=== PATIENT | female | born 1960 | race Caucasian/White ===

== ENCOUNTER 2018-03-14 22:13 | Inpatient (IN) | payer OTHER ==
--- OUTSIDE RECORDS SUMMARY | 2018-03-14 22:15 | XMS REPORT | Clinical Summary ---
:1960 Author Organization [facility] Address [address] [place] [address] Phone Care Team Providers Name Role Phone Unavailable Primary Care Provider Unavailable Allergies No Known Allergies Current Medications Prescription Sig. Disp. Refills Start Date End Date Status DULoxetine (CYMBALTA) Take 1 capsule 60 capsule 0 12/27/2013 Active 20 MG capsule (20 mg total) by mouth 2 (two) times daily. gabapentin (NEURONTIN) Take 1 tablet 90 tablet 0 12/27/2013 Active 800 MG tablet (800 mg total) by mouth 3 (three) times daily. metoprolol (TOPROL-XL) Take 1 tablet 60 tablet 0 12/27/2013 Active 100 MG 24 hr tablet (100 mg total) by mouth 2 (two) times daily. pantoprazole Take 1 tablet (40 60 tablet 0 12/27/2013 Active (PROTONIX) 40 MG mg total) by tablet mouth 2 (two) times daily. rosuvastatin (CRESTOR) Take 1 tablet (10 60 tablet 0 12/27/2013 Active 10 MG tablet mg total) by mouth daily. sucralfate (CARAFATE) Take 1 g by mouth Active 1 gram tablet 4 (four) times daily. aspirin 325 MG tablet Take 325 mg by Active mouth daily. montelukast Take 10 mg by Active (SINGULAIR) 10 mg mouth nightly. tablet miscellaneous medical BMP on 01/23/17 1 each 0 01/19/2017 Active supply Misc results to PCP re: low K. miscellaneous medical Nebulizer 1 each 0 01/19/2017 Active supply Misc machine. Active Problems Problem Noted Date Multifocal pneumonia 01/04/2017 Diarrhea 01/04/2017 Dysphagia 01/04/2017 Acute pancreatitis 01/03/2017 GI AVM (gastrointestinal arteriovenous vascular malformation) 01/03/2017 Blood loss anemia 01/02/2017 Anemia associated with acute blood loss 01/02/2017 Hypotension 01/01/2017 Hypokalemia 01/01/2017 Hypophosphatemia 01/01/2017 Respiratory failure with hypoxia (HCC) 12/30/[address] scan, chest 12/30/2016 Physical deconditioning 12/30/2016 Status epilepticus (HCC) 12/22/2016 Chest pain 12/25/2013 Chest pressure 12/23/2013 Family History Medical History Relation Name Comments Cancer Father Heart disease Father Hyperlipidemia Father Hypertension Father Arthritis Maternal Aunt Cancer Maternal Aunt Stroke Maternal Grandmother Alcohol abuse Mother Arthritis Mother Cancer Mother Early Mother Arthritis Paternal Aunt Diabetes Sister Relation Name Status Comments Father Maternal Aunt Maternal Grandmother Mother Paternal Aunt Sister Social History Tobacco Use Types Packs/Day Years Used Date Current Every Day Smoker Tobacco Cessation: Ready to Quit: No Alcohol Use Drinks/Week oz/Week Comments Yes social Sex Assigned at Date Recorded Not on file Last Filed Vital Signs Not on file Plan of Treatment Not on file Results RHYTHM STRIP - SCAN (07/16/2017 8:51 AM)Only the most recent of2 resultswithin the time period is included.after 03/13/2017
--- OUTSIDE RECORDS SUMMARY | 2018-03-14 22:19 | XMS REPORT ---
:1960 [facility] [address] [place] [address] Care Team Providers Name Role Phone YENIFER BUTLER Unavailable Unavailable Problems This patient has no known problems. Allergies, Adverse Reactions, Alerts This patient has no known allergies or adverse reactions. Medications This patient has no known medications. Results Test Description Test Time Test Comments Text Results Atomic Results Result Comments CBC W/PLT COUNT & AUTO DIFFERENTIAL 2017-01-19 11:46:00 Test Item Value Reference Range Comments WHITE BLOOD CELL COUNT (BEAKER) (test jbya=672) 15.6 K/ L 4.0-10.0 RED BLOOD CELL COUNT (BEAKER) (test nshe=059) 2.52 M/ L 4.00-5.00 HEMOGLOBIN (BEAKER) (test eujj=413) 8.4 GM/DL 12.0-15.0 HEMATOCRIT (BEAKER) (test yvqw=620) 25.5 % 36.0-45.0 MEAN CORPUSCULAR VOLUME (BEAKER) (test ecel=798) 101.0 fL 82.0-99.0 MEAN CORPUSCULAR HEMOGLOBIN (BEAKER) (test svqf=365) 33.3 pg 27.0-33.0 MEAN CORPUSCULAR HEMOGLOBIN CONC (BEAKER) (test fnqa=293) 32.9 GM/DL 32.0- 36.0 RED CELL DISTRIBUTION WIDTH (BEAKER) (test sdsf=096) 15.1 % 10.3-14.2 PLATELET COUNT (BEAKER) (test gxxx=139) 356 K/CU MM 150-430 MEAN PLATELET VOLUME (BEAKER) (test rzvl=928) 8.9 fL 6.5-10.5 NUCLEATED RED BLOOD CELLS (BEAKER) (test eoez=840) 0 /100 WBC 0-0 NEUTROPHILS RELATIVE PERCENT (BEAKER) (test jpff=895) 61 % LYMPHOCYTES RELATIVE PERCENT (BEAKER) (test dvec=937) 14 % MONOCYTES RELATIVE PERCENT (BEAKER) (test hfrm=815) 11 % EOSINOPHILS RELATIVE PERCENT (BEAKER) (test yqde=466) 13 % BASOPHILS RELATIVE PERCENT (BEAKER) (test kkxs=004) 1 % NEUTROPHILS ABSOLUTE COUNT (BEAKER) (test oyno=326) 9.56 K/ L 1.80-8.00 LYMPHOCYTES ABSOLUTE COUNT (BEAKER) (test mbkb=426) 2.21 K/ L 1.48-4.50 MONOCYTES ABSOLUTE COUNT (BEAKER) (test xphk=341) 1.66 K/ L 0.00-1.30 EOSINOPHILS ABSOLUTE COUNT (BEAKER) (test cofz=386) 2.03 K/ L 0.00-0.50 BASOPHILS ABSOLUTE COUNT (BEAKER) (test bevk=349) 0.12 K/ L 0.00-0.20 0.00(MANUAL DIFFERENTIAL)2017-01-19 11:46:00 Test Item Value Reference Range Comments TOTAL COUNTED (BEAKER) (test wvxn=9326) WBC MORPHOLOGY (BEAKER) (test oarm=912) Normal PLT MORPHOLOGY (BEAKER) (test epit=842) Normal RBC MORPHOLOGY (BEAKER) (test jctd=059) Normal POCT-GLUCOSE [id number] 11:39:00 Test Item Value Reference Range Comments POC-GLUCOSE METER (BEAKER) 105 mg/dL 70-110 TESTED AT [address] (test yqsr=7281) [facility] [address] STOOL CULTURE + SHIGA [id number] 09:30:00 Test Item Value Reference Range Comments CULTURE (BEAKER) (test No Salmonella, Shigella or usnm=3552) Campylobacter isolated POCT-GLUCOSE [id number] 07:27:00 Test Item Value Reference Range Comments POC-GLUCOSE METER (BEAKER) 99 mg/dL 70-110 TESTED AT [address] (test ydoc=6455) [facility] [address] VITAMIN B12 AND [id number] 06:47:00 Test Item Value Reference Range Comments VITAMIN B12 (BEAKER) (test jfds=123) 687 pg/mL 213-816 FOLATE (BEAKER) (test kmjm=118) 8.9 ng/mL >=7.0 Effective 09/19/2014: Folate Reference Range ChangeNew: >=7.0 Previous: & gt;=[id number] 05:41:00 Test Item Value Reference Range Comments PHOSPHORUS (BEAKER) (test wwzx=473) 5.1 mg/dL 2.3-4.7 COMPREHENSIVE METABOLIC [id number] 05:41:00 Test Item Value Reference Range Comments TOTAL PROTEIN (BEAKER) 5.8 gm/dL 6.0-8.3 (test fzws=449) ALBUMIN (BEAKER) (test 2.6 g/dL 3.5-5.0 njko=2762) ALKALINE PHOSPHATASE 134 U/L 40-150 (BEAKER) (test lsco=828) BILIRUBIN TOTAL (BEAKER) 0.2 mg/dL 0.2-1.2 (test kiat=492) SODIUM (BEAKER) (test 139 meq/L 136-145 mngu=232) POTASSIUM (BEAKER) (test 2.9 meq/L 3.5-5.1 awle=852) CHLORIDE (BEAKER) (test 103 meq/L 98-107 sjcn=734) CO2 (BEAKER) (test 26 meq/L 22-29 ctjj=107) BLOOD UREA NITROGEN 8 mg/dL 7-21 (BEAKER) (test ylxb=880) CREATININE (BEAKER) (test 0.63 mg/dL 0.57-1.25 tjlh=859) GLUCOSE RANDOM (BEAKER) 90 mg/dL 70-105 (test togr=391) CALCIUM (BEAKER) (test 8.9 mg/dL 8.4-10.2 ixto=296) AST (SGOT) (BEAKER) (test 53 U/L 5-34 kzwf=304) ALT (SGPT) (BEAKER) (test 36 U/L 6-55 lrtz=467) EGFR (BEAKER) (test 98 mL/min/1.73 sq m ESTIMATED GFR IS NOT entu=8516) ACCURATE CREATININE CLEARANCE IN PREDICTING GLOMERULAR FILTRATION RATE. ESTIMATED GFR IS NOT APPLICABLE FOR DIALYSIS PATIENTS. POCT-GLUCOSE [id number] 21:13:00 Test Item Value Reference Range Comments POC-GLUCOSE METER (BEAKER) 119 mg/dL 70-110 TESTED AT [address] (test xkrs=0718) [facility] [address] POCT-GLUCOSE [id number] 17:26:00 Test Item Value Reference Range Comments POC-GLUCOSE METER (BEAKER) 128 mg/dL 70-110 TESTED AT [address] (test nnxl=3546) [place] [id number] SHIGA TOXIN [id number] 14:26:00 Test Item Value Reference Range Comments SHIGA TOXIN 1 (BEAKER) (test zclm=2316) Not detected Not detected SHIGA TOXIN 2 (BEAKER) (test mhpy=2123) Not detected Not detected POCT-GLUCOSE [id number] 13:21:00 Test Item Value Reference Range Comments POC-GLUCOSE METER (BEAKER) 102 mg/dL 70-110 TESTED AT [address] (test witu=8017) [place] [address] STOOL PATH [id number] 11:54:00 Test Item Value Reference Range Comments PATHOGEN EXAM CHARGED (BEAKER) (test vgkq=1104) Done POCT-GLUCOSE [id number] 08:29:00 Test Item Value Reference Range Comments POC-GLUCOSE METER (BEAKER) 103 mg/dL 70-110 TESTED AT [address] (test gcpx=1709) [place] [address] CBC W/PLT COUNT & AUTO [id number] 05:34:00 Test Item Value Reference Range Comments WHITE BLOOD CELL COUNT (BEAKER) (test qnea=116) 13.8 K/ L 4.0-10.0 RED BLOOD CELL COUNT (BEAKER) (test dpkf=340) 2.45 M/ L 4.00-5.00 HEMOGLOBIN (BEAKER) (test zdzx=409) 8.1 GM/DL 12.0-15.0 HEMATOCRIT (BEAKER) (test pqkk=868) 24.7 % 36.0-45.0 MEAN CORPUSCULAR VOLUME (BEAKER) (test xyxi=565) 101.0 fL 82.0-99.0 MEAN CORPUSCULAR HEMOGLOBIN (BEAKER) (test 33.3 pg 27.0-33.0 gvbf=230) MEAN CORPUSCULAR HEMOGLOBIN CONC (BEAKER) (test 32.9 GM/DL 32.0-36.0 wixm=696) RED CELL DISTRIBUTION WIDTH (BEAKER) (test 15.4 % 10.3-14.2 ewkf=062) PLATELET COUNT (BEAKER) (test xolz=319) 353 K/CU MM 150-430 MEAN PLATELET VOLUME (BEAKER) (test rkrt=660) 8.9 fL 6.5-10.5 NUCLEATED RED BLOOD CELLS (BEAKER) (test 0 /100 WBC 0-0 mqqp=562) NEUTROPHILS RELATIVE PERCENT (BEAKER) (test 61 % puss=475) LYMPHOCYTES RELATIVE PERCENT (BEAKER) (test 15 % ywfb=651) MONOCYTES RELATIVE PERCENT (BEAKER) (test 10 % patr=999) EOSINOPHILS RELATIVE PERCENT (BEAKER) (test 13 % lwer=459) BASOPHILS RELATIVE PERCENT (BEAKER) (test 1 % qeln=256) NEUTROPHILS ABSOLUTE COUNT (BEAKER) (test 8.38 K/ L 1.80-8.00 pdfo=527) LYMPHOCYTES ABSOLUTE COUNT (BEAKER) (test 2.07 K/ L 1.48-4.50 rjuo=350) MONOCYTES ABSOLUTE COUNT (BEAKER) (test 1.42 K/ L 0.00-1.30 gvxp=579) EOSINOPHILS ABSOLUTE COUNT (BEAKER) (test 1.75 K/ L 0.00-0.50 qmee=250) BASOPHILS ABSOLUTE COUNT (BEAKER) (test 0.15 K/ L 0.00-0.20 irku=230) [id number] 05:24:00 Test Item Value Reference Range Comments PHOSPHORUS (BEAKER) (test olvn=138) 5.7 mg/dL 2.3-4.7 POCT-GLUCOSE [id number] 20:55:00 Test Item Value Reference Range Comments POC-GLUCOSE METER (BEAKER) 98 mg/dL 70-110 TESTED AT [address] (test lcab=8385) [place] [address] POCT-GLUCOSE [id number] 17:37:00 Test Item Value Reference Range Comments POC-GLUCOSE METER (BEAKER) 117 mg/dL 70-110 TESTED AT [address] (test rqsz=8184) [place] [address] OCCULT BLOOD, [id number] 16:19:00 Test Item Value Reference Range Comments FECAL OCCULT BLOOD (BEAKER) (test qpxr=552) Negative Negative POCT-GLUCOSE [id number] 12:16:00 Test Item Value Reference Range Comments POC-GLUCOSE METER (BEAKER) 99 mg/dL 70-[address] [facility] [address] [facility] (test uvbc=5159) [facility] [address] POCT-GLUCOSE [id number] 11:38:00 Test Item Value Reference Range Comments POC-GLUCOSE METER (BEAKER) 100 mg/dL 70-[address] [facility] [address] [facility] (test fwyy=8171) [facility] [address] CBC W/PLT COUNT & AUTO [id number] 09:23:00 Test Item Value Reference Range Comments WHITE BLOOD CELL COUNT (BEAKER) (test ypjq=859) 16.9 K/ L 4.0-10.0 RED BLOOD CELL COUNT (BEAKER) (test qbfm=085) 2.50 M/ L 4.00-5.00 HEMOGLOBIN (BEAKER) (test avsg=361) 8.3 GM/DL 12.0-15.0 HEMATOCRIT (BEAKER) (test rfrq=708) 25.3 % 36.0-45.0 MEAN CORPUSCULAR VOLUME (BEAKER) (test dmpv=616) 101.0 fL 82.0-99.0 MEAN CORPUSCULAR HEMOGLOBIN (BEAKER) (test 33.2 pg 27.0-33.0 cifr=777) MEAN CORPUSCULAR HEMOGLOBIN CONC (BEAKER) (test 32.7 GM/DL 32.0-36.0 kzzc=964) RED CELL DISTRIBUTION WIDTH (BEAKER) (test 15.1 % 10.3-14.2 zivi=602) PLATELET COUNT (BEAKER) (test znvu=525) 353 K/CU MM 150-430 MEAN PLATELET VOLUME (BEAKER) (test utyc=957) 9.0 fL 6.5-10.5 NUCLEATED RED BLOOD CELLS (BEAKER) (test 0 /100 WBC 0-0 qwyu=604) NEUTROPHILS RELATIVE PERCENT (BEAKER) (test 64 % rwrk=915) LYMPHOCYTES RELATIVE PERCENT (BEAKER) (test 15 % mgkm=398) MONOCYTES RELATIVE PERCENT (BEAKER) (test 9 % kdwk=036) EOSINOPHILS RELATIVE PERCENT (BEAKER) (test 11 % nefw=251) BASOPHILS RELATIVE PERCENT (BEAKER) (test 1 % msra=334) NEUTROPHILS ABSOLUTE COUNT (BEAKER) (test 10.80 K/ L 1.80-8.00 vsaz=533) LYMPHOCYTES ABSOLUTE COUNT (BEAKER) (test 2.48 K/ L 1.48-4.50 hwtr=817) MONOCYTES ABSOLUTE COUNT (BEAKER) (test 1.60 K/ L 0.00-1.30 told=392) EOSINOPHILS ABSOLUTE COUNT (BEAKER) (test 1.85 K/ L 0.00-0.50 iwwu=332) BASOPHILS ABSOLUTE COUNT (BEAKER) (test 0.15 K/ L 0.00-0.20 gstv=482) [id number] 06:54:00 Test Item Value Reference Range Comments PHOSPHORUS (BEAKER) (test yayg=343) 5.2 mg/dL 2.3-4.7 POCT-GLUCOSE [id number] 22:42:00 Test Item Value Reference Range Comments POC-GLUCOSE METER (BEAKER) 133 mg/dL 70-[address] [facility] [address] [facility] (test gnxa=9006) [facility] [address] CBC W/PLT COUNT & AUTO [id number] 21:06:00 Test Item Value Reference Range Comments WHITE BLOOD CELL COUNT (BEAKER) (test vvgh=862) 20.0 K/ L 4.0-10.0 RED BLOOD CELL COUNT (BEAKER) (test aafl=926) 2.61 M/ L 4.00-5.00 HEMOGLOBIN (BEAKER) (test zkxn=629) 8.6 GM/DL 12.0-15.0 HEMATOCRIT (BEAKER) (test ndzs=638) 26.2 % 36.0-45.0 MEAN CORPUSCULAR VOLUME (BEAKER) (test vknp=893) 100.0 fL 82.0-99.0 MEAN CORPUSCULAR HEMOGLOBIN (BEAKER) (test 32.9 pg 27.0-33.0 sbgx=804) MEAN CORPUSCULAR HEMOGLOBIN CONC (BEAKER) (test 32.8 GM/DL 32.0-36.0 ozja=916) RED CELL DISTRIBUTION WIDTH (BEAKER) (test 14.9 % 10.3-14.2 bhyw=300) PLATELET COUNT (BEAKER) (test ixoa=274) 348 K/CU MM 150-430 MEAN PLATELET VOLUME (BEAKER) (test dlhh=600) 7.9 fL 6.5-10.5 NUCLEATED RED BLOOD CELLS (BEAKER) (test 0 /100 WBC 0-0 lbxs=832) NEUTROPHILS RELATIVE PERCENT (BEAKER) (test 65 % mzlm=866) LYMPHOCYTES RELATIVE PERCENT (BEAKER) (test 16 % cdyt=395) MONOCYTES RELATIVE PERCENT (BEAKER) (test 9 % hlub=970) EOSINOPHILS RELATIVE PERCENT (BEAKER) (test 9 % nzci=939) BASOPHILS RELATIVE PERCENT (BEAKER) (test 1 % arel=966) NEUTROPHILS ABSOLUTE COUNT (BEAKER) (test 13.00 K/ L 1.80-8.00 vabn=596) LYMPHOCYTES ABSOLUTE COUNT (BEAKER) (test 3.23 K/ L 1.48-4.50 khbu=303) MONOCYTES ABSOLUTE COUNT (BEAKER) (test 1.75 K/ L 0.00-1.30 onzb=275) EOSINOPHILS ABSOLUTE COUNT (BEAKER) (test 1.85 K/ L 0.00-0.50 gtzp=982) BASOPHILS ABSOLUTE COUNT (BEAKER) (test 0.15 K/ L 0.00-0.20 xwdm=856) 0.00POCT-GLUCOSE [id number] 17:24:00 Test Item Value Reference Range Comments POC-GLUCOSE METER (BEAKER) 139 mg/dL 70-110 TESTED AT [address] (test xezj=0260) [place] [address] POCT-GLUCOSE [id number] 12:50:00 Test Item Value Reference Range Comments POC-GLUCOSE METER (BEAKER) 117 mg/dL 70-110 TESTED AT [address] (test jtsb=5928) [place] [address] POCT-GLUCOSE [id number] 07:59:00 Test Item Value Reference Range Comments POC-GLUCOSE METER (BEAKER) 120 mg/dL 70-110 TESTED AT [address] (test geyp=8283) [place] [address] [id number] 07:29:00 Test Item Value Reference Range Comments PHOSPHORUS (BEAKER) (test nkzx=666) 5.2 mg/dL 2.3-4.7 POCT-GLUCOSE [id number] 21:34:00 Test Item Value Reference Range Comments POC-GLUCOSE METER (BEAKER) 136 mg/dL 70-110 TESTED AT [address] (test wbny=9407) [place] [address] POCT-GLUCOSE [id number] 18:10:00 Test Item Value Reference Range Comments POC-GLUCOSE METER (BEAKER) 116 mg/dL 70-110 TESTED AT [address] (test fzgr=1314) [facility] [address] COMPREHENSIVE METABOLIC [id number] 14:27:00 Test Item Value Reference Range Comments TOTAL PROTEIN (BEAKER) 5.9 gm/dL 6.0-8.3 Specimen moderately (test ibvy=254) hemolyzed ALBUMIN (BEAKER) (test 2.2 g/dL 3.5-5.0 Specimen moderately tzcd=0122) hemolyzed ALKALINE PHOSPHATASE 134 U/L 40-150 (BEAKER) (test fmpr=863) BILIRUBIN TOTAL (BEAKER) 0.2 mg/dL 0.2-1.2 Specimen moderately (test lyzc=232) hemolyzed SODIUM (BEAKER) (test 138 meq/L 136-145 xkre=933) POTASSIUM (BEAKER) (test 3.9 meq/L 3.5-5.1 Specimen moderately hqjq=254) hemolyzed CHLORIDE (BEAKER) (test 107 meq/L 98-107 cbjk=531) CO2 (BEAKER) (test 23 meq/L 22-29 idfl=263) BLOOD UREA NITROGEN 8 mg/dL 7-21 (BEAKER) (test hona=098) CREATININE (BEAKER) (test 0.64 mg/dL 0.57-1.25 Specimen moderately ulno=211) hemolyzed GLUCOSE RANDOM (BEAKER) 96 mg/dL 70-105 (test lean=891) CALCIUM (BEAKER) (test 8.4 mg/dL 8.4-10.2 tsth=273) AST (SGOT) (BEAKER) (test 29 U/L 5-34 Specimen moderately ojht=816) hemolyzed ALT (SGPT) (BEAKER) (test 11 U/L 6-55 Specimen moderately nzmd=314) hemolyzed EGFR (BEAKER) (test 96 mL/min/1.73 sq m ESTIMATED GFR IS NOT lvqj=1200) ACCURATE CREATININE CLEARANCE IN PREDICTING GLOMERULAR FILTRATION RATE. ESTIMATED GFR IS NOT APPLICABLE FOR DIALYSIS PATIENTS. POCT-GLUCOSE [id number] 12:50:00 Test Item Value Reference Range Comments POC-GLUCOSE METER (BEAKER) 135 mg/dL 70-110 TESTED AT [address] (test rfwb=1941) [facility] [address] POCT-GLUCOSE [id number] 08:09:00 Test Item Value Reference Range Comments POC-GLUCOSE METER (BEAKER) 164 mg/dL 70-110 TESTED AT [address] (test bbky=4608) [place] [address] [id number] 05:21:00 Test Item Value Reference Range Comments PHOSPHORUS (BEAKER) (test exsn=840) 4.9 mg/dL 2.3-4.7 POCT-GLUCOSE [id number] 21:20:00 Test Item Value Reference Range Comments POC-GLUCOSE METER (BEAKER) 105 mg/dL 70-110 TESTED AT [address] (test qoik=7591) [place] [address] POCT-GLUCOSE [id number] 17:13:00 Test Item Value Reference Range Comments POC-GLUCOSE METER (BEAKER) 186 mg/dL 70-110 TESTED AT [address] (test ajms=8006) [place] [address] POCT-GLUCOSE [id number] 11:46:00 Test Item Value Reference Range Comments POC-GLUCOSE METER (BEAKER) 129 mg/dL 70-110 TESTED AT [address] (test efqn=7701) [place] [address] POCT-GLUCOSE [id number] 08:32:00 Test Item Value Reference Range Comments POC-GLUCOSE METER (BEAKER) 133 mg/dL 70-110 TESTED AT [address] (test vzxq=8366) [place] [address] [id number] 07:03:00 Test Item Value Reference Range Comments PHOSPHORUS (BEAKER) (test joqm=548) 3.9 mg/dL 2.3-4.7 POCT-GLUCOSE [id number] 20:52:00 Test Item Value Reference Range Comments POC-GLUCOSE METER (BEAKER) 111 mg/dL 70-110 TESTED AT [address] (test igzq=2365) [place] [address] POCT-GLUCOSE [id number] 15:58:00 Test Item Value Reference Range Comments POC-GLUCOSE METER (BEAKER) 85 mg/dL 70-110 TESTED AT [address] (test xjar=3292) [place] [address] [id number] 07:50:00 Test Item Value Reference Range Comments TRIGLYCERIDES (BEAKER) (test nqwe=901) 155 mg/dL TRIGLYCERIDE REFERENCE RANGELow Risk <150Borderline Risk 150-199High Risk 200-499Very High Risk>=[id number] 07:50:00 Test Item Value Reference Range Comments MAGNESIUM (BEAKER) (test acnr=249) 1.2 mg/dL 1.6-2.6 [id number] 07:50:00 Test Item Value Reference Range Comments PHOSPHORUS (BEAKER) (test oely=562) 3.4 mg/dL 2.3-4.7 BASIC METABOLIC [id number] 07:50:00 Test Item Value Reference Range Comments SODIUM (BEAKER) (test 139 meq/L 136-145 btnd=971) POTASSIUM (BEAKER) (test 3.8 meq/L 3.5-5.1 eosh=276) CHLORIDE (BEAKER) (test 108 meq/L 98-107 ekjj=784) CO2 (BEAKER) (test 23 meq/L 22-29 lark=171) BLOOD UREA NITROGEN 2 mg/dL 7-21 (BEAKER) (test yjzc=571) CREATININE (BEAKER) (test 0.54 mg/dL 0.57-1.25 jqub=402) GLUCOSE RANDOM (BEAKER) 67 mg/dL 70-105 (test prhy=797) CALCIUM (BEAKER) (test 8.5 mg/dL 8.4-10.2 eiug=189) EGFR (BEAKER) (test 117 mL/min/1.73 sq m ESTIMATED GFR IS NOT oxca=1842) ACCURATE CREATININE CLEARANCE IN PREDICTING GLOMERULAR FILTRATION RATE. ESTIMATED GFR IS NOT APPLICABLE FOR DIALYSIS PATIENTS. POCT-GLUCOSE [id number] 07:42:00 Test Item Value Reference Range Comments POC-GLUCOSE METER (BEAKER) 82 mg/dL 70-[address] [facility] [address] [facility] (test fnep=7244) [facility] [address] CALCIUM, [id number] 06:01:00 Test Item Value Reference Range Comments CALCIUM IONIZED (BEAKER) (test xdxm=323) 1.11 mmol/L 1.12-1.27 PH, BLOOD (BEAKER) (test bguy=1739) 7.42 POCT-GLUCOSE [id number] 21:31:00 Test Item Value Reference Range Comments POC-GLUCOSE METER (BEAKER) 79 mg/dL 70-110 TESTED AT [address] (test akco=5695) [facility] [address] POCT-GLUCOSE [id number] 17:10:00 Test Item Value Reference Range Comments POC-GLUCOSE METER (BEAKER) 109 mg/dL 70-110 TESTED AT [address] (test uufa=3967) [facility] [address] POCT-GLUCOSE [id number] 11:34:00 Test Item Value Reference Range Comments POC-GLUCOSE METER (BEAKER) 82 mg/dL 70-110 TESTED AT [address] (test hosm=4655) [facility] [address] POCT-GLUCOSE [id number] 07:25:00 Test Item Value Reference Range Comments POC-GLUCOSE METER (BEAKER) 86 mg/dL 70-110 TESTED AT [address] (test jrld=7675) [facility] [address] [id number] 06:53:00 Test Item Value Reference Range Comments PHOSPHORUS (BEAKER) (test nrhl=958) 2.6 mg/dL 2.3-4.7 BASIC METABOLIC [id number] 06:53:00 Test Item Value Reference Range Comments SODIUM (BEAKER) (test 139 meq/L 136-145 zavv=194) POTASSIUM (BEAKER) (test 4.0 meq/L 3.5-5.1 suol=429) CHLORIDE (BEAKER) (test 112 meq/L 98-107 clrj=853) CO2 (BEAKER) (test 23 meq/L 22-29 pwbw=107) BLOOD UREA NITROGEN 2 mg/dL 7-21 (BEAKER) (test juvs=992) CREATININE (BEAKER) (test 0.51 mg/dL 0.57-1.25 qsgq=649) GLUCOSE RANDOM (BEAKER) 72 mg/dL 70-105 (test znbj=637) CALCIUM (BEAKER) (test 8.2 mg/dL 8.4-10.2 ufcp=669) EGFR (BEAKER) (test 125 mL/min/1.73 sq m ESTIMATED GFR IS NOT hvru=4091) ACCURATE CREATININE CLEARANCE IN PREDICTING GLOMERULAR FILTRATION RATE. ESTIMATED GFR IS NOT APPLICABLE FOR DIALYSIS PATIENTS. CBC W/PLT COUNT & AUTO [id number] 06:44:00 Test Item Value Reference Range Comments WHITE BLOOD CELL COUNT (BEAKER) (test lizk=133) 11.8 K/ L 4.0-10.0 RED BLOOD CELL COUNT (BEAKER) (test icry=842) 2.82 M/ L 4.00-5.00 HEMOGLOBIN (BEAKER) (test oxzt=450) 9.1 GM/DL 12.0-15.0 HEMATOCRIT (BEAKER) (test cxsh=801) 28.2 % 36.0-45.0 MEAN CORPUSCULAR VOLUME (BEAKER) (test plxn=269) 99.7 fL 82.0-99.0 MEAN CORPUSCULAR HEMOGLOBIN (BEAKER) (test 32.2 pg 27.0-33.0 wtpe=850) MEAN CORPUSCULAR HEMOGLOBIN CONC (BEAKER) (test 32.3 GM/DL 32.0-36.0 kkod=406) RED CELL DISTRIBUTION WIDTH (BEAKER) (test 15.7 % 10.3-14.2 ghpv=832) PLATELET COUNT (BEAKER) (test gval=354) 513 K/CU MM 150-430 MEAN PLATELET VOLUME (BEAKER) (test kbcy=480) 8.1 fL 6.5-10.5 NUCLEATED RED BLOOD CELLS (BEAKER) (test 0 /100 WBC 0-0 eqqc=281) NEUTROPHILS RELATIVE PERCENT (BEAKER) (test 55 % wqyw=425) LYMPHOCYTES RELATIVE PERCENT (BEAKER) (test 18 % ehse=804) MONOCYTES RELATIVE PERCENT (BEAKER) (test 12 % kkbn=894) EOSINOPHILS RELATIVE PERCENT (BEAKER) (test 14 % hlxl=970) BASOPHILS RELATIVE PERCENT (BEAKER) (test 1 % nazo=220) NEUTROPHILS ABSOLUTE COUNT (BEAKER) (test 6.47 K/ L 1.80-8.00 ecwm=609) LYMPHOCYTES ABSOLUTE COUNT (BEAKER) (test 2.14 K/ L 1.48-4.50 kqvj=496) MONOCYTES ABSOLUTE COUNT (BEAKER) (test 1.41 K/ L 0.00-1.30 pgrv=737) EOSINOPHILS ABSOLUTE COUNT (BEAKER) (test 1.61 K/ L 0.00-0.50 aoru=600) BASOPHILS ABSOLUTE COUNT (BEAKER) (test 0.14 K/ L 0.00-0.20 xcqd=312) 0.00POCT-GLUCOSE [id number] 21:43:00 Test Item Value Reference Range Comments POC-GLUCOSE METER (BEAKER) 96 mg/dL 70-110 TESTED AT [address] (test dkmh=1263) [place] [id number] OCCULT BLOOD, [id number] 19:25:00 Test Item Value Reference Range Comments FECAL OCCULT BLOOD (BEAKER) (test nkks=215) Negative Negative POCT-GLUCOSE [id number] 18:10:00 Test Item Value Reference Range Comments POC-GLUCOSE METER (BEAKER) 128 mg/dL 70-110 TESTED AT [address] (test suqc=7585) [facility] [id number] POCT-GLUCOSE [id number] 13:34:00 Test Item Value Reference Range Comments POC-GLUCOSE METER (BEAKER) 83 mg/dL 70-110 TESTED AT [address] (test jmuu=8511) [facility] [id number] POCT-GLUCOSE [id number] 08:21:00 Test Item Value Reference Range Comments POC-GLUCOSE METER (BEAKER) 87 mg/dL 70-110 TESTED AT [address] (test jhyq=4321) [place] [id number] CBC W/PLT COUNT & AUTO [id number] 06:10:00 Test Item Value Reference Range Comments WHITE BLOOD CELL COUNT (BEAKER) (test hjwk=356) 12.5 K/ L 4.0-10.0 RED BLOOD CELL COUNT (BEAKER) (test zveb=116) 2.82 M/ L 4.00-5.00 HEMOGLOBIN (BEAKER) (test hgtp=374) 9.4 GM/DL 12.0-15.0 HEMATOCRIT (BEAKER) (test fflc=293) 28.8 % 36.0-45.0 MEAN CORPUSCULAR VOLUME (BEAKER) (test riuo=970) 102.0 fL 82.0-99.0 MEAN CORPUSCULAR HEMOGLOBIN (BEAKER) (test 33.4 pg 27.0-33.0 ygmx=852) MEAN CORPUSCULAR HEMOGLOBIN CONC (BEAKER) (test 32.7 GM/DL 32.0-36.0 uboc=249) RED CELL DISTRIBUTION WIDTH (BEAKER) (test 15.5 % 10.3-14.2 qckn=864) PLATELET COUNT (BEAKER) (test xhhs=815) 561 K/CU MM 150-430 MEAN PLATELET VOLUME (BEAKER) (test ujxe=642) 8.5 fL 6.5-10.5 NUCLEATED RED BLOOD CELLS (BEAKER) (test 0 /100 WBC 0-0 jmzi=559) NEUTROPHILS RELATIVE PERCENT (BEAKER) (test 59 % ssmv=601) LYMPHOCYTES RELATIVE PERCENT (BEAKER) (test 17 % tinz=417) MONOCYTES RELATIVE PERCENT (BEAKER) (test 12 % uljb=250) EOSINOPHILS RELATIVE PERCENT (BEAKER) (test 11 % nbtc=585) BASOPHILS RELATIVE PERCENT (BEAKER) (test 1 % hopv=086) NEUTROPHILS ABSOLUTE COUNT (BEAKER) (test 7.43 K/ L 1.80-8.00 wvmq=336) LYMPHOCYTES ABSOLUTE COUNT (BEAKER) (test 2.08 K/ L 1.48-4.50 yrvo=944) MONOCYTES ABSOLUTE COUNT (BEAKER) (test 1.48 K/ L 0.00-1.30 jqnk=501) EOSINOPHILS ABSOLUTE COUNT (BEAKER) (test 1.43 K/ L 0.00-0.50 cdwe=922) BASOPHILS ABSOLUTE COUNT (BEAKER) (test 0.13 K/ L 0.00-0.20 debc=443) [id number] 06:03:00 Test Item Value Reference Range Comments PHOSPHORUS (BEAKER) (test mpgt=181) 2.8 mg/dL 2.3-4.7 BASIC METABOLIC [id number] 06:03:00 Test Item Value Reference Range Comments SODIUM (BEAKER) (test 141 meq/L 136-145 zzej=823) POTASSIUM (BEAKER) (test 2.9 meq/L 3.5-5.1 bkmr=966) CHLORIDE (BEAKER) (test 111 meq/L 98-107 lczt=512) CO2 (BEAKER) (test 22 meq/L 22-29 zcqb=994) BLOOD UREA NITROGEN 2 mg/dL 7-21 (BEAKER) (test hylj=079) CREATININE (BEAKER) (test 0.50 mg/dL 0.57-1.25 ofaj=733) GLUCOSE RANDOM (BEAKER) 81 mg/dL 70-105 (test uvob=984) CALCIUM (BEAKER) (test 8.3 mg/dL 8.4-10.2 gket=506) EGFR (BEAKER) (test 128 mL/min/1.73 sq m ESTIMATED GFR IS NOT dovg=9530) ACCURATE CREATININE CLEARANCE IN PREDICTING GLOMERULAR FILTRATION RATE. ESTIMATED GFR IS NOT APPLICABLE FOR DIALYSIS PATIENTS. POCT-GLUCOSE [id number] 21:19:00 Test Item Value Reference Range Comments POC-GLUCOSE METER (BEAKER) 92 mg/dL 70-110 TESTED AT [address] (test hotd=0934) [place] [id number] POCT-GLUCOSE [id number] 17:40:00 Test Item Value Reference Range Comments POC-GLUCOSE METER (BEAKER) 124 mg/dL 70-110 TESTED AT [address] (test vlte=4652) [place] [id number] POCT-GLUCOSE [id number] 12:23:00 Test Item Value Reference Range Comments POC-GLUCOSE METER (BEAKER) 83 mg/dL 70-110 TESTED AT [address] (test rwrb=1369) [place] [id number] POCT-GLUCOSE [id number] 07:58:00 Test Item Value Reference Range Comments POC-GLUCOSE METER (BEAKER) 82 mg/dL 70-110 TESTED AT [address] (test vuvq=2115) [place] [id number] CBC W/PLT COUNT & AUTO [id number] 07:04:00 Test Item Value Reference Range Comments WHITE BLOOD CELL COUNT (BEAKER) (test aeoy=451) 13.0 K/ L 4.0-10.0 RED BLOOD CELL COUNT (BEAKER) (test cwwk=129) 2.64 M/ L 4.00-5.00 HEMOGLOBIN (BEAKER) (test izni=622) 9.1 GM/DL 12.0-15.0 HEMATOCRIT (BEAKER) (test ooqx=348) 26.9 % 36.0-45.0 MEAN CORPUSCULAR VOLUME (BEAKER) (test jfal=614) 102.0 fL 82.0-99.0 MEAN CORPUSCULAR HEMOGLOBIN (BEAKER) (test 34.5 pg 27.0-33.0 xmfg=684) MEAN CORPUSCULAR HEMOGLOBIN CONC (BEAKER) (test 33.8 GM/DL 32.0-36.0 joqg=937) RED CELL DISTRIBUTION WIDTH (BEAKER) (test 15.6 % 10.3-14.2 prpo=523) PLATELET COUNT (BEAKER) (test nrep=423) 569 K/CU MM 150-430 MEAN PLATELET VOLUME (BEAKER) (test mnpu=581) 8.6 fL 6.5-10.5 NUCLEATED RED BLOOD CELLS (BEAKER) (test 0 /100 WBC 0-0 aped=927) NEUTROPHILS RELATIVE PERCENT (BEAKER) (test 62 % hqrj=121) LYMPHOCYTES RELATIVE PERCENT (BEAKER) (test 15 % olvx=340) MONOCYTES RELATIVE PERCENT (BEAKER) (test 12 % ktbk=527) EOSINOPHILS RELATIVE PERCENT (BEAKER) (test 10 % wbxe=078) BASOPHILS RELATIVE PERCENT (BEAKER) (test 1 % gote=668) NEUTROPHILS ABSOLUTE COUNT (BEAKER) (test 7.99 K/ L 1.80-8.00 ffkk=148) LYMPHOCYTES ABSOLUTE COUNT (BEAKER) (test 1.93 K/ L 1.48-4.50 qbhr=942) MONOCYTES ABSOLUTE COUNT (BEAKER) (test 1.60 K/ L 0.00-1.30 mhew=006) EOSINOPHILS ABSOLUTE COUNT (BEAKER) (test 1.28 K/ L 0.00-0.50 qidp=477) BASOPHILS ABSOLUTE COUNT (BEAKER) (test 0.16 K/ L 0.00-0.20 zwoq=394) [id number] 06:42:00 Test Item Value Reference Range Comments PHOSPHORUS (BEAKER) (test pgai=535) 3.0 mg/dL 2.3-4.7 BASIC METABOLIC [id number] 06:42:00 Test Item Value Reference Range Comments SODIUM (BEAKER) (test 141 meq/L 136-145 lgpe=376) POTASSIUM (BEAKER) (test 3.0 meq/L 3.5-5.1 ehbx=913) CHLORIDE (BEAKER) (test 109 meq/L 98-107 aief=081) CO2 (BEAKER) (test 24 meq/L 22-29 heby=554) BLOOD UREA NITROGEN 2 mg/dL 7-21 (BEAKER) (test yazb=324) CREATININE (BEAKER) (test 0.47 mg/dL 0.57-1.25 lveb=494) GLUCOSE RANDOM (BEAKER) 74 mg/dL 70-105 (test wnwd=065) CALCIUM (BEAKER) (test 8.5 mg/dL 8.4-10.2 yhys=690) EGFR (BEAKER) (test 137 mL/min/1.73 sq m ESTIMATED GFR IS NOT jtuj=5751) ACCURATE CREATININE CLEARANCE IN PREDICTING GLOMERULAR FILTRATION RATE. ESTIMATED GFR IS NOT APPLICABLE FOR DIALYSIS PATIENTS. POCT-GLUCOSE [id number] 21:11:00 Test Item Value Reference Range Comments POC-GLUCOSE METER (BEAKER) 98 mg/dL 70-110 TESTED AT [address] (test olpl=1869) [place] [id number] POCT-GLUCOSE [id number] 17:57:00 Test Item Value Reference Range Comments POC-GLUCOSE METER (BEAKER) 110 mg/dL 70-110 TESTED AT [address] (test bvqc=9597) [place] [id number] POCT-GLUCOSE [id number] 11:34:00 Test Item Value Reference Range Comments POC-GLUCOSE METER (BEAKER) 145 mg/dL 70-110 TESTED AT [address] (test xpka=6412) [facility] [address] CBC W/PLT COUNT & AUTO [id number] 08:38:00 Test Item Value Reference Range Comments WHITE BLOOD CELL COUNT (BEAKER) (test sbvu=962) 12.6 K/ L 4.0-10.0 RED BLOOD CELL COUNT (BEAKER) (test nqdo=112) 2.62 M/ L 4.00-5.00 HEMOGLOBIN (BEAKER) (test xnwb=343) 8.7 GM/DL 12.0-15.0 HEMATOCRIT (BEAKER) (test yxzn=901) 26.7 % 36.0-45.0 MEAN CORPUSCULAR VOLUME (BEAKER) (test lore=773) 102.0 fL 82.0-99.0 MEAN CORPUSCULAR HEMOGLOBIN (BEAKER) (test 33.3 pg 27.0-33.0 slxs=029) MEAN CORPUSCULAR HEMOGLOBIN CONC (BEAKER) (test 32.7 GM/DL 32.0-36.0 ofmz=663) RED CELL DISTRIBUTION WIDTH (BEAKER) (test 16.4 % 10.3-14.2 wulf=961) PLATELET COUNT (BEAKER) (test nvnz=343) 566 K/CU MM 150-430 MEAN PLATELET VOLUME (BEAKER) (test zmdm=467) 8.9 fL 6.5-10.5 NUCLEATED RED BLOOD CELLS (BEAKER) (test 0 /100 WBC 0-0 mscv=355) NEUTROPHILS RELATIVE PERCENT (BEAKER) (test 63 % ntwt=407) LYMPHOCYTES RELATIVE PERCENT (BEAKER) (test 15 % lyxs=282) MONOCYTES RELATIVE PERCENT (BEAKER) (test 14 % kcaq=968) EOSINOPHILS RELATIVE PERCENT (BEAKER) (test 7 % ubrv=101) BASOPHILS RELATIVE PERCENT (BEAKER) (test 1 % xpxb=294) NEUTROPHILS ABSOLUTE COUNT (BEAKER) (test 7.88 K/ L 1.80-8.00 acfo=289) LYMPHOCYTES ABSOLUTE COUNT (BEAKER) (test 1.87 K/ L 1.48-4.50 umkl=378) MONOCYTES ABSOLUTE COUNT (BEAKER) (test 1.82 K/ L 0.00-1.30 qzdn=194) EOSINOPHILS ABSOLUTE COUNT (BEAKER) (test 0.92 K/ L 0.00-0.50 sbnt=292) BASOPHILS ABSOLUTE COUNT (BEAKER) (test 0.13 K/ L 0.00-0.20 ywml=985) [id number] 06:09:00 Test Item Value Reference Range Comments PHOSPHORUS (BEAKER) (test sbzo=625) 2.3 mg/dL 2.3-4.7 POCT-GLUCOSE [id number] 20:49:00 Test Item Value Reference Range Comments POC-GLUCOSE METER (BEAKER) 78 mg/dL 70-[address] [facility] [address] [facility] (test tkyc=9068) [facility] [address] HEMOGLOBIN AND [id number] 18:41:00 Test Item Value Reference Range Comments HEMOGLOBIN (BEAKER) (test cccn=787) 9.0 GM/DL 12.0-15.0 HEMATOCRIT (BEAKER) (test gsgz=064) 25.8 % 36.0-45.0 [facility] (DRVV)2017-01-08 17:06:00 Test Item Value Reference Range Comments PROTIME (BEAKER) (test 13.0 seconds 11.7-14.7 cpvb=049) INR (BEAKER) (test zmpm=851) 1.0 <=5.9 PARTIAL THROMBOPLASTIN TIME 40.9 seconds 22.5-36.0 (BEAKER) (test svjr=297) DRVV INTERPRETATION (BEAKER) Prolonged PTT Results (test oypo=9801) DRVV INTERPRETATION (BEAKER) Normal DRVV Results (test nngk=603256) DRVV INTERPRETATION (BEAKER) Negative screen for Lupus (test ouvb=557042) Anticoagulant VIGW-KQASAGEIFYJ-849 (BEAKER) Mehnaz Li MD (test pzfv=0018) (electronic signature) DRVV SCREEN RATIO (BEAKER) 1.14 <1.20 (test jotf=8234) PTT did not correct on 1:1 mix.Effective 03/07/2014: Test Method ChangeDRVV Screen Ratio, DRVV 1/1 Screen Ratio, DRVV Confirm Ratio,DRVV Normalized Ratio Reference Range: <1.2Protime Reference Range ChangeNew: 11.7-14.7 Previous: 9.8-12.0PTT Reference Range ChangeNew: 22.5-36.0 Previous: 25.8-34.5POCT- GLUCOSE [id number] 11:32:00 Test Item Value Reference Range Comments POC-GLUCOSE METER (BEAKER) 90 mg/dL 70-110 TESTED AT [address] (test jxrd=4613) [facility] [address] POCT-GLUCOSE [id number] 07:17:00 Test Item Value Reference Range Comments POC-GLUCOSE METER (BEAKER) 81 mg/dL 70-110 TESTED AT [address] (test zgkg=5859) [facility] [address] [id number] 05:50:00 Test Item Value Reference Range Comments PHOSPHORUS (BEAKER) (test gzsj=584) 2.4 mg/dL 2.3-4.7 CBC W/PLT COUNT & AUTO [id number] 05:36:00 Test Item Value Reference Range Comments WHITE BLOOD CELL COUNT (BEAKER) (test mutn=019) 13.6 K/ L 4.0-10.0 RED BLOOD CELL COUNT (BEAKER) (test qhzt=138) 2.77 M/ L 4.00-5.00 HEMOGLOBIN (BEAKER) (test nspu=796) 9.3 GM/DL 12.0-15.0 HEMATOCRIT (BEAKER) (test hjfv=990) 27.7 % 36.0-45.0 MEAN CORPUSCULAR VOLUME (BEAKER) (test wzxb=356) 99.9 fL 82.0-99.0 MEAN CORPUSCULAR HEMOGLOBIN (BEAKER) (test 33.6 pg 27.0-33.0 nfqm=601) MEAN CORPUSCULAR HEMOGLOBIN CONC (BEAKER) (test 33.7 GM/DL 32.0-36.0 kneh=725) RED CELL DISTRIBUTION WIDTH (BEAKER) (test 16.4 % 10.3-14.2 fnwl=543) PLATELET COUNT (BEAKER) (test cskp=506) 570 K/CU MM 150-430 MEAN PLATELET VOLUME (BEAKER) (test zjhw=233) 8.9 fL 6.5-10.5 NUCLEATED RED BLOOD CELLS (BEAKER) (test 0 /100 WBC 0-0 imgq=809) NEUTROPHILS RELATIVE PERCENT (BEAKER) (test 65 % aquc=921) LYMPHOCYTES RELATIVE PERCENT (BEAKER) (test 12 % qztm=963) MONOCYTES RELATIVE PERCENT (BEAKER) (test 16 % icuc=986) EOSINOPHILS RELATIVE PERCENT (BEAKER) (test 7 % mlkj=821) BASOPHILS RELATIVE PERCENT (BEAKER) (test 1 % upki=965) NEUTROPHILS ABSOLUTE COUNT (BEAKER) (test 8.80 K/ L 1.80-8.00 glpn=573) LYMPHOCYTES ABSOLUTE COUNT (BEAKER) (test 1.60 K/ L 1.48-4.50 lpiy=392) MONOCYTES ABSOLUTE COUNT (BEAKER) (test 2.21 K/ L 0.00-1.30 xkeu=336) EOSINOPHILS ABSOLUTE COUNT (BEAKER) (test 0.89 K/ L 0.00-0.50 jfhm=516) BASOPHILS ABSOLUTE COUNT (BEAKER) (test 0.10 K/ L 0.00-0.20 ylla=374) 0.00POCT-GLUCOSE [id number] 20:43:00 Test Item Value Reference Range Comments POC-GLUCOSE METER (BEAKER) 88 mg/dL 70-[address] [facility] [address] [facility] (test qtsf=6940) [facility] [address] POCT-GLUCOSE [id number] 17:26:00 Test Item Value Reference Range Comments POC-GLUCOSE METER (BEAKER) 83 mg/dL 70-110 TESTED AT [address] (test famp=5902) [place] [address] CARDIOLIPIN ANTIBODIES, IGG AND [id number] 14:41:00 Test Item Value Reference Range Comments ANTICARDIOLIPIN IGG ANTIBODY (BEAKER) (test < GPL ihqf=458) ANTICARDIOLIPIN IGM ANTIBODY (AKER) (test 0.2 MPL lkqj=234) Anticardiolipin IgG Result Interpretation: NEG: <20 GPL; U/ml POS: > 20 GPL; U/mlAnticardiolipin IgM Result Interpretation: NEG: <20 MPL; U/ ml POS: >20 MPL; U/mlANTI-NUCLEAR ANTIBODY (LEIDY)2017-01-07 13:48:00 Test Item Value Reference Range Comments ANTI-NUCLEAR ANTIBODY (LEIDY) (AKER) (test Negative Negative tjqq=716) POCT-GLUCOSE [id number] 11:34:00 Test Item Value Reference Range Comments POC-GLUCOSE METER (BEAKER) 84 mg/dL 70-110 TESTED AT [address] (test hlhe=7770) [place] [address] POCT-GLUCOSE [id number] 07:47:00 Test Item Value Reference Range Comments POC-GLUCOSE METER (BEAKER) 113 mg/dL 70-110 TESTED AT [address] (test xvyx=0601) [place] [address] RHEUMATOID FACTOR AB, REFLEX TO [id number] 07:19:00 Test Item Value Reference Range Comments RHEUMATOID FACTOR (BEAKER) (test ixyl=712) Negative CBC W/PLT COUNT & AUTO [id number] 05:56:00 Test Item Value Reference Range Comments WHITE BLOOD CELL COUNT (BEAKER) (test mfkf=466) 13.9 K/ L 4.0-10.0 RED BLOOD CELL COUNT (BEAKER) (test oqzf=507) 2.76 M/ L 4.00-5.00 HEMOGLOBIN (BEAKER) (test tmbj=846) 9.4 GM/DL 12.0-15.0 HEMATOCRIT (BEAKER) (test xylp=346) 27.3 % 36.0-45.0 MEAN CORPUSCULAR VOLUME (BEAKER) (test cdgu=178) 98.9 fL 82.0-99.0 MEAN CORPUSCULAR HEMOGLOBIN (BEAKER) (test 33.9 pg 27.0-33.0 ctng=062) MEAN CORPUSCULAR HEMOGLOBIN CONC (BEAKER) (test 34.2 GM/DL 32.0-36.0 vprg=133) RED CELL DISTRIBUTION WIDTH (BEAKER) (test 16.5 % 10.3-14.2 pmnh=572) PLATELET COUNT (BEAKER) (test hgvo=356) 534 K/CU MM 150-430 MEAN PLATELET VOLUME (BEAKER) (test lbic=347) 9.1 fL 6.5-10.5 NUCLEATED RED BLOOD CELLS (BEAKER) (test 0 /100 WBC 0-0 tjam=934) NEUTROPHILS RELATIVE PERCENT (BEAKER) (test 67 % zcnx=259) LYMPHOCYTES RELATIVE PERCENT (BEAKER) (test 12 % bosf=628) MONOCYTES RELATIVE PERCENT (BEAKER) (test 17 % grtq=002) EOSINOPHILS RELATIVE PERCENT (BEAKER) (test 4 % etcm=203) BASOPHILS RELATIVE PERCENT (BEAKER) (test 0 % vsst=114) NEUTROPHILS ABSOLUTE COUNT (BEAKER) (test 9.30 K/ L 1.80-8.00 yngb=881) LYMPHOCYTES ABSOLUTE COUNT (BEAKER) (test 1.61 K/ L 1.48-4.50 sctt=611) MONOCYTES ABSOLUTE COUNT (BEAKER) (test 2.38 K/ L 0.00-1.30 hdlg=030) EOSINOPHILS ABSOLUTE COUNT (BEAKER) (test 0.60 K/ L 0.00-0.50 lgbz=925) BASOPHILS ABSOLUTE COUNT (BEAKER) (test 0.04 K/ L 0.00-0.20 ovro=740) [id number] 05:48:00 Test Item Value Reference Range Comments PHOSPHORUS (BEAKER) (test kdya=872) 2.7 mg/dL 2.3-4.7 BASIC METABOLIC [id number] 05:48:00 Test Item Value Reference Range Comments SODIUM (BEAKER) (test 136 meq/L 136-145 xvbb=650) POTASSIUM (BEAKER) (test 3.1 meq/L 3.5-5.1 ofbp=665) CHLORIDE (BEAKER) (test 103 meq/L 98-107 tjjp=078) CO2 (BEAKER) (test 24 meq/L 22-29 zwdj=390) BLOOD UREA NITROGEN 3 mg/dL 7-21 (BEAKER) (test qwuz=252) CREATININE (BEAKER) (test 0.46 mg/dL 0.57-1.25 iqba=478) GLUCOSE RANDOM (BEAKER) 84 mg/dL 70-105 (test wevy=248) CALCIUM (BEAKER) (test 9.1 mg/dL 8.4-10.2 itpn=264) EGFR (BEAKER) (test 141 mL/min/1.73 sq m ESTIMATED GFR IS NOT cloq=8403) ACCURATE CREATININE CLEARANCE IN PREDICTING GLOMERULAR FILTRATION RATE. ESTIMATED GFR IS NOT APPLICABLE FOR DIALYSIS PATIENTS. [id number] 05:48:00 Test Item Value Reference Range Comments LIPASE (BEAKER) (test gsff=655) 105 U/L 8-78 POCT-GLUCOSE [id number] 21:12:00 Test Item Value Reference Range Comments POC-GLUCOSE METER (BEAKER) 83 mg/dL 70-110 TESTED AT [address] (test tnea=5676) [place] [id number] BLOOD [id number] 17:00:00 Test Item Value Reference Range Comments CULTURE (BEAKER) (test ozsy=8698) No growth in 5 days BLOOD [id number] 17:00:00 Test Item Value Reference Range Comments CULTURE (BEAKER) (test omhw=5275) No growth in 5 days SEDIMENTATION [id number] 16:00:00 Test Item Value Reference Range Comments SEDIMENTATION RATE, ERYTHROCYTE (BEAKER) (test > mm/HR 0-30 yfdb=499) DOUBLE-STRANDED DNA (DSDNA) [id number] 14:20:00 Test Item Value Reference Range Comments ANTI-DNA DS (BEAKER) (test iauo=3533) Negative POCT-GLUCOSE [id number] 11:38:00 Test Item Value Reference Range Comments POC-GLUCOSE METER (BEAKER) 81 mg/dL 70-110 TESTED AT [address] (test aogh=7835) [place] [id number] POCT-GLUCOSE [id number] 07:34:00 Test Item Value Reference Range Comments POC-GLUCOSE METER (BEAKER) 78 mg/dL 70-[address] [facility] [address] (test wxsn=9115) [facility] [address] CBC W/PLT COUNT & AUTO [id number] 06:30:00 Test Item Value Reference Range Comments WHITE BLOOD CELL COUNT (BEAKER) (test xnvf=275) 17.6 K/ L 4.0-10.0 RED BLOOD CELL COUNT (BEAKER) (test drrr=616) 2.77 M/ L 4.00-5.00 HEMOGLOBIN (BEAKER) (test lpfq=124) 9.2 GM/DL 12.0-15.0 HEMATOCRIT (BEAKER) (test panm=013) 27.2 % 36.0-45.0 MEAN CORPUSCULAR VOLUME (BEAKER) (test zgfv=407) 98.2 fL 82.0-99.0 MEAN CORPUSCULAR HEMOGLOBIN (BEAKER) (test 33.1 pg 27.0-33.0 fvkt=825) MEAN CORPUSCULAR HEMOGLOBIN CONC (BEAKER) (test 33.7 GM/DL 32.0-36.0 qvtd=920) RED CELL DISTRIBUTION WIDTH (BEAKER) (test 16.7 % 10.3-14.2 obvk=683) PLATELET COUNT (BEAKER) (test oddv=022) 487 K/CU MM 150-430 MEAN PLATELET VOLUME (BEAKER) (test uevu=866) 9.5 fL 6.5-10.5 NUCLEATED RED BLOOD CELLS (BEAKER) (test 0 /100 WBC 0-0 kute=141) NEUTROPHILS RELATIVE PERCENT (BEAKER) (test 72 % tetu=501) LYMPHOCYTES RELATIVE PERCENT (BEAKER) (test 9 % omdu=492) MONOCYTES RELATIVE PERCENT (BEAKER) (test 15 % cpal=594) EOSINOPHILS RELATIVE PERCENT (BEAKER) (test 3 % ochg=638) BASOPHILS RELATIVE PERCENT (BEAKER) (test 0 % tanq=763) NEUTROPHILS ABSOLUTE COUNT (BEAKER) (test 12.80 K/ L 1.80-8.00 ydvn=491) LYMPHOCYTES ABSOLUTE COUNT (BEAKER) (test 1.56 K/ L 1.48-4.50 rjjp=561) MONOCYTES ABSOLUTE COUNT (BEAKER) (test 2.68 K/ L 0.00-1.30 gkip=071) EOSINOPHILS ABSOLUTE COUNT (BEAKER) (test 0.57 K/ L 0.00-0.50 plwi=320) BASOPHILS ABSOLUTE COUNT (BEAKER) (test 0.07 K/ L 0.00-0.20 dxgw=043) 0.00PHENYTOIN LEVEL, [id number] 06:26:00 Test Item Value Reference Range Comments PHENYTOIN (DILANTIN) (BEAKER) (test ehfm=415) 1.2 ug/mL 10.0-20.0 BASIC METABOLIC [id number] 06:20:00 Test Item Value Reference Range Comments SODIUM (BEAKER) (test 132 meq/L 136-145 sgsi=902) POTASSIUM (BEAKER) (test 3.6 meq/L 3.5-5.1 evng=923) CHLORIDE (BEAKER) (test 99 meq/L 98-107 qxmy=058) CO2 (BEAKER) (test 21 meq/L 22-29 lwmo=785) BLOOD UREA NITROGEN 3 mg/dL 7-21 (BEAKER) (test btpm=949) CREATININE (BEAKER) (test 0.47 mg/dL 0.57-1.25 ujjl=244) GLUCOSE RANDOM (BEAKER) 75 mg/dL 70-105 (test njty=608) CALCIUM (BEAKER) (test 8.8 mg/dL 8.4-10.2 lyps=987) EGFR (BEAKER) (test 137 mL/min/1.73 sq m ESTIMATED GFR IS NOT gnkv=6961) ACCURATE CREATININE CLEARANCE IN PREDICTING GLOMERULAR FILTRATION RATE. ESTIMATED GFR IS NOT APPLICABLE FOR DIALYSIS PATIENTS. VANCOMYCIN LEVEL, [id number] 22:35:00 Test Item Value Reference Range Comments VANCOMYCIN TROUGH (BEAKER) (test fyws=886) 15.1 ug/mL 10.0-20.0 Please draw 30 minutes prior to 2100 dose tonight (01/05). HOLD dose if level results > 20 mcg/mL and contact MD/Pharmacist. Thank you.POCT-GLUCOSE [id number] 22:15:00 Test Item Value Reference Range Comments POC-GLUCOSE METER (BEAKER) 160 mg/dL 70-[address] [facility] [address] [facility] (test tuso=9317) [facility] [address] POCT-GLUCOSE [id number] 21:14:00 Test Item Value Reference Range Comments POC-GLUCOSE METER (BEAKER) 59 mg/dL 70-110 TESTED AT [address] (test nwoz=2913) [place] [id number] ANTI-NUCLEAR ANTIBODY (LEDIY)2017-01-05 17:50:00 Test Item Value Reference Range Comments ANTI-NUCLEAR ANTIBODY (LEIDY) (BEAKER) (test Negative Negative dqsb=180) POCT-GLUCOSE [id number] 17:28:00 Test Item Value Reference Range Comments POC-GLUCOSE METER (BEAKER) 72 mg/dL 70-110 TESTED AT [address] (test jylw=3515) [place] [address] POCT-GLUCOSE [id number] 17:22:00 Test Item Value Reference Range Comments POC-GLUCOSE METER (BEAKER) 79 mg/dL 70-110 TESTED AT [address] (test qmvz=3818) [place] [address] CARDIOLIPIN ANTIBODIES, IGG AND [id number] 14:46:00 Test Item Value Reference Range Comments ANTICARDIOLIPIN IGG ANTIBODY (BEAKER) (test < GPL ldnl=699) ANTICARDIOLIPIN IGM ANTIBODY (BEAKER) (test 0.2 MPL noyw=470) Anticardiolipin IgG Result Interpretation: NEG: <20 GPL; U/mlPOS: >/ =20 GPL; U/mlAnticardiolipin IgM Result Interpretation: NEG: <20 GPL; U /mlPOS: >/=20 GPL; U/mlCBC W/PLT COUNT & AUTO [id number] 10 :59:00 Test Item Value Reference Range Comments WHITE BLOOD CELL COUNT (BEAKER) (test wisr=047) 19.4 K/ L 4.0-10.0 RED BLOOD CELL COUNT (BEAKER) (test adxa=083) 2.63 M/ L 4.00-5.00 HEMOGLOBIN (BEAKER) (test dmtx=245) 8.5 GM/DL 12.0-15.0 HEMATOCRIT (BEAKER) (test ajei=180) 26.2 % 36.0-45.0 MEAN CORPUSCULAR VOLUME (BEAKER) (test ryqu=922) 99.8 fL 82.0-99.0 MEAN CORPUSCULAR HEMOGLOBIN (BEAKER) (test 32.4 pg 27.0-33.0 rdue=818) MEAN CORPUSCULAR HEMOGLOBIN CONC (BEAKER) (test 32.4 GM/DL 32.0-36.0 homa=983) RED CELL DISTRIBUTION WIDTH (BEAKER) (test 17.0 % 10.3-14.2 erjl=558) PLATELET COUNT (BEAKER) (test fhzr=827) 425 K/CU MM 150-430 MEAN PLATELET VOLUME (BEAKER) (test zvzd=919) 10.0 fL 6.5-10.5 NUCLEATED RED BLOOD CELLS (BEAKER) (test 2 /100 WBC 0-0 ofue=138) NEUTROPHILS RELATIVE PERCENT (BEAKER) (test 76 % tzug=884) LYMPHOCYTES RELATIVE PERCENT (BEAKER) (test 9 % jkgo=411) MONOCYTES RELATIVE PERCENT (BEAKER) (test 12 % tzuy=928) EOSINOPHILS RELATIVE PERCENT (BEAKER) (test 2 % ebme=570) BASOPHILS RELATIVE PERCENT (BEAKER) (test 0 % mvsm=101) NEUTROPHILS ABSOLUTE COUNT (BEAKER) (test 14.80 K/ L 1.80-8.00 aass=094) LYMPHOCYTES ABSOLUTE COUNT (BEAKER) (test 1.69 K/ L 1.48-4.50 devc=185) MONOCYTES ABSOLUTE COUNT (BEAKER) (test 2.37 K/ L 0.00-1.30 hbeq=572) EOSINOPHILS ABSOLUTE COUNT (BEAKER) (test 0.48 K/ L 0.00-0.50 oaio=229) BASOPHILS ABSOLUTE COUNT (BEAKER) (test 0.06 K/ L 0.00-0.20 olpt=496) 0.000.560.000.000.000.00(MANUAL DIFFERENTIAL)2017-01-05 10:59:00 Test Item Value Reference Range Comments TOTAL COUNTED (BEAKER) (test vlba=8121) WBC MORPHOLOGY (BEAKER) (test yxba=615) Normal PLT MORPHOLOGY (BEAKER) (test ghij=364) Normal POLYCHROMATOPHILLIC RBCS(BEAKER) (test cxfu=098) 1+ few POCT-GLUCOSE [id number] 10:55:00 Test Item Value Reference Range Comments POC-GLUCOSE METER (BEAKER) 76 mg/dL 70-[address] [facility] [address] [facility] (test oequ=4804) [place] [address] SEDIMENTATION [id number] 10:25:00 Test Item Value Reference Range Comments SEDIMENTATION RATE, ERYTHROCYTE (BEAKER) (test > mm/HR 0-30 wuzb=631) [id number] 07:03:00 Test Item Value Reference Range Comments PHOSPHORUS (BEAKER) (test nbrb=457) 2.9 mg/dL 2.3-4.7 [id number] 07:03:00 Test Item Value Reference Range Comments MAGNESIUM (BEAKER) (test ovnw=899) 1.8 mg/dL 1.6-2.6 BASIC METABOLIC [id number] 07:03:00 Test Item Value Reference Range Comments SODIUM (BEAKER) (test 133 meq/L 136-145 qsom=665) POTASSIUM (BEAKER) (test 3.1 meq/L 3.5-5.1 vdtt=392) CHLORIDE (BEAKER) (test 103 meq/L 98-107 noul=171) CO2 (BEAKER) (test 22 meq/L 22-29 vpem=328) BLOOD UREA NITROGEN 3 mg/dL 7-21 (BEAKER) (test qycr=453) CREATININE (BEAKER) (test 0.48 mg/dL 0.57-1.25 yuan=549) GLUCOSE RANDOM (BEAKER) 72 mg/dL 70-105 (test obdj=035) CALCIUM (BEAKER) (test 8.2 mg/dL 8.4-10.2 xhcr=992) EGFR (BEAKER) (test 134 mL/min/1.73 sq m ESTIMATED GFR IS NOT mvnz=4238) ACCURATE CREATININE CLEARANCE IN PREDICTING GLOMERULAR FILTRATION RATE. ESTIMATED GFR IS NOT APPLICABLE FOR DIALYSIS PATIENTS. [id number] 07:03:00 Test Item Value Reference Range Comments LIPASE (BEAKER) (test oxgz=532) 199 U/L 8-78 C-REACTIVE [id number] 07:03:00 Test Item Value Reference Range Comments C-REACTIVE PROTEIN (BEAKER) (test fspp=006) 23.43 mg/dL 0.00-0.50 PHENYTOIN LEVEL, [id number] 06:57:00 Test Item Value Reference Range Comments PHENYTOIN (DILANTIN) (BEAKER) (test tawr=668) 2.3 ug/mL 10.0-20.0 [id number] 06:39:00 Test Item Value Reference Range Comments PARTIAL THROMBOPLASTIN TIME (BEAKER) (test 60.7 seconds 22.5-36.0 kjuw=562) [id number] 23:20:00 Test Item Value Reference Range Comments PARTIAL THROMBOPLASTIN TIME (BEAKER) (test 60.9 seconds 22.5-36.0 hevp=423) POCT-GLUCOSE [id number] 22:31:00 Test Item Value Reference Range Comments POC-GLUCOSE METER (BEAKER) 83 mg/dL 70-110 TESTED AT [address] (test aakk=8948) [place] [id number] POCT-GLUCOSE [id number] 17:49:00 Test Item Value Reference Range Comments POC-GLUCOSE METER (BEAKER) 92 mg/dL 70-110 TESTED AT [address] (test ehcv=4640) [place] [id number] 16:04:00 Test Item Value Reference Range Comments PARTIAL THROMBOPLASTIN TIME (BEAKER) (test 59.5 seconds 22.5-36.0 zrrj=400) POCT-GLUCOSE [id number] 12:19:00 Test Item Value Reference Range Comments POC-GLUCOSE METER (BEAKER) 117 mg/dL 70-110 TESTED AT [address] (test jlxq=6016) [place] [id number] SEDIMENTATION [id number] 11:21:00 Test Item Value Reference Range Comments SEDIMENTATION RATE, ERYTHROCYTE (BEAKER) (test 115 mm/HR 0-30 jlfq=917) CBC W/PLT COUNT & AUTO [id number] 09:34:00 Test Item Value Reference Range Comments WHITE BLOOD CELL COUNT (BEAKER) (test fyvv=946) 23.6 K/ L 4.0-10.0 RED BLOOD CELL COUNT (BEAKER) (test xmpg=283) 2.87 M/ L 4.00-5.00 HEMOGLOBIN (BEAKER) (test kfkz=110) 9.5 GM/DL 12.0-15.0 HEMATOCRIT (BEAKER) (test oyei=883) 27.7 % 36.0-45.0 MEAN CORPUSCULAR VOLUME (BEAKER) (test xufy=940) 96.2 fL 82.0-99.0 MEAN CORPUSCULAR HEMOGLOBIN (BEAKER) (test 33.1 pg 27.0-33.0 cntl=867) MEAN CORPUSCULAR HEMOGLOBIN CONC (BEAKER) (test 34.4 GM/DL 32.0-36.0 lvgy=708) RED CELL DISTRIBUTION WIDTH (BEAKER) (test 17.8 % 10.3-14.2 uxqd=067) PLATELET COUNT (BEAKER) (test suzw=710) 395 K/CU MM 150-430 MEAN PLATELET VOLUME (BEAKER) (test pfvq=473) 9.5 fL 6.5-10.5 NUCLEATED RED BLOOD CELLS (BEAKER) (test 0 /100 WBC 0-0 olaf=589) (MANUAL DIFFERENTIAL)2017-01-04 09:34:00 Test Item Value Reference Range Comments NEUTROPHILS - REL (DIFF) (BEAKER) (test 79 % tssz=6027) LYMPHOCYTES - REL (DIFF) (BEAKER) (test 5 % ycrd=0954) MONOCYTES - REL (DIFF) (BEAKER) (test mwio=1149) 6 % EOSINOPHILS - REL (DIFF) (BEAKER) (test 7 % ywcv=5612) BANDS - REL (DIFF) (BEAKER) (test qbyj=2478) 3 % 0-10 NEUTROPHILS - ABS (DIFF) (BEAKER) (test 18.64 K/ L 1.80-8.00 tyea=6173) LYMPHOCYTES - ABS (DIFF) (BEAKER) (test 1.18 K/ L 1.48-4.50 mhdf=7577) MONOCYTES - ABS (DIFF) (BEAKER) (test mmlv=7685) 1.42 K/ L 0.00-1.30 EOSINOPHILS - ABS (DIFF) (BEAKER) (test 1.65 K/ L 0.00-0.50 iayr=0009) BANDS-ABS (DIFF) (BEAKER) (test iurw=9866) 0.7 K/ L 0.0-0.8 TOTAL COUNTED (BEAKER) (test nhol=0731) 100 BANDS + SEGMENTED NEUTROPHILS (BEAKER) (test 19.35 crrh=6400) MANUAL NRBC PER 100 CELLS (BEAKER) (test 3 /100 WBC 0-0 iojx=9180) WBC MORPHOLOGY (BEAKER) (test myvx=380) Normal LARGE PLT(BEAKER) (test gdng=4710) Present POLYCHROMATOPHILLIC RBCS(BEAKER) (test yjht=101) 1+ few [id number] 09:30:00 Test Item Value Reference Range Comments PARTIAL THROMBOPLASTIN TIME (BEAKER) (test 37.1 seconds 22.5-36.0 knwk=485) HEMOGLOBIN AND [id number] 09:12:00 Test Item Value Reference Range Comments HEMOGLOBIN (BEAKER) (test qcjk=801) 9.1 GM/DL 12.0-15.0 HEMATOCRIT (BEAKER) (test xyxh=748) 25.5 % 36.0-45.0 POCT-GLUCOSE [id number] 08:06:00 Test Item Value Reference Range Comments POC-GLUCOSE METER (BEAKER) 86 mg/dL 70-[address] [facility] [address] [facility] (test sqop=7017) [facility] [address] BLOOD GAS, [id number] 05:49:00 Test Item Value Reference Range Comments PH ARTERIAL (BEAKER) (test jywd=564) 7.45 7.35-7.45 PCO2 ARTERIAL (BEAKER) (test wtju=419) 30 mmHg 35-45 PO2 ARTERIAL (BEAKER) (test natf=365) 47 mmHg 80-90 O2 SATURATION ARTERIAL (BEAKER) (test gdoy=934) 85.8 % 96.0-97.0 HCO3 ARTERIAL (BEAKER) (test uwje=382) 20 mmol/L 21-29 BASE EXCESS ARTERIAL (BEAKER) (test cqud=238) -3.2 mmol/L -2.0-3.0 PATIENT TEMPERATURE (BEAKER) (test gahg=0422) 37.0 C FIO2 (BEAKER) (test casz=4905) 36.0 % PHENYTOIN LEVEL, [id number] 05:49:00 Test Item Value Reference Range Comments PHENYTOIN (DILANTIN) (BEAKER) (test noak=167) 3.5 ug/mL 10.0-20.0 VANCOMYCIN LEVEL, [id number] 05:49:00 Test Item Value Reference Range Comments VANCOMYCIN RANDOM (BEAKER) (test yctf=496) < ug/mL Reference Range: No [id number] 05:42:00 Test Item Value Reference Range Comments SODIUM (BEAKER) (test ebki=189) 129 meq/L 136-145 Check Serum Potassium level 2 hours after oral potassium replacement completed or 30 min after intravenous potassium replacement.[id number] 05:42:00 Test Item Value Reference Range Comments LIPASE (BEAKER) (test crec=624) 343 U/L 8-78 Check Serum Potassium level 2 hours after oral potassium replacement completed or 30 min after intravenous potassium replacement.[id number] 05:42:00 Test Item Value Reference Range Comments AMYLASE (BEAKER) (test tbwf=866) 223 U/L 25-125 Check Serum Potassium level 2 hours after oral potassium replacement completed or 30 min after intravenous potassium replacement.BASIC METABOLIC [id number] 05:42:00 Test Item Value Reference Range Comments SODIUM (BEAKER) (test 129 meq/L 136-145 tefz=672) POTASSIUM (BEAKER) (test 4.0 meq/L 3.5-5.1 vewq=777) CHLORIDE (BEAKER) (test 101 meq/L 98-107 qglr=809) CO2 (BEAKER) (test 16 meq/L 22-29 ycoz=722) BLOOD UREA NITROGEN 4 mg/dL 7-21 (BEAKER) (test ekck=656) CREATININE (BEAKER) (test 0.53 mg/dL 0.57-1.25 eljp=268) GLUCOSE RANDOM (BEAKER) 85 mg/dL 70-105 (test xgel=561) CALCIUM (BEAKER) (test 8.7 mg/dL 8.4-10.2 pwhx=337) EGFR (BEAKER) (test 119 mL/min/1.73 sq m ESTIMATED GFR IS NOT nepp=4737) ACCURATE CREATININE CLEARANCE IN PREDICTING GLOMERULAR FILTRATION RATE. ESTIMATED GFR IS NOT APPLICABLE FOR DIALYSIS PATIENTS. Check Serum Potassium level 2 hours after oral potassium replacement completed or 30 min after intravenous potassium replacement.[id number] 05:42:00 Test Item Value Reference Range Comments MAGNESIUM (BEAKER) (test clns=041) 2.3 mg/dL 1.6-2.6 Check Serum Potassium level 2 hours after oral potassium replacement completed or 30 min after intravenous potassium replacement.[id number] 05:42:00 Test Item Value Reference Range Comments PHOSPHORUS (BEAKER) (test jzms=541) 2.8 mg/dL 2.3-4.7 Check Serum Potassium level 2 hours after oral potassium replacement completed or 30 min after intravenous potassium replacement.[id number] 05:42:00 Test Item Value Reference Range Comments POTASSIUM (BEAKER) (test sjqt=919) 4.0 meq/L 3.5-5.1 Check Serum Potassium level 2 hours after oral potassium replacement completed or 30 min after intravenous potassium replacement.C-REACTIVE [id number] 05:42:00 Test Item Value Reference Range Comments C-REACTIVE PROTEIN (BEAKER) (test qspw=777) 24.43 mg/dL 0.00-0.50 Check Serum Potassium level 2 hours after oral potassium replacement completed or 30 min after intravenous potassium replacement.[id number] 00:16:00 Test Item Value Reference Range Comments PHOSPHORUS (BEAKER) (test tmjo=616) 3.3 mg/dL 2.3-4.7 [id number] 00:16:00 Test Item Value Reference Range Comments MAGNESIUM (BEAKER) (test jqbi=559) 1.7 mg/dL 1.6-2.6 BASIC METABOLIC [id number] 00:16:00 Test Item Value Reference Range Comments SODIUM (BEAKER) (test 130 meq/L 136-145 qaze=335) POTASSIUM (BEAKER) (test 3.5 meq/L 3.5-5.1 hufc=127) CHLORIDE (BEAKER) (test 102 meq/L 98-107 esuf=860) CO2 (BEAKER) (test 18 meq/L 22-29 rwsy=897) BLOOD UREA NITROGEN 4 mg/dL 7-21 (BEAKER) (test ylub=760) CREATININE (BEAKER) (test 0.53 mg/dL 0.57-1.25 ntnv=278) GLUCOSE RANDOM (BEAKER) 83 mg/dL 70-105 (test opyx=025) CALCIUM (BEAKER) (test 8.1 mg/dL 8.4-10.2 vsva=011) EGFR (BEAKER) (test 119 mL/min/1.73 sq m ESTIMATED GFR IS NOT anug=8654) ACCURATE CREATININE CLEARANCE IN PREDICTING GLOMERULAR FILTRATION RATE. ESTIMATED GFR IS NOT APPLICABLE FOR DIALYSIS PATIENTS. HEMOGLOBIN AND [id number] 23:52:00 Test Item Value Reference Range Comments HEMOGLOBIN (BEAKER) (test gvyj=906) 9.3 GM/DL 12.0-15.0 HEMATOCRIT (BEAKER) (test ldxh=129) 26.1 % 36.0-45.0 POCT-GLUCOSE [id number] 20:32:00 Test Item Value Reference Range Comments POC-GLUCOSE METER (BEAKER) 101 mg/dL 70-110 TESTED AT [address] (test ugmi=6285) [place] [address] BASIC METABOLIC [id number] 18:33:00 Test Item Value Reference Range Comments SODIUM (BEAKER) (test 130 meq/L 136-145 xdng=080) POTASSIUM (BEAKER) (test 3.8 meq/L 3.5-5.1 edgb=375) CHLORIDE (BEAKER) (test 105 meq/L 98-107 jcgc=761) CO2 (BEAKER) (test 14 meq/L 22-29 fwff=607) BLOOD UREA NITROGEN 4 mg/dL 7-21 (BEAKER) (test idei=218) CREATININE (BEAKER) (test 0.53 mg/dL 0.57-1.25 tbvk=393) GLUCOSE RANDOM (BEAKER) 97 mg/dL 70-105 (test gpzn=671) CALCIUM (BEAKER) (test 8.7 mg/dL 8.4-10.2 vame=031) EGFR (BEAKER) (test 119 mL/min/1.73 sq m ESTIMATED GFR IS NOT lhyi=8921) ACCURATE CREATININE CLEARANCE IN PREDICTING GLOMERULAR FILTRATION RATE. ESTIMATED GFR IS NOT APPLICABLE FOR DIALYSIS PATIENTS. HEMOGLOBIN AND [id number] 18:21:00 Test Item Value Reference Range Comments HEMOGLOBIN (BEAKER) (test avun=272) 10.1 GM/DL 12.0-15.0 HEMATOCRIT (BEAKER) (test qhkg=838) 27.2 % 36.0-45.0 POCT-GLUCOSE [id number] 16:44:00 Test Item Value Reference Range Comments POC-GLUCOSE METER (BEAKER) 82 mg/dL 70-110 TESTED AT [address] (test bmrh=8439) [place] [address] [id number] 16:20:00 Test Item Value Reference Range Comments MAGNESIUM (BEAKER) (test exvo=423) 2.3 mg/dL 1.6-2.6 [id number] 16:20:00 Test Item Value Reference Range Comments POTASSIUM (BEAKER) (test mvej=701) 4.0 meq/L 3.5-5.1 8 hours after PO replacement [id number] 15:55:00 Test Item Value Reference Range Comments PHOSPHORUS (BEAKER) (test kfvk=636) 4.9 mg/dL 2.3-4.7 Check Serum Phosphorus level 4 hours after IV phosphorus replacement or 8 hours after PO replacementcompleted.SEDIMENTATION [id number] 15:49:00 Test Item Value Reference Range Comments SEDIMENTATION RATE, ERYTHROCYTE (BEAKER) (test 120 mm/HR 0-30 iveg=666) COMPLEMENT COMPONENT [id number] 15:35:00 Test Item Value Reference Range Comments C4 COMPLEMENT (BEAKER) (test ceuw=696) 34 mg/dL 15-57 Effective 09/19/2014: Reference Range ChangeNew: 15-57 Previous: 16- 38COMPLEMENT COMPONENT [id number] 15:35:00 Test Item Value Reference Range Comments C3 COMPLEMENT (BEAKER) (test rjtk=097) 152 mg/dL 82-193 Effective 09/19/2014: Reference Range ChangeNew: 82-193 Previous: 79-152C- REACTIVE [id number] 15:04:00 Test Item Value Reference Range Comments C-REACTIVE PROTEIN (BEAKER) (test crnx=005) 21.81 mg/dL 0.00-0.50 IMMUNOGLOBULIN G (IGG)2017-01-03 13:50:00 Test Item Value Reference Range Comments IMMUNOGLOBULIN G (IGG) (BEAKER) (test kqdf=753) 788 mg/dL 540-1822 HEMOGLOBIN AND [id number] 13:32:00 Test Item Value Reference Range Comments HEMOGLOBIN (BEAKER) (test rknn=034) 9.6 GM/DL 12.0-15.0 HEMATOCRIT (BEAKER) (test zgjg=952) 28.5 % 36.0-45.0 POCT-GLUCOSE [id number] 11:43:00 Test Item Value Reference Range Comments POC-GLUCOSE METER (BEAKER) 119 mg/dL 70-[address] [facility] [address] [facility] (test cncv=1979) [facility] [address] CBC W/PLT COUNT & AUTO [id number] 11:04:00 Test Item Value Reference Range Comments WHITE BLOOD CELL COUNT (BEAKER) (test gnoe=524) 29.5 K/ L 4.0-10.0 RED BLOOD CELL COUNT (BEAKER) (test owkx=449) 3.24 M/ L 4.00-5.00 HEMOGLOBIN (BEAKER) (test korb=690) 10.5 GM/DL 12.0-15.0 HEMATOCRIT (BEAKER) (test rklp=032) 30.9 % 36.0-45.0 MEAN CORPUSCULAR VOLUME (BEAKER) (test bzlv=351) 95.4 fL 82.0-99.0 MEAN CORPUSCULAR HEMOGLOBIN (BEAKER) (test 32.4 pg 27.0-33.0 movn=766) MEAN CORPUSCULAR HEMOGLOBIN CONC (BEAKER) (test 34.0 GM/DL 32.0-36.0 khap=951) RED CELL DISTRIBUTION WIDTH (BEAKER) (test 17.7 % 10.3-14.2 dohf=511) PLATELET COUNT (BEAKER) (test ljps=965) 363 K/CU MM 150-430 MEAN PLATELET VOLUME (BEAKER) (test fneb=468) 9.9 fL 6.5-10.5 NUCLEATED RED BLOOD CELLS (BEAKER) (test 5 /100 WBC 0-0 kxhf=802) 0.000.550.000.000.700.000.000.000.000.000.000.000.000.000.710.000.000.000.00( MANUAL DIFFERENTIAL)2017-01-03 11:04:00 Test Item Value Reference Range Comments NEUTROPHILS - REL (DIFF) (BEAKER) (test 69 % ifsz=7399) LYMPHOCYTES - REL (DIFF) (BEAKER) (test 8 % qmki=5252) MONOCYTES - REL (DIFF) (BEAKER) (test mbrs=4592) 2 % METAMYELOCYTES-REL (DIFF) (BEAKER) (test 1 % 0-0 cnvc=782) MYELOCYTES-REL (DIFF) (BEAKER) (test whuf=2497) 1 % 0-0 BANDS - REL (DIFF) (BEAKER) (test qfyc=0633) 19 % 0-10 NEUTROPHILS - ABS (DIFF) (BEAKER) (test 20.36 K/ L 1.80-8.00 hwyg=1393) LYMPHOCYTES - ABS (DIFF) (BEAKER) (test 2.36 K/ L 1.48-4.50 uplz=8264) MONOCYTES - ABS (DIFF) (BEAKER) (test hvuh=6804) 0.59 K/ L 0.00-1.30 METAMYELOCTYES - ABS (DIFF) (BEAKER) (test 0.30 K/ L 0.00-0.00 haya=748) BANDS-ABS (DIFF) (BEAKER) (test vsft=5673) 5.6 K/ L 0.0-0.8 MYELOCYTES-ABS (DIFF) (BEAKER) (test wfis=9955) 0.30 K/ L 0.00-0.00 TOTAL COUNTED (BEAKER) (test wcqt=4797) 100 BANDS + SEGMENTED NEUTROPHILS (BEAKER) (test 25.96 gxul=2010) MANUAL NRBC PER 100 CELLS (BEAKER) (test 1 /100 WBC 0-0 xykp=7499) WBC MORPHOLOGY (BEAKER) (test pghv=943) Normal PLT MORPHOLOGY (BEAKER) (test hzee=874) Normal ANISOCYTOSIS (BEAKER) (test pnla=836) 2+ moderate POLYCHROMATOPHILLIC RBCS(BEAKER) (test xdrm=789) 2+ moderate TARGET CELLS (BEAKER) (test adeb=544) 2+ moderate URINE [id number] 10:04:00 Test Item Value Reference Range Comments CULTURE (BEAKER) (test xjha=9783) No growth POCT-GLUCOSE [id number] 07:38:00 Test Item Value Reference Range Comments POC-GLUCOSE METER (BEAKER) 94 mg/dL 70-110 TESTED AT [address] (test ccot=4680) [facility] [address] POCT-GLUCOSE [id number] 06:41:00 Test Item Value Reference Range Comments POC-GLUCOSE METER (BEAKER) 107 mg/dL 70-110 TESTED AT [address] (test ubjv=4030) [facility] [address] PHENYTOIN LEVEL, [id number] 03:59:00 Test Item Value Reference Range Comments PHENYTOIN (DILANTIN) (BEAKER) (test gvtl=275) 3.3 ug/mL 10.0-20.0 [id number] 03:47:00 Test Item Value Reference Range Comments PHOSPHORUS (BEAKER) (test bzmd=704) 1.8 mg/dL 2.3-4.7 [id number] 03:47:00 Test Item Value Reference Range Comments MAGNESIUM (BEAKER) (test njsr=761) 1.3 mg/dL 1.6-2.6 BASIC METABOLIC [id number] 03:47:00 Test Item Value Reference Range Comments SODIUM (BEAKER) (test 130 meq/L 136-145 jhlq=290) POTASSIUM (BEAKER) (test 3.0 meq/L 3.5-5.1 long=181) CHLORIDE (BEAKER) (test 104 meq/L 98-107 kqwe=932) CO2 (BEAKER) (test 15 meq/L 22-29 fbhp=820) BLOOD UREA NITROGEN 6 mg/dL 7-21 (BEAKER) (test moyr=422) CREATININE (BEAKER) (test 0.57 mg/dL 0.57-1.25 sibe=516) GLUCOSE RANDOM (BEAKER) 106 mg/dL 70-105 (test deft=953) CALCIUM (BEAKER) (test 9.1 mg/dL 8.4-10.2 sgzj=317) EGFR (BEAKER) (test 110 mL/min/1.73 sq m ESTIMATED GFR IS NOT kywf=6925) ACCURATE CREATININE CLEARANCE IN PREDICTING GLOMERULAR FILTRATION RATE. ESTIMATED GFR IS NOT APPLICABLE FOR DIALYSIS PATIENTS. BLOOD GAS, [id number] 03:37:00 Test Item Value Reference Range Comments PH ARTERIAL (BEAKER) (test vtmt=237) 7.48 7.35-7.45 PCO2 ARTERIAL (BEAKER) (test dznf=223) 24 mmHg 35-45 PO2 ARTERIAL (BEAKER) (test ilil=817) 82 mmHg 80-90 O2 SATURATION ARTERIAL (BEAKER) (test ldyq=568) 96.9 % 96.0-97.0 HCO3 ARTERIAL (BEAKER) (test exsa=208) 17 mmol/L 21-29 BASE EXCESS ARTERIAL (BEAKER) (test lrhk=606) -4.9 mmol/L -2.0-3.0 PATIENT TEMPERATURE (BEAKER) (test uzds=4042) 36.9 C FIO2 (BEAKER) (test ewkb=9980) 50.0 % POCT-GLUCOSE [id number] 23:45:00 Test Item Value Reference Range Comments POC-GLUCOSE METER (BEAKER) 83 mg/dL 70-[address] [facility] [address] [facility] (test wltv=9387) [facility] [address] [id number] 22:07:00 Test Item Value Reference Range Comments MAGNESIUM (BEAKER) (test dsdj=178) 1.6 mg/dL 1.6-2.6 HEMOGLOBIN AND [id number] 21:18:00 Test Item Value Reference Range Comments HEMOGLOBIN (BEAKER) (test evvo=752) 10.0 GM/DL 12.0-15.0 HEMATOCRIT (BEAKER) (test itdq=319) 28.5 % 36.0-45.0 BASIC METABOLIC [id number] 21:15:00 Test Item Value Reference Range Comments SODIUM (BEAKER) (test 134 meq/L 136-145 ewcr=558) POTASSIUM (BEAKER) (test 3.0 meq/L 3.5-5.1 ybdy=254) CHLORIDE (BEAKER) (test 106 meq/L 98-107 narr=653) CO2 (BEAKER) (test 16 meq/L 22-29 qrnb=334) BLOOD UREA NITROGEN 8 mg/dL 7-21 (BEAKER) (test ojrg=196) CREATININE (BEAKER) (test 0.63 mg/dL 0.57-1.25 nppk=014) GLUCOSE RANDOM (BEAKER) 93 mg/dL 70-105 (test pcsz=859) CALCIUM (BEAKER) (test 9.0 mg/dL 8.4-10.2 wulq=421) EGFR (BEAKER) (test 98 mL/min/1.73 sq m ESTIMATED GFR IS NOT uzus=1176) ACCURATE CREATININE CLEARANCE IN PREDICTING GLOMERULAR FILTRATION RATE. ESTIMATED GFR IS NOT APPLICABLE FOR DIALYSIS PATIENTS. POCT-GLUCOSE [id number] 21:02:00 Test Item Value Reference Range Comments POC-GLUCOSE METER (BEAKER) 100 mg/dL 70-[address] [facility] [address] [facility] (test qcpv=5602) [facility] [address] [id number] 18:55:00 Test Item Value Reference Range Comments FERRITIN (BEAKER) (test fjgs=654) 1096 ng/mL 5-275 Effective 09/19/2014: Reference Range ChangeNew: Male 5-275 Previous: Male 22-322 Female 5-275 Female 10-291IRON, TIBC, % SAT. ( WITHOUT FERRITIN)2017-01-02 18:35:00 Test Item Value Reference Range Comments IRON (BEAKER) (test tjli=084) 130 ug/dL 40-160 TOTAL IRON BINDING CAPACITY (BEAKER) (test 234 ug/dL 250-450 vbfn=265) IRON % SATURATION (2) (BEAKER) (test ltwn=8007) 56 % 20-55 [id number] 18:29:00 Test Item Value Reference Range Comments SODIUM (BEAKER) (test quth=130) 135 meq/L 136-145 POCT-GLUCOSE [id number] 18:12:00 Test Item Value Reference Range Comments POC-GLUCOSE METER (BEAKER) 105 mg/dL 70-[address] [facility] [address] [place] [address] (test dzbv=0583) [facility] [address] BLOOD [id number] 17:00:00 Test Item Value Reference Range Comments CULTURE (BEAKER) (test tfsd=0928) No growth in 5 days BLOOD [id number] 17:00:00 Test Item Value Reference Range Comments CULTURE (BEAKER) (test nsjf=5149) No growth in 5 days BLOOD GAS, [id number] 16:32:00 Test Item Value Reference Range Comments PH ARTERIAL (BEAKER) (test krjg=663) 7.47 7.35-7.45 PCO2 ARTERIAL (BEAKER) (test iwya=956) 27 mmHg 35-45 PO2 ARTERIAL (BEAKER) (test gkvs=180) 66 mmHg 80-90 O2 SATURATION ARTERIAL (BEAKER) (test nhmu=749) 94.2 % 96.0-97.0 HCO3 ARTERIAL (BEAKER) (test ypvl=928) 19 mmol/L 21-29 BASE EXCESS ARTERIAL (BEAKER) (test jouv=265) -4.2 mmol/L -2.0-3.0 PATIENT TEMPERATURE (BEAKER) (test mjnn=5038) 37.5 C FIO2 (BEAKER) (test asuj=9087) 35.0 % CLOSTRIDIUM DIFFICILE TOXIN [id number] 16:16:00 Test Item Value Reference Range Comments CLOSTRIDIUM DIFFICILE TOXIN, PCR (BEAKER) (test Not Detected Not Detected bsrr=5122) This qualitative real-time polymerase chain reaction assay detects the tcdB gene , encoded on the C.difficile pathogenicity locus (PaLoc). The product of tcdB, toxin B, is a cytotoxin essential for causing C.difficile-associated disease ( CDAD) and is found in virtually all toxigenic C.difficile.This assay is performed for patients suspected of having either community-acquired or nosocomial CDAD. Accordingly, only symptomatic patients should be tested and formed stools will be rejected unless ileus is present (i.e., specified when ordering). Patients may be colonized with toxigenic C.difficile strains not causing active disease; therefore, clinical correlation is needed when deciding how to manage patients with a positive test result.The assay has not been validated as a test of cure as amplifiable nucleic acid may persist after effective treatment; therefore, follow-up testing of a positive result is not recommended.[id number] 16:07:00 Test Item Value Reference Range Comments HAPTOGLOBIN (BEAKER) (test gvsl=613) 291 mg/dL 14-258 Effective 09/19/2014: Reference Range ChangeNew: 14-258 Previous: 36-195BASIC METABOLIC [id number] 12:58:00 Test Item Value Reference Range Comments SODIUM (BEAKER) (test 133 meq/L 136-145 yerf=833) POTASSIUM (BEAKER) (test 4.0 meq/L 3.5-5.1 qcel=322) CHLORIDE (BEAKER) (test 106 meq/L 98-107 jsqj=929) CO2 (BEAKER) (test 18 meq/L 22-29 yecm=379) BLOOD UREA NITROGEN 11 mg/dL 7-21 (BEAKER) (test wynd=605) CREATININE (BEAKER) (test 0.55 mg/dL 0.57-1.25 vuis=970) GLUCOSE RANDOM (BEAKER) 98 mg/dL 70-105 (test ofcu=104) CALCIUM (BEAKER) (test 8.3 mg/dL 8.4-10.2 tiaa=403) EGFR (BEAKER) (test 114 mL/min/1.73 sq m ESTIMATED GFR IS NOT wyyr=5719) ACCURATE CREATININE CLEARANCE IN PREDICTING GLOMERULAR FILTRATION RATE. ESTIMATED GFR IS NOT APPLICABLE FOR DIALYSIS PATIENTS. [id number] 12:58:00 Test Item Value Reference Range Comments LIPASE (BEAKER) (test lmpj=362) 571 U/L 8-78 POCT-GLUCOSE [id number] 12:27:00 Test Item Value Reference Range Comments POC-GLUCOSE METER (BEAKER) 100 mg/dL 70-[address] [facility] [address] (test hefg=0130) [place] [address] [id number] 11:58:00 Test Item Value Reference Range Comments FIBRINOGEN LEVEL (BEAKER) (test ohke=565) 682 mg/dl 225-434 [id number] 11:58:00 Test Item Value Reference Range Comments PROTIME (BEAKER) (test vyfz=875) 14.0 seconds 11.7-14.7 INR (BEAKER) (test yyjn=623) 1.1 <=5.9 PARTIAL THROMBOPLASTIN TIME (BEAKER) (test 38.5 seconds 22.5-36.0 scyu=594) RECOMMENDED COUMADIN/WARFARIN INR THERAPY RANGESSTANDARD DOSE: 2.0 - 3.0 Includes: PROPHYLAXIS forvenous thrombosis, systemic embolization; TREATMENT for venous thrombosis and/or pulmonary embolus.HIGH RISK: Target INR is 2.5-3.5 for patients with mechanical heart valves.CALCIUM, [id number] 11:47:00 Test Item Value Reference Range Comments CALCIUM IONIZED (BEAKER) (test erez=542) 1.06 mmol/L 1.12-1.27 PH, BLOOD (BEAKER) (test qqzk=2420) 7.48 [id number] 11:32:00 Test Item Value Reference Range Comments PHOSPHORUS (BEAKER) (test aufk=694) 2.2 mg/dL 2.3-4.7 [id number] 11:32:00 Test Item Value Reference Range Comments MAGNESIUM (BEAKER) (test rxuc=594) 2.2 mg/dL 1.6-2.6 HEPATIC FUNCTION [id number] 11:32:00 Test Item Value Reference Range Comments TOTAL PROTEIN (BEAKER) (test zdtw=809) 5.5 gm/dL 6.0-8.3 ALBUMIN (BEAKER) (test kton=0145) 2.4 g/dL 3.5-5.0 BILIRUBIN TOTAL (BEAKER) (test iyjb=916) 0.4 mg/dL 0.2-1.2 BILIRUBIN DIRECT (BEAKER) (test ifkv=664) 0.2 mg/dL 0.1-0.5 ALKALINE PHOSPHATASE (BEAKER) (test mdmx=356) 171 U/L 40-150 AST (SGOT) (BEAKER) (test ecmh=350) 44 U/L 5-34 ALT (SGPT) (BEAKER) (test lseo=535) 19 U/L 6-55 [id number] 11:32:00 Test Item Value Reference Range Comments AMYLASE (BEAKER) (test ovcr=521) 296 U/L 25-125 LACTATE DEHYDROGENASE (LDH)2017-01-02 11:32:00 Test Item Value Reference Range Comments LACTATE DEHYDROGENASE (BEAKER) (test duts=539) 478 U/L 125-220 OCCULT BLOOD, [id number] 10:39:00 Test Item Value Reference Range Comments FECAL OCCULT BLOOD (BEAKER) (test uolk=892) Positive Negative HEMOGLOBIN AND [id number] 10:18:00 Test Item Value Reference Range Comments HEMOGLOBIN (BEAKER) (test vecy=787) 6.2 GM/DL 12.0-15.0 HEMATOCRIT (BEAKER) (test vgbh=690) 18.5 % 36.0-45.0 LACTIC ACID, ARTERIAL, WHOLE [id number] 10:00:00 Test Item Value Reference Range Comments LACTATE BLOOD ARTERIAL (2) (BEAKER) (test 0.6 mmol/L 0.5-2.2 uqec=5396) Effective 03/05/2016: Units/Reference Range ChangeNew: 0.5-2.2 mmol/L Previous: 5 -20 mg/dLCBC W/PLT COUNT & AUTO [id number] 08:36:00 Test Item Value Reference Range Comments WHITE BLOOD CELL COUNT (BEAKER) (test qcfn=135) 26.6 K/ L 4.0-10.0 RED BLOOD CELL COUNT (BEAKER) (test jlkx=393) 1.83 M/ L 4.00-5.00 HEMOGLOBIN (BEAKER) (test kppv=199) 6.3 GM/DL 12.0-15.0 HEMATOCRIT (BEAKER) (test huxt=656) 18.9 % 36.0-45.0 MEAN CORPUSCULAR VOLUME (BEAKER) (test gtrn=368) 104.0 fL 82.0-99.0 MEAN CORPUSCULAR HEMOGLOBIN (BEAKER) (test 34.7 pg 27.0-33.0 vdro=836) MEAN CORPUSCULAR HEMOGLOBIN CONC (BEAKER) (test 33.5 GM/DL 32.0-36.0 hgmh=773) RED CELL DISTRIBUTION WIDTH (BEAKER) (test 18.1 % 10.3-14.2 csgu=767) PLATELET COUNT (BEAKER) (test lqxd=237) 372 K/CU MM 150-430 MEAN PLATELET VOLUME (BEAKER) (test fgoq=801) 9.9 fL 6.5-10.5 NUCLEATED RED BLOOD CELLS (BEAKER) (test 3 /100 WBC 0-0 twol=390) NEUTROPHILS RELATIVE PERCENT (BEAKER) (test 82 % bdor=199) LYMPHOCYTES RELATIVE PERCENT (BEAKER) (test 10 % tqzl=305) MONOCYTES RELATIVE PERCENT (BEAKER) (test 6 % olbi=622) EOSINOPHILS RELATIVE PERCENT (BEAKER) (test 2 % uphg=161) BASOPHILS RELATIVE PERCENT (BEAKER) (test 0 % mpkl=053) NEUTROPHILS ABSOLUTE COUNT (BEAKER) (test 21.90 K/ L 1.80-8.00 tstd=344) LYMPHOCYTES ABSOLUTE COUNT (BEAKER) (test 2.56 K/ L 1.48-4.50 fvvl=368) MONOCYTES ABSOLUTE COUNT (BEAKER) (test 1.68 K/ L 0.00-1.30 bbhd=121) EOSINOPHILS ABSOLUTE COUNT (BEAKER) (test 0.40 K/ L 0.00-0.50 bzxs=805) BASOPHILS ABSOLUTE COUNT (BEAKER) (test 0.06 K/ L 0.00-0.20 vnsj=240) 0.000.580.000.000.760.000.000.000.000.000.000.590.000.000.840.000.000.000.00( MANUAL DIFFERENTIAL)2017-01-02 08:36:00 Test Item Value Reference Range Comments TOTAL COUNTED (BEAKER) (test mbgl=1231) WBC MORPHOLOGY (BEAKER) (test gidv=161) Normal PLT MORPHOLOGY (BEAKER) (test wshi=974) Normal POLYCHROMATOPHILLIC RBCS(BEAKER) (test ytdl=466) 2+ moderate POCT-GLUCOSE [id number] 08:19:00 Test Item Value Reference Range Comments POC-GLUCOSE METER (BEAKER) 120 mg/dL 70-[address] [facility] [address] (test bwva=8992) [place] [address] [id number] 07:35:00 Test Item Value Reference Range Comments PARTIAL THROMBOPLASTIN TIME (BEAKER) (test 100.6 seconds 22.5-36.0 bhcd=195) [id number] 05:29:00 Test Item Value Reference Range Comments PHOSPHORUS (BEAKER) (test cfwb=281) 2.4 mg/dL 2.3-4.7 [id number] 05:29:00 Test Item Value Reference Range Comments MAGNESIUM (BEAKER) (test izua=692) 1.6 mg/dL 1.6-2.6 BASIC METABOLIC [id number] 05:29:00 Test Item Value Reference Range Comments SODIUM (BEAKER) (test 132 meq/L 136-145 frkd=416) POTASSIUM (BEAKER) (test 3.2 meq/L 3.5-5.1 ohnu=930) CHLORIDE (BEAKER) (test 102 meq/L 98-107 tlsx=668) CO2 (BEAKER) (test 19 meq/L 22-29 kadn=361) BLOOD UREA NITROGEN 12 mg/dL 7-21 (BEAKER) (test qztk=445) CREATININE (BEAKER) (test 0.56 mg/dL 0.57-1.25 gjyg=969) GLUCOSE RANDOM (BEAKER) 110 mg/dL 70-105 (test ykgi=652) CALCIUM (BEAKER) (test 8.2 mg/dL 8.4-10.2 rrjg=826) EGFR (BEAKER) (test 112 mL/min/1.73 sq m ESTIMATED GFR IS NOT pphd=4007) ACCURATE CREATININE CLEARANCE IN PREDICTING GLOMERULAR FILTRATION RATE. ESTIMATED GFR IS NOT APPLICABLE FOR DIALYSIS PATIENTS. PHENYTOIN LEVEL, [id number] 05:25:00 Test Item Value Reference Range Comments PHENYTOIN (DILANTIN) (BEAKER) (test becv=799) 5.7 ug/mL 10.0-20.0 BLOOD GAS, [id number] 04:49:00 Test Item Value Reference Range Comments PH ARTERIAL (BEAKER) (test lthc=721) 7.50 7.35-7.45 PCO2 ARTERIAL (BEAKER) (test zujt=978) 31 mmHg 35-45 PO2 ARTERIAL (BEAKER) (test fwct=280) 104 mmHg 80-90 O2 SATURATION ARTERIAL (BEAKER) (test qkam=792) 98.1 % 96.0-97.0 HCO3 ARTERIAL (BEAKER) (test uuqq=928) 24 mmol/L 21-29 BASE EXCESS ARTERIAL (BEAKER) (test snqf=000) 0.6 mmol/L -2.0-3.0 PATIENT TEMPERATURE (BEAKER) (test wviu=5054) 38.0 C FIO2 (BEAKER) (test lqud=2832) 35.0 % [id number] 00:44:00 Test Item Value Reference Range Comments PARTIAL THROMBOPLASTIN TIME (BEAKER) (test 103.9 seconds 22.5-36.0 njut=366) POCT-GLUCOSE [id number] 21:04:00 Test Item Value Reference Range Comments POC-GLUCOSE METER (BEAKER) 118 mg/dL 70-110 TESTED AT [address] (test saiz=6254) [place] [address] [id number] 19:08:00 Test Item Value Reference Range Comments POTASSIUM (BEAKER) (test ppna=722) 3.3 meq/L 3.5-5.1 Check Serum Phosphorus level 4 hours after IV phosphorus replacement or 8 hours after PO replacementcompleted.Check Serum Potassium level 2 hours after oral potassium replacement completed or 30 min after intravenous potassium replacement.[id number] 19:08:00 Test Item Value Reference Range Comments PHOSPHORUS (BEAKER) (test flok=345) 5.1 mg/dL 2.3-4.7 Check Serum Phosphorus level 4 hours after IV phosphorus replacement or 8 hours after PO replacementcompleted.Check Serum Potassium level 2 hours after oral potassium replacement completed or 30 min after intravenous potassium replacement.[id number] 18:18:00 Test Item Value Reference Range Comments PARTIAL THROMBOPLASTIN TIME (BEAKER) (test 46.4 seconds 22.5-36.0 fjkf=200) POCT-GLUCOSE [id number] 17:14:00 Test Item Value Reference Range Comments POC-GLUCOSE METER (BEAKER) 112 mg/dL 70-110 TESTED AT [address] (test ucpq=4630) [place] [address] LEGIONELLA ANTIGEN, [id number] 16:37:00 Test Item Value Reference Range Comments L. PNEUMOPHILA SEROGP 1 Negative - see Negative for L. UR AG (BEAKER) (test comment pneumophila serogroup 1 xvpa=0403) antigen, suggesting no recent or current infection with this serogroup. Legionellosis cannot be ruled out since other serogroups and species may cause disease. [id number] 16:20:00 Test Item Value Reference Range Comments SODIUM (BEAKER) (test ctsf=840) 134 meq/L 136-145 URINALYSIS W/ REFLEX URINE [id number] 14:01:00 Test Item Value Reference Range Comments COLOR (BEAKER) (test mfnz=438) Light Yellow CLARITY (BEAKER) (test bwpv=633) Clear SPECIFIC GRAVITY UA (BEAKER) (test jaoh=072) 1.008 1.001-1.035 PH UA (BEAKER) (test ihtu=602) 7.0 5.0-8.0 PROTEIN UA (BEAKER) (test pzdh=598) Negative Negative GLUCOSE UA (BEAKER) (test bzww=684) Negative Negative KETONES UA (BEAKER) (test kqdp=627) Negative Negative BILIRUBIN UA (BEAKER) (test obwf=499) Negative Negative BLOOD UA (BEAKER) (test osey=110) Trace Negative NITRITE UA (BEAKER) (test lhjz=302) Negative Negative LEUKOCYTE ESTERASE UA (BEAKER) (test ivbi=716) Negative Negative UROBILINOGEN UA (BEAKER) (test ojtk=471) 0.2 mg/dL 0.2-1.0 RBC UA (BEAKER) (test xwkz=471) 0 /HPF WBC UA (BEAKER) (test akhj=483) 2 /HPF BACTERIA (BEAKER) (test wvmp=209) Rare MUCUS (BEAKER) (test jofl=5275) Rare SQUAMOUS EPITHELIAL (BEAKER) (test dbxd=106) 1 /HPF HYALINE CASTS (BEAKER) (test gssr=072) 3 /LPF SOURCE(BEAKER) (test ypom=4246) HIV-1 ANTIGEN WITH HIV-1/2 [id number] 12:46:00 Test Item Value Reference Range Comments HIV-1 ANTIGEN WITH HIV 1\T\2 ANTIBODY (2) Nonreactive Nonreactive (BEAKER) (test vjcx=1798) HEPATIC FUNCTION [id number] 12:16:00 Test Item Value Reference Range Comments TOTAL PROTEIN (BEAKER) (test xmrk=484) 6.4 gm/dL 6.0-8.3 ALBUMIN (BEAKER) (test tugl=7178) 2.8 g/dL 3.5-5.0 BILIRUBIN TOTAL (BEAKER) (test igzf=015) 0.5 mg/dL 0.2-1.2 BILIRUBIN DIRECT (BEAKER) (test ngdp=545) 0.3 mg/dL 0.1-0.5 ALKALINE PHOSPHATASE (BEAKER) (test crjv=022) 245 U/L 40-150 AST (SGOT) (BEAKER) (test wbru=985) 49 U/L 5-34 ALT (SGPT) (BEAKER) (test ycxa=564) 27 U/L 6-55 Check Serum Phosphorus level 4 hours after IV phosphorus replacement or 8 hours after PO replacementcompleted.8 hours after PO replacement [id number] 12:16:00 Test Item Value Reference Range Comments MAGNESIUM (BEAKER) (test qdrb=386) 2.4 mg/dL 1.6-2.6 Check Serum Phosphorus level 4 hours after IV phosphorus replacement or 8 hours after PO replacementcompleted.8 hours after PO replacement [id number] 12:16:00 Test Item Value Reference Range Comments PHOSPHORUS (BEAKER) (test wger=249) 1.7 mg/dL 2.3-4.7 Check Serum Phosphorus level 4 hours after IV phosphorus replacement or 8 hours after PO replacementcompleted.8 hours after PO replacement [id number] 12:16:00 Test Item Value Reference Range Comments POTASSIUM (BEAKER) (test fspu=293) 3.0 meq/L 3.5-5.1 Check Serum Phosphorus level 4 hours after IV phosphorus replacement or 8 hours after PO replacementcompleted.8 hours after PO replacement completedVANCOMYCIN LEVEL, [id number] 12:09:00 Test Item Value Reference Range Comments VANCOMYCIN RANDOM (BEAKER) (test ijlg=681) 24.0 ug/mL Reference Range: No [id number] 12:07:00 Test Item Value Reference Range Comments PARTIAL THROMBOPLASTIN TIME (BEAKER) (test 71.2 seconds 22.5-36.0 brtk=787) LACTIC ACID, ARTERIAL, WHOLE [id number] 12:03:00 Test Item Value Reference Range Comments LACTATE BLOOD ARTERIAL (2) (BEAKER) (test 0.9 mmol/L 0.5-2.2 hsfk=9696) Effective 03/05/2016: Units/Reference Range ChangeNew: 0.5-2.2 mmol/L Previous: 5 -20 mg/dLPOCT-GLUCOSE [id number] 11:04:00 Test Item Value Reference Range Comments POC-GLUCOSE METER (BEAKER) 173 mg/dL 70-[address] [facility] [address] [facility] (test ipec=8207) [place] [address] CBC W/PLT COUNT & AUTO [id number] 10:05:00 Test Item Value Reference Range Comments WHITE BLOOD CELL COUNT (BEAKER) (test pcim=711) 24.5 K/ L 4.0-10.0 RED BLOOD CELL COUNT (BEAKER) (test afim=755) 2.34 M/ L 4.00-5.00 HEMOGLOBIN (BEAKER) (test gquv=388) 8.2 GM/DL 12.0-15.0 HEMATOCRIT (BEAKER) (test dpyh=042) 24.0 % 36.0-45.0 MEAN CORPUSCULAR VOLUME (BEAKER) (test yjfj=484) 103.0 fL 82.0-99.0 MEAN CORPUSCULAR HEMOGLOBIN (BEAKER) (test 34.9 pg 27.0-33.0 idbs=355) MEAN CORPUSCULAR HEMOGLOBIN CONC (BEAKER) (test 33.9 GM/DL 32.0-36.0 mhyl=373) RED CELL DISTRIBUTION WIDTH (BEAKER) (test 17.3 % 10.3-14.2 butw=477) PLATELET COUNT (BEAKER) (test hgos=514) 377 K/CU MM 150-430 MEAN PLATELET VOLUME (BEAKER) (test pege=195) 9.5 fL 6.5-10.5 NUCLEATED RED BLOOD CELLS (BEAKER) (test 0 /100 WBC 0-0 erhi=917) NEUTROPHILS RELATIVE PERCENT (BEAKER) (test 78 % zgba=921) LYMPHOCYTES RELATIVE PERCENT (BEAKER) (test 14 % oziv=345) MONOCYTES RELATIVE PERCENT (BEAKER) (test 7 % aweb=911) EOSINOPHILS RELATIVE PERCENT (BEAKER) (test 1 % mwcw=483) BASOPHILS RELATIVE PERCENT (BEAKER) (test 0 % astu=003) NEUTROPHILS ABSOLUTE COUNT (BEAKER) (test 19.00 K/ L 1.80-8.00 rybq=593) LYMPHOCYTES ABSOLUTE COUNT (BEAKER) (test 3.31 K/ L 1.48-4.50 jvjj=013) MONOCYTES ABSOLUTE COUNT (BEAKER) (test 1.71 K/ L 0.00-1.30 uwca=238) EOSINOPHILS ABSOLUTE COUNT (BEAKER) (test 0.34 K/ L 0.00-0.50 dxxm=847) BASOPHILS ABSOLUTE COUNT (BEAKER) (test 0.12 K/ L 0.00-0.20 vikn=006) 0.000.580.000.000.720.000.000.000.00(MANUAL DIFFERENTIAL)2017-01-01 10:05:00 Test Item Value Reference Range Comments TOTAL COUNTED (BEAKER) (test yvfb=7668) PLT MORPHOLOGY (BEAKER) (test bsdc=074) Normal DOHLE BODIES (BEAKER) (test eedq=982) Present TOXIC GRANULATION (BEAKER) (test zqls=535) Present VACUOLATED NEUTROPHILS (BEAKER) (test vuou=089) Slight ANISOCYTOSIS (BEAKER) (test viwz=759) 2+ moderate POLYCHROMATOPHILLIC RBCS(BEAKER) (test vjka=437) 2+ moderate POCT-GLUCOSE [id number] 08:05:00 Test Item Value Reference Range Comments POC-GLUCOSE METER (BEAKER) 180 mg/dL 70-110 TESTED AT [address] (test spbc=7207) [facility] [address] POCT-GLUCOSE [id number] 06:54:00 Test Item Value Reference Range Comments POC-GLUCOSE METER (BEAKER) 117 mg/dL 70-110 TESTED AT [address] (test leye=7040) [facility] [address] PHENYTOIN LEVEL, [id number] 05:16:00 Test Item Value Reference Range Comments PHENYTOIN (DILANTIN) (BEAKER) (test orqh=867) 7.9 ug/mL 10.0-20.0 [id number] 05:01:00 Test Item Value Reference Range Comments PHOSPHORUS (BEAKER) (test lzxh=569) 1.5 mg/dL 2.3-4.7 [id number] 04:54:00 Test Item Value Reference Range Comments MAGNESIUM (BEAKER) (test trvb=524) 1.6 mg/dL 1.6-2.6 BASIC METABOLIC [id number] 04:54:00 Test Item Value Reference Range Comments SODIUM (BEAKER) (test 134 meq/L 136-145 arvt=281) POTASSIUM (BEAKER) (test 2.7 meq/L 3.5-5.1 djbz=325) CHLORIDE (BEAKER) (test 91 meq/L 98-107 fjgm=153) CO2 (BEAKER) (test 32 meq/L 22-29 czir=686) BLOOD UREA NITROGEN 13 mg/dL 7-21 (BEAKER) (test ybuc=272) CREATININE (BEAKER) (test 0.72 mg/dL 0.57-1.25 mzin=944) GLUCOSE RANDOM (BEAKER) 116 mg/dL 70-105 (test hwxy=445) CALCIUM (BEAKER) (test 8.8 mg/dL 8.4-10.2 ojfk=733) EGFR (BEAKER) (test 84 mL/min/1.73 sq m ESTIMATED GFR IS NOT xmng=7644) ACCURATE CREATININE CLEARANCE IN PREDICTING GLOMERULAR FILTRATION RATE. ESTIMATED GFR IS NOT APPLICABLE FOR DIALYSIS PATIENTS. [id number] 04:43:00 Test Item Value Reference Range Comments PARTIAL THROMBOPLASTIN TIME (BEAKER) (test 50.5 seconds 22.5-36.0 xiiu=742) BLOOD GAS, [id number] 04:36:00 Test Item Value Reference Range Comments PH ARTERIAL (BEAKER) (test qjqa=742) 7.52 7.35-7.45 PCO2 ARTERIAL (BEAKER) (test outx=147) 45 mmHg 35-45 PO2 ARTERIAL (BEAKER) (test ovmq=755) 72 mmHg 80-90 O2 SATURATION ARTERIAL (BEAKER) (test htdt=007) 95.1 % 96.0-97.0 HCO3 ARTERIAL (BEAKER) (test gxyb=670) 35 mmol/L 21-29 BASE EXCESS ARTERIAL (BEAKER) (test pvii=282) 11.6 mmol/L -2.0-3.0 PATIENT TEMPERATURE (BEAKER) (test neea=5276) 38.0 C FIO2 (BEAKER) (test mldk=1768) 55.0 % POCT-GLUCOSE [id number] 21:11:00 Test Item Value Reference Range Comments POC-GLUCOSE METER (BEAKER) 141 mg/dL 70-110 TESTED AT [address] (test bcoi=8116) [facility] [address] POCT-GLUCOSE [id number] 17:30:00 Test Item Value Reference Range Comments POC-GLUCOSE METER (BEAKER) 130 mg/dL 70-110 TESTED AT [address] (test odkt=6752) [facility] [address] [id number] 16:31:00 Test Item Value Reference Range Comments POTASSIUM (BEAKER) (test jylw=141) 2.3 meq/L 3.5-5.1 Check Serum Potassium level 2 hours after oral potassium replacement completed or 30 min after intravenous potassium replacement.[id number] 16:25:00 Test Item Value Reference Range Comments MAGNESIUM (BEAKER) (test hmpn=420) 1.3 mg/dL 1.6-2.6 Check Serum Potassium level 2 hours after oral potassium replacement completed or 30 min after intravenous potassium replacement.[id number] 16:25:00 Test Item Value Reference Range Comments SODIUM (BEAKER) (test rzwo=297) 135 meq/L 136-145 Check Serum Potassium level 2 hours after oral potassium replacement completed or 30 min after intravenous potassium replacement.CBC (HEMOGRAM ONLY)2016-12-31 16:22:00 Test Item Value Reference Range Comments WHITE BLOOD CELL COUNT (BEAKER) (test byau=175) 21.6 K/ L 4.0-10.0 RED BLOOD CELL COUNT (BEAKER) (test fnlh=197) 2.13 M/ L 4.00-5.00 HEMOGLOBIN (BEAKER) (test rhwd=029) 7.3 GM/DL 12.0-15.0 HEMATOCRIT (BEAKER) (test wnvm=380) 21.9 % 36.0-45.0 MEAN CORPUSCULAR VOLUME (BEAKER) (test pzid=417) 103.0 fL 82.0-99.0 MEAN CORPUSCULAR HEMOGLOBIN (BEAKER) (test 34.3 pg 27.0-33.0 wdbu=239) MEAN CORPUSCULAR HEMOGLOBIN CONC (BEAKER) (test 33.4 GM/DL 32.0-36.0 ainw=212) RED CELL DISTRIBUTION WIDTH (BEAKER) (test 17.1 % 10.3-14.2 ltly=006) PLATELET COUNT (BEAKER) (test cpai=774) 395 K/CU MM 150-430 MEAN PLATELET VOLUME (BEAKER) (test sizf=299) 9.4 fL 6.5-10.5 NUCLEATED RED BLOOD CELLS (BEAKER) (test 0 /100 WBC 0-0 kabn=286) POCT-GLUCOSE [id number] 12:13:00 Test Item Value Reference Range Comments POC-GLUCOSE METER (BEAKER) 182 mg/dL 70-110 TESTED AT [address] (test attb=2526) [facility] [address] POCT-GLUCOSE [id number] 07:46:00 Test Item Value Reference Range Comments POC-GLUCOSE METER (BEAKER) 96 mg/dL 70-110 TESTED AT [address] (test alyi=1944) [facility] [address] CBC W/PLT COUNT & AUTO [id number] 07:02:00 Test Item Value Reference Range Comments WHITE BLOOD CELL COUNT (BEAKER) (test srad=407) 15.2 K/ L 4.0-10.0 RED BLOOD CELL COUNT (BEAKER) (test teqi=623) 2.37 M/ L 4.00-5.00 HEMOGLOBIN (BEAKER) (test kapk=167) 8.3 GM/DL 12.0-15.0 HEMATOCRIT (BEAKER) (test iimo=681) 24.7 % 36.0-45.0 MEAN CORPUSCULAR VOLUME (BEAKER) (test eiuy=938) 104.0 fL 82.0-99.0 MEAN CORPUSCULAR HEMOGLOBIN (BEAKER) (test 34.9 pg 27.0-33.0 cnqy=062) MEAN CORPUSCULAR HEMOGLOBIN CONC (BEAKER) (test 33.4 GM/DL 32.0-36.0 rpbv=284) RED CELL DISTRIBUTION WIDTH (BEAKER) (test 16.0 % 10.3-14.2 dpnr=085) PLATELET COUNT (BEAKER) (test xgnx=428) 317 K/CU MM 150-430 MEAN PLATELET VOLUME (BEAKER) (test vrlt=643) 9.6 fL 6.5-10.5 NUCLEATED RED BLOOD CELLS (BEAKER) (test 0 /100 WBC 0-0 ejqc=132) NEUTROPHILS RELATIVE PERCENT (BEAKER) (test 82 % knsk=529) LYMPHOCYTES RELATIVE PERCENT (BEAKER) (test 11 % bzjl=559) MONOCYTES RELATIVE PERCENT (BEAKER) (test 7 % qbdg=957) EOSINOPHILS RELATIVE PERCENT (BEAKER) (test 0 % xrmx=738) BASOPHILS RELATIVE PERCENT (BEAKER) (test 0 % coug=635) NEUTROPHILS ABSOLUTE COUNT (BEAKER) (test 12.50 K/ L 1.80-8.00 zzpy=206) LYMPHOCYTES ABSOLUTE COUNT (BEAKER) (test 1.60 K/ L 1.48-4.50 ekgb=272) MONOCYTES ABSOLUTE COUNT (BEAKER) (test 1.00 K/ L 0.00-1.30 cldk=255) EOSINOPHILS ABSOLUTE COUNT (BEAKER) (test 0.05 K/ L 0.00-0.50 edkh=945) BASOPHILS ABSOLUTE COUNT (BEAKER) (test 0.02 K/ L 0.00-0.20 qhsu=552) 0.000.650.000.000.700.000.000.000.000.000.000.620.000.000.720.000.000.000.00( MANUAL DIFFERENTIAL)2016-12-31 07:02:00 Test Item Value Reference Range Comments TOTAL COUNTED (BEAKER) (test uqkm=3690) WBC MORPHOLOGY (BEAKER) (test sbxl=157) Normal PLT MORPHOLOGY (BEAKER) (test itcg=164) Normal ANISOCYTOSIS (BEAKER) (test uvpc=549) 2+ moderate POIKILOCYTES (BEAKER) (test hbus=507) 2+ moderate POLYCHROMATOPHILLIC RBCS(BEAKER) (test mzak=825) 1+ few TARGET CELLS (BEAKER) (test zlnh=569) 2+ moderate [id number] 06:36:00 Test Item Value Reference Range Comments PARTIAL THROMBOPLASTIN TIME (BEAKER) (test 71.5 seconds 22.5-36.0 jyaf=987) BLOOD GAS, [id number] 06:32:00 Test Item Value Reference Range Comments PH ARTERIAL (BEAKER) (test xwpm=465) 7.49 7.35-7.45 PCO2 ARTERIAL (BEAKER) (test kfyf=686) 52 mmHg 35-45 PO2 ARTERIAL (BEAKER) (test znlq=976) 77 mmHg 80-90 O2 SATURATION ARTERIAL (BEAKER) (test gmsy=502) 96.2 % 96.0-97.0 HCO3 ARTERIAL (BEAKER) (test lsif=071) 39 mmol/L 21-29 BASE EXCESS ARTERIAL (BEAKER) (test sdgs=734) 13.6 mmol/L -2.0-3.0 PATIENT TEMPERATURE (BEAKER) (test eaqq=3451) 36.6 C FIO2 (BEAKER) (test imvs=9371) 65.0 % BASIC METABOLIC [id number] 03:54:00 Test Item Value Reference Range Comments SODIUM (BEAKER) (test 136 meq/L 136-145 haqd=206) POTASSIUM (BEAKER) (test 3.2 meq/L 3.5-5.1 Specimen slightly kdbm=858) hemolyzed CHLORIDE (BEAKER) (test 92 meq/L 98-107 opvi=422) CO2 (BEAKER) (test 29 meq/L 22-29 ppds=271) BLOOD UREA NITROGEN 16 mg/dL 7-21 (BEAKER) (test xyvw=103) CREATININE (BEAKER) (test 0.79 mg/dL 0.57-1.25 Specimen slightly usyp=852) hemolyzed GLUCOSE RANDOM (BEAKER) 155 mg/dL 70-105 (test enyp=630) CALCIUM (BEAKER) (test 9.1 mg/dL 8.4-10.2 xhxh=805) EGFR (BEAKER) (test 75 mL/min/1.73 sq m ESTIMATED GFR IS NOT dfrb=9680) ACCURATE CREATININE CLEARANCE IN PREDICTING GLOMERULAR FILTRATION RATE. ESTIMATED GFR IS NOT APPLICABLE FOR DIALYSIS PATIENTS. PHENYTOIN LEVEL, [id number] 03:49:00 Test Item Value Reference Range Comments PHENYTOIN (DILANTIN) (BEAKER) (test jtyh=467) 8.1 ug/mL 10.0-20.0 [id number] 03:39:00 Test Item Value Reference Range Comments MAGNESIUM (BEAKER) (test 1.7 mg/dL 1.6-2.6 Specimen slightly hemolyzed szpn=021) [id number] 03:39:00 Test Item Value Reference Range Comments PHOSPHORUS (BEAKER) (test 3.6 mg/dL 2.3-4.7 Specimen slightly hemolyzed teby=236) HEPATIC FUNCTION [id number] 03:39:00 Test Item Value Reference Range Comments TOTAL PROTEIN (BEAKER) (test 6.1 gm/dL 6.0-8.3 Specimen slightly hemolyzed fvaf=333) ALBUMIN (BEAKER) (test 2.8 g/dL 3.5-5.0 Specimen slightly hemolyzed pmfl=1552) BILIRUBIN TOTAL (BEAKER) (test 0.5 mg/dL 0.2-1.2 Specimen slightly hemolyzed nzxg=025) BILIRUBIN DIRECT (BEAKER) (test 0.2 mg/dL 0.1-0.5 Specimen slightly hemolyzed svyu=740) ALKALINE PHOSPHATASE (BEAKER) 265 U/L 40-150 (test hnqk=723) AST (SGOT) (BEAKER) (test 60 U/L 5-34 Specimen slightly hemolyzed fjwk=873) ALT (SGPT) (BEAKER) (test 34 U/L 6-55 Specimen slightly hemolyzed zdbf=706) POCT-GLUCOSE [id number] 22:14:00 Test Item Value Reference Range Comments POC-GLUCOSE METER (BEAKER) 241 mg/dL 70-110 TESTED AT [address] (test mdtr=7475) [place] [address] POCT-GLUCOSE [id number] 18:24:00 Test Item Value Reference Range Comments POC-GLUCOSE METER (BEAKER) 156 mg/dL 70-110 TESTED AT [address] (test trnx=9613) [place] [address] [id number] 17:15:00 Test Item Value Reference Range Comments SODIUM (BEAKER) (test hfxm=585) 141 meq/L 136-145 [id number] 14:49:00 Test Item Value Reference Range Comments LIPASE (BEAKER) (test ytto=705) 204 U/L 8-78 [id number] 14:49:00 Test Item Value Reference Range Comments AMYLASE (BEAKER) (test xvjk=081) 127 U/L 25-125 Specimen markedly hemolyzed HEPATIC FUNCTION [id number] 14:49:00 Test Item Value Reference Range Comments TOTAL PROTEIN (BEAKER) (test 7.0 gm/dL 6.0-8.3 Specimen markedly hemolyzed oxvr=120) ALBUMIN (BEAKER) (test 2.5 g/dL 3.5-5.0 Specimen markedly hemolyzed mzsp=5147) BILIRUBIN TOTAL (BEAKER) (test 0.4 mg/dL 0.2-1.2 Specimen markedly hemolyzed dtpt=734) BILIRUBIN DIRECT (BEAKER) (test 0.1 mg/dL 0.1-0.5 Specimen markedly hemolyzed vaww=973) ALKALINE PHOSPHATASE (BEAKER) 251 U/L 40-150 (test fpdo=545) AST (SGOT) (BEAKER) (test 76 U/L 5-34 Specimen markedly hemolyzed plob=895) ALT (SGPT) (BEAKER) (test 32 U/L 6-55 Specimen markedly hemolyzed lbiu=421) LACTIC ACID, VENOUS, WHOLE [id number] 14:46:00 Test Item Value Reference Range Comments LACTATE BLOOD VENOUS (2) 1.5 mmol/L 0.5-2.2 Specimen markedly hemolyzed (BEAKER) (test tmvc=8725) Effective 03/05/2016: Units/Reference Range ChangeNew: 0.5-2.2 mmol/L Previous: 5 -20 mg/dLPOCT-GLUCOSE [id number] 11:40:00 Test Item Value Reference Range Comments POC-GLUCOSE METER (BEAKER) 192 mg/dL 70-[address] [facility] [address] [facility] (test clgu=0357) [facility] [address] BLOOD GAS, [id number] 10:05:00 Test Item Value Reference Range Comments PH ARTERIAL (BEAKER) (test bqfb=730) 7.47 7.35-7.45 PCO2 ARTERIAL (BEAKER) (test ahjq=202) 50 mmHg 35-45 PO2 ARTERIAL (BEAKER) (test kotl=956) 51 mmHg 80-90 O2 SATURATION ARTERIAL (BEAKER) (test ngcm=658) 87.8 % 96.0-97.0 HCO3 ARTERIAL (BEAKER) (test mbzt=430) 35 mmol/L 21-29 BASE EXCESS ARTERIAL (BEAKER) (test hnzj=623) 10.6 mmol/L -2.0-3.0 PATIENT TEMPERATURE (BEAKER) (test mdqj=7271) 37.0 C FIO2 (BEAKER) (test dhgr=3891) 70.0 % [id number] 09:59:00 Test Item Value Reference Range Comments MAGNESIUM (BEAKER) (test 3.2 mg/dL 1.6-2.6 Specimen markedly hemolyzed yqvq=120) Check Serum Potassium level 2 hours after oral potassium replacement completed or 30 min after intravenous potassium replacement.[id number] 09:59:00 Test Item Value Reference Range Comments POTASSIUM (BEAKER) (test 5.5 meq/L 3.5-5.1 Specimen markedly hemolyzed vfct=773) Check Serum Potassium level 2 hours after oral potassium replacement completed or 30 min after intravenous potassium replacement.[id number] 09:47:00 Test Item Value Reference Range Comments PARTIAL THROMBOPLASTIN TIME (BEAKER) (test 84.9 seconds 22.5-36.0 mqgx=616) (MANUAL DIFFERENTIAL)2016-12-30 08:13:00 Test Item Value Reference Range Comments NEUTROPHILS - REL (DIFF) (BEAKER) (test 70 % wivl=8393) LYMPHOCYTES - REL (DIFF) (BEAKER) (test 7 % aomd=0335) MONOCYTES - REL (DIFF) (BEAKER) (test sejy=7187) 6 % BANDS - REL (DIFF) (BEAKER) (test yaca=4079) 17 % 0-10 NEUTROPHILS - ABS (DIFF) (BEAKER) (test 10.57 K/ L 1.80-8.00 plax=1567) LYMPHOCYTES - ABS (DIFF) (BEAKER) (test 1.06 K/ L 1.48-4.50 bjjv=9358) MONOCYTES - ABS (DIFF) (BEAKER) (test toip=4451) 0.91 K/ L 0.00-1.30 BANDS-ABS (DIFF) (BEAKER) (test heqx=5891) 2.6 K/ L 0.0-0.8 TOTAL COUNTED (BEAKER) (test rytv=4870) 100 BANDS + SEGMENTED NEUTROPHILS (BEAKER) (test 13.14 erzf=3526) WBC MORPHOLOGY (BEAKER) (test cfkj=427) Normal PLT MORPHOLOGY (BEAKER) (test awqo=209) Normal TOXIC GRANULATION (BEAKER) (test tarf=447) Slight POIKILOCYTES (BEAKER) (test uyac=671) 2+ moderate POLYCHROMATOPHILLIC RBCS(BEAKER) (test vgpr=264) 1+ few TARGET CELLS (BEAKER) (test cslk=442) 2+ moderate PHENYTOIN LEVEL, [id number] 05:06:00 Test Item Value Reference Range Comments PHENYTOIN (DILANTIN) (BEAKER) (test iwrw=987) 10.2 ug/mL 10.0-20.0 [id number] 03:36:00 Test Item Value Reference Range Comments PHOSPHORUS (BEAKER) (test ysrm=752) 5.5 mg/dL 2.3-4.7 [id number] 03:36:00 Test Item Value Reference Range Comments MAGNESIUM (BEAKER) (test agfc=333) 1.5 mg/dL 1.6-2.6 BASIC METABOLIC [id number] 03:36:00 Test Item Value Reference Range Comments SODIUM (BEAKER) (test 137 meq/L 136-145 forv=565) POTASSIUM (BEAKER) (test 3.6 meq/L 3.5-5.1 uluy=530) CHLORIDE (BEAKER) (test 94 meq/L 98-107 cqjt=765) CO2 (BEAKER) (test 30 meq/L 22-29 ysmw=230) BLOOD UREA NITROGEN 16 mg/dL 7-21 (BEAKER) (test iast=562) CREATININE (BEAKER) (test 0.92 mg/dL 0.57-1.25 qwkd=823) GLUCOSE RANDOM (BEAKER) 151 mg/dL 70-105 (test zbxa=721) CALCIUM (BEAKER) (test 8.9 mg/dL 8.4-10.2 xucj=235) EGFR (BEAKER) (test 63 mL/min/1.73 sq m ESTIMATED GFR IS NOT sxln=5583) ACCURATE CREATININE CLEARANCE IN PREDICTING GLOMERULAR FILTRATION RATE. ESTIMATED GFR IS NOT APPLICABLE FOR DIALYSIS PATIENTS. [id number] 03:31:00 Test Item Value Reference Range Comments PARTIAL THROMBOPLASTIN TIME (BEAKER) (test 96.7 seconds 22.5-36.0 lmrz=284) CBC W/PLT COUNT & AUTO [id number] 03:30:00 Test Item Value Reference Range Comments WHITE BLOOD CELL COUNT (BEAKER) (test rued=850) 15.1 K/ L 4.0-10.0 RED BLOOD CELL COUNT (BEAKER) (test qigl=562) 2.33 M/ L 4.00-5.00 HEMOGLOBIN (BEAKER) (test sewj=853) 8.0 GM/DL 12.0-15.0 HEMATOCRIT (BEAKER) (test kbql=748) 24.2 % 36.0-45.0 MEAN CORPUSCULAR VOLUME (BEAKER) (test ufso=999) 104.0 fL 82.0-99.0 MEAN CORPUSCULAR HEMOGLOBIN (BEAKER) (test 34.3 pg 27.0-33.0 dqjp=750) MEAN CORPUSCULAR HEMOGLOBIN CONC (BEAKER) (test 33.1 GM/DL 32.0-36.0 iyso=486) RED CELL DISTRIBUTION WIDTH (BEAKER) (test 16.6 % 10.3-14.2 ssre=563) PLATELET COUNT (BEAKER) (test pfjy=918) 287 K/CU MM 150-430 MEAN PLATELET VOLUME (BEAKER) (test nrpm=920) 9.5 fL 6.5-10.5 NUCLEATED RED BLOOD CELLS (BEAKER) (test 0 /100 WBC 0-0 jkwg=860) 0.000.560.000.000.630.000.000.000.00VANCOMYCIN LEVEL, [id number] 20:44:00 Test Item Value Reference Range Comments VANCOMYCIN TROUGH (BEAKER) (test dauf=728) 33.5 ug/mL 10.0-20.0 Wait for result before giving dose. HOLD vancomycin if trough >[id number] 20:30:00 Test Item Value Reference Range Comments PARTIAL THROMBOPLASTIN TIME (BEAKER) (test 65.1 seconds 22.5-36.0 wsys=089) [id number] 14:10:00 Test Item Value Reference Range Comments PROTIME (BEAKER) (test izrn=101) 14.0 seconds 11.7-14.7 INR (BEAKER) (test svre=515) 1.1 <=5.9 PARTIAL THROMBOPLASTIN TIME (BEAKER) (test 98.6 seconds 22.5-36.0 coyb=282) RECOMMENDED COUMADIN/WARFARIN INR THERAPY RANGESSTANDARD DOSE: 2.0 - 3.0 Includes: PROPHYLAXIS forvenous thrombosis, systemic embolization; TREATMENT for venous thrombosis and/or pulmonary embolus.HIGH RISK: Target INR is 2.5-3.5 for patients with mechanical heart valves.URINE [id number] 12:19:00 Test Item Value Reference Range Comments CULTURE (BEAKER) (test 10-19,000 col/mL Patrizia avaf=6656) albicans <10,000 col/mL Gram Negative RodCBC W/PLT COUNT & AUTO [id number] 07:11:00 Test Item Value Reference Range Comments WHITE BLOOD CELL COUNT (BEAKER) (test sggw=445) 16.1 K/ L 4.0-10.0 RED BLOOD CELL COUNT (BEAKER) (test wchg=253) 2.41 M/ L 4.00-5.00 HEMOGLOBIN (BEAKER) (test qggs=507) 8.7 GM/DL 12.0-15.0 HEMATOCRIT (BEAKER) (test zdwc=147) 25.6 % 36.0-45.0 MEAN CORPUSCULAR VOLUME (BEAKER) (test ofvs=058) 106.0 fL 82.0-99.0 MEAN CORPUSCULAR HEMOGLOBIN (BEAKER) (test 36.2 pg 27.0-33.0 wgiy=042) MEAN CORPUSCULAR HEMOGLOBIN CONC (BEAKER) (test 34.2 GM/DL 32.0-36.0 yuuh=400) RED CELL DISTRIBUTION WIDTH (BEAKER) (test 16.1 % 10.3-14.2 spfx=491) PLATELET COUNT (BEAKER) (test prbo=880) 286 K/CU MM 150-430 MEAN PLATELET VOLUME (BEAKER) (test ojpb=282) 9.3 fL 6.5-10.5 NUCLEATED RED BLOOD CELLS (BEAKER) (test 0 /100 WBC 0-0 bihr=754) NEUTROPHILS RELATIVE PERCENT (BEAKER) (test 76 % sazb=712) LYMPHOCYTES RELATIVE PERCENT (BEAKER) (test 10 % vtal=235) MONOCYTES RELATIVE PERCENT (BEAKER) (test 11 % ofvy=566) EOSINOPHILS RELATIVE PERCENT (BEAKER) (test 3 % hhrm=475) BASOPHILS RELATIVE PERCENT (BEAKER) (test 0 % mvyk=325) NEUTROPHILS ABSOLUTE COUNT (BEAKER) (test 12.20 K/ L 1.80-8.00 kyho=931) LYMPHOCYTES ABSOLUTE COUNT (BEAKER) (test 1.64 K/ L 1.48-4.50 pbao=239) MONOCYTES ABSOLUTE COUNT (BEAKER) (test 1.77 K/ L 0.00-1.30 gcsr=878) EOSINOPHILS ABSOLUTE COUNT (BEAKER) (test 0.47 K/ L 0.00-0.50 rjcs=717) BASOPHILS ABSOLUTE COUNT (BEAKER) (test 0.05 K/ L 0.00-0.20 wsqa=454) 0.000.500.000.000.540.000.000.000.00(MANUAL DIFFERENTIAL)2016-12-29 07:11:00 Test Item Value Reference Range Comments TOTAL COUNTED (BEAKER) (test dgju=1101) WBC MORPHOLOGY (BEAKER) (test asqs=343) Normal PLT MORPHOLOGY (BEAKER) (test svtj=557) Normal POIKILOCYTES (BEAKER) (test jfto=790) 1+ few POLYCHROMATOPHILLIC RBCS(BEAKER) (test ehfq=487) 1+ few TARGET CELLS (BEAKER) (test wden=124) 1+ few [id number] 06:37:00 Test Item Value Reference Range Comments PARTIAL THROMBOPLASTIN TIME (BEAKER) (test 80.8 seconds 22.5-36.0 poer=553) PHENYTOIN LEVEL, [id number] 05:47:00 Test Item Value Reference Range Comments PHENYTOIN (DILANTIN) (BEAKER) (test rtth=696) 13.3 ug/mL 10.0-20.0 [id number] 04:00:00 Test Item Value Reference Range Comments PHOSPHORUS (BEAKER) (test lziy=395) 4.3 mg/dL 2.3-4.7 [id number] 04:00:00 Test Item Value Reference Range Comments MAGNESIUM (BEAKER) (test ovgr=086) 1.7 mg/dL 1.6-2.6 BASIC METABOLIC [id number] 04:00:00 Test Item Value Reference Range Comments SODIUM (BEAKER) (test 140 meq/L 136-145 yibo=568) POTASSIUM (BEAKER) (test 3.8 meq/L 3.5-5.1 cbtu=700) CHLORIDE (BEAKER) (test 98 meq/L 98-107 dfye=971) CO2 (BEAKER) (test 30 meq/L 22-29 nyfj=897) BLOOD UREA NITROGEN 13 mg/dL 7-21 (BEAKER) (test drnt=974) CREATININE (BEAKER) (test 0.90 mg/dL 0.57-1.25 idmk=938) GLUCOSE RANDOM (BEAKER) 134 mg/dL 70-105 (test wccb=849) CALCIUM (BEAKER) (test 8.9 mg/dL 8.4-10.2 yflz=283) EGFR (BEAKER) (test 65 mL/min/1.73 sq m ESTIMATED GFR IS NOT kltb=1174) ACCURATE CREATININE CLEARANCE IN PREDICTING GLOMERULAR FILTRATION RATE. ESTIMATED GFR IS NOT APPLICABLE FOR DIALYSIS PATIENTS. [id number] 03:59:00 Test Item Value Reference Range Comments PARTIAL THROMBOPLASTIN TIME (BEAKER) (test 178.1 seconds 22.5-36.0 zfkl=065) [id number] 20:15:00 Test Item Value Reference Range Comments POTASSIUM (BEAKER) (test gxgi=883) 3.9 meq/L 3.5-5.1 8 hours after PO replacement [id number] 19:59:00 Test Item Value Reference Range Comments PARTIAL THROMBOPLASTIN TIME (BEAKER) (test 45.5 seconds 22.5-36.0 tcmg=459) Prior to initiating heparinCBC (HEMOGRAM ONLY)2016-12-28 19:51:00 Test Item Value Reference Range Comments WHITE BLOOD CELL COUNT (BEAKER) (test lkft=958) 15.1 K/ L 4.0-10.0 RED BLOOD CELL COUNT (BEAKER) (test qmai=857) 2.49 M/ L 4.00-5.00 HEMOGLOBIN (BEAKER) (test tspi=467) 8.8 GM/DL 12.0-15.0 HEMATOCRIT (BEAKER) (test zhaw=345) 26.0 % 36.0-45.0 MEAN CORPUSCULAR VOLUME (BEAKER) (test zyvm=404) 104.0 fL 82.0-99.0 MEAN CORPUSCULAR HEMOGLOBIN (BEAKER) (test 35.5 pg 27.0-33.0 rqvs=767) MEAN CORPUSCULAR HEMOGLOBIN CONC (BEAKER) (test 34.1 GM/DL 32.0-36.0 wyot=675) RED CELL DISTRIBUTION WIDTH (BEAKER) (test 16.6 % 10.3-14.2 rwih=246) PLATELET COUNT (BEAKER) (test jzae=188) 287 K/CU MM 150-430 MEAN PLATELET VOLUME (BEAKER) (test iktz=001) 9.2 fL 6.5-10.5 NUCLEATED RED BLOOD CELLS (BEAKER) (test 0 /100 WBC 0-0 bixe=645) [id number] 16:15:00 Test Item Value Reference Range Comments MAGNESIUM (BEAKER) (test 2.9 mg/dL 1.6-2.6 Specimen markedly hemolyzed nsfl=849) Check Serum Phosphorus level 4 hours after IV phosphorus replacement or 8 hours after PO replacementcompleted.8 hours after PO replacement [id number] 16:15:00 Test Item Value Reference Range Comments PHOSPHORUS (BEAKER) (test 4.0 mg/dL 2.3-4.7 Specimen markedly hemolyzed txvq=444) Check Serum Phosphorus level 4 hours after IV phosphorus replacement or 8 hours after PO replacementcompleted.8 hours after PO replacement [id number]- [id number] 16:15:00 Test Item Value Reference Range Comments SODIUM (BEAKER) (test cgvt=170) 133 meq/L 136-145 Check Serum Phosphorus level 4 hours after IV phosphorus replacement or 8 hours after PO replacementcompleted.8 hours after PO replacement completedCBC W/PLT COUNT & AUTO [id number] 08:05:00 Test Item Value Reference Range Comments WHITE BLOOD CELL COUNT (BEAKER) (test grpm=394) 13.5 K/ L 4.0-10.0 RED BLOOD CELL COUNT (BEAKER) (test mpzm=021) 2.53 M/ L 4.00-5.00 HEMOGLOBIN (BEAKER) (test flkp=496) 9.0 GM/DL 12.0-15.0 HEMATOCRIT (BEAKER) (test lqnt=611) 26.3 % 36.0-45.0 MEAN CORPUSCULAR VOLUME (BEAKER) (test rfjm=333) 104.0 fL 82.0-99.0 MEAN CORPUSCULAR HEMOGLOBIN (BEAKER) (test 35.5 pg 27.0-33.0 fdvv=293) MEAN CORPUSCULAR HEMOGLOBIN CONC (BEAKER) (test 34.1 GM/DL 32.0-36.0 okfk=485) RED CELL DISTRIBUTION WIDTH (BEAKER) (test 16.2 % 10.3-14.2 brew=172) PLATELET COUNT (BEAKER) (test mtpc=418) 273 K/CU MM 150-430 MEAN PLATELET VOLUME (BEAKER) (test ibuh=349) 9.2 fL 6.5-10.5 NUCLEATED RED BLOOD CELLS (BEAKER) (test 0 /100 WBC 0-0 aepk=130) 0.000.520.000.000.520.000.000.000.00(MANUAL DIFFERENTIAL)2016-12-28 08:05:00 Test Item Value Reference Range Comments NEUTROPHILS - REL (DIFF) (BEAKER) (test 68 % bxpz=3874) LYMPHOCYTES - REL (DIFF) (BEAKER) (test 5 % tssf=4806) MONOCYTES - REL (DIFF) (BEAKER) (test hzme=3966) 10 % EOSINOPHILS - REL (DIFF) (BEAKER) (test 3 % nlvv=4790) BANDS - REL (DIFF) (BEAKER) (test mnlb=5986) 14 % 0-10 NEUTROPHILS - ABS (DIFF) (BEAKER) (test 9.18 K/ L 1.80-8.00 dkqx=8358) LYMPHOCYTES - ABS (DIFF) (BEAKER) (test 0.68 K/ L 1.48-4.50 qukf=7928) MONOCYTES - ABS (DIFF) (BEAKER) (test jvvp=8254) 1.35 K/ L 0.00-1.30 EOSINOPHILS - ABS (DIFF) (BEAKER) (test 0.41 K/ L 0.00-0.50 tmhn=2314) BANDS-ABS (DIFF) (BEAKER) (test dacu=5072) 1.9 K/ L 0.0-0.8 TOTAL COUNTED (BEAKER) (test grpc=2683) 100 BANDS + SEGMENTED NEUTROPHILS (BEAKER) (test 11.07 ipig=4037) WBC MORPHOLOGY (BEAKER) (test ctpp=348) Normal PLT MORPHOLOGY (BEAKER) (test xeqp=241) Normal MACROCYTES (BEAKER) (test engx=775) 1+ few TARGET CELLS (BEAKER) (test carr=599) 2+ moderate PHENYTOIN LEVEL, [id number] 04:16:00 Test Item Value Reference Range Comments PHENYTOIN (DILANTIN) (BEAKER) (test cdft=451) 18.3 ug/mL 10.0-20.0 [id number] 04:11:00 Test Item Value Reference Range Comments PHOSPHORUS (BEAKER) (test tpcy=198) 2.1 mg/dL 2.3-4.7 [id number] 04:11:00 Test Item Value Reference Range Comments MAGNESIUM (BEAKER) (test piyp=587) 1.6 mg/dL 1.6-2.6 BASIC METABOLIC [id number] 04:11:00 Test Item Value Reference Range Comments SODIUM (BEAKER) (test 137 meq/L 136-145 cblo=314) POTASSIUM (BEAKER) (test 3.3 meq/L 3.5-5.1 yqcn=869) CHLORIDE (BEAKER) (test 95 meq/L 98-107 zclf=966) CO2 (BEAKER) (test 30 meq/L 22-29 qwgm=498) BLOOD UREA NITROGEN 11 mg/dL 7-21 (BEAKER) (test avcr=359) CREATININE (BEAKER) (test 0.82 mg/dL 0.57-1.25 beia=841) GLUCOSE RANDOM (BEAKER) 123 mg/dL 70-105 (test mruj=492) CALCIUM (BEAKER) (test 8.8 mg/dL 8.4-10.2 cmer=985) EGFR (BEAKER) (test 72 mL/min/1.73 sq m ESTIMATED GFR IS NOT oxxi=5727) ACCURATE CREATININE CLEARANCE IN PREDICTING GLOMERULAR FILTRATION RATE. ESTIMATED GFR IS NOT APPLICABLE FOR DIALYSIS PATIENTS. URINALYSIS W/ [id number] 00:01:00 Test Item Value Reference Range Comments COLOR (BEAKER) (test pffi=463) Yellow CLARITY (BEAKER) (test hogb=046) Clear SPECIFIC GRAVITY UA (BEAKER) (test 1.007 1.001-1.035 cghz=100) PH UA (BEAKER) (test ervi=416) 7.0 5.0-8.0 PROTEIN UA (BEAKER) (test iqjr=361) 20 mg/dL Negative GLUCOSE UA (BEAKER) (test lhbq=406) 70 mg/dL Negative KETONES UA (BEAKER) (test jbok=514) Negative Negative BILIRUBIN UA (BEAKER) (test zfol=059) Negative Negative BLOOD UA (BEAKER) (test wnub=773) Small Negative NITRITE UA (BEAKER) (test ikow=384) Negative Negative LEUKOCYTE ESTERASE UA (BEAKER) (test Negative Negative mkca=715) UROBILINOGEN UA (BEAKER) (test pnxa=211) 0.2 mg/dL 0.2-1.0 RBC UA (BEAKER) (test dwye=005) 0 /HPF WBC UA (BEAKER) (test htno=701) 1 /HPF SQUAMOUS EPITHELIAL (BEAKER) (test < /HPF zfju=698) HYALINE CASTS (BEAKER) (test csms=866) 5 /LPF GRANULAR CASTS (BEAKER) (test xbpf=942) 5 /LPF AMORPHOUS CRYSTALS (BEAKER) (test Occasional xswt=0409) SOURCE(BEAKER) (test xjtc=1288) Urine, Clean Catch SPUTUM CULTURE + GRAM [id number] 23:51:00 Test Item Value Reference Range Comments CULTURE (BEAKER) (test 1+ Normal respiratory jessica tjej=6014) present GRAM STAIN RESULT (BEAKER) 3+ WBCs (test lyjw=3171) GRAM STAIN RESULT (BEAKER) 0-5 epithelial cells (test qrqx=86367) GRAM STAIN RESULT (BEAKER) <1+ gram positive cocci in pairs (test tift=78385) POCT-GLUCOSE [id number] 23:46:00 Test Item Value Reference Range Comments POC-GLUCOSE METER (BEAKER) 196 mg/dL 70-110 TESTED AT [address] (test rxaf=6684) [facility] [address] BLOOD [id number] 17:00:00 Test Item Value Reference Range Comments CULTURE (BEAKER) (test dfdf=6463) No growth in 5 days BLOOD [id number] 17:00:00 Test Item Value Reference Range Comments CULTURE (BEAKER) (test evgy=5535) No growth in 5 days [id number] 16:05:00 Test Item Value Reference Range Comments MAGNESIUM (BEAKER) (test 2.3 mg/dL 1.6-2.6 Specimen slightly hemolyzed duok=167) 8 hours after PO replacement [id number] 16:05:00 Test Item Value Reference Range Comments POTASSIUM (BEAKER) (test 3.7 meq/L 3.5-5.1 Specimen slightly hemolyzed tkgv=707) 8 hours after PO replacement [id number] 16:05:00 Test Item Value Reference Range Comments SODIUM (BEAKER) (test rmdz=714) 138 meq/L 136-145 8 hours after PO replacement completedCBC W/PLT COUNT & AUTO [id number] 12:10:00 Test Item Value Reference Range Comments WHITE BLOOD CELL COUNT (BEAKER) (test inzx=968) 12.2 K/ L 4.0-10.0 RED BLOOD CELL COUNT (BEAKER) (test etyo=165) 2.41 M/ L 4.00-5.00 HEMOGLOBIN (BEAKER) (test myaa=088) 8.5 GM/DL 12.0-15.0 HEMATOCRIT (BEAKER) (test amim=047) 25.6 % 36.0-45.0 MEAN CORPUSCULAR VOLUME (BEAKER) (test nlse=618) 107.0 fL 82.0-99.0 MEAN CORPUSCULAR HEMOGLOBIN (BEAKER) (test 35.3 pg 27.0-33.0 cbto=755) MEAN CORPUSCULAR HEMOGLOBIN CONC (BEAKER) (test 33.2 GM/DL 32.0-36.0 oxqf=078) RED CELL DISTRIBUTION WIDTH (BEAKER) (test 15.7 % 10.3-14.2 vjpe=865) PLATELET COUNT (BEAKER) (test sutt=621) 220 K/CU MM 150-430 MEAN PLATELET VOLUME (BEAKER) (test dmgd=396) 10.0 fL 6.5-10.5 NUCLEATED RED BLOOD CELLS (BEAKER) (test 0 /100 WBC 0-0 lukh=427) NEUTROPHILS RELATIVE PERCENT (BEAKER) (test 75 % cvrn=405) LYMPHOCYTES RELATIVE PERCENT (BEAKER) (test 10 % etmq=086) MONOCYTES RELATIVE PERCENT (BEAKER) (test 12 % hktq=347) EOSINOPHILS RELATIVE PERCENT (BEAKER) (test 3 % bdfb=471) BASOPHILS RELATIVE PERCENT (BEAKER) (test 0 % gcst=869) NEUTROPHILS ABSOLUTE COUNT (BEAKER) (test 9.15 K/ L 1.80-8.00 hxyk=528) LYMPHOCYTES ABSOLUTE COUNT (BEAKER) (test 1.17 K/ L 1.48-4.50 tekc=310) MONOCYTES ABSOLUTE COUNT (BEAKER) (test 1.48 K/ L 0.00-1.30 miyd=032) EOSINOPHILS ABSOLUTE COUNT (BEAKER) (test 0.35 K/ L 0.00-0.50 cagc=863) BASOPHILS ABSOLUTE COUNT (BEAKER) (test 0.04 K/ L 0.00-0.20 cpeu=361) 0.000.780.000.000.580.000.000.000.00(MANUAL DIFFERENTIAL)2016-12-27 12:10:00 Test Item Value Reference Range Comments TOTAL COUNTED (BEAKER) (test jddl=2888) WBC MORPHOLOGY (BEAKER) (test evuz=479) Normal PLT MORPHOLOGY (BEAKER) (test kfwh=239) Normal SCHISTOCYTES (BEAKER) (test lvao=809) 1+ few ACANTHOCYTES (BEAKER) (test wwhw=722) 1+ few ANISOCYTOSIS (BEAKER) (test mxth=882) 2+ moderate HYPOCHROMIA (BEAKER) (test pbzq=092) 3+ many MACROCYTES (BEAKER) (test usid=334) 2+ moderate MICROCYTES (BEAKER) (test axsn=876) 1+ few POIKILOCYTES (BEAKER) (test tvcm=426) 2+ moderate POLYCHROMATOPHILLIC RBCS(BEAKER) (test kuna=863) 1+ few TARGET CELLS (BEAKER) (test sglg=892) 2+ moderate HEPATIC FUNCTION [id number] 09:58:00 Test Item Value Reference Range Comments TOTAL PROTEIN (BEAKER) (test 5.3 gm/dL 6.0-8.3 Specimen slightly hemolyzed fbjy=010) ALBUMIN (BEAKER) (test 2.6 g/dL 3.5-5.0 Specimen slightly hemolyzed ccgy=0073) BILIRUBIN TOTAL (BEAKER) (test 0.9 mg/dL 0.2-1.2 Specimen slightly hemolyzed gzkd=199) BILIRUBIN DIRECT (BEAKER) (test 0.3 mg/dL 0.1-0.5 Specimen slightly hemolyzed qfud=222) ALKALINE PHOSPHATASE (BEAKER) 151 U/L 40-150 (test wkff=443) AST (SGOT) (BEAKER) (test 51 U/L 5-34 Specimen slightly hemolyzed chlj=372) ALT (SGPT) (BEAKER) (test 26 U/L 6-55 Specimen slightly hemolyzed wpih=655) [id number] 09:55:00 Test Item Value Reference Range Comments AMMONIA (BEAKER) (test ieap=416) 35 mol/L 18-72 POCT-GLUCOSE [id number] 09:07:00 Test Item Value Reference Range Comments POC-GLUCOSE METER (BEAKER) 80 mg/dL 70-[address] [facility] [address] [facility] (test lrwx=3563) [facility] [address] [id number] 05:24:00 Test Item Value Reference Range Comments CORTISOL, TOTAL (BEAKER) (test gdvt=4663) 19.7 ug/dL 3.7-19.4 [id number] 05:14:00 Test Item Value Reference Range Comments MAGNESIUM (BEAKER) (test 1.8 mg/dL 1.6-2.6 Specimen slightly hemolyzed ghav=474) [id number] 05:14:00 Test Item Value Reference Range Comments PHOSPHORUS (BEAKER) (test 3.0 mg/dL 2.3-4.7 Specimen slightly hemolyzed nymg=460) BASIC METABOLIC [id number] 05:14:00 Test Item Value Reference Range Comments SODIUM (BEAKER) (test 137 meq/L 136-145 jhzc=950) POTASSIUM (BEAKER) (test 3.9 meq/L 3.5-5.1 Specimen slightly hjxx=891) hemolyzed CHLORIDE (BEAKER) (test 102 meq/L 98-107 silt=106) CO2 (BEAKER) (test 24 meq/L 22-29 pdsz=927) BLOOD UREA NITROGEN 10 mg/dL 7-21 (BEAKER) (test qzuo=147) CREATININE (BEAKER) (test 0.70 mg/dL 0.57-1.25 Specimen slightly ypmd=115) hemolyzed GLUCOSE RANDOM (BEAKER) 68 mg/dL 70-105 (test nyoz=365) CALCIUM (BEAKER) (test 8.0 mg/dL 8.4-10.2 ekxn=876) EGFR (BEAKER) (test 87 mL/min/1.73 sq m ESTIMATED GFR IS NOT fjjp=6832) ACCURATE CREATININE CLEARANCE IN PREDICTING GLOMERULAR FILTRATION RATE. ESTIMATED GFR IS NOT APPLICABLE FOR DIALYSIS PATIENTS. PHENYTOIN LEVEL, [id number] 05:12:00 Test Item Value Reference Range Comments PHENYTOIN (DILANTIN) (BEAKER) (test diyz=633) 18.6 ug/mL 10.0-20.0 [id number] 15:07:00 Test Item Value Reference Range Comments MAGNESIUM (BEAKER) (test 1.7 mg/dL 1.6-2.6 Specimen slightly hemolyzed pzos=350) 8 hours after PO replacement [id number] 15:07:00 Test Item Value Reference Range Comments POTASSIUM (BEAKER) (test 4.4 meq/L 3.5-5.1 Specimen slightly hemolyzed tiqy=396) 8 hours after PO replacement [id number] 15:07:00 Test Item Value Reference Range Comments SODIUM (BEAKER) (test ulrb=350) 134 meq/L 136-145 8 hours after PO replacement completedVANCOMYCIN LEVEL, [id number] 09:10: 00 Test Item Value Reference Range Comments VANCOMYCIN TROUGH (BEAKER) (test txqt=183) 14.7 ug/mL 10.0-20.0 Wait for result before giving dose. HOLD vancomycin if trough >20CBC W/PLT COUNT & AUTO [id number] 08:20:00 Test Item Value Reference Range Comments WHITE BLOOD CELL COUNT (BEAKER) (test ppsk=678) 10.3 K/ L 4.0-10.0 RED BLOOD CELL COUNT (BEAKER) (test hcsa=338) 2.65 M/ L 4.00-5.00 HEMOGLOBIN (BEAKER) (test tyfj=503) 9.3 GM/DL 12.0-15.0 HEMATOCRIT (BEAKER) (test soem=416) 28.5 % 36.0-45.0 MEAN CORPUSCULAR VOLUME (BEAKER) (test oyff=986) 108.0 fL 82.0-99.0 MEAN CORPUSCULAR HEMOGLOBIN (BEAKER) (test 35.0 pg 27.0-33.0 yqdy=900) MEAN CORPUSCULAR HEMOGLOBIN CONC (BEAKER) (test 32.5 GM/DL 32.0-36.0 mjnf=823) RED CELL DISTRIBUTION WIDTH (BEAKER) (test 15.7 % 10.3-14.2 nesf=520) PLATELET COUNT (BEAKER) (test xsya=091) 178 K/CU MM 150-430 MEAN PLATELET VOLUME (BEAKER) (test ciww=274) 9.5 fL 6.5-10.5 NUCLEATED RED BLOOD CELLS (BEAKER) (test 0 /100 WBC 0-0 oitn=495) 0.000.780.530.000.530.000.000.000.00(MANUAL DIFFERENTIAL)2016-12-26 08:20:00 Test Item Value Reference Range Comments NEUTROPHILS - REL (DIFF) (BEAKER) (test rjjd=2543) 46 % LYMPHOCYTES - REL (DIFF) (BEAKER) (test kbwd=3935) 10 % MONOCYTES - REL (DIFF) (BEAKER) (test yqgr=6949) 14 % EOSINOPHILS - REL (DIFF) (BEAKER) (test ozxn=6620) 4 % PROMYELOCYTES-REL (DIFF) (BEAKER) (test rfqt=482) 1 % 0-0 BANDS - REL (DIFF) (BEAKER) (test yeak=5744) 25 % 0-10 NEUTROPHILS - ABS (DIFF) (BEAKER) (test uvrd=0170) 4.74 K/ L 1.80-8.00 LYMPHOCYTES - ABS (DIFF) (BEAKER) (test nvoe=2081) 1.03 K/ L 1.48-4.50 MONOCYTES - ABS (DIFF) (BEAKER) (test sdnm=1168) 1.44 K/ L 0.00-1.30 EOSINOPHILS - ABS (DIFF) (BEAKER) (test oeuk=9268) 0.41 K/ L 0.00-0.50 PROMYELOCYTES - ABS (DIFF) (BEAKER) (test 0.10 K/ L 0.00-0.00 sige=738) BANDS-ABS (DIFF) (BEAKER) (test gjhp=6062) 2.6 K/ L 0.0-0.8 TOTAL COUNTED (BEAKER) (test qvlp=2802) 100 BANDS + SEGMENTED NEUTROPHILS (BEAKER) (test 7.31 emoz=0145) WBC MORPHOLOGY (BEAKER) (test tqqd=497) Normal PLT MORPHOLOGY (BEAKER) (test spwu=754) Normal ANISOCYTOSIS (BEAKER) (test orhn=860) 1+ few POIKILOCYTES (BEAKER) (test kyva=166) 1+ few POLYCHROMATOPHILLIC RBCS(BEAKER) (test zhcn=936) 1+ few TARGET CELLS (BEAKER) (test lqir=381) 1+ few BASIC METABOLIC [id number] 05:45:00 Test Item Value Reference Range Comments SODIUM (BEAKER) (test 137 meq/L 136-145 expz=338) POTASSIUM (BEAKER) (test 3.4 meq/L 3.5-5.1 bvwv=927) CHLORIDE (BEAKER) (test 101 meq/L 98-107 pvsy=464) CO2 (BEAKER) (test 25 meq/L 22-29 xrlq=018) BLOOD UREA NITROGEN 7 mg/dL 7-21 (BEAKER) (test ahuk=874) CREATININE (BEAKER) (test 0.72 mg/dL 0.57-1.25 mmkq=595) GLUCOSE RANDOM (BEAKER) 96 mg/dL 70-105 (test dwia=072) CALCIUM (BEAKER) (test 7.7 mg/dL 8.4-10.2 ezqx=517) EGFR (BEAKER) (test 84 mL/min/1.73 sq m ESTIMATED GFR IS NOT kkfr=7654) ACCURATE CREATININE CLEARANCE IN PREDICTING GLOMERULAR FILTRATION RATE. ESTIMATED GFR IS NOT APPLICABLE FOR DIALYSIS PATIENTS. PHENYTOIN LEVEL, [id number] 05:43:00 Test Item Value Reference Range Comments PHENYTOIN (DILANTIN) (BEAKER) (test adks=885) 19.2 ug/mL 10.0-20.0 [id number] 05:31:00 Test Item Value Reference Range Comments PHOSPHORUS (BEAKER) (test vzcm=179) 2.7 mg/dL 2.3-4.7 [id number] 05:31:00 Test Item Value Reference Range Comments MAGNESIUM (BEAKER) (test uony=793) 1.3 mg/dL 1.6-2.6 [id number] 17:26:00 Test Item Value Reference Range Comments POTASSIUM (BEAKER) (test mmnh=654) 3.9 meq/L 3.5-5.1 BLOOD GAS, [id number] 15:59:00 Test Item Value Reference Range Comments PH ARTERIAL (BEAKER) (test cusg=024) 7.44 7.35-7.45 PCO2 ARTERIAL (BEAKER) (test hnbg=125) 39 mmHg 35-45 PO2 ARTERIAL (BEAKER) (test york=619) 94 mmHg 80-90 O2 SATURATION ARTERIAL (BEAKER) (test gwbz=481) 97.6 % 96.0-97.0 HCO3 ARTERIAL (BEAKER) (test wobl=713) 26 mmol/L 21-29 BASE EXCESS ARTERIAL (BEAKER) (test ensu=222) 1.9 mmol/L -2.0-3.0 PATIENT TEMPERATURE (BEAKER) (test gogr=0609) 36.3 C FIO2 (BEAKER) (test izsj=5510) 100.0 % [id number] 15:52:00 Test Item Value Reference Range Comments SODIUM (BEAKER) (test qjds=000) 134 meq/L 136-145 [id number] 09:17:00 Test Item Value Reference Range Comments POTASSIUM (BEAKER) (test nfzt=175) 3.3 meq/L 3.5-5.1 8 hours after PO replacement [id number] 09:17:00 Test Item Value Reference Range Comments SODIUM (BEAKER) (test xicg=854) 137 meq/L 136-145 8 hours after PO replacement completedCBC W/PLT COUNT & AUTO [id number] 07:12:00 Test Item Value Reference Range Comments WHITE BLOOD CELL COUNT (BEAKER) (test docr=329) 7.1 K/ L 4.0-10.0 RED BLOOD CELL COUNT (BEAKER) (test kwkd=366) 2.63 M/ L 4.00-5.00 HEMOGLOBIN (BEAKER) (test otal=938) 9.3 GM/DL 12.0-15.0 HEMATOCRIT (BEAKER) (test lkta=005) 28.1 % 36.0-45.0 MEAN CORPUSCULAR VOLUME (BEAKER) (test ngue=982) 107.0 fL 82.0-99.0 MEAN CORPUSCULAR HEMOGLOBIN (BEAKER) (test 35.4 pg 27.0-33.0 ozgi=386) MEAN CORPUSCULAR HEMOGLOBIN CONC (BEAKER) (test 33.1 GM/DL 32.0-36.0 zbzq=667) RED CELL DISTRIBUTION WIDTH (BEAKER) (test 15.6 % 10.3-14.2 xgso=970) PLATELET COUNT (BEAKER) (test pnbk=042) 133 K/CU MM 150-430 MEAN PLATELET VOLUME (BEAKER) (test mhqs=748) 10.3 fL 6.5-10.5 NUCLEATED RED BLOOD CELLS (BEAKER) (test 0 /100 WBC 0-0 gjsx=082) NEUTROPHILS RELATIVE PERCENT (BEAKER) (test 76 % gipq=136) LYMPHOCYTES RELATIVE PERCENT (BEAKER) (test 11 % mrle=946) MONOCYTES RELATIVE PERCENT (BEAKER) (test 12 % dngo=509) EOSINOPHILS RELATIVE PERCENT (BEAKER) (test 2 % ccun=146) BASOPHILS RELATIVE PERCENT (BEAKER) (test 0 % ewgi=695) NEUTROPHILS ABSOLUTE COUNT (BEAKER) (test 5.39 K/ L 1.80-8.00 grlg=851) LYMPHOCYTES ABSOLUTE COUNT (BEAKER) (test 0.76 K/ L 1.48-4.50 yqvt=662) MONOCYTES ABSOLUTE COUNT (BEAKER) (test 0.84 K/ L 0.00-1.30 jhaa=897) EOSINOPHILS ABSOLUTE COUNT (BEAKER) (test 0.12 K/ L 0.00-0.50 ivyh=202) BASOPHILS ABSOLUTE COUNT (BEAKER) (test 0.01 K/ L 0.00-0.20 hpoh=341) 0.000.810.000.000.770.000.000.000.00(MANUAL DIFFERENTIAL)2016-12-25 07:12:00 Test Item Value Reference Range Comments TOTAL COUNTED (BEAKER) (test gxpt=4367) WBC MORPHOLOGY (BEAKER) (test bzke=865) Normal PLT MORPHOLOGY (BEAKER) (test qumw=371) Normal POIKILOCYTES (BEAKER) (test auzg=578) 1+ few POLYCHROMATOPHILLIC RBCS(BEAKER) (test vwwn=578) 1+ few TARGET CELLS (BEAKER) (test obwj=474) 1+ few BLOOD GAS, [id number] 04:34:00 Test Item Value Reference Range Comments PH ARTERIAL (BEAKER) (test jzgg=892) 7.51 7.35-7.45 PCO2 ARTERIAL (BEAKER) (test pixr=655) 37 mmHg 35-45 PO2 ARTERIAL (BEAKER) (test entp=141) 56 mmHg 80-90 O2 SATURATION ARTERIAL (BEAKER) (test cqoe=071) 92.1 % 96.0-97.0 HCO3 ARTERIAL (BEAKER) (test xwaf=824) 29 mmol/L 21-29 BASE EXCESS ARTERIAL (BEAKER) (test ogop=125) 5.7 mmol/L -2.0-3.0 PATIENT TEMPERATURE (BEAKER) (test elky=4883) 36.9 C FIO2 (BEAKER) (test inxl=9711) 100.0 % PHENYTOIN LEVEL, [id number] 04:31:00 Test Item Value Reference Range Comments PHENYTOIN (DILANTIN) (BEAKER) (test tnuh=775) 15.9 ug/mL 10.0-20.0 BASIC METABOLIC [id number] 04:31:00 Test Item Value Reference Range Comments SODIUM (BEAKER) (test 136 meq/L 136-145 cdiw=116) POTASSIUM (BEAKER) (test 3.7 meq/L 3.5-5.1 Specimen slightly wnqx=262) hemolyzed CHLORIDE (BEAKER) (test 105 meq/L 98-107 lrta=098) CO2 (BEAKER) (test 23 meq/L 22-29 rnkl=106) BLOOD UREA NITROGEN 5 mg/dL 7-21 (BEAKER) (test uerq=336) CREATININE (BEAKER) (test 0.60 mg/dL 0.57-1.25 Specimen slightly ibxh=272) hemolyzed GLUCOSE RANDOM (BEAKER) 97 mg/dL 70-105 (test befb=028) CALCIUM (BEAKER) (test 7.3 mg/dL 8.4-10.2 lshi=912) EGFR (BEAKER) (test 103 mL/min/1.73 sq m ESTIMATED GFR IS NOT staa=7474) ACCURATE CREATININE CLEARANCE IN PREDICTING GLOMERULAR FILTRATION RATE. ESTIMATED GFR IS NOT APPLICABLE FOR DIALYSIS PATIENTS. [id number] 04:27:00 Test Item Value Reference Range Comments MAGNESIUM (BEAKER) (test 2.1 mg/dL 1.6-2.6 Specimen slightly hemolyzed sqys=033) [id number] 04:27:00 Test Item Value Reference Range Comments PHOSPHORUS (BEAKER) (test 2.7 mg/dL 2.3-4.7 Specimen slightly hemolyzed njwl=923) [id number] 23:59:00 Test Item Value Reference Range Comments MAGNESIUM (BEAKER) (test 2.0 mg/dL 1.6-2.6 Specimen slightly hemolyzed iyir=424) [id number] 23:59:00 Test Item Value Reference Range Comments PHOSPHORUS (BEAKER) (test 2.6 mg/dL 2.3-4.7 Specimen slightly hemolyzed olqm=006) [id number] 23:59:00 Test Item Value Reference Range Comments POTASSIUM (BEAKER) (test 4.9 meq/L 3.5-5.1 Specimen slightly hemolyzed wfbv=553) [id number] 23:59:00 Test Item Value Reference Range Comments SODIUM (BEAKER) (test ytvt=826) 135 meq/L 136-145 HEPATIC FUNCTION [id number] 18:33:00 Test Item Value Reference Range Comments TOTAL PROTEIN (BEAKER) (test cugt=088) 4.8 gm/dL 6.0-8.3 ALBUMIN (BEAKER) (test yjvk=2673) 2.7 g/dL 3.5-5.0 BILIRUBIN TOTAL (BEAKER) (test kwci=300) 1.0 mg/dL 0.2-1.2 BILIRUBIN DIRECT (BEAKER) (test sdbs=396) 0.5 mg/dL 0.1-0.5 ALKALINE PHOSPHATASE (BEAKER) (test uzet=793) 67 U/L 40-150 AST (SGOT) (BEAKER) (test tkno=528) 30 U/L 5-34 ALT (SGPT) (BEAKER) (test uihw=008) 31 U/L 6-55 [id number] 18:33:00 Test Item Value Reference Range Comments AMYLASE (BEAKER) (test vjfs=355) 89 U/L 25-125 [id number] 18:33:00 Test Item Value Reference Range Comments LIPASE (BEAKER) (test lysn=964) 88 U/L 8-78 [id number] 15:44:00 Test Item Value Reference Range Comments SODIUM (BEAKER) (test biiw=157) 134 meq/L 136-145 BLOOD GAS, [id number] 15:32:00 Test Item Value Reference Range Comments PH ARTERIAL (BEAKER) (test rrzj=870) 7.42 7.35-7.45 PCO2 ARTERIAL (BEAKER) (test ssvr=257) 36 mmHg 35-45 PO2 ARTERIAL (BEAKER) (test zvdk=971) 48 mmHg 80-90 O2 SATURATION ARTERIAL (BEAKER) (test jjqx=541) 85.2 % 96.0-97.0 HCO3 ARTERIAL (BEAKER) (test bsav=656) 23 mmol/L 21-29 BASE EXCESS ARTERIAL (BEAKER) (test ilpa=854) -1.6 mmol/L -2.0-3.0 PATIENT TEMPERATURE (BEAKER) (test eiqy=8623) 36.7 C FIO2 (BEAKER) (test awuy=1642) 44.0 % URINE [id number] 15:15:00 Test Item Value Reference Range Comments CULTURE (BEAKER) (test ESCHERICHIA COLI 80-89,000 col/mL yuwg=0774) Escherichia coli Amikacin (test code=1) Ampicillin + Sulbactam (test code=6) Aztreonam (test code=32) Cefepime (test code=51) Cefoxitin (test code=68) Ceftazidime (test code=27) Ceftriaxone (test code=52) Ertapenem (test code=38) Gentamicin (test code=18) Levofloxacin (test code=22) Meropenem (test code=34) Nitrofurantoin (test code=23) Piperacillin + Tazobactam (test code=29) Tetracycline (test code=2) Tobramycin (test code=25) Trimethoprim + Sulfamethoxazole (test code=47) LACTIC ACID, ARTERIAL, WHOLE [id number] 13:51:00 Test Item Value Reference Range Comments LACTATE BLOOD ARTERIAL (2) (BEAKER) (test 1.8 mmol/L 0.5-2.2 rpyl=7050) Effective 03/05/2016: Units/Reference Range ChangeNew: 0.5-2.2 mmol/L Previous: 5 -20 mg/dLBLOOD GAS, [id number] 13:30:00 Test Item Value Reference Range Comments PH ARTERIAL (BEAKER) (test dogj=414) 7.43 7.35-7.45 PCO2 ARTERIAL (BEAKER) (test okau=997) 35 mmHg 35-45 PO2 ARTERIAL (BEAKER) (test yznh=611) 48 mmHg 80-90 O2 SATURATION ARTERIAL (BEAKER) (test wurw=145) 85.3 % 96.0-97.0 HCO3 ARTERIAL (BEAKER) (test yohe=843) 22 mmol/L 21-29 BASE EXCESS ARTERIAL (BEAKER) (test ullc=813) -1.7 mmol/L -2.0-3.0 PATIENT TEMPERATURE (BEAKER) (test rtcb=8751) 37.0 C FIO2 (BEAKER) (test eqoc=0317) 36.0 % [id number] 12:00:00 Test Item Value Reference Range Comments POTASSIUM (BEAKER) (test hqfc=418) 4.2 meq/L 3.5-5.1 [id number] 12:00:00 Test Item Value Reference Range Comments MAGNESIUM (BEAKER) (test oxkn=631) 2.1 mg/dL 1.6-2.6 [id number] 08:58:00 Test Item Value Reference Range Comments SODIUM (BEAKER) (test njfz=206) 131 meq/L 136-145 CBC W/PLT COUNT & AUTO [id number] 07:43:00 Test Item Value Reference Range Comments WHITE BLOOD CELL COUNT (BEAKER) (test fycf=539) 10.1 K/ L 4.0-10.0 RED BLOOD CELL COUNT (BEAKER) (test zyov=246) 2.70 M/ L 4.00-5.00 HEMOGLOBIN (BEAKER) (test qknu=134) 9.4 GM/DL 12.0-15.0 HEMATOCRIT (BEAKER) (test bkyj=888) 28.5 % 36.0-45.0 MEAN CORPUSCULAR VOLUME (BEAKER) (test qdbm=811) 106.0 fL 82.0-99.0 MEAN CORPUSCULAR HEMOGLOBIN (BEAKER) (test 34.8 pg 27.0-33.0 wzkn=825) MEAN CORPUSCULAR HEMOGLOBIN CONC (BEAKER) (test 32.9 GM/DL 32.0-36.0 iwpg=886) RED CELL DISTRIBUTION WIDTH (BEAKER) (test 16.2 % 10.3-14.2 bike=273) PLATELET COUNT (BEAKER) (test fqrk=148) 119 K/CU MM 150-430 MEAN PLATELET VOLUME (BEAKER) (test jppg=028) 10.3 fL 6.5-10.5 NUCLEATED RED BLOOD CELLS (BEAKER) (test 0 /100 WBC 0-0 wcom=958) NEUTROPHILS RELATIVE PERCENT (BEAKER) (test 80 % zcff=520) LYMPHOCYTES RELATIVE PERCENT (BEAKER) (test 10 % myra=451) MONOCYTES RELATIVE PERCENT (BEAKER) (test 8 % biwl=258) EOSINOPHILS RELATIVE PERCENT (BEAKER) (test 2 % eugo=667) BASOPHILS RELATIVE PERCENT (BEAKER) (test 0 % xxxd=006) NEUTROPHILS ABSOLUTE COUNT (BEAKER) (test 8.12 K/ L 1.80-8.00 zfvg=576) LYMPHOCYTES ABSOLUTE COUNT (BEAKER) (test 0.99 K/ L 1.48-4.50 szry=474) MONOCYTES ABSOLUTE COUNT (BEAKER) (test 0.79 K/ L 0.00-1.30 abkl=058) EOSINOPHILS ABSOLUTE COUNT (BEAKER) (test 0.17 K/ L 0.00-0.50 gitt=062) BASOPHILS ABSOLUTE COUNT (BEAKER) (test 0.03 K/ L 0.00-0.20 euib=858) 0.000.500.000.000.000.000.000.000.000.560.000.000.580.000.000.000.000.000.000.00 0.000.000.000.000.000.000.00PHENYTOIN LEVEL, [id number] 06:13:00 Test Item Value Reference Range Comments PHENYTOIN (DILANTIN) (BEAKER) (test ehci=420) 17.0 ug/mL 10.0-20.0 [id number] 06:11:00 Test Item Value Reference Range Comments PHOSPHORUS (BEAKER) (test usfb=260) 1.5 mg/dL 2.3-4.7 BASIC METABOLIC [id number] 06:08:00 Test Item Value Reference Range Comments SODIUM (BEAKER) (test 131 meq/L 136-145 lbpw=931) POTASSIUM (BEAKER) (test 3.6 meq/L 3.5-5.1 izwg=041) CHLORIDE (BEAKER) (test 102 meq/L 98-107 qcnn=971) CO2 (BEAKER) (test 21 meq/L 22-29 zoot=107) BLOOD UREA NITROGEN 5 mg/dL 7-21 (BEAKER) (test pbrt=235) CREATININE (BEAKER) (test 0.53 mg/dL 0.57-1.25 okiv=649) GLUCOSE RANDOM (BEAKER) 101 mg/dL 70-105 (test dddi=126) CALCIUM (BEAKER) (test 7.4 mg/dL 8.4-10.2 jrjk=585) EGFR (BEAKER) (test 119 mL/min/1.73 sq m ESTIMATED GFR IS NOT fyfs=7529) ACCURATE CREATININE CLEARANCE IN PREDICTING GLOMERULAR FILTRATION RATE. ESTIMATED GFR IS NOT APPLICABLE FOR DIALYSIS PATIENTS. [id number] 06:06:00 Test Item Value Reference Range Comments MAGNESIUM (BEAKER) (test yebp=180) 1.5 mg/dL 1.6-2.6 [id number] 01:01:00 Test Item Value Reference Range Comments SODIUM (BEAKER) (test jvtj=460) 135 meq/L 136-145 [id number] 22:06:00 Test Item Value Reference Range Comments MAGNESIUM (BEAKER) (test tzvv=711) 2.3 mg/dL 1.6-2.6 [id number] 17:01:00 Test Item Value Reference Range Comments POTASSIUM (BEAKER) (test usyu=775) 3.5 meq/L 3.5-5.1 [id number] 17:01:00 Test Item Value Reference Range Comments SODIUM (BEAKER) (test igoc=717) 133 meq/L 136-145 [id number] 13:28:00 Test Item Value Reference Range Comments CALCIUM (BEAKER) (test rmxf=237) 7.7 mg/dL 8.4-10.2 [id number] 13:27:00 Test Item Value Reference Range Comments POTASSIUM (BEAKER) (test udbs=231) 3.8 meq/L 3.5-5.1 [id number] 13:27:00 Test Item Value Reference Range Comments MAGNESIUM (BEAKER) (test deon=226) 1.9 mg/dL 1.6-2.6 [id number] 13:27:00 Test Item Value Reference Range Comments PHOSPHORUS (BEAKER) (test wssa=735) 3.3 mg/dL 2.3-4.7 [id number] 09:59:00 Test Item Value Reference Range Comments RPR SCREEN (BEAKER) (test dgcv=884) Nonreactive Nonreactive TROPONIN [id number] 08:54:00 Test Item Value Reference Range Comments TROPONIN I (BEAKER) (test uolz=937) 0.14 ng/mL 0.00-0.03 Effective 09/19/2014: Reference Range ChangeNew: 0.00-0.03 Previous 0.00- 0.15Troponin I (TnI) levels must be interpreted in the context of the presenting symptoms and the clinical findings. Elevated TnI levels indicate myocardial damage, but are not specific for ischemic heart disease. Elevated TnI levels are seen in patients with other cardiac conditions (including myocarditis and congestive heartfailure), and slight TnI elevations occur in patients with other conditions, including sepsis, renalfailure, acidosis, acute neurological disease, and persistent tachyarrhythmia.[id number] 08:45:00 Test Item Value Reference Range Comments SODIUM (BEAKER) (test juyu=351) 133 meq/L 136-145 (MANUAL DIFFERENTIAL)[id number] 07:10:00 Test Item Value Reference Range Comments NEUTROPHILS - REL (DIFF) (BEAKER) (test lvwa=5818) 83 % LYMPHOCYTES - REL (DIFF) (BEAKER) (test xope=5264) 8 % MONOCYTES - REL (DIFF) (BEAKER) (test jfpt=2196) 7 % EOSINOPHILS - REL (DIFF) (BEAKER) (test ygzd=2116) 1 % BANDS - REL (DIFF) (BEAKER) (test glrv=6743) 1 % 0-10 NEUTROPHILS - ABS (DIFF) (BEAKER) (test hmoc=7709) 9.46 K/ L 1.80-8.00 LYMPHOCYTES - ABS (DIFF) (BEAKER) (test xnqo=9135) 0.91 K/ L 1.48-4.50 MONOCYTES - ABS (DIFF) (BEAKER) (test xlcx=8373) 0.80 K/ L 0.00-1.30 EOSINOPHILS - ABS (DIFF) (BEAKER) (test mbpe=1848) 0.11 K/ L 0.00-0.50 BANDS-ABS (DIFF) (BEAKER) (test huhy=0496) 0.1 K/ L 0.0-0.8 TOTAL COUNTED (BEAKER) (test acxx=9185) 100 BANDS + SEGMENTED NEUTROPHILS (BEAKER) (test 9.58 cwyv=4152) WBC MORPHOLOGY (BEAKER) (test gupv=310) Normal PLT MORPHOLOGY (BEAKER) (test fkeq=383) Normal POLYCHROMATOPHILLIC RBCS(BEAKER) (test gpyi=846) 1+ few BASIC METABOLIC [id number] 04:05:00 Test Item Value Reference Range Comments SODIUM (BEAKER) (test 133 meq/L 136-145 wpyt=696) POTASSIUM (BEAKER) (test 3.9 meq/L 3.5-5.1 Specimen slightly nrcd=959) hemolyzed CHLORIDE (BEAKER) (test 105 meq/L 98-107 vpet=392) CO2 (BEAKER) (test 22 meq/L 22-29 aall=796) BLOOD UREA NITROGEN 7 mg/dL 7-21 (BEAKER) (test pxah=719) CREATININE (BEAKER) (test 0.60 mg/dL 0.57-1.25 Specimen slightly goky=469) hemolyzed GLUCOSE RANDOM (BEAKER) 123 mg/dL 70-105 (test ysjt=452) CALCIUM (BEAKER) (test 7.1 mg/dL 8.4-10.2 ssrl=374) EGFR (BEAKER) (test 103 mL/min/1.73 sq m ESTIMATED GFR IS NOT dcsq=3421) ACCURATE CREATININE CLEARANCE IN PREDICTING GLOMERULAR FILTRATION RATE. ESTIMATED GFR IS NOT APPLICABLE FOR DIALYSIS PATIENTS. [id number] 04:04:00 Test Item Value Reference Range Comments PHOSPHORUS (BEAKER) (test 1.2 mg/dL 2.3-4.7 Specimen slightly hemolyzed qruw=674) PHENYTOIN LEVEL, [id number] 04:01:00 Test Item Value Reference Range Comments PHENYTOIN (DILANTIN) (BEAKER) (test kskl=453) 16.2 ug/mL 10.0-20.0 CBC W/PLT COUNT & AUTO [id number] 03:59:00 Test Item Value Reference Range Comments WHITE BLOOD CELL COUNT (BEAKER) (test wrra=463) 11.4 K/ L 4.0-10.0 RED BLOOD CELL COUNT (BEAKER) (test wiwi=971) 2.62 M/ L 4.00-5.00 HEMOGLOBIN (BEAKER) (test iltu=152) 9.7 GM/DL 12.0-15.0 HEMATOCRIT (BEAKER) (test bjdb=386) 28.0 % 36.0-45.0 MEAN CORPUSCULAR VOLUME (BEAKER) (test dyos=980) 107.0 fL 82.0-99.0 MEAN CORPUSCULAR HEMOGLOBIN (BEAKER) (test 37.2 pg 27.0-33.0 qxix=474) MEAN CORPUSCULAR HEMOGLOBIN CONC (BEAKER) (test 34.7 GM/DL 32.0-36.0 uyqw=464) RED CELL DISTRIBUTION WIDTH (BEAKER) (test 15.2 % 10.3-14.2 rwin=277) PLATELET COUNT (BEAKER) (test bdwq=770) 200 K/CU MM 150-430 MEAN PLATELET VOLUME (BEAKER) (test husk=124) 9.6 fL 6.5-10.5 NUCLEATED RED BLOOD CELLS (BEAKER) (test 1 /100 WBC 0-0 jroh=152) 0.000.570.000.0[id number] 03:53:00 Test Item Value Reference Range Comments MAGNESIUM (BEAKER) (test 1.5 mg/dL 1.6-2.6 Specimen slightly hemolyzed tizq=228) [id number] 00:28:00 Test Item Value Reference Range Comments SODIUM (BEAKER) (test opaw=416) 131 meq/L 136-145 CALCIUM, [id number] 00:20:00 Test Item Value Reference Range Comments CALCIUM IONIZED (BEAKER) (test oydw=068) 1.02 mmol/L 1.12-1.27 PH, BLOOD (BEAKER) (test temi=1000) 7.39 [id number] 20:37:00 Test Item Value Reference Range Comments POTASSIUM (BEAKER) (test yyhd=310) 3.9 meq/L 3.5-5.1 LACTIC ACID, VENOUS, WHOLE [id number] 18:17:00 Test Item Value Reference Range Comments LACTATE BLOOD VENOUS (2) (BEAKER) (test 1.7 mmol/L 0.5-2.2 zrjz=8727) Effective 03/05/2016: Units/Reference Range ChangeNew: 0.5-2.2 mmol/L Previous: 5 -20 mg/[id number] 17:51:00 Test Item Value Reference Range Comments SODIUM (BEAKER) (test mhda=347) 130 meq/L 136-145 HEMOGLOBIN [id number] 13:43:00 Test Item Value Reference Range Comments HEMOGLOBIN A1C (BEAKER) (test odhy=566) 6.2 % 4.3-6.1 TSH/FREE T4 IF [id number] 12:59:00 Test Item Value Reference Range Comments THYROID STIMULATING HORMONE (BEAKER) (test 1.99 uIU/mL 0.35-4.94 qzaa=629) VITAMIN B12 AND [id number] 12:59:00 Test Item Value Reference Range Comments VITAMIN B12 (BEAKER) (test zkyk=402) 443 pg/mL 213-816 FOLATE (BEAKER) (test xzfv=506) 4.2 ng/mL >=7.0 Effective 09/19/2014: Folate Reference Range ChangeNew: >=7.0 Previous: & gt;=5.4URINALYSIS W/ [id number] 12:28:00 Test Item Value Reference Range Comments COLOR (BEAKER) (test vodp=402) Light Yellow CLARITY (BEAKER) (test znit=301) Clear SPECIFIC GRAVITY UA (BEAKER) (test qqya=882) 1.008 1.001-1.035 PH UA (BEAKER) (test xgdp=013) 6.5 5.0-8.0 PROTEIN UA (BEAKER) (test kwlx=750) 20 mg/dL Negative GLUCOSE UA (BEAKER) (test fvzz=512) 100 mg/dL Negative KETONES UA (BEAKER) (test tdfp=115) Negative Negative BILIRUBIN UA (BEAKER) (test acas=707) Negative Negative BLOOD UA (BEAKER) (test phwr=546) Moderate Negative NITRITE UA (BEAKER) (test nwnm=594) Negative Negative LEUKOCYTE ESTERASE UA (BEAKER) (test bgya=104) Negative Negative UROBILINOGEN UA (BEAKER) (test guku=040) 0.2 mg/dL 0.2-1.0 RBC UA (BEAKER) (test qqjt=959) 1 /HPF WBC UA (BEAKER) (test zebi=799) 2 /HPF BACTERIA (BEAKER) (test uqqh=725) Moderate SOURCE(BEAKER) (test arsq=7773) Urine, [place] BASIC METABOLIC [id number] 12:02:00 Test Item Value Reference Range Comments SODIUM (BEAKER) (test 127 meq/L 136-145 phop=201) POTASSIUM (BEAKER) (test 2.9 meq/L 3.5-5.1 hgue=250) CHLORIDE (BEAKER) (test 91 meq/L 98-107 cxtr=974) CO2 (BEAKER) (test 24 meq/L 22-29 jieb=145) BLOOD UREA NITROGEN 13 mg/dL 7-21 (BEAKER) (test xphj=518) CREATININE (BEAKER) (test 0.78 mg/dL 0.57-1.25 odyl=406) GLUCOSE RANDOM (BEAKER) 181 mg/dL 70-105 (test mhdo=901) CALCIUM (BEAKER) (test 7.4 mg/dL 8.4-10.2 jumg=533) EGFR (BEAKER) (test 76 mL/min/1.73 sq m ESTIMATED GFR IS NOT eevl=9776) ACCURATE CREATININE CLEARANCE IN PREDICTING GLOMERULAR FILTRATION RATE. ESTIMATED GFR IS NOT APPLICABLE FOR DIALYSIS PATIENTS. CBC W/PLT COUNT & AUTO [id number] 11:46:00 Test Item Value Reference Range Comments WHITE BLOOD CELL COUNT (BEAKER) (test ufgx=568) 13.7 K/ L 4.0-10.0 RED BLOOD CELL COUNT (BEAKER) (test ivar=456) 3.34 M/ L 4.00-5.00 HEMOGLOBIN (BEAKER) (test cjih=804) 11.9 GM/DL 12.0-15.0 HEMATOCRIT (BEAKER) (test glgm=268) 33.9 % 36.0-45.0 MEAN CORPUSCULAR VOLUME (BEAKER) (test ratu=288) 102.0 fL 82.0-99.0 MEAN CORPUSCULAR HEMOGLOBIN (BEAKER) (test 35.7 pg 27.0-33.0 vzxi=039) MEAN CORPUSCULAR HEMOGLOBIN CONC (BEAKER) (test 35.1 GM/DL 32.0-36.0 ltre=608) RED CELL DISTRIBUTION WIDTH (BEAKER) (test 15.6 % 10.3-14.2 emnm=400) PLATELET COUNT (BEAKER) (test bexf=728) 150 K/CU MM 150-430 MEAN PLATELET VOLUME (BEAKER) (test dkgk=199) 8.8 fL 6.5-10.5 NUCLEATED RED BLOOD CELLS (BEAKER) (test 0 /100 WBC 0-0 avqd=953) NEUTROPHILS RELATIVE PERCENT (BEAKER) (test 80 % qsac=962) LYMPHOCYTES RELATIVE PERCENT (BEAKER) (test 13 % rfpe=463) MONOCYTES RELATIVE PERCENT (BEAKER) (test 7 % hdzw=281) EOSINOPHILS RELATIVE PERCENT (BEAKER) (test 0 % vrou=704) BASOPHILS RELATIVE PERCENT (BEAKER) (test 0 % tcoz=955) NEUTROPHILS ABSOLUTE COUNT (BEAKER) (test 11.00 K/ L 1.80-8.00 bopj=206) LYMPHOCYTES ABSOLUTE COUNT (BEAKER) (test 1.73 K/ L 1.48-4.50 cmud=992) MONOCYTES ABSOLUTE COUNT (BEAKER) (test 0.90 K/ L 0.00-1.30 mgcf=382) EOSINOPHILS ABSOLUTE COUNT (BEAKER) (test 0.04 K/ L 0.00-0.50 fsnc=220) BASOPHILS ABSOLUTE COUNT (BEAKER) (test 0.05 K/ L 0.00-0.20 sqrq=805) 0.00PHENYTOIN LEVEL, [id number] 11:46:00 Test Item Value Reference Range Comments PHENYTOIN (DILANTIN) (BEAKER) (test dsmi=376) 16.6 ug/mL 10.0-20.0 [id number] 11:40:00 Test Item Value Reference Range Comments PHOSPHORUS (BEAKER) (test oril=158) 2.7 mg/dL 2.3-4.7 [id number] 11:40:00 Test Item Value Reference Range Comments MAGNESIUM (BEAKER) (test adxw=881) 2.0 mg/dL 1.6-2.6 LIPID [id number] 11:40:00 Test Item Value Reference Range Comments TRIGLYCERIDES (BEAKER) (test cjzo=677) 77 mg/dL CHOLESTEROL ([employer]) (test zpuh=331) 170 mg/dL HDL CHOLESTEROL ([employer]) (test dota=039) 74 mg/dL LDL CHOLESTEROL CALCULATED ([employer]) (test 81 mg/dL zkbk=589) Triglyceride Reference Range: Low Risk <150 Borderline 150- 199 High Risk 200-499 Very High Risk >=500Cholesterol Reference Range: Low Risk <200 Borderline 200-239 High Risk > 240HDL Cholesterol Reference Range: Low Risk >=60 High Risk <40LDL Cholesterol Reference Range: Optimal <100 Near Optimal 100-129 Borderline 130-159 High 160-189 Very High >=190
[2018-03-14 23:41] LABS: Hematocrit 29.1 % (36.0-45.0); MCH 31.8 pg (27.0-35.0); MCV 102.3 fL (80-100); MPV 11.4 fL (7.6-11.3); RBC Red Blood Cell Count 2.84 M/uL (3.86-4.86)
[2018-03-15 00:29] LABS: Albumin 2.3 g/dL (3.2-5.5); Blood Morphology Comment NOTED (NOT SEEN); Platelet Estimate ADEQ; Polychromasia 1+; Protein, Total 6.1 g/dL (6.0-8.3); Target Cells 2+
[2018-03-15 00:33] LABS: Howell-Jolly Bodies NOTED
[2018-03-15 00:38] LABS: Bilirubin Total 13.2 mg/dL (0.3-1.2); Potassium 2.6 mEq/L (3.6-5.0)
[2018-03-15] MEDS ORDERED: ONDANSETRON 4 MG/2 ML VIAL ONE (01:03)
[2018-03-15] MEDS ORDERED: KCL 20 MEQ/100 mL IVPB 20 MEQ/100 ML BAG IV ONE (01:03)
[2018-03-15] MEDS ORDERED: MORPHINE 4 MG/ML SYR ONE (01:03)
[2018-03-15] MEDS ORDERED: PIPER/TAZO/NS 3.375gm 3.375 GM/100 ML BAG ONE (01:04)
--- NOTE | 2018-03-15 01:06 | ER ---
Nurse's Notes [facility] Name: Suyapa Nunez Age: 57 yrs Sex: Female : 1960 Arrival Date: 03/14/2018 Time: 22:15 Bed 27 Private MD: Diagnosis: Acute pancreatitis, unspecified Presentation: 03/14 22:40 Presenting complaint: Patient states: abd pain and N/V for 1 month. Sclera jaundiced. aa1 Denies any hx of liver problems. Transition of care: patient was not received from another setting of care. Onset of symptoms was January 2018. Initial Sepsis Screen: Does the patient meet any 2 criteria? No. Patient's initial sepsis screen is negative. Does the patient have a suspected source of infection? Yes: Acute abdominal pain. Care prior to arrival: None. 22:40 Method Of Arrival: Wheelchair aa1 22:40 Acuity: CHANDNI 2 aa1 Triage Assessment: 23:30 General: Appears in no apparent distress. unkempt, Behavior is calm, cooperative. Pain: rk2 Complains of pain in abdomen. Neuro: Level of Consciousness is awake, obeys commands, Oriented to person, place, time, situation. Respiratory: Airway is patent Respiratory effort is even, unlabored, Respiratory pattern is regular, symmetrical. GI: Abdomen is distended, Abdomen is tender to palpation X 4 quads. Reports bloating. Derm: Skin is dry, Skin is jaundiced, Skin temperature is warm. Musculoskeletal: Left BKA. Historical: - Allergies: 22:43 No Known Allergies; aa1 - Home Meds: 22:43 clonazepam 2 mg Oral tab 1 tab 3 times per day [Active]; lisinopril-hydrochlorothiazide aa1 20-12.5 mg Oral tab 1 tab once daily [Active]; Magnesium Oxide Oral [Active]; metoprolol tartrate 100 mg Oral tab 1 tab 2 times per day [Active]; - PMHx: 22:43 Cancer, Breast; Lupus; MS; aa1 - PSHx: 22:43 bilateral mastectomy; Hysterectomy; BKA; aa1 22:44 Appendectomy; Cholecystectomy; aa1 - Immunization history:: Flu vaccine is not up to date. - Social history:: Smoking status: Patient uses tobacco products, smokes one-half pack cigarettes per day, Patient uses alcohol, occasionally. Screenin:29 Abuse screen: Denies threats or abuse. Nutritional screening: No deficits noted. rk2 Tuberculosis screening: No symptoms or risk factors identified. Fall Risk Secondary diagnosis (15 points) IV access (20 points). Ambulatory Aid- Crutches/Cane/Walker (15 pts). Assessment: 03/15 01:00 Reassessment: Pt. resting in room \T\ this time... nobody \T\ bedside. Pt. c/o of abd pain, rk 2 notified provider. No other needs \T\ this time. 01:25 Reassessment: Pt. transported to CT on stretcher. rk2 03:17 GI: Bowel sounds. rk2 Vital Signs: 03/14 22:43 BP 137 / 92; Pulse 88; Resp 18; Temp 97.4; Pulse Ox 97% on R/A; Weight 53.52 kg (R); aa1 Height 5 ft. 0 in. (152.40 cm); Pain 10/10; 23:32 BP 148 / 98; Pulse 83; Resp 17; Pulse Ox 95% on R/A; rk2 03/15 01:12 BP 123 / 90; Pulse 81; Resp 17; Pulse Ox 91% on R/A; rk2 02:00 BP 126 / 82; Pulse 85; Resp 17; Pulse Ox 94% on R/A; rk2 02:30 BP 111 / 76; Pulse 82; Resp 18; Pulse Ox 94% on R/A; rk2 03/14 22:43 Body Mass Index 23.05 (53.52 kg, 152.40 cm) aa1 ED Course: 03/14 22:15 Patient arrived in ED. ds1 22:41 Triage completed. aa1 22:43 Arm band placed on left wrist. Patient placed in an exam room, on a stretcher. aa1 22:50 Tulio Chavarria MD is Attending Physician. tw4 23:05 Shira Ruth, FLACO is Primary Nurse. rk2 23:29 Patient has correct armband on for positive identification. Placed in gown. Bed in low rk2 position. Call light in reach. Side rails up X2. Pulse ox on. 03/15 00:28 Notified ED physician of a critical lab result(s). potassium of 2.6 and band count of fc 10%. 00:37 Notified ED physician of a critical lab result(s). total bili of 13.2, sarah of 1457. 01:05 Stan Medrano MD is Hospitalizing Provider. tw4 01:28 CT Abd/Pelvis - W/Contrast Sent. rk2 01:47 CT completed. Pt tolerated procedure poorly. Patient moved to CT via stretcher. Patient eh moved back from CT. 03:17 No provider procedures requiring assistance completed. Patient admitted, IV remains in rk2 place. Administered Medications: 01:10 Drug: morphine 4 mg Route: IVP; Site: left antecubital; rk2 02:54 Follow up: Response: No adverse reaction rk2 01:10 Drug: Zofran 4 mg Route: IVP; Site: left antecubital; rk2 02:53 Follow up: Response: No adverse reaction rk2 01:14 Drug: Zosyn 3.375 grams Route: IVPB; Infused Over: 60 mins; Site: left antecubital; rk2 01:45 Follow up: Response: No adverse reaction; IV Status: Completed infusion rk2 01:56 Drug: Potassium Chloride 20 mEq Route: IV; Rate: calculated rate; Site: left forearm; rk2 Outcome: 01:06 Decision to Hospitalize by Provider. tw4 03:17 Admitted to Med/surg accompanied by tech. rk2 03:17 Condition: unchanged 03:17 Instructed on the need for admit. 03:24 Patient left the ED. rk2 Signatures: Cheryl Gabriel RN RN aa1 Pedro Francois Jacqui Platt RN RN Jenniffer Dee ds1 Tulio Chavarria MD MD tw4 Shira Ruth RN RN rk2 Corrections: (The following items were deleted from the chart) 01:27 01:25 Reassessment: Pt. resting in room \T\ this time... nobody \T\ bedside. Pt. c/o of abd rk 2 pain, notified provider. No other needs \T\ this time. rk2
--- NOTE | 2018-03-15 01:06 | EDPHYS ---
Physician Documentation [facility] Name: Suyapa Nunez Age: 57 yrs Sex: Female : 1960 Arrival Date: 03/14/2018 Time: 22:15 Bed 27 Private MD: ED Physician Tulio Chavarria HPI: 03/15 00:23 This 57 yrs old Female presents to ER via Wheelchair with complaints of tw4 Abdominal Pain, Weakness, Nausea/Vomiting. 00:23 The patient presents with abdominal pain in the epigastric area. Onset: The tw4 symptoms/episode began/occurred 2 week(s) ago. The symptoms do not radiate. Associated signs and symptoms: none. The symptoms are described as dull. Modifying factors: The symptoms are alleviated by nothing, the symptoms are aggravated by nothing. Severity of pain: At its worst the pain was severe in the emergency department the pain is unchanged. The patient has experienced similar episodes in the past, a few times. Historical: - Allergies: 03/14 22:43 No Known Allergies; aa1 - Home Meds: 22:43 clonazepam 2 mg Oral tab 1 tab 3 times per day [Active]; lisinopril-hydrochlorothiazide aa1 20-12.5 mg Oral tab 1 tab once daily [Active]; Magnesium Oxide Oral [Active]; metoprolol tartrate 100 mg Oral tab 1 tab 2 times per day [Active]; - PMHx: 22:43 Cancer, Breast; Lupus; MS; aa1 - PSHx: 22:43 bilateral mastectomy; Hysterectomy; BKA; aa1 22:44 Appendectomy; Cholecystectomy; aa1 - Immunization history:: Flu vaccine is not up to date. - Social history:: Smoking status: Patient uses tobacco products, smokes one-half pack cigarettes per day, Patient uses alcohol, occasionally. ROS: 03/15 00:23 Constitutional: Negative for fever, chills, and weight loss, Cardiovascular: Negative tw4 for chest pain, palpitations, and edema, Respiratory: Negative for shortness of breath, cough, wheezing, and pleuritic chest pain, Back: Negative for injury and pain, Skin: Negative for injury, rash, and discoloration, Neuro: Negative for headache, weakness, numbness, tingling, and seizure. Abdomen/GI: Positive for abdominal pain, nausea and vomiting, nausea, vomiting, and diarrhea, nausea, vomiting. Exam: 00:23 Chest/axilla: Normal chest wall appearance and motion. Nontender with no deformity. tw4 No lesions are appreciated. Cardiovascular: Regular rate and rhythm with a normal S1 and S2. No gallops, murmurs, or rubs. Normal PMI, no JVD. No pulse deficits. Respiratory: Lungs have equal breath sounds bilaterally, clear to auscultation and percussion. No rales, rhonchi or wheezes noted. No increased work of breathing, no retractions or nasal flaring. 00:23 MS/ Extremity: Pulses equal, no cyanosis. Neurovascular intact. Full, normal range of motion. Neuro: Awake and alert, GCS 15, oriented to person, place, time, and situation. Cranial nerves II-XII grossly intact. Motor strength 5/5 in all extremities. Sensory grossly intact. Cerebellar exam normal. Normal gait. 00:23 Constitutional: The patient appears alert, awake, in obvious distress, mildly distressed, in obvious pain, uncomfortable. 00:23 Abdomen/GI: Inspection: abdomen appears normal, Bowel sounds: diminished, Palpation: moderate abdominal tenderness, in the epigastric area. 01:06 Eyes: Sclera: icterus, is present. tw4 Vital Signs: 03/14 22:43 BP 137 / 92; Pulse 88; Resp 18; Temp 97.4; Pulse Ox 97% on R/A; Weight 53.52 kg (R); aa1 Height 5 ft. 0 in. (152.40 cm); Pain 10/10; 23:32 BP 148 / 98; Pulse 83; Resp 17; Pulse Ox 95% on R/A; rk2 03/15 01:12 BP 123 / 90; Pulse 81; Resp 17; Pulse Ox 91% on R/A; rk2 02:00 BP 126 / 82; Pulse 85; Resp 17; Pulse Ox 94% on R/A; rk2 02:30 BP 111 / 76; Pulse 82; Resp 18; Pulse Ox 94% on R/A; rk2 03/14 22:43 Body Mass Index 23.05 (53.52 kg, 152.40 cm) aa1 MDM: 03/14 22:50 Patient medically screened. tw4 03/15 01:06 Differential diagnosis: appendicitis, bowel obstruction, cholecystitis, Cholelithiasis, tw4 diverticulitis, gastritis, Mesenteric ischemia or infarction, non-specific abd pain, pancreatitis, Peptic Ulcer Disease, Perf. Duodenal Ulcer, Perf. Gastric Ulcer, Peritonitis. Data reviewed: vital signs, nurses notes. Counseling: I had a detailed discussion with the patient and/or guardian regarding: the historical points, exam findings, and any diagnostic results supporting the discharge/admit diagnosis, lab results. Physician consultation: Stan Medrano MD was contacted at 00:55, regarding admission, patient's condition, need to evaluate the patient as soon as possible, and will see patient in inpatient room, later today. Admission orders: after a detailed discussion of the patient's condition and case, the admit orders are written by me. 03/14 22:51 Order name: Amylase, Serum; Complete Time: 00:56 03/14 22:51 Order name: Basic Metabolic Panel; Complete Time: 00:56 [facility] 03/14 22:51 Order name: CBC with Diff; Complete Time: 00:38 03/15 00:07 Interpretation: Normal except: WBC 21.7; RBC 2.84; HGB 9.0; HCT 29.1; MCV 102.3; MCH tw4 31.8; MCHC 31.1; RDW 19.4; MPV 11.4. 03/14 22:51 Order name: Creatinine for Radiology; Complete Time: 00:07 [facility] 03/14 22:51 Order name: Hepatic Function; Complete Time: 00:56 [facility] 03/14 22:51 Order name: Lipase; Complete Time: 00:56 [facility] 03/14 22:51 Order name: Urine Microscopic Only; Complete Time: 02:41 [facility] 03/14 23:58 Order name: Manual Differential; Complete Time: 00:38 EDMS 03/15 00:39 Order name: CT Abd/Pelvis - W/Contrast [facility] 03/15 02:16 Order name: Urine Dipstick--Ancillary (enter results) 2 03/14 22:51 Order name: IV Saline Lock; Complete Time: 23:12 03/14 22:51 Order name: Labs collected and sent; Complete Time: 23:12 [facility] 03/14 22:51 Order name: Urine Dipstick-Ancillary (obtain specimen); Complete Time: 02:17 Administered Medications: 01:10 Drug: morphine 4 mg Route: IVP; Site: left antecubital; rk2 02:54 Follow up: Response: No adverse reaction rk2 01:10 Drug: Zofran 4 mg Route: IVP; Site: left antecubital; rk2 02:53 Follow up: Response: No adverse reaction rk2 01:14 Drug: Zosyn 3.375 grams Route: IVPB; Infused Over: 60 mins; Site: left antecubital; rk2 01:45 Follow up: Response: No adverse reaction; IV Status: Completed infusion rk2 01:56 Drug: Potassium Chloride 20 mEq Route: IV; Rate: calculated rate; Site: left forearm; rk2 Disposition: 03/15/18 01:06 Hospitalization ordered by Stan Medrano for Inpatient Admission. Preliminary diagnosis is Acute pancreatitis, unspecified. - Bed requested for Telemetry/MedSurg (Inpatient). - Status is Inpatient Admission. rk2 - Condition is Stable. - Problem is an ongoing problem. - Symptoms are unchanged. UTI on Admission? No Signatures: Dispatcher [employer] EDMS Cindy Mccabe RN RN Cheryl Gabriel RN RN aa1 Divina Herrera, ASSAYER HELPER-C ASSAYER HELPER-Csnw Tulio Chavarria MD MD tw4 Shira Ruth RN RN rk2 Corrections: (The following items were deleted from the chart) 01:16 01:06 Hospitalization Ordered by Stan Medrano MD for Inpatient Admission. Preliminary mw diagnosis is Acute pancreatitis, unspecified. Bed requested for Telemetry/MedSurg (Inpatient). Status is Inpatient Admission. Condition is Stable. Problem is an ongoing problem. Symptoms are unchanged. UTI on Admission? No. tw4 03:24 01:16 03/15/2018 01:06 Hospitalization Ordered by Stan Medrano MD for Inpatient rk2 Admission. Preliminary diagnosis is Acute pancreatitis, unspecified. Bed requested for Telemetry/MedSurg (Inpatient). Status is Inpatient Admission. Condition is Stable. Problem is an ongoing problem. Symptoms are unchanged. UTI on Admission? No. mw
[2018-03-15] MEDS ORDERED: ACETAMINOPHEN 500 MG TAB PO PRN (02:19)
[2018-03-15] MEDS ORDERED: ONDANSETRON 4 MG/2 ML VIAL IV PRN (02:19)
[2018-03-15 02:32] LABS: Urine Bacteria 20-50 /HPF (<20); Urine Culture Reflex Order REFLEXED; Urine RBC <5 /HPF (NONE SEEN)
[2018-03-15] MEDS: NA CHLORIDE 0.9% 1,000 ML IV SCH ×4 (04:17→23:00)
--- NOTE | 2018-03-15 04:28 | P.HP ---
Certification for Inpatient Patient admitted to: Inpatient With expected LOS: >2 Midnights Patient will require the following post-hospital care: None Practitioner: I am a practitioner with admitting privileges, knowledge of patient current condition, hospital course, and medical plan of care. Services: Services provided to patient in accordance with Admission requirements found in Title 42 Section 412.3 of the Code of Federal Regulations Patient History Date of Service: 03/15/18 Reason for admission: Acute pancreatitis/acute hepatitis/alcohol history/ History of Present Illness: Patient is a 57-year-old female who I have taking care of in the past who presents to the hospital with acute pancreatitis. She is here about a year ago with similar complaints and at that time was found have acute pancreatitis. She had an MRCP which did not reveal any pathology. She was discharged doing well until she came back in the hospital this admission. She was having severe pain in the epigastric region. She says she takes a couple of shots of alcohol every night to help her pain. She is very jaundiced and she states a couple of days ago her [id number] noticed her color had changed. She lives with her who had not mentioned anything to her(she states she does along her 's no anything going on with her medical history). She was feeling weak and started having severe pain so she came into the hospital. Her workup in the ER revealed acute pancreatitis with acute hepatitis as well. Her total bilirubin was significantly elevated. Her coagulation profile was not checked and these labs are pending. Her albumin is also low. She will be admitted to the hospital for further evaluation. She states she sees Dr. Eckert as her service captain. We will give him a call and consult him in the morning. Incidentally CT scan also mentions a possibility of left femoral head avascular necrosis. This may be chronic and will get orthopedic to see the patient for this. Allergies No Known Allergies Allergy (Unverified 04/16/17 07:39) Home Medications: Aspirin Enteric Coated [Ecotrin*] 325 mg PO DAILY 07/26/15 Clonazepam [Klonopin*] 2 mg PO TID 07/26/15 Gabapentin [Neurontin] 800 mg PO TID 07/26/15 Metoprolol Tartrate [Lopressor*] 100 mg PO BID 07/26/15 Clonidine HCl [Catapres*] 0.1 mg PO BIDP PRN 04/16/17 Eluxadoline [Viberzi] 75 mg PO DAILY 04/16/17 Levetiracetam 500 mg PO BID 04/16/17 Lisinopril/Hydrochlorothiazide [Lisinopril-Hctz 20-12.5 mg Tab] 1 each PO DAILY 04/16/17 Montelukast [Singulair*] 10 mg PO DAILY 04/16/17 Sucralfate [Carafate*] 1 gm PO BEDTIME 04/16/17 Sucralfate [Carafate*] 1 gm PO TID 04/16/17 Pantoprazole [Protonix Tab] 40 mg PO DAILY #30 tab 04/17/17 Sulfamethoxazole/Trimethoprim [Bactrim Ds Tablet] 1 each PO BID #14 tablet 04/17 Tramadol HCl [Ultram] 50 mg PO TID PRN #30 tablet 04/17/17 - Past Medical/Surgical History Diabetic: No -: History of multiple sclerosis -: Hypertension -: Seizure disorder -: Hyperlipidemia -: Anxiety -: Lupus -: GERD -: History pancreatitis -: Peripheral vascular disease -: Tobacco abuse -: LBKA in 2010 -: bilateral breast reconstruction -: Hysterectomy -: tonsillectomy & adenoidectomy -: Appendectomy Psychosocial/ Personal History: Patient is . She has 1 adopted child. She is retired registered nurse. - Family History Mother Medical History: Cancer (Breast cancer) Father Medical History: Cancer, Other (see notes) (Dementia) Notes: prostate ca - Social History Alcohol use: Yes CD- Drugs: No Caffeine use: Yes Review of Systems 10-point ROS is otherwise unremarkable Physical Examination - Vital Signs Temperature: 97.8 F Blood Pressure: 110/63 Pulse: 82 Respirations: 14 Pulse Ox (%): 91 - Physical Exam General: Alert, In no apparent distress, Oriented x3 HEENT: Atraumatic, PERRLA, Mucous membr. moist/pink, EOMI, Sclerae nonicteric Neck: Supple, 2+ carotid pulse no bruit, No LAD, Without JVD or thyroid abnormality Respiratory: Clear to auscultation bilaterally, Normal air movement Cardiovascular: Regular rate/rhythm, Normal S1 S2, No murmurs Gastrointestinal: Normal bowel sounds, Soft and benign, Non-distended, Tenderness, Rebound, Guarding Musculoskeletal: No clubbing, No swelling, No tenderness, Other (left prosthesis ) Integumentary: No rashes Neurological: Normal speech, Normal tone, Sensation intact, Cranial nerves 3-12 intact, Normal affect, Abnormal gait, Abnormal strength Lymphatics: No axilla or inguinal lymphadenopathy - Studies Laboratory Data (last 24 hrs) 03/14/18 23:15: Creatinine 0.91 03/14/18 23:15: WBC 21.7 H*, Hgb 9.0 L, Hct 29.1 L, Plt Count 245 03/14/18 23:15: Sodium 132 L, Potassium 2.6 L*, BUN 15, Creatinine 0.83, Glucose 155 H, Total Bilirubin 13.2 H*, AST 297 H, ALT 88 H, Alkaline Phosphatase 395 H, Amylase 1457 H*, Lipase 1580 H Assessment & Plan - Problems (Diagnosis) (1) Acute pancreatitis Current Visit: Yes Status: Acute (2) Acute hepatitis Current Visit: Yes Status: Acute (3) Avascular necrosis of bone of left hip Current Visit: Yes Status: Acute (4) Fatty liver Current Visit: No Status: Chronic (5) Hypertension Current Visit: No Status: Chronic Qualifiers: Hypertension type: essential hypertension Qualified Code(s): I10 - Essential (primary) hypertension (6) Seizure disorder Current Visit: No Status: Chronic (7) Tobacco abuse Current Visit: No Status: Chronic - Plan Plan: 1. Aggressive IV hydration 2. Pain control 3. NPO 4. Gastroenterology consultation 5. MRCP 6. Monitor LFTs and check coagulation profile 7. Orthopedic consultation for questionable avascular necrosis 8. Pet Supplies Salesperson regarding alcohol cessation/DT prevention 9. Check multi vitamins and banana bag if needed 10. GI and DVT prophylaxis Discharge Plan: Home Plan to discharge in: Greater than 2 days - Advance Directives Does patient have a Living Will: No Does patient have a Durable POA for Healthcare: No - Code Status/Comfort Care Code Status Assessed: Yes Code Status: Full Code Critical Care: No Time Spent Managing PTS Care (In Minutes): 50
[2018-03-15 06:09] LABS: Absolute Lymphocytes (CBC) 4.5 K/uL (0.7-4.9); Absolute Monocytes 1.8 K/uL (0.1-1.3); Absolute Neutrophil 12.3 K/uL (1.8-8.0); Basophils % 0.2 % (0-1.3); Eosinophils % 0.2 % (0-4.4); Lymphocytes % 24.3 % (15.3-44.8); MCH 30.7 pg (27.0-35.0); MCV 101.8 fL (80-100); MPV 11.5 fL (7.6-11.3); Monocytes % 9.4 % (3.3-12.3); RBC Red Blood Cell Count 2.55 M/uL (3.86-4.86)
[2018-03-15 06:36] LABS: Toxic Granulation 1+
[2018-03-15 06:37] LABS: Anisocytosis 1+; Blood Morphology Comment NOTED (NOT SEEN); Platelet Estimate ADEQ
--- NOTE | 2018-03-15 08:39 | RAD REPORT ---
EXAM DESCRIPTION: CTAbdomen Pelvis W Contrast - 03/15/2018 3:42 am CLINICAL HISTORY: Abdominal pain. Jaundice COMPARISON: 04/16/2017, 07/26/2015, 11/28/2008 TECHNIQUE: Biphasic CT imaging of the abdomen and pelvis was performed with 100 ml non-ionic IV cont rast. All CT scans are performed using dose optimization technique as appropriate and may include automated exposure control or mA/KV adjustment according to patient size. FINDINGS: No worrisome inferior chest findings. Hepatomegaly with a pronounced fatty liver pattern is noted. No biliary dilatation. Mild peripancreat ic fluid is seen. No pancreatic ductal dilatation. Mild free fluid is seen in the left upper quadrant and surrounding the spleen. No aggressive splenic lesion. The kidneys and right adrenal gland normal . Mild nodularity left adrenal gland seen. IVC filter is present. Moderate thickening of the right side of the colon is seen. Mild free fluid is seen in the right lowe r quadrant. Sigmoid diverticulosis is present without diverticulitis. The appendix is not identified as a discrete structure, however, no secondary findings of appendicitis are identified. No evidenc e of significant lymphadenopathy. No fracture is seen. Vague area of sclerosis seen in both femoral heads which could indicate early AV N. IMPRESSION: Mild peripancreatic fluid and edema could indicate pancreatitis. Correlation with amylas e and lipase levels suggested. Colitis pattern is seen involving the right colon, mild to moderate in severity. Hepatomegaly with pronounced fatty liver. Early findings of AVN possible in both femoral heads.
[2018-03-15] MEDS ORDERED: ELUXADOLINE 75 MG PO SCH (09:00)
[2018-03-15] MEDS: METOPROLOL TAR 50 MG TAB PO SCH ×2 (09:00→20:40)
[2018-03-15] MEDS: clonazePAM 0.5 MG TAB PO SCH ×3 (09:00→20:39)
[2018-03-15 09:04] LABS: ALT/SGPT 69 IU/L (10-60); AST/SGOT 228 IU/L (10-42); Albumin 1.8 g/dL (3.2-5.5); Alkaline Phosphatase 326 IU/L (42-121); BUN Blood Urea Nitrogen 15 mg/dL (6-20); Bicarbonate 22 mEq/L (21-31); Folic Acid, (Folate) 8.3 ng/ml (>5.21); Glucose Level 122 mg/dL (65-120); Magnesium 1.8 mg/dL (1.8-2.5); Phosphorus 2.1 mg/dL (2.5-4.3); Potassium 3.1 mEq/L (3.6-5.0); Protein, Total 4.9 g/dL (6.0-8.3); Sodium Level 133 mEq/L (135-145)
[2018-03-15 09:22] LABS: HDL Cholesterol < 5 mg/dL (29-89); LDL Cholesterol, Calculated 297 (<130)
[2018-03-15 09:23] LABS: Bilirubin Total 10.3 mg/dL (0.3-1.2)
[2018-03-15 09:24] LABS: Lipase 795 U/L (22-51)
[2018-03-15 09:41] LABS: Protime INR 1.27
--- NOTE | 2018-03-15 09:41 | RAD REPORT ---
EXAM DESCRIPTION: MRIAbdomen (Gallbladder) CLINICAL HISTORY: Nausea, vomiting, jaundice. COMPARISON: 04/17/2017 FINDINGS: The intrahepatic biliary tree is normal in caliber. Common bile duct appears normal in claire iber. No common bile duct stone is suspected. No evidence of a stricture. The liver appears enlarged demonstrates diffusely diminished T2 signal suggesting prominent fatty inf iltration. IMPRESSION: No evidence of significant biliary obstruction or common bile duct stone.
[2018-03-15 09:49] LABS: Urine Blood TRACE (NEG); Urine Glucose NEGATIVE (NEG); Urine Protein 1+ (NEG)
[2018-03-15] MEDS: levETIRAcetam 500 MG TAB PO SCH ×2 (10:18→20:39)
[2018-03-15] MEDS: GABAPENTIN 400 MG CAP PO SCH ×3 (10:18→20:39)
[2018-03-15] MEDS: ENOXAPARIN 40 MG/0.4 ML SQ SCH (10:19)
[2018-03-15] MEDS ORDERED: LORazepam 2 MG/ML VIAL IV PRN (13:35)
[2018-03-15] MEDS ORDERED: MAGNESIUM SULFATE 1 gm IVPB 1 GM/100 ML BAG IV ONE (14:00)
[2018-03-15] MEDS ORDERED: NA CHLORIDE 0.9% 250 ML ONE (14:39)
[2018-03-15] MEDS: KCL 20 MEQ/100 mL IVPB 20 MEQ/100 ML BAG IV SCH ×2 (14:43→16:00)
[2018-03-15] MEDS ORDERED: KCL 20 MEQ/100 mL IVPB 20 MEQ/100 ML BAG IV SCH (20:00)
[2018-03-15] MEDS: PENTOXIFYLLINE ER 400 MG TAB PO SCH (20:52)
[2018-03-16] MEDS ORDERED: NA CHLORIDE 0.9% 250 ML ONE (00:04)
[2018-03-16 05:10] LABS: Hematocrit 37.8 % (36.0-45.0)
[2018-03-16] MEDS: TRAMADOL HCL 50 MG TAB PO PRN ×2 (05:16→14:36)
[2018-03-16] MEDS: NA CHLORIDE 0.9% 1,000 ML IV SCH ×3 (05:20→22:00)
[2018-03-16 05:40] LABS: BUN Blood Urea Nitrogen 11 mg/dL (6-20); Bicarbonate 20 mEq/L (21-31); Glucose Level 97 mg/dL (65-120); Phosphorus 1.5 mg/dL (2.5-4.3); Potassium 3.3 mEq/L (3.6-5.0); Sodium Level 136 mEq/L (135-145)
[2018-03-16] MEDS ORDERED: POTASSIUM PHOS 20 MEQ in NA CHLORIDE 0.9% 250 ML IV ONE ×2 (06:12→09:00)
[2018-03-16] MEDS ORDERED: KCL 20 MEQ/100 mL IVPB 20 MEQ/100 ML BAG IV SCH (07:00)
[2018-03-16] MEDS: ENOXAPARIN 40 MG/0.4 ML SQ SCH (09:44)
[2018-03-16] MEDS: GABAPENTIN 400 MG CAP PO SCH ×3 (09:44→22:00)
[2018-03-16] MEDS: PENTOXIFYLLINE ER 400 MG TAB PO SCH ×2 (09:44→22:01)
[2018-03-16] MEDS: levETIRAcetam 500 MG TAB PO SCH ×2 (09:44→22:01)
[2018-03-16] MEDS: METOPROLOL TAR 50 MG TAB PO SCH ×2 (09:44→22:07)
[2018-03-16] MEDS: clonazePAM 0.5 MG TAB PO SCH ×3 (09:50→22:01)
[2018-03-16 11:19] LABS: ALT/SGPT 63 IU/L (10-60); AST/SGOT 213 IU/L (10-42); Albumin 1.7 g/dL (3.2-5.5); Alkaline Phosphatase 338 IU/L (42-121); BUN Blood Urea Nitrogen 10 mg/dL (6-20); Bicarbonate 17 mEq/L (21-31); Glucose Level 118 mg/dL (65-120); Potassium 3.7 mEq/L (3.6-5.0); Sodium Level 134 mEq/L (135-145)
[2018-03-16 11:29] LABS: Bilirubin Total 11.3 mg/dL (0.3-1.2)
[2018-03-16] MEDS ORDERED: CALCIUM CL 10% 13.6 MEQ in NA CHLORIDE 0.9% 100 ML IV ONE (11:52)
--- NOTE | 2018-03-16 11:56 | P.PN ---
Subjective Date of Service: 03/16/18 Chief Complaint: Acute pancreatitis/acute hepatitis/alcohol history/ Patient seen and examined at bedside with RN. Currently has no complaints to offer. States that her epigastric pain is still the same. Case discussed with GI at this time. Patient is currently on a clear liquid diet, tolerating well. Review of Systems General: As per HPI Physical Examination - Vital Signs Temperature: 98.4 F Blood Pressure: 110/72 Pulse: 63 Respirations: 18 Pulse Ox (%): 95 - Physical Exam General: Alert, In no apparent distress HEENT: Atraumatic, Scleral icterus Neck: Supple, JVD distended Respiratory: Normal air movement, Crackles/rales Cardiovascular: Regular rate/rhythm, Normal S1 S2 Gastrointestinal: Normal bowel sounds, No tenderness, Ascites Musculoskeletal: No tenderness Integumentary: No rashes Neurological: Normal speech, Normal tone, Normal affect Lymphatics: No axilla or inguinal lymphadenopathy - Studies Medications List Reviewed: Yes Assessment & Plan - Problems (Diagnosis) (1) Acute hepatitis Onset Date: 03/15/18 Current Visit: Yes Status: Acute Plan: Acute alcoholic Hepatitis -IV fluids -CIWA protocol for Alcohol WD -GI consulted. Reccs appreciated (2) Acute pancreatitis Onset Date: 03/15/18 Current Visit: Yes Status: Acute Plan: Acute Pancreatitis 2/2 to alcohol -CLD, IV fluids and pain mgmt for now -Lipase initially > 1500 -GI consulted. Appreciate Reccs Qualifiers: Pancreatitis type: alcohol induced Acute pancreatitis complication: uninfected necrosis Qualified Code(s): K85.21 - Alcohol induced acute pancreatitis with uninfected necrosis (3) Hypertension Onset Date: 03/15/18 Current Visit: Yes Status: Chronic Qualifiers: Hypertension type: essential hypertension Qualified Code(s): I10 - Essential (primary) hypertension (4) Seizure disorder Onset Date: 03/15/18 Current Visit: Yes Status: Chronic (5) Tobacco abuse Onset Date: 03/15/18 Current Visit: Yes Status: Chronic (6) COPD (chronic obstructive pulmonary disease) Current Visit: No Status: Chronic Qualifiers: COPD type: chronic bronchitis Chronic bronchitis type: mixed simple and mucopurulent Qualified Code(s): J41.8 - Mixed simple and mucopurulent chronic bronchitis (7) Anxiety Onset Date: 08/20/15 Current Visit: No Status: Chronic (8) Alcohol abuse Current Visit: Yes Status: Chronic Discharge Plan: Home Plan to discharge in: 48 Hours - Code Status/Comfort Care Code Status Assessed: Yes Critical Care: No
[2018-03-16] MEDS ORDERED: CALCIUM GLUCONATE 1gm/100 ML NS (4.65 mEq/100mL) IV ONE ×2 (13:00)
[2018-03-17] MEDS: TRAMADOL HCL 50 MG TAB PO PRN (00:03)
[2018-03-17] MEDS: NA CHLORIDE 0.9% 1,000 ML IV SCH ×4 (00:30→21:40)
[2018-03-17 06:38] VITALS: BMI 24.5
[2018-03-17 07:04] LABS: BUN Blood Urea Nitrogen 9 mg/dL (6-20); Bicarbonate 16 mEq/L (21-31); Glucose Level 83 mg/dL (65-120); Magnesium 1.7 mg/dL (1.8-2.5); Phosphorus 1.5 mg/dL (2.5-4.3); Potassium 3.8 mEq/L (3.6-5.0); Sodium Level 134 mEq/L (135-145)
[2018-03-17] MEDS ORDERED: MAGNESIUM SULFATE 1 gm IVPB 1 GM/100 ML BAG IV ONE (08:08)
[2018-03-17] MEDS: POTASS/SODIUM PHOSPHATE 1 PKT POWD.PACK PO ONE ×2 (08:11→09:13)
[2018-03-17] MEDS ORDERED: KCL 20 MEQ/100 mL IVPB 20 MEQ/100 ML BAG IV SCH ×2 (09:00→18:00)
[2018-03-17] MEDS: MULTIVITAMIN TAB PO SCH (09:15)
[2018-03-17] MEDS: GABAPENTIN 400 MG CAP PO SCH ×3 (09:15→21:36)
[2018-03-17] MEDS: clonazePAM 0.5 MG TAB PO SCH ×3 (09:15→21:36)
[2018-03-17] MEDS: FOLIC ACID 1 MG TABLET PO SCH (09:16)
[2018-03-17] MEDS: METOPROLOL TAR 50 MG TAB PO SCH ×2 (09:16→21:36)
[2018-03-17] MEDS: THIAMINE HCL 100 MG TABLET PO SCH (09:17)
[2018-03-17] MEDS: PENTOXIFYLLINE ER 400 MG TAB PO SCH ×2 (09:17→21:36)
[2018-03-17] MEDS: ENOXAPARIN 40 MG/0.4 ML SQ SCH (09:17)
[2018-03-17] MEDS: levETIRAcetam 500 MG TAB PO SCH ×2 (09:17→21:36)
[2018-03-17] MEDS ORDERED: CALCIUM GLUC 10% INJ 9.3 MEQ in NA CHLORIDE 0.9% 100 ML IV ONE ×2 (10:00→17:51)
[2018-03-17 10:56] LABS: ALT/SGPT 63 IU/L (10-60); AST/SGOT 191 IU/L (10-42); Albumin 1.7 g/dL (3.2-5.5); Alkaline Phosphatase 368 IU/L (42-121); BUN Blood Urea Nitrogen 8 mg/dL (6-20); Bicarbonate 17 mEq/L (21-31); Glucose Level 88 mg/dL (65-120); Potassium 3.8 mEq/L (3.6-5.0); Protein, Total 5.1 g/dL (6.0-8.3); Sodium Level 134 mEq/L (135-145)
[2018-03-17 10:58] LABS: Bilirubin Total 11.5 mg/dL (0.3-1.2)
--- NOTE | 2018-03-17 11:24 | P.PN ---
Subjective Date of Service: 03/17/18 Chief Complaint: Acute pancreatitis/acute hepatitis/alcohol history/ Patient seen and examined at bedside with RN. Currently has no complaints to offer. States that her epigastric pain is still the same and possibly worse. Case discussed with GI at this time. Pt on CLD however still continue to be Nauseous Review of Systems General: As per HPI Physical Examination - Vital Signs Temperature: 99.3 F Blood Pressure: 105/72 Pulse: 78 Respirations: 16 Pulse Ox (%): 93 - Physical Exam General: Alert, Oriented x3, Cachectic, Mild distress HEENT: Atraumatic, Scleral icterus Neck: Supple, JVD distended Respiratory: Normal air movement, Rhonchi/gurgles Cardiovascular: Regular rate/rhythm, Normal S1 S2 Gastrointestinal: Normal bowel sounds, Soft and benign, Ascites, Tenderness Musculoskeletal: No swelling Integumentary: Other (Jaundice) Neurological: Normal speech, Abnormal strength, Abnormal tone - Studies Medications List Reviewed: Yes Assessment & Plan - Problems (Diagnosis) (1) Acute hepatitis Onset Date: 03/15/18 Current Visit: Yes Status: Acute Plan: Acute alcoholic Hepatitis. With worsening of Tbili today -IV fluids and now Started on Prednisolone 15mg BID -CIOH protocol for Alcohol WD -Thamine and FA started as well -GI consulted. Reccs appreciated -Poor Prognosis with MELD score of 20 (19% 3 month mortality rate) (2) Acute pancreatitis Onset Date: 03/15/18 Current Visit: Yes Status: Acute Plan: Acute Pancreatitis 2/2 to alcohol -CLD, IV fluids and pain mgmt for now -Lipase initially > 1500 -Repeated labs today -Hypocalcemia today. Replace it. Low due to saponification -GI consulted. Appreciate Reccs Qualifiers: Pancreatitis type: alcohol induced Acute pancreatitis complication: uninfected necrosis Qualified Code(s): K85.21 - Alcohol induced acute pancreatitis with uninfected necrosis (3) Hypertension Onset Date: 03/15/18 Current Visit: Yes Status: Chronic Qualifiers: Hypertension type: essential hypertension Qualified Code(s): I10 - Essential (primary) hypertension (4) Seizure disorder Onset Date: 03/15/18 Current Visit: Yes Status: Chronic (5) Tobacco abuse Onset Date: 03/15/18 Current Visit: Yes Status: Chronic (6) COPD (chronic obstructive pulmonary disease) Current Visit: No Status: Chronic Qualifiers: COPD type: chronic bronchitis Chronic bronchitis type: mixed simple and mucopurulent Qualified Code(s): J41.8 - Mixed simple and mucopurulent chronic bronchitis (7) Anxiety Onset Date: 08/20/15 Current Visit: No Status: Chronic (8) Alcohol abuse Current Visit: Yes Status: Chronic (9) UTI (urinary tract infection) Current Visit: Yes Status: Acute Plan: UTI with ESBL -IV meropenum started Qualifiers: Urinary tract infection type: acute cystitis Hematuria presence: without hematuria Qualified Code(s): N30.00 - Acute cystitis without hematuria Discharge Plan: Other - Code Status/Comfort Care Code Status Assessed: Yes Critical Care: No
[2018-03-17 11:36] LABS: Amylase Level 198 U/L (28-100); Lipase 80 U/L (22-51)
[2018-03-17] MEDS: Meropenem 1,000 MG in NA CHLORIDE 0.9% 100 ML IV SCH (16:45)
[2018-03-17 16:54] LABS: Phosphorus 1.4 mg/dL (2.5-4.3); Potassium 3.8 mEq/L (3.6-5.0)
[2018-03-17] MEDS ORDERED: Meropenem 1000 MG/VIAL IV SCH (17:00)
[2018-03-17] MEDS ORDERED: LACTULOSE 20 GM/30 ML UCUP PO PRN (17:52)
[2018-03-17] MEDS ORDERED: POTASSIUM PHOS IN 0.9 % NACL 15 MMOL/250 ML BAG IV ONE (18:00)
--- NOTE | 2018-03-17 18:10 | CON ---
Date of Consultation: 03/17/2018 Reason For Consultation: Abdominal pain, pancreatitis, acute hepatitis. History Of Present Illness: Ms. Middleton is a 57-year-old female, who comes with a third episode of moreno ch acute pancreatitis. Her abdominal pain is still quite significant and is hurting. She appears to be apparently icterus. She denies any hematemesis, melena, or hematochezia. At this time, she does not give any other history other than abdominal pain. Past Medical History: As elaborated above, hypertension and history of alcoholism. Past Surgical History: Not related to above. Family History: She does not give any family history. Social History: Although she has significant history of alcohol, she personally denies it. She david es taking any other drugs. Psychiatric History: Unknown. Review of Systems: I cannot get any review of system out of her; however, she denies any shortness of breath, cough, or expectoration at this time. She denies palpitation also. Other than above, rest of them she does no t answer, stays neutral neither saying yes or no. Physical Examination: General: She appears older than stated age, rather disheveled addition. Hemodynamic respiratory pro file within normal range. HEENT: Atraumatic, normocephalic. Bitemporal wasting and facial wasting noted. She is apparently i cteric. Some pallor also noted. Oropharyngeal area shows icterus. Neck: Supple. No lymphadenopathy. Chest: Air exchange is okay; however, she does not cooperate. Cardiac: S1, S2 normal. Abdomen: Soft. Tender in the epigastric area. Bowel sounds are present. Hepatic tip is palpable. Spleen is not palpable. No ascites. No succussion splash noted. No other apparent masses noted. Dermatologic: Diffuse icterus and petechial hemorrhage in the extremities. Neurologic: Alert and oriented x2. Memory and mentation cannot be tested because she is not well co operative. No asterixis. No flapping tremor. Diagnostic Data: Reviewed and analyzed. Of importance, her bilirubin is 11.5. AST severely elevate d compared with ALT. Albumin is 1.7. Amylase and lipase are elevated. Hematologically, hemoglobin and hematocrit are [address] scan and MRCP reviewed. Impression, Plan And Recommendations: Ms. Middleton is a 57-year-old female with pancreatitis, likely c irrhosis from alcoholism. GI bleeding cannot be ruled out. However, she is not cooperative at this time. Alcohol withdrawal has to be watched out for. In addition to that, at this time, treatment wi ll be conservative with IV fluid, electrolyte and nutrition balance. Eventually, she will need endoscopic workup; however, her main treatment will be: 1.Giving up alcohol. 2.Giving up alcohol. 3.Giving up alcohol, then comes rest of the role. I have also tried to explain to her that if she c ontinues to drink alcohol which she denied to me does not do any good. In addition to that, long-ter m prognosis will be really poor. SVEN/AZRA Voice ID: [id number] Report ID: [id number]
[2018-03-17] MEDS: LACTULOSE 20 GM/30 ML UCUP PO SCH ×2 (18:29→21:00)
[2018-03-17] MEDS: prednisoLONE 15 MG/5 ML OSYR PO SCH (21:36)
[2018-03-18] MEDS: Meropenem 1,000 MG in NA CHLORIDE 0.9% 100 ML IV SCH ×3 (01:58→17:04)
[2018-03-18] MEDS: NA CHLORIDE 0.9% 1,000 ML IV SCH ×3 (04:59→17:06)
[2018-03-18] MEDS: LACTULOSE 20 GM/30 ML UCUP PO SCH ×2 (09:15→22:06)
[2018-03-18] MEDS: levETIRAcetam 500 MG TAB PO SCH ×2 (09:15→22:07)
[2018-03-18] MEDS: THIAMINE HCL 100 MG TABLET PO SCH (09:15)
[2018-03-18] MEDS: GABAPENTIN 400 MG CAP PO SCH ×4 (09:15→22:07)
[2018-03-18] MEDS: clonazePAM 0.5 MG TAB PO SCH ×3 (09:16→22:07)
[2018-03-18] MEDS: MULTIVITAMIN TAB PO SCH (09:16)
[2018-03-18] MEDS: METOPROLOL TAR 50 MG TAB PO SCH ×2 (09:16→22:07)
[2018-03-18] MEDS: PENTOXIFYLLINE ER 400 MG TAB PO SCH ×2 (09:16→22:07)
[2018-03-18] MEDS: prednisoLONE 15 MG/5 ML OSYR PO SCH ×2 (09:17→22:07)
[2018-03-18] MEDS: ENOXAPARIN 40 MG/0.4 ML SQ SCH (09:17)
[2018-03-18] MEDS: FOLIC ACID 1 MG TABLET PO SCH (09:17)
[2018-03-18 11:24] LABS: Phosphorus 1.5 mg/dL (2.5-4.3); Potassium 3.8 mEq/L (3.6-5.0)
--- NOTE | 2018-03-18 13:10 | P.PN ---
Subjective Date of Service: 03/18/18 Chief Complaint: Acute pancreatitis/acute hepatitis/alcohol history/ Patient seen and examined at bedside with RN. Currently has no complaints to offer. States that her epigastric pain is still the same and possibly worse. Case discussed with GI at this time. Pt on CLD however still continue to be Nauseous Review of Systems General: As per HPI Physical Examination - Vital Signs Temperature: 97.9 F Blood Pressure: 185/81 Pulse: 66 Respirations: 16 Pulse Ox (%): 90 - Physical Exam General: Alert, In no apparent distress, Oriented x2 HEENT: Atraumatic, Scleral icterus Neck: Supple, JVD distended Respiratory: Clear to auscultation bilaterally, Normal air movement Cardiovascular: Regular rate/rhythm, Normal S1 S2 Gastrointestinal: Normal bowel sounds, No tenderness, Ascites Musculoskeletal: No tenderness Integumentary: No rashes Neurological: Normal speech, Normal tone, Normal affect Lymphatics: No axilla or inguinal lymphadenopathy - Studies Medications List Reviewed: Yes Assessment & Plan - Problems (Diagnosis) (1) Acute hepatitis Onset Date: 03/15/18 Current Visit: Yes Status: Acute Plan: Acute alcoholic Hepatitis. With worsening of Tbili today -IV fluids and now Started on Prednisolone 15mg BID -CIDC protocol for Alcohol WD -Thamine and FA started as well -GI consulted. Reccs appreciated -Poor Prognosis with MELD score of 20 (19% 3 month mortality rate) (2) Acute pancreatitis Onset Date: 03/15/18 Current Visit: Yes Status: Acute Plan: Acute Pancreatitis 2/2 to alcohol -CLD, IV fluids and pain mgmt for now -Lipase initially > 1500 -Repeated labs today -Hypocalcemia today. Replace it. Low due to saponification -GI consulted. Appreciate Reccs Qualifiers: Pancreatitis type: alcohol induced Acute pancreatitis complication: uninfected necrosis Qualified Code(s): K85.21 - Alcohol induced acute pancreatitis with uninfected necrosis (3) Hypertension Onset Date: 03/15/18 Current Visit: Yes Status: Chronic Qualifiers: Hypertension type: essential hypertension Qualified Code(s): I10 - Essential (primary) hypertension (4) Seizure disorder Onset Date: 03/15/18 Current Visit: Yes Status: Chronic (5) Tobacco abuse Onset Date: 03/15/18 Current Visit: Yes Status: Chronic (6) COPD (chronic obstructive pulmonary disease) Current Visit: No Status: Chronic Qualifiers: COPD type: chronic bronchitis Chronic bronchitis type: mixed simple and mucopurulent Qualified Code(s): J41.8 - Mixed simple and mucopurulent chronic bronchitis (7) Anxiety Onset Date: 08/20/15 Current Visit: No Status: Chronic (8) Alcohol abuse Current Visit: Yes Status: Chronic (9) UTI (urinary tract infection) Current Visit: Yes Status: Acute Plan: UTI with ESBL -IV meropenum started Qualifiers: Urinary tract infection type: acute cystitis Hematuria presence: without hematuria Qualified Code(s): N30.00 - Acute cystitis without hematuria (10) Hepatic encephalopathy Current Visit: Yes Status: Acute Plan: Acute Encephalopathy. Ammonia > 104. -Lactulose 30mg TID for now Discharge Plan: LTAC Plan to discharge in: 48 Hours - Code Status/Comfort Care Code Status Assessed: Yes Critical Care: No
[2018-03-18 14:25] LABS: Absolute Monocytes 1.5 K/uL (0.1-1.3); Eosinophils % 0.4 % (0-4.4); Hematocrit 34.7 % (36.0-45.0); MCH 29.2 pg (27.0-35.0); MPV 11.3 fL (7.6-11.3)
[2018-03-18 14:29] LABS: Absolute Lymphocytes (CBC) 4.1 K/uL (0.7-4.9); Absolute Neutrophil 13.2 K/uL (1.8-8.0); Lymphocytes % 21.4 % (15.3-44.8); MCV 94.7 fL (80-100); Monocytes % 7.6 % (3.3-12.3); RBC Red Blood Cell Count 3.66 M/uL (3.86-4.86)
[2018-03-18 14:40] LABS: Glucose Level 120 mg/dL (65-120)
[2018-03-18 14:41] LABS: Bicarbonate 15 mEq/L (21-31); Potassium 3.9 mEq/L (3.6-5.0); Sodium Level 131 mEq/L (135-145)
[2018-03-18 14:48] LABS: ALT/SGPT 56 IU/L (10-60); AST/SGOT 161 IU/L (10-42); Albumin 1.6 g/dL (3.2-5.5); Alkaline Phosphatase 345 IU/L (42-121); BUN Blood Urea Nitrogen 9 mg/dL (6-20); Protein, Total 4.9 g/dL (6.0-8.3)
[2018-03-18 15:01] LABS: Bilirubin Total 10.6 mg/dL (0.3-1.2)
[2018-03-18 15:50] LABS: Anisocytosis 3+; Blood Morphology Comment NOTED (NOT SEEN); Platelet Estimate ADEQ
[2018-03-18] MEDS ORDERED: CALCIUM GLUC 10% INJ 9.3 MEQ in NA CHLORIDE 0.9% 100 ML IV ONE (16:00)
[2018-03-18 21:07] LABS: HBsAG Nonreactive (Nonreactive); Hepatitis A IgM Antibody Nonreactive
[2018-03-19] MEDS: Meropenem 1,000 MG in NA CHLORIDE 0.9% 100 ML IV SCH ×2 (00:35→10:27)
[2018-03-19] MEDS: NA CHLORIDE 0.9% 1,000 ML IV SCH ×3 (00:35→13:40)
[2018-03-19 04:53] LABS: Hematocrit 43.7 % (36.0-45.0); MCH 29.3 pg (27.0-35.0); MCV 95.3 fL (80-100); MPV 11.2 fL (7.6-11.3); RBC Red Blood Cell Count 4.58 M/uL (3.86-4.86)
[2018-03-19 05:06] LABS: ALT/SGPT 49 IU/L (10-60); AST/SGOT 152 IU/L (10-42); Albumin 1.5 g/dL (3.2-5.5); Alkaline Phosphatase 363 IU/L (42-121); BUN Blood Urea Nitrogen 10 mg/dL (6-20); Bicarbonate 16 mEq/L (21-31); Glucose Level 116 mg/dL (65-120); Potassium 3.9 mEq/L (3.6-5.0); Protein, Total 4.9 g/dL (6.0-8.3); Sodium Level 137 mEq/L (135-145)
[2018-03-19 05:17] LABS: Bilirubin Total 10.6 mg/dL (0.3-1.2)
[2018-03-19 05:43] LABS: Anisocytosis 3+; Blood Morphology Comment NOTED (NOT SEEN); Burr Cells 1+; Platelet Estimate ADEQ; Polychromasia 2+; Target Cells 1+
[2018-03-19] MEDS ORDERED: KCL 20 MEQ/100 mL IVPB 20 MEQ/100 ML BAG IV SCH (06:00)
[2018-03-19 08:22] VITALS: O2SAT 92
[2018-03-19] MEDS: LACTULOSE 20 GM/30 ML UCUP PO SCH (10:25)
[2018-03-19] MEDS: levETIRAcetam 500 MG TAB PO SCH (10:26)
[2018-03-19] MEDS: FOLIC ACID 1 MG TABLET PO SCH (10:26)
[2018-03-19] MEDS: THIAMINE HCL 100 MG TABLET PO SCH (10:26)
[2018-03-19] MEDS: GABAPENTIN 400 MG CAP PO SCH ×2 (10:26→14:00)
[2018-03-19] MEDS: METOPROLOL TAR 50 MG TAB PO SCH (10:26)
[2018-03-19] MEDS: ENOXAPARIN 40 MG/0.4 ML SQ SCH (10:27)
[2018-03-19] MEDS: PENTOXIFYLLINE ER 400 MG TAB PO SCH (10:27)
[2018-03-19] MEDS: clonazePAM 0.5 MG TAB PO SCH ×2 (10:29→14:00)
[2018-03-19] MEDS: MULTIVITAMIN TAB PO SCH (10:29)
[2018-03-19] MEDS: prednisoLONE 15 MG/5 ML OSYR PO SCH (10:29)
[2018-03-19 15:00] VITALS: BP 128/77; TEMP 98.9
--- NOTE | 2018-03-19 15:35 | P.DS ---
Admission Date: 03/15/18 Discharge Date: 03/19/18 Disposition: HOSPICE-MEDICAL FACILITY Discharge Condition: GOOD Reason for Admission: Acute pancreatitis/acute hepatitis/alcohol history/ Consultations: GI - Problems (1) Acute hepatitis Onset Date: 03/15/18 Status: Acute (2) Acute pancreatitis Onset Date: 03/15/18 Status: Acute Qualifiers: Pancreatitis type: alcohol induced Acute pancreatitis complication: uninfected necrosis Qualified Code(s): K85.21 - Alcohol induced acute pancreatitis with uninfected necrosis (3) Hypertension Onset Date: 03/15/18 Status: Chronic Qualifiers: Hypertension type: essential hypertension Qualified Code(s): I10 - Essential (primary) hypertension (4) Seizure disorder Onset Date: 03/15/18 Status: Chronic (5) Tobacco abuse Onset Date: 03/15/18 Status: Chronic (6) COPD (chronic obstructive pulmonary disease) Status: Chronic Qualifiers: COPD type: chronic bronchitis Chronic bronchitis type: mixed simple and mucopurulent Qualified Code(s): J41.8 - Mixed simple and mucopurulent chronic bronchitis (7) Anxiety Onset Date: 08/20/15 Status: Chronic (8) Alcohol abuse Status: Chronic (9) UTI (urinary tract infection) Status: Acute Qualifiers: Urinary tract infection type: acute cystitis Hematuria presence: without hematuria Qualified Code(s): N30.00 - Acute cystitis without hematuria (10) Hepatic encephalopathy Status: Acute (11) Liver cirrhosis Status: Acute Qualifiers: Hepatic cirrhosis type: alcoholic cirrhosis Ascites presence: with ascites Qualified Code(s): K70.31 - Alcoholic cirrhosis of liver with ascites Brief History of Present Illness: Patient is a 57-year-old female who I have taking care of in the past who presents to the hospital with acute pancreatitis. She is here about a year ago with similar complaints and at that time was found have acute pancreatitis. She had an MRCP which did not reveal any pathology. She was discharged doing well until she came back in the hospital this admission. She was having severe pain in the epigastric region. She says she takes a couple of shots of alcohol every night to help her pain. She is very jaundiced and she states a couple of days ago her [id number] noticed her color had changed. She lives with her who had not mentioned anything to her(she states she does along her 's no anything going on with her medical history). She was feeling weak and started having severe pain so she came into the hospital. Her workup in the ER revealed acute pancreatitis with acute hepatitis as well. Her total bilirubin was significantly elevated. Her coagulation profile was not checked and these labs are pending. Her albumin is also low. She will be admitted to the hospital for further evaluation. She states she sees Dr. Eckert as her sales representative health insurance. We will give him a call and consult him in the morning. Hospital Course: Overall during the hospital stay patient remained stable Patient was initially admitted to the hospital for the history of abdominal pain that got worse after patient had alcoholic beverage over midnight. Patient stated that she had couple of drinks and started having excruciating epigastric pain and thus decided to come to the ER. Patient was found to have acute pancreatitis along with alcoholic hepatitis when she came to the hospital and was admitted for further care. Patient has a long history of alcohol abuse and has been getting treated for her liver cirrhosis along with ascites. However this time patient had been binge drinking which caused her to have acute pancreatitis along with acute alcoholic hepatitis. GI was consulted who recommended the patient be kept on IV fluids and antibiotics and if needed then be started on steroids. On day 3 of hospitalization patient's LFTs continued to get worse with T bilirubin as high as 11.3. At that time patient's meld score was 20 points with 19.8% mortality in next 3 months. Patient was at that time educated about hospice care and the need for being comfortable with the terminal illness. Patient however was not in the right state of mind to make a decision due to hepatic encephalopathy. Patient was also found to have VS BL here in the hospital. Patient continued to decline Here in the hospital. Patient's was contacted and was educated regarding the disease process and asked regarding the extent of care they would like to receive. At that time patient wished to make patient DNR DNI in along with hospice care. He may hospice was consulted and patient was enrolled in inpatient hospice. Vital Signs/Physical Exam: Temp Pulse Resp BP Pulse Ox 98.9 F 88 16 128/77 92 03/19/18 12:00 03/19/18 12:00 03/19/18 12:00 03/19/18 12:00 03/19/18 12:00 General: In no apparent distress, Oriented x1, Confused, Other (Lethargic ) HEENT: Scleral icterus Neck: JVD distended Respiratory: Normal air movement, Crackles/rales, Rhonchi/gurgles Cardiovascular: Regular rate/rhythm, Normal S1 S2 Gastrointestinal: Normal bowel sounds, Hypoactive, Rigidity, Distended, Ascites , Tenderness Musculoskeletal: No tenderness Integumentary: No rashes Neurological: Abnormal speech, Abnormal strength, Abnormal affect Lymphatics: No axilla or inguinal lymphadenopathy Laboratory Data at Discharge: WBC 16.3 K/uL (4.3-10.9) H D 03/19/18 04:23 Hgb 13.5 g/dL (12.0-15.0) D 03/19/18 04:23 Hct 43.7 % (36.0-45.0) D 03/19/18 04:23 Plt Count 106 K/uL (152-406) L D 03/19/18 04:23 PT 15.0 SECONDS (9.5-12.5) H 03/15/18 09:20 INR 1.27 03/15/18 09:20 APTT 30.3 SECONDS (24.3-36.9) 03/15/18 09:20 Sodium 137 mEq/L (135-145) 03/19/18 04:23 Potassium 3.9 mEq/L (3.6-5.0) 03/19/18 04:23 BUN 10 mg/dL (6-20) 03/19/18 04:23 Creatinine 0.38 mg/dL (0.44-1.00) L 03/19/18 04:23 Glucose 116 mg/dL (65-120) 03/19/18 04:23 Phosphorus 1.5 mg/dL (2.5-4.3) L 03/18/18 10:40 Magnesium 2.0 mg/dL (1.8-2.5) 03/17/18 16:25 Total Bilirubin 10.6 mg/dL (0.3-1.2) H* 03/19/18 04:23 AST 152 IU/L (10-42) H 03/19/18 04:23 ALT 49 IU/L (10-60) 03/19/18 04:23 Alkaline Phosphatase 363 IU/L (42-121) H 03/19/18 04:23 Triglycerides 337 mg/dL (35-160) H 03/15/18 05:30 Cholesterol 369 mg/dL (<200) H 03/15/18 05:30 HDL Cholesterol < 5 mg/dL (29-89) L 03/15/18 05:30 Cholesterol/HDL Ratio 73.80 03/15/18 05:30 Amylase 198 U/L (28-100) H 03/17/18 10:41 Lipase 80 U/L (22-51) H 03/17/18 10:41 Home Medications: Clonazepam [Klonopin*] 2 mg PO TID PRN 07/26/15 Metoprolol Tartrate [Lopressor*] 100 mg PO BID 07/26/15 Lisinopril 10 mg PO DAILY 03/15/18 Magnesium Oxide [Magnesium] 400 mg PO DAILY 03/15/18 Diet: Regular Activity: Ad delia
== END 2018-03-19 15:20 | disposition hospice, inpatient (51) | DRG 438 ==
LOC: ER 22:13 → ERHOLD 03-15 01:14 → 2ND 03-15 03:06
PROVIDERS: ADMIT Hospitalist; ATTEND Hospitalist
DX: K85.20 Alcohol induced acute pancreatitis without necrosis or infection (principal); K72.00 Acute and subacute hepatic failure without coma; N30.00 Acute cystitis without hematuria; K70.31 Alcoholic cirrhosis of liver with ascites; K70.11 Alcoholic hepatitis with ascites; G40.909 Epilepsy, unspecified, not intractable, without status epilepticus; F17.210 Nicotine dependence, cigarettes, uncomplicated; J41.8 Mixed simple and mucopurulent chronic bronchitis; F41.9 Anxiety disorder, unspecified; I10 Essential (primary) hypertension; F10.10 Alcohol abuse, uncomplicated; Z89.512 Acquired absence of left leg below knee
CPT/HCPCS: 36415; 74177; 74181; 80048; 80053; 80061; 80074; 80076; 81003; 81015; 82140; 82150; 82310; 82607; 82746; 83690; 83735; 84100; 84132; 85014; 85018; 85025; 85610; 85730; 86850; 86900; 86901; 87077; 87086; 87088; 87186; 97163; 99285; J0610; J1650; J2405; J2543; J3475; J7030; J7510; P9016; Q9967

== ENCOUNTER 2018-03-19 15:40 | Inpatient (IN) | payer OTHER ==
--- OUTSIDE RECORDS SUMMARY | 2018-03-19 15:43 | XMS REPORT | Clinical Summary ---
:1960 Author Organization [facility] Address [address] [place] [address] Phone Care Team Providers Name Role Phone [...] of2 resultswithin the time period is included.after 03/18/2017
--- OUTSIDE RECORDS SUMMARY | 2018-03-19 15:48 | XMS REPORT ---
:1960 [facility] [address] [place] [address] Care Team Providers Name Role Phone CARRIE YENIFERINDIANA ORTIZ Unavailable Unavailable Problems This patient has no known problems. Allergies, Adverse Reactions, Alerts This patient has no known allergies or adverse reactions. Medications This patient has no known medications. Results Test Description Test Time Test Comments Text Results Atomic Results Result Comments CBC W/PLT COUNT & AUTO DIFFERENTIAL 2017-01-19 11:46:00 Test Item Value Reference Range Comments WHITE BLOOD CELL COUNT (BEAKER) (test porb=133) 15.6 K/ L 4.0-10.0 RED BLOOD CELL COUNT (BEAKER) (test mour=458) 2.52 M/ L 4.00-5.00 HEMOGLOBIN (BEAKER) (test ddsb=486) 8.4 GM/DL 12.0-15.0 HEMATOCRIT (BEAKER) (test ohxx=503) 25.5 % 36.0-45.0 MEAN CORPUSCULAR VOLUME (BEAKER) (test govf=498) 101.0 fL 82.0-99.0 MEAN CORPUSCULAR HEMOGLOBIN (BEAKER) (test bvpg=649) 33.3 pg 27.0-33.0 MEAN CORPUSCULAR HEMOGLOBIN CONC (BEAKER) (test mjgs=621) 32.9 GM/DL 32.0- 36.0 RED CELL DISTRIBUTION WIDTH (BEAKER) (test vkcq=076) 15.1 % 10.3-14.2 PLATELET COUNT (BEAKER) (test wgwk=246) 356 K/CU MM 150-430 MEAN PLATELET VOLUME (BEAKER) (test lkck=887) 8.9 fL 6.5-10.5 NUCLEATED RED BLOOD CELLS (BEAKER) (test pzva=679) 0 /100 WBC 0-0 NEUTROPHILS RELATIVE PERCENT (BEAKER) (test bjhy=486) 61 % LYMPHOCYTES RELATIVE PERCENT (BEAKER) (test scyq=744) 14 % MONOCYTES RELATIVE PERCENT (BEAKER) (test ycts=212) 11 % EOSINOPHILS RELATIVE PERCENT (BEAKER) (test olso=611) 13 % BASOPHILS RELATIVE PERCENT (BEAKER) (test exdc=580) 1 % NEUTROPHILS ABSOLUTE COUNT (BEAKER) (test nkox=425) 9.56 K/ L 1.80-8.00 LYMPHOCYTES ABSOLUTE COUNT (BEAKER) (test bnvw=011) 2.21 K/ L 1.48-4.50 MONOCYTES ABSOLUTE COUNT (BEAKER) (test tuvw=536) 1.66 K/ L 0.00-1.30 EOSINOPHILS ABSOLUTE COUNT (BEAKER) (test wduw=883) 2.03 K/ L 0.00-0.50 BASOPHILS ABSOLUTE COUNT (BEAKER) (test jzja=610) 0.12 K/ L 0.00-0.20 0.00(MANUAL DIFFERENTIAL)2017-01-19 11:46:00 Test Item Value Reference Range Comments TOTAL COUNTED (BEAKER) (test fecu=3559) WBC MORPHOLOGY (BEAKER) (test ctgi=337) Normal PLT MORPHOLOGY (BEAKER) (test qhcf=392) Normal RBC MORPHOLOGY (BEAKER) (test drgr=892) Normal POCT-GLUCOSE [id number] 11:39:00 Test Item Value Reference Range Comments POC-GLUCOSE METER (BEAKER) 105 mg/dL 70-110 TESTED AT [address] (test goiz=7825) [place] [address] STOOL CULTURE + SHIGA [id number] 09:30:00 Test Item Value Reference Range Comments CULTURE (BEAKER) (test No Salmonella, Shigella or fyio=8936) Campylobacter isolated POCT-GLUCOSE [id number] 07:27:00 Test Item Value Reference Range Comments POC-GLUCOSE METER (BEAKER) 99 mg/dL 70-110 TESTED AT [address] (test idfa=6072) [facility] [address] VITAMIN B12 AND [id number] 06:47:00 Test Item Value Reference Range Comments VITAMIN B12 (BEAKER) (test gcmu=146) 687 pg/mL 213-816 FOLATE (BEAKER) (test nbsy=278) 8.9 ng/mL >=7.0 Effective 09/19/2014: Folate Reference Range ChangeNew: >=7.0 Previous: & gt;=[id number] 05:41:00 Test Item Value Reference Range Comments PHOSPHORUS (BEAKER) (test tnor=598) 5.1 mg/dL 2.3-4.7 COMPREHENSIVE METABOLIC [id number] 05:41:00 Test Item Value Reference Range Comments TOTAL PROTEIN (BEAKER) 5.8 gm/dL 6.0-8.3 (test zsgp=407) ALBUMIN (BEAKER) (test 2.6 g/dL 3.5-5.0 xutb=7283) ALKALINE PHOSPHATASE 134 U/L 40-150 (BEAKER) (test riij=332) BILIRUBIN TOTAL (BEAKER) 0.2 mg/dL 0.2-1.2 (test fqiv=573) SODIUM (BEAKER) (test 139 meq/L 136-145 mfvr=079) POTASSIUM (BEAKER) (test 2.9 meq/L 3.5-5.1 idtc=184) CHLORIDE (BEAKER) (test 103 meq/L 98-107 ghgl=192) CO2 (BEAKER) (test 26 meq/L 22-29 tnyz=394) BLOOD UREA NITROGEN 8 mg/dL 7-21 (BEAKER) (test mizw=603) CREATININE (BEAKER) (test 0.63 mg/dL 0.57-1.25 dowe=260) GLUCOSE RANDOM (BEAKER) 90 mg/dL 70-105 (test hqzb=543) CALCIUM (BEAKER) (test 8.9 mg/dL 8.4-10.2 epsz=349) AST (SGOT) (BEAKER) (test 53 U/L 5-34 zamg=674) ALT (SGPT) (BEAKER) (test 36 U/L 6-55 gxug=613) EGFR (BEAKER) (test 98 mL/min/1.73 sq m ESTIMATED GFR IS NOT qeqz=0291) ACCURATE CREATININE CLEARANCE IN PREDICTING GLOMERULAR FILTRATION RATE. ESTIMATED GFR IS NOT APPLICABLE FOR DIALYSIS PATIENTS. POCT-GLUCOSE [id number] 21:13:00 Test Item Value Reference Range Comments POC-GLUCOSE METER (BEAKER) 119 mg/dL 70-[address] [facility] [address] [facility] (test iukz=7231) [facility] [address] POCT-GLUCOSE [id number] 17:26:00 Test Item Value Reference Range Comments POC-GLUCOSE METER (BEAKER) 128 mg/dL 70-110 TESTED AT [address] (test skgh=2286) [place] [address] SHIGA TOXIN [id number] 14:26:00 Test Item Value Reference Range Comments SHIGA TOXIN 1 (BEAKER) (test npms=5939) Not detected Not detected SHIGA TOXIN 2 (BEAKER) (test zltj=2563) Not detected Not detected POCT-GLUCOSE [id number] 13:21:00 Test Item Value Reference Range Comments POC-GLUCOSE METER (BEAKER) 102 mg/dL 70-110 TESTED AT [address] (test gsmk=9746) [place] [address] STOOL PATH [id number] 11:54:00 Test Item Value Reference Range Comments PATHOGEN EXAM CHARGED (BEAKER) (test ktrh=0960) Done POCT-GLUCOSE [id number] 08:29:00 Test Item Value Reference Range Comments POC-GLUCOSE METER (BEAKER) 103 mg/dL 70-110 TESTED AT [address] (test hdzs=9007) [place] [address] CBC W/PLT COUNT & AUTO [id number] 05:34:00 Test Item Value Reference Range Comments WHITE BLOOD CELL COUNT (BEAKER) (test qedw=552) 13.8 K/ L 4.0-10.0 RED BLOOD CELL COUNT (BEAKER) (test srob=372) 2.45 M/ L 4.00-5.00 HEMOGLOBIN (BEAKER) (test kaeh=180) 8.1 GM/DL 12.0-15.0 HEMATOCRIT (BEAKER) (test zegy=126) 24.7 % 36.0-45.0 MEAN CORPUSCULAR VOLUME (BEAKER) (test yppf=460) 101.0 fL 82.0-99.0 MEAN CORPUSCULAR HEMOGLOBIN (BEAKER) (test 33.3 pg 27.0-33.0 mggr=726) MEAN CORPUSCULAR HEMOGLOBIN CONC (BEAKER) (test 32.9 GM/DL 32.0-36.0 fqcv=145) RED CELL DISTRIBUTION WIDTH (BEAKER) (test 15.4 % 10.3-14.2 afbd=160) PLATELET COUNT (BEAKER) (test potj=003) 353 K/CU MM 150-430 MEAN PLATELET VOLUME (BEAKER) (test mdsi=460) 8.9 fL 6.5-10.5 NUCLEATED RED BLOOD CELLS (BEAKER) (test 0 /100 WBC 0-0 prxo=633) NEUTROPHILS RELATIVE PERCENT (BEAKER) (test 61 % pgql=102) LYMPHOCYTES RELATIVE PERCENT (BEAKER) (test 15 % jcby=392) MONOCYTES RELATIVE PERCENT (BEAKER) (test 10 % tkha=139) EOSINOPHILS RELATIVE PERCENT (BEAKER) (test 13 % rgzi=274) BASOPHILS RELATIVE PERCENT (BEAKER) (test 1 % yxwc=777) NEUTROPHILS ABSOLUTE COUNT (BEAKER) (test 8.38 K/ L 1.80-8.00 dqri=014) LYMPHOCYTES ABSOLUTE COUNT (BEAKER) (test 2.07 K/ L 1.48-4.50 ygzh=768) MONOCYTES ABSOLUTE COUNT (BEAKER) (test 1.42 K/ L 0.00-1.30 pdri=720) EOSINOPHILS ABSOLUTE COUNT (BEAKER) (test 1.75 K/ L 0.00-0.50 mque=352) BASOPHILS ABSOLUTE COUNT (BEAKER) (test 0.15 K/ L 0.00-0.20 ikfr=379) [id number] 05:24:00 Test Item Value Reference Range Comments PHOSPHORUS (BEAKER) (test hfsa=973) 5.7 mg/dL 2.3-4.7 POCT-GLUCOSE [id number] 20:55:00 Test Item Value Reference Range Comments POC-GLUCOSE METER (BEAKER) 98 mg/dL 70-110 TESTED AT [address] (test vtmd=6850) [facility] [address] POCT-GLUCOSE [id number] 17:37:00 Test Item Value Reference Range Comments POC-GLUCOSE METER (BEAKER) 117 mg/dL 70-110 TESTED AT [address] (test mutj=5740) [facility] [address] OCCULT BLOOD, [id number] 16:19:00 Test Item Value Reference Range Comments FECAL OCCULT BLOOD (BEAKER) (test nxqu=944) Negative Negative POCT-GLUCOSE [id number] 12:16:00 Test Item Value Reference Range Comments POC-GLUCOSE METER (BEAKER) 99 mg/dL 70-110 [address] (test qucu=2449) [facility] [address] POCT-GLUCOSE [id number] 11:38:00 Test Item Value Reference Range Comments POC-GLUCOSE METER (BEAKER) 100 mg/dL 70-110 TESTED AT [place] [id number] [facility] (test lcfi=7928) [facility] [address] CBC W/PLT COUNT & AUTO [id number] 09:23:00 Test Item Value Reference Range Comments WHITE BLOOD CELL COUNT (BEAKER) (test zvxs=956) 16.9 K/ L 4.0-10.0 RED BLOOD CELL COUNT (BEAKER) (test ubir=971) 2.50 M/ L 4.00-5.00 HEMOGLOBIN (BEAKER) (test xxpc=199) 8.3 GM/DL 12.0-15.0 HEMATOCRIT (BEAKER) (test zybr=593) 25.3 % 36.0-45.0 MEAN CORPUSCULAR VOLUME (BEAKER) (test dttc=401) 101.0 fL 82.0-99.0 MEAN CORPUSCULAR HEMOGLOBIN (BEAKER) (test 33.2 pg 27.0-33.0 rzzw=866) MEAN CORPUSCULAR HEMOGLOBIN CONC (BEAKER) (test 32.7 GM/DL 32.0-36.0 xpos=165) RED CELL DISTRIBUTION WIDTH (BEAKER) (test 15.1 % 10.3-14.2 rfpm=196) PLATELET COUNT (BEAKER) (test ieeo=589) 353 K/CU MM 150-430 MEAN PLATELET VOLUME (BEAKER) (test bfcl=403) 9.0 fL 6.5-10.5 NUCLEATED RED BLOOD CELLS (BEAKER) (test 0 /100 WBC 0-0 lhhn=587) NEUTROPHILS RELATIVE PERCENT (BEAKER) (test 64 % gtxd=444) LYMPHOCYTES RELATIVE PERCENT (BEAKER) (test 15 % oxgt=820) MONOCYTES RELATIVE PERCENT (BEAKER) (test 9 % flxq=535) EOSINOPHILS RELATIVE PERCENT (BEAKER) (test 11 % mzix=264) BASOPHILS RELATIVE PERCENT (BEAKER) (test 1 % btug=390) NEUTROPHILS ABSOLUTE COUNT (BEAKER) (test 10.80 K/ L 1.80-8.00 ebpf=598) LYMPHOCYTES ABSOLUTE COUNT (BEAKER) (test 2.48 K/ L 1.48-4.50 mfua=398) MONOCYTES ABSOLUTE COUNT (BEAKER) (test 1.60 K/ L 0.00-1.30 phuf=990) EOSINOPHILS ABSOLUTE COUNT (BEAKER) (test 1.85 K/ L 0.00-0.50 khbj=467) BASOPHILS ABSOLUTE COUNT (BEAKER) (test 0.15 K/ L 0.00-0.20 atkm=377) [id number] 06:54:00 Test Item Value Reference Range Comments PHOSPHORUS (BEAKER) (test uagt=458) 5.2 mg/dL 2.3-4.7 POCT-GLUCOSE [id number] 22:42:00 Test Item Value Reference Range Comments POC-GLUCOSE METER (BEAKER) 133 mg/dL 70-[address] [facility] [address] [facility] (test ovbf=5345) [facility] [address] CBC W/PLT COUNT & AUTO [id number] 21:06:00 Test Item Value Reference Range Comments WHITE BLOOD CELL COUNT (BEAKER) (test dnxb=194) 20.0 K/ L 4.0-10.0 RED BLOOD CELL COUNT (BEAKER) (test rzyb=097) 2.61 M/ L 4.00-5.00 HEMOGLOBIN (BEAKER) (test klbk=653) 8.6 GM/DL 12.0-15.0 HEMATOCRIT (BEAKER) (test eddr=860) 26.2 % 36.0-45.0 MEAN CORPUSCULAR VOLUME (BEAKER) (test mlot=937) 100.0 fL 82.0-99.0 MEAN CORPUSCULAR HEMOGLOBIN (BEAKER) (test 32.9 pg 27.0-33.0 ozyi=283) MEAN CORPUSCULAR HEMOGLOBIN CONC (BEAKER) (test 32.8 GM/DL 32.0-36.0 upqa=170) RED CELL DISTRIBUTION WIDTH (BEAKER) (test 14.9 % 10.3-14.2 gsvv=126) PLATELET COUNT (BEAKER) (test dkmo=127) 348 K/CU MM 150-430 MEAN PLATELET VOLUME (BEAKER) (test tffd=563) 7.9 fL 6.5-10.5 NUCLEATED RED BLOOD CELLS (BEAKER) (test 0 /100 WBC 0-0 lglt=383) NEUTROPHILS RELATIVE PERCENT (BEAKER) (test 65 % jgaj=154) LYMPHOCYTES RELATIVE PERCENT (BEAKER) (test 16 % ldhe=430) MONOCYTES RELATIVE PERCENT (BEAKER) (test 9 % ykvg=531) EOSINOPHILS RELATIVE PERCENT (BEAKER) (test 9 % iogt=269) BASOPHILS RELATIVE PERCENT (BEAKER) (test 1 % lozx=717) NEUTROPHILS ABSOLUTE COUNT (BEAKER) (test 13.00 K/ L 1.80-8.00 haxv=236) LYMPHOCYTES ABSOLUTE COUNT (BEAKER) (test 3.23 K/ L 1.48-4.50 lrlf=700) MONOCYTES ABSOLUTE COUNT (BEAKER) (test 1.75 K/ L 0.00-1.30 iajj=461) EOSINOPHILS ABSOLUTE COUNT (BEAKER) (test 1.85 K/ L 0.00-0.50 ohij=183) BASOPHILS ABSOLUTE COUNT (BEAKER) (test 0.15 K/ L 0.00-0.20 qhie=773) 0.00POCT-GLUCOSE [id number] 17:24:00 Test Item Value Reference Range Comments POC-GLUCOSE METER (BEAKER) 139 mg/dL 70-110 TESTED AT [address] (test bvsu=7185) [facility] [address] POCT-GLUCOSE [id number] 12:50:00 Test Item Value Reference Range Comments POC-GLUCOSE METER (BEAKER) 117 mg/dL 70-110 TESTED AT [address] (test dios=9425) [facility] [address] POCT-GLUCOSE [id number] 07:59:00 Test Item Value Reference Range Comments POC-GLUCOSE METER (BEAKER) 120 mg/dL 70-110 TESTED AT [address] (test gvli=5740) [place] [id number] 07:29:00 Test Item Value Reference Range Comments PHOSPHORUS (BEAKER) (test zvwi=516) 5.2 mg/dL 2.3-4.7 POCT-GLUCOSE [id number] 21:34:00 Test Item Value Reference Range Comments POC-GLUCOSE METER (BEAKER) 136 mg/dL 70-110 TESTED AT [address] (test iqip=6936) [facility] [address] POCT-GLUCOSE [id number] 18:10:00 Test Item Value Reference Range Comments POC-GLUCOSE METER (BEAKER) 116 mg/dL 70-110 TESTED AT [address] (test dxsr=3697) [facility] [address] COMPREHENSIVE METABOLIC [id number] 14:27:00 Test Item Value Reference Range Comments TOTAL PROTEIN (BEAKER) 5.9 gm/dL 6.0-8.3 Specimen moderately (test ofmz=789) hemolyzed ALBUMIN (BEAKER) (test 2.2 g/dL 3.5-5.0 Specimen moderately nyqg=7212) hemolyzed ALKALINE PHOSPHATASE 134 U/L 40-150 (BEAKER) (test yqqq=192) BILIRUBIN TOTAL (BEAKER) 0.2 mg/dL 0.2-1.2 Specimen moderately (test uump=635) hemolyzed SODIUM (BEAKER) (test 138 meq/L 136-145 nkdm=652) POTASSIUM (BEAKER) (test 3.9 meq/L 3.5-5.1 Specimen moderately dtlk=262) hemolyzed CHLORIDE (BEAKER) (test 107 meq/L 98-107 eidp=167) CO2 (BEAKER) (test 23 meq/L 22-29 yblh=456) BLOOD UREA NITROGEN 8 mg/dL 7-21 (BEAKER) (test jvfy=391) CREATININE (BEAKER) (test 0.64 mg/dL 0.57-1.25 Specimen moderately wtrj=578) hemolyzed GLUCOSE RANDOM (BEAKER) 96 mg/dL 70-105 (test dnpf=147) CALCIUM (BEAKER) (test 8.4 mg/dL 8.4-10.2 ghdj=968) AST (SGOT) (BEAKER) (test 29 U/L 5-34 Specimen moderately kopp=775) hemolyzed ALT (SGPT) (BEAKER) (test 11 U/L 6-55 Specimen moderately itoy=299) hemolyzed EGFR (BEAKER) (test 96 mL/min/1.73 sq m ESTIMATED GFR IS NOT utjm=7749) ACCURATE CREATININE CLEARANCE IN PREDICTING GLOMERULAR FILTRATION RATE. ESTIMATED GFR IS NOT APPLICABLE FOR DIALYSIS PATIENTS. POCT-GLUCOSE [id number] 12:50:00 Test Item Value Reference Range Comments POC-GLUCOSE METER (BEAKER) 135 mg/dL 70-110 TESTED AT [address] (test qnil=1235) [facility] [address] POCT-GLUCOSE [id number] 08:09:00 Test Item Value Reference Range Comments POC-GLUCOSE METER (BEAKER) 164 mg/dL 70-110 TESTED AT [address] (test whak=6599) [place] [id number] 05:21:00 Test Item Value Reference Range Comments PHOSPHORUS (BEAKER) (test huqr=500) 4.9 mg/dL 2.3-4.7 POCT-GLUCOSE [id number] 21:20:00 Test Item Value Reference Range Comments POC-GLUCOSE METER (BEAKER) 105 mg/dL 70-110 TESTED AT [address] (test zqvv=0264) [place] [address] POCT-GLUCOSE [id number] 17:13:00 Test Item Value Reference Range Comments POC-GLUCOSE METER (BEAKER) 186 mg/dL 70-110 TESTED AT [address] (test ehub=1992) [place] [address] POCT-GLUCOSE [id number] 11:46:00 Test Item Value Reference Range Comments POC-GLUCOSE METER (BEAKER) 129 mg/dL 70-110 TESTED AT [address] (test nkdq=4784) [place] [address] POCT-GLUCOSE [id number] 08:32:00 Test Item Value Reference Range Comments POC-GLUCOSE METER (BEAKER) 133 mg/dL 70-110 TESTED AT [address] (test zmlm=0557) [place] [address] [id number] 07:03:00 Test Item Value Reference Range Comments PHOSPHORUS (BEAKER) (test dmqk=102) 3.9 mg/dL 2.3-4.7 POCT-GLUCOSE [id number] 20:52:00 Test Item Value Reference Range Comments POC-GLUCOSE METER (BEAKER) 111 mg/dL 70-110 TESTED AT [address] (test zdoz=8014) [place] [id number] POCT-GLUCOSE [id number] 15:58:00 Test Item Value Reference Range Comments POC-GLUCOSE METER (BEAKER) 85 mg/dL 70-110 TESTED AT [address] (test pjcb=4353) [place] [address] [id number] 07:50:00 Test Item Value Reference Range Comments TRIGLYCERIDES (BEAKER) (test njdo=919) 155 mg/dL TRIGLYCERIDE REFERENCE RANGELow Risk <150Borderline Risk 150-199High Risk 200-499Very High Risk>=[id number] 07:50:00 Test Item Value Reference Range Comments MAGNESIUM (BEAKER) (test ujeh=434) 1.2 mg/dL 1.6-2.6 [id number] 07:50:00 Test Item Value Reference Range Comments PHOSPHORUS (BEAKER) (test lkar=988) 3.4 mg/dL 2.3-4.7 BASIC METABOLIC [id number] 07:50:00 Test Item Value Reference Range Comments SODIUM (BEAKER) (test 139 meq/L 136-145 zeyq=071) POTASSIUM (BEAKER) (test 3.8 meq/L 3.5-5.1 aejh=311) CHLORIDE (BEAKER) (test 108 meq/L 98-107 ofba=897) CO2 (BEAKER) (test 23 meq/L 22-29 yjzj=002) BLOOD UREA NITROGEN 2 mg/dL 7-21 (BEAKER) (test hecs=519) CREATININE (BEAKER) (test 0.54 mg/dL 0.57-1.25 tcfm=520) GLUCOSE RANDOM (BEAKER) 67 mg/dL 70-105 (test frqq=983) CALCIUM (BEAKER) (test 8.5 mg/dL 8.4-10.2 dxbs=085) EGFR (BEAKER) (test 117 mL/min/1.73 sq m ESTIMATED GFR IS NOT xcnl=9559) ACCURATE CREATININE CLEARANCE IN PREDICTING GLOMERULAR FILTRATION RATE. ESTIMATED GFR IS NOT APPLICABLE FOR DIALYSIS PATIENTS. POCT-GLUCOSE [id number] 07:42:00 Test Item Value Reference Range Comments POC-GLUCOSE METER (BEAKER) 82 mg/dL 70-[address] [facility] [address] [facility] (test mybw=6651) [facility] [address] CALCIUM, [id number] 06:01:00 Test Item Value Reference Range Comments CALCIUM IONIZED (BEAKER) (test cxqc=296) 1.11 mmol/L 1.12-1.27 PH, BLOOD (BEAKER) (test jajs=6294) 7.42 POCT-GLUCOSE [id number] 21:31:00 Test Item Value Reference Range Comments POC-GLUCOSE METER (BEAKER) 79 mg/dL 70-110 TESTED AT [address] (test qgni=9324) [facility] [address] POCT-GLUCOSE [id number] 17:10:00 Test Item Value Reference Range Comments POC-GLUCOSE METER (BEAKER) 109 mg/dL 70-110 TESTED AT [address] (test yqur=0441) [facility] [address] POCT-GLUCOSE [id number] 11:34:00 Test Item Value Reference Range Comments POC-GLUCOSE METER (BEAKER) 82 mg/dL 70-110 TESTED AT [address] (test flda=0209) [facility] [address] POCT-GLUCOSE [id number] 07:25:00 Test Item Value Reference Range Comments POC-GLUCOSE METER (BEAKER) 86 mg/dL 70-110 TESTED AT [address] (test xvue=9857) [facility] [address] [id number] 06:53:00 Test Item Value Reference Range Comments PHOSPHORUS (BEAKER) (test ogcg=138) 2.6 mg/dL 2.3-4.7 BASIC METABOLIC [id number] 06:53:00 Test Item Value Reference Range Comments SODIUM (BEAKER) (test 139 meq/L 136-145 qowa=915) POTASSIUM (BEAKER) (test 4.0 meq/L 3.5-5.1 acds=804) CHLORIDE (BEAKER) (test 112 meq/L 98-107 eafv=691) CO2 (BEAKER) (test 23 meq/L 22-29 jqnh=497) BLOOD UREA NITROGEN 2 mg/dL 7-21 (BEAKER) (test nqdp=888) CREATININE (BEAKER) (test 0.51 mg/dL 0.57-1.25 qcky=269) GLUCOSE RANDOM (BEAKER) 72 mg/dL 70-105 (test ruxb=101) CALCIUM (BEAKER) (test 8.2 mg/dL 8.4-10.2 spvi=338) EGFR (BEAKER) (test 125 mL/min/1.73 sq m ESTIMATED GFR IS NOT alim=1292) ACCURATE CREATININE CLEARANCE IN PREDICTING GLOMERULAR FILTRATION RATE. ESTIMATED GFR IS NOT APPLICABLE FOR DIALYSIS PATIENTS. CBC W/PLT COUNT & AUTO [id number] 06:44:00 Test Item Value Reference Range Comments WHITE BLOOD CELL COUNT (BEAKER) (test wnwy=207) 11.8 K/ L 4.0-10.0 RED BLOOD CELL COUNT (BEAKER) (test guqb=418) 2.82 M/ L 4.00-5.00 HEMOGLOBIN (BEAKER) (test gyzr=553) 9.1 GM/DL 12.0-15.0 HEMATOCRIT (BEAKER) (test mvjq=068) 28.2 % 36.0-45.0 MEAN CORPUSCULAR VOLUME (BEAKER) (test dwsp=782) 99.7 fL 82.0-99.0 MEAN CORPUSCULAR HEMOGLOBIN (BEAKER) (test 32.2 pg 27.0-33.0 tuje=718) MEAN CORPUSCULAR HEMOGLOBIN CONC (BEAKER) (test 32.3 GM/DL 32.0-36.0 fjbx=828) RED CELL DISTRIBUTION WIDTH (BEAKER) (test 15.7 % 10.3-14.2 azzy=847) PLATELET COUNT (BEAKER) (test akzi=936) 513 K/CU MM 150-430 MEAN PLATELET VOLUME (BEAKER) (test vifk=832) 8.1 fL 6.5-10.5 NUCLEATED RED BLOOD CELLS (BEAKER) (test 0 /100 WBC 0-0 cawl=899) NEUTROPHILS RELATIVE PERCENT (BEAKER) (test 55 % cfxn=236) LYMPHOCYTES RELATIVE PERCENT (BEAKER) (test 18 % pgre=679) MONOCYTES RELATIVE PERCENT (BEAKER) (test 12 % qlcr=606) EOSINOPHILS RELATIVE PERCENT (BEAKER) (test 14 % gbrf=099) BASOPHILS RELATIVE PERCENT (BEAKER) (test 1 % gxzy=758) NEUTROPHILS ABSOLUTE COUNT (BEAKER) (test 6.47 K/ L 1.80-8.00 mhnz=582) LYMPHOCYTES ABSOLUTE COUNT (BEAKER) (test 2.14 K/ L 1.48-4.50 vneo=310) MONOCYTES ABSOLUTE COUNT (BEAKER) (test 1.41 K/ L 0.00-1.30 seqx=322) EOSINOPHILS ABSOLUTE COUNT (BEAKER) (test 1.61 K/ L 0.00-0.50 wfoj=176) BASOPHILS ABSOLUTE COUNT (BEAKER) (test 0.14 K/ L 0.00-0.20 uaza=449) 0.00POCT-GLUCOSE [id number] 21:43:00 Test Item Value Reference Range Comments POC-GLUCOSE METER (BEAKER) 96 mg/dL 70-110 TESTED AT [address] (test unee=9179) [facility] [id number] OCCULT BLOOD, [id number] 19:25:00 Test Item Value Reference Range Comments FECAL OCCULT BLOOD (BEAKER) (test nunw=270) Negative Negative POCT-GLUCOSE [id number] 18:10:00 Test Item Value Reference Range Comments POC-GLUCOSE METER (BEAKER) 128 mg/dL 70-110 TESTED AT [address] (test gpza=7313) [place] [id number] POCT-GLUCOSE [id number] 13:34:00 Test Item Value Reference Range Comments POC-GLUCOSE METER (BEAKER) 83 mg/dL 70-110 TESTED AT [address] (test vved=1331) [place] [id number] POCT-GLUCOSE [id number] 08:21:00 Test Item Value Reference Range Comments POC-GLUCOSE METER (BEAKER) 87 mg/dL 70-110 TESTED AT [address] (test hefl=5263) [place] [id number] CBC W/PLT COUNT & AUTO [id number] 06:10:00 Test Item Value Reference Range Comments WHITE BLOOD CELL COUNT (BEAKER) (test oblr=426) 12.5 K/ L 4.0-10.0 RED BLOOD CELL COUNT (BEAKER) (test xzfo=992) 2.82 M/ L 4.00-5.00 HEMOGLOBIN (BEAKER) (test palz=783) 9.4 GM/DL 12.0-15.0 HEMATOCRIT (BEAKER) (test kuns=743) 28.8 % 36.0-45.0 MEAN CORPUSCULAR VOLUME (BEAKER) (test eppd=347) 102.0 fL 82.0-99.0 MEAN CORPUSCULAR HEMOGLOBIN (BEAKER) (test 33.4 pg 27.0-33.0 awiz=745) MEAN CORPUSCULAR HEMOGLOBIN CONC (BEAKER) (test 32.7 GM/DL 32.0-36.0 pmvq=242) RED CELL DISTRIBUTION WIDTH (BEAKER) (test 15.5 % 10.3-14.2 ztvd=113) PLATELET COUNT (BEAKER) (test blpa=927) 561 K/CU MM 150-430 MEAN PLATELET VOLUME (BEAKER) (test nvxy=668) 8.5 fL 6.5-10.5 NUCLEATED RED BLOOD CELLS (BEAKER) (test 0 /100 WBC 0-0 xoah=630) NEUTROPHILS RELATIVE PERCENT (BEAKER) (test 59 % dhrj=063) LYMPHOCYTES RELATIVE PERCENT (BEAKER) (test 17 % hdht=637) MONOCYTES RELATIVE PERCENT (BEAKER) (test 12 % mgig=013) EOSINOPHILS RELATIVE PERCENT (BEAKER) (test 11 % clrq=870) BASOPHILS RELATIVE PERCENT (BEAKER) (test 1 % ahlp=212) NEUTROPHILS ABSOLUTE COUNT (BEAKER) (test 7.43 K/ L 1.80-8.00 qffl=972) LYMPHOCYTES ABSOLUTE COUNT (BEAKER) (test 2.08 K/ L 1.48-4.50 ptzm=868) MONOCYTES ABSOLUTE COUNT (BEAKER) (test 1.48 K/ L 0.00-1.30 utpr=434) EOSINOPHILS ABSOLUTE COUNT (BEAKER) (test 1.43 K/ L 0.00-0.50 atex=429) BASOPHILS ABSOLUTE COUNT (BEAKER) (test 0.13 K/ L 0.00-0.20 pddt=655) [id number] 06:03:00 Test Item Value Reference Range Comments PHOSPHORUS (BEAKER) (test tbwo=940) 2.8 mg/dL 2.3-4.7 BASIC METABOLIC [id number] 06:03:00 Test Item Value Reference Range Comments SODIUM (BEAKER) (test 141 meq/L 136-145 ynrf=541) POTASSIUM (BEAKER) (test 2.9 meq/L 3.5-5.1 puou=473) CHLORIDE (BEAKER) (test 111 meq/L 98-107 qiqx=207) CO2 (BEAKER) (test 22 meq/L 22-29 uxlb=124) BLOOD UREA NITROGEN 2 mg/dL 7-21 (BEAKER) (test qxmq=986) CREATININE (BEAKER) (test 0.50 mg/dL 0.57-1.25 lrre=714) GLUCOSE RANDOM (BEAKER) 81 mg/dL 70-105 (test zxtn=420) CALCIUM (BEAKER) (test 8.3 mg/dL 8.4-10.2 cwxc=506) EGFR (BEAKER) (test 128 mL/min/1.73 sq m ESTIMATED GFR IS NOT tcvf=2405) ACCURATE CREATININE CLEARANCE IN PREDICTING GLOMERULAR FILTRATION RATE. ESTIMATED GFR IS NOT APPLICABLE FOR DIALYSIS PATIENTS. POCT-GLUCOSE [id number] 21:19:00 Test Item Value Reference Range Comments POC-GLUCOSE METER (BEAKER) 92 mg/dL 70-110 TESTED AT [address] (test qhpi=5802) [place] [address] POCT-GLUCOSE [id number] 17:40:00 Test Item Value Reference Range Comments POC-GLUCOSE METER (BEAKER) 124 mg/dL 70-110 TESTED AT [address] (test jcaz=1470) [place] [address] POCT-GLUCOSE [id number] 12:23:00 Test Item Value Reference Range Comments POC-GLUCOSE METER (BEAKER) 83 mg/dL 70-110 TESTED AT [address] (test uwnc=4674) [place] [address] POCT-GLUCOSE [id number] 07:58:00 Test Item Value Reference Range Comments POC-GLUCOSE METER (BEAKER) 82 mg/dL 70-110 TESTED AT [address] (test pswp=1584) [place] [address] CBC W/PLT COUNT & AUTO [id number] 07:04:00 Test Item Value Reference Range Comments WHITE BLOOD CELL COUNT (BEAKER) (test ofif=274) 13.0 K/ L 4.0-10.0 RED BLOOD CELL COUNT (BEAKER) (test cnbh=090) 2.64 M/ L 4.00-5.00 HEMOGLOBIN (BEAKER) (test xvax=787) 9.1 GM/DL 12.0-15.0 HEMATOCRIT (BEAKER) (test nbgd=506) 26.9 % 36.0-45.0 MEAN CORPUSCULAR VOLUME (BEAKER) (test rwwj=869) 102.0 fL 82.0-99.0 MEAN CORPUSCULAR HEMOGLOBIN (BEAKER) (test 34.5 pg 27.0-33.0 hvri=705) MEAN CORPUSCULAR HEMOGLOBIN CONC (BEAKER) (test 33.8 GM/DL 32.0-36.0 ishq=801) RED CELL DISTRIBUTION WIDTH (BEAKER) (test 15.6 % 10.3-14.2 kpmn=767) PLATELET COUNT (BEAKER) (test upgu=616) 569 K/CU MM 150-430 MEAN PLATELET VOLUME (BEAKER) (test qqmm=513) 8.6 fL 6.5-10.5 NUCLEATED RED BLOOD CELLS (BEAKER) (test 0 /100 WBC 0-0 rliy=115) NEUTROPHILS RELATIVE PERCENT (BEAKER) (test 62 % cdje=054) LYMPHOCYTES RELATIVE PERCENT (BEAKER) (test 15 % prtu=448) MONOCYTES RELATIVE PERCENT (BEAKER) (test 12 % larx=472) EOSINOPHILS RELATIVE PERCENT (BEAKER) (test 10 % nixf=310) BASOPHILS RELATIVE PERCENT (BEAKER) (test 1 % zntd=561) NEUTROPHILS ABSOLUTE COUNT (BEAKER) (test 7.99 K/ L 1.80-8.00 qgcn=538) LYMPHOCYTES ABSOLUTE COUNT (BEAKER) (test 1.93 K/ L 1.48-4.50 vhjk=298) MONOCYTES ABSOLUTE COUNT (BEAKER) (test 1.60 K/ L 0.00-1.30 zvct=291) EOSINOPHILS ABSOLUTE COUNT (BEAKER) (test 1.28 K/ L 0.00-0.50 mvnq=434) BASOPHILS ABSOLUTE COUNT (BEAKER) (test 0.16 K/ L 0.00-0.20 ezfm=735) [id number] 06:42:00 Test Item Value Reference Range Comments PHOSPHORUS (BEAKER) (test kqls=753) 3.0 mg/dL 2.3-4.7 BASIC METABOLIC [id number] 06:42:00 Test Item Value Reference Range Comments SODIUM (BEAKER) (test 141 meq/L 136-145 zvlf=407) POTASSIUM (BEAKER) (test 3.0 meq/L 3.5-5.1 fkcj=228) CHLORIDE (BEAKER) (test 109 meq/L 98-107 ombz=866) CO2 (BEAKER) (test 24 meq/L 22-29 oihy=972) BLOOD UREA NITROGEN 2 mg/dL 7-21 (BEAKER) (test ktft=259) CREATININE (BEAKER) (test 0.47 mg/dL 0.57-1.25 qsyk=406) GLUCOSE RANDOM (BEAKER) 74 mg/dL 70-105 (test iimf=218) CALCIUM (BEAKER) (test 8.5 mg/dL 8.4-10.2 iani=510) EGFR (BEAKER) (test 137 mL/min/1.73 sq m ESTIMATED GFR IS NOT ycem=9641) ACCURATE CREATININE CLEARANCE IN PREDICTING GLOMERULAR FILTRATION RATE. ESTIMATED GFR IS NOT APPLICABLE FOR DIALYSIS PATIENTS. POCT-GLUCOSE [id number] 21:11:00 Test Item Value Reference Range Comments POC-GLUCOSE METER (BEAKER) 98 mg/dL 70-110 TESTED AT [address] (test gpbm=1830) [facility] [address] POCT-GLUCOSE [id number] 17:57:00 Test Item Value Reference Range Comments POC-GLUCOSE METER (BEAKER) 110 mg/dL 70-110 TESTED AT [address] (test lrig=5534) [facility] [address] POCT-GLUCOSE [id number] 11:34:00 Test Item Value Reference Range Comments POC-GLUCOSE METER (BEAKER) 145 mg/dL 70-110 TESTED AT [address] (test fnkl=8254) [facility] [address] CBC W/PLT COUNT & AUTO [id number] 08:38:00 Test Item Value Reference Range Comments WHITE BLOOD CELL COUNT (BEAKER) (test wbdy=822) 12.6 K/ L 4.0-10.0 RED BLOOD CELL COUNT (BEAKER) (test vqlh=635) 2.62 M/ L 4.00-5.00 HEMOGLOBIN (BEAKER) (test ybgy=040) 8.7 GM/DL 12.0-15.0 HEMATOCRIT (BEAKER) (test iije=292) 26.7 % 36.0-45.0 MEAN CORPUSCULAR VOLUME (BEAKER) (test ujcq=390) 102.0 fL 82.0-99.0 MEAN CORPUSCULAR HEMOGLOBIN (BEAKER) (test 33.3 pg 27.0-33.0 auie=674) MEAN CORPUSCULAR HEMOGLOBIN CONC (BEAKER) (test 32.7 GM/DL 32.0-36.0 zyaz=570) RED CELL DISTRIBUTION WIDTH (BEAKER) (test 16.4 % 10.3-14.2 mqlg=194) PLATELET COUNT (BEAKER) (test hjqv=943) 566 K/CU MM 150-430 MEAN PLATELET VOLUME (BEAKER) (test cxmv=111) 8.9 fL 6.5-10.5 NUCLEATED RED BLOOD CELLS (BEAKER) (test 0 /100 WBC 0-0 hbuh=730) NEUTROPHILS RELATIVE PERCENT (BEAKER) (test 63 % kijc=172) LYMPHOCYTES RELATIVE PERCENT (BEAKER) (test 15 % pokc=401) MONOCYTES RELATIVE PERCENT (BEAKER) (test 14 % tqdd=783) EOSINOPHILS RELATIVE PERCENT (BEAKER) (test 7 % rbzz=668) BASOPHILS RELATIVE PERCENT (BEAKER) (test 1 % ugjy=716) NEUTROPHILS ABSOLUTE COUNT (BEAKER) (test 7.88 K/ L 1.80-8.00 llxk=162) LYMPHOCYTES ABSOLUTE COUNT (BEAKER) (test 1.87 K/ L 1.48-4.50 iuda=127) MONOCYTES ABSOLUTE COUNT (BEAKER) (test 1.82 K/ L 0.00-1.30 dxmh=872) EOSINOPHILS ABSOLUTE COUNT (BEAKER) (test 0.92 K/ L 0.00-0.50 xazs=119) BASOPHILS ABSOLUTE COUNT (BEAKER) (test 0.13 K/ L 0.00-0.20 qwcg=295) [id number] 06:09:00 Test Item Value Reference Range Comments PHOSPHORUS (BEAKER) (test gglo=262) 2.3 mg/dL 2.3-4.7 POCT-GLUCOSE [id number] 20:49:00 Test Item Value Reference Range Comments POC-GLUCOSE METER (BEAKER) 78 mg/dL 70-110 TESTED AT [address] (test bghx=9894) [facility] [address] HEMOGLOBIN AND [id number] 18:41:00 Test Item Value Reference Range Comments HEMOGLOBIN (BEAKER) (test fufg=694) 9.0 GM/DL 12.0-15.0 HEMATOCRIT (BEAKER) (test ckgv=801) 25.8 % 36.0-45.0 [facility] (DRVV)2017-01-08 17:06:00 Test Item Value Reference Range Comments PROTIME (BEAKER) (test 13.0 seconds 11.7-14.7 yvfg=285) INR (BEAKER) (test xtfx=455) 1.0 <=5.9 PARTIAL THROMBOPLASTIN TIME 40.9 seconds 22.5-36.0 (BEAKER) (test olig=271) DRVV INTERPRETATION (BEAKER) Prolonged PTT Results (test ahkh=9031) DRVV INTERPRETATION (BEAKER) Normal DRVV Results (test farm=[id number]) DRVV INTERPRETATION (BEAKER) Negative screen for Lupus (test dyld=621256) Anticoagulant KGUW-UWDLLNWAJQG-020 (BEAKER) Mehnaz Li MD (test bbos=7575) (electronic signature) DRVV SCREEN RATIO (BEAKER) 1.14 <1.20 (test ocwm=0475) PTT did not correct on 1:1 mix.Effective 03/07/2014: Test Method ChangeDRVV Screen Ratio, DRVV 1/1 Screen Ratio, DRVV Confirm Ratio,DRVV Normalized Ratio Reference Range: <1.2Protime Reference Range ChangeNew: 11.7-14.7 Previous: 9.8-12.0PTT Reference Range ChangeNew: 22.5-36.0 Previous: 25.8-34.5POCT- GLUCOSE [id number] 11:32:00 Test Item Value Reference Range Comments POC-GLUCOSE METER (BEAKER) 90 mg/dL 70-110 TESTED AT [address] (test vays=4014) [place] [id number] POCT-GLUCOSE [id number] 07:17:00 Test Item Value Reference Range Comments POC-GLUCOSE METER (BEAKER) 81 mg/dL 70-110 TESTED AT [address] (test diya=9242) [place] [address] [id number] 05:50:00 Test Item Value Reference Range Comments PHOSPHORUS (BEAKER) (test minx=841) 2.4 mg/dL 2.3-4.7 CBC W/PLT COUNT & AUTO [id number] 05:36:00 Test Item Value Reference Range Comments WHITE BLOOD CELL COUNT (BEAKER) (test pcmy=714) 13.6 K/ L 4.0-10.0 RED BLOOD CELL COUNT (BEAKER) (test gggq=087) 2.77 M/ L 4.00-5.00 HEMOGLOBIN (BEAKER) (test zfma=018) 9.3 GM/DL 12.0-15.0 HEMATOCRIT (BEAKER) (test kmif=910) 27.7 % 36.0-45.0 MEAN CORPUSCULAR VOLUME (BEAKER) (test cwvc=410) 99.9 fL 82.0-99.0 MEAN CORPUSCULAR HEMOGLOBIN (BEAKER) (test 33.6 pg 27.0-33.0 mkra=362) MEAN CORPUSCULAR HEMOGLOBIN CONC (BEAKER) (test 33.7 GM/DL 32.0-36.0 yeiy=690) RED CELL DISTRIBUTION WIDTH (BEAKER) (test 16.4 % 10.3-14.2 apwy=568) PLATELET COUNT (BEAKER) (test tojg=950) 570 K/CU MM 150-430 MEAN PLATELET VOLUME (BEAKER) (test evjm=396) 8.9 fL 6.5-10.5 NUCLEATED RED BLOOD CELLS (BEAKER) (test 0 /100 WBC 0-0 raqg=211) NEUTROPHILS RELATIVE PERCENT (BEAKER) (test 65 % vpvz=554) LYMPHOCYTES RELATIVE PERCENT (BEAKER) (test 12 % aasu=536) MONOCYTES RELATIVE PERCENT (BEAKER) (test 16 % odua=321) EOSINOPHILS RELATIVE PERCENT (BEAKER) (test 7 % khgn=892) BASOPHILS RELATIVE PERCENT (BEAKER) (test 1 % jjgo=481) NEUTROPHILS ABSOLUTE COUNT (BEAKER) (test 8.80 K/ L 1.80-8.00 elon=767) LYMPHOCYTES ABSOLUTE COUNT (BEAKER) (test 1.60 K/ L 1.48-4.50 sepp=327) MONOCYTES ABSOLUTE COUNT (BEAKER) (test 2.21 K/ L 0.00-1.30 criz=478) EOSINOPHILS ABSOLUTE COUNT (BEAKER) (test 0.89 K/ L 0.00-0.50 dyaj=683) BASOPHILS ABSOLUTE COUNT (BEAKER) (test 0.10 K/ L 0.00-0.20 fjde=360) 0.00POCT-GLUCOSE [id number] 20:43:00 Test Item Value Reference Range Comments POC-GLUCOSE METER (BEAKER) 88 mg/dL 70-[address] [facility] [address] (test arav=7895) [facility] [address] POCT-GLUCOSE [id number] 17:26:00 Test Item Value Reference Range Comments POC-GLUCOSE METER (BEAKER) 83 mg/dL 70-110 TESTED AT [address] (test xkaq=5051) [place] [address] CARDIOLIPIN ANTIBODIES, IGG AND [id number] 14:41:00 Test Item Value Reference Range Comments ANTICARDIOLIPIN IGG ANTIBODY (BEAKER) (test < GPL rbcx=839) ANTICARDIOLIPIN IGM ANTIBODY (BEAKER) (test 0.2 MPL yarm=030) Anticardiolipin IgG Result Interpretation: NEG: <20 GPL; U/ml POS: > 20 GPL; U/mlAnticardiolipin IgM Result Interpretation: NEG: <20 MPL; U/ ml POS: >20 MPL; U/mlANTI-NUCLEAR ANTIBODY (LEIDY)2017-01-07 13:48:00 Test Item Value Reference Range Comments ANTI-NUCLEAR ANTIBODY (LEIDY) (BEAKER) (test Negative Negative nnmi=846) POCT-GLUCOSE [id number] 11:34:00 Test Item Value Reference Range Comments POC-GLUCOSE METER (BEAKER) 84 mg/dL 70-110 TESTED AT [address] (test oqfg=8771) [place] [address] POCT-GLUCOSE [id number] 07:47:00 Test Item Value Reference Range Comments POC-GLUCOSE METER (BEAKER) 113 mg/dL 70-110 TESTED AT [address] (test qgzy=3221) [place] [address] RHEUMATOID FACTOR AB, REFLEX TO [id number] 07:19:00 Test Item Value Reference Range Comments RHEUMATOID FACTOR (BEAKER) (test awrm=874) Negative CBC W/PLT COUNT & AUTO [id number] 05:56:00 Test Item Value Reference Range Comments WHITE BLOOD CELL COUNT (BEAKER) (test qsqr=125) 13.9 K/ L 4.0-10.0 RED BLOOD CELL COUNT (BEAKER) (test hfhd=514) 2.76 M/ L 4.00-5.00 HEMOGLOBIN (BEAKER) (test nqel=138) 9.4 GM/DL 12.0-15.0 HEMATOCRIT (BEAKER) (test qovx=810) 27.3 % 36.0-45.0 MEAN CORPUSCULAR VOLUME (BEAKER) (test sazi=038) 98.9 fL 82.0-99.0 MEAN CORPUSCULAR HEMOGLOBIN (BEAKER) (test 33.9 pg 27.0-33.0 nkbc=395) MEAN CORPUSCULAR HEMOGLOBIN CONC (BEAKER) (test 34.2 GM/DL 32.0-36.0 rviz=080) RED CELL DISTRIBUTION WIDTH (BEAKER) (test 16.5 % 10.3-14.2 isbe=682) PLATELET COUNT (BEAKER) (test biqm=959) 534 K/CU MM 150-430 MEAN PLATELET VOLUME (BEAKER) (test wuiy=916) 9.1 fL 6.5-10.5 NUCLEATED RED BLOOD CELLS (BEAKER) (test 0 /100 WBC 0-0 zcjz=776) NEUTROPHILS RELATIVE PERCENT (BEAKER) (test 67 % iego=742) LYMPHOCYTES RELATIVE PERCENT (BEAKER) (test 12 % eiyn=852) MONOCYTES RELATIVE PERCENT (BEAKER) (test 17 % vqfr=534) EOSINOPHILS RELATIVE PERCENT (BEAKER) (test 4 % wsuj=418) BASOPHILS RELATIVE PERCENT (BEAKER) (test 0 % hjld=002) NEUTROPHILS ABSOLUTE COUNT (BEAKER) (test 9.30 K/ L 1.80-8.00 iyoo=251) LYMPHOCYTES ABSOLUTE COUNT (BEAKER) (test 1.61 K/ L 1.48-4.50 tklf=025) MONOCYTES ABSOLUTE COUNT (BEAKER) (test 2.38 K/ L 0.00-1.30 gghq=594) EOSINOPHILS ABSOLUTE COUNT (BEAKER) (test 0.60 K/ L 0.00-0.50 wpee=261) BASOPHILS ABSOLUTE COUNT (BEAKER) (test 0.04 K/ L 0.00-0.20 plmf=109) [id number] 05:48:00 Test Item Value Reference Range Comments PHOSPHORUS (BEAKER) (test brah=740) 2.7 mg/dL 2.3-4.7 BASIC METABOLIC [id number] 05:48:00 Test Item Value Reference Range Comments SODIUM (BEAKER) (test 136 meq/L 136-145 cgnl=007) POTASSIUM (BEAKER) (test 3.1 meq/L 3.5-5.1 bvfo=353) CHLORIDE (BEAKER) (test 103 meq/L 98-107 mqnl=932) CO2 (BEAKER) (test 24 meq/L 22-29 bzac=206) BLOOD UREA NITROGEN 3 mg/dL 7-21 (BEAKER) (test icoc=391) CREATININE (BEAKER) (test 0.46 mg/dL 0.57-1.25 joqn=778) GLUCOSE RANDOM (BEAKER) 84 mg/dL 70-105 (test gcxv=508) CALCIUM (BEAKER) (test 9.1 mg/dL 8.4-10.2 qxpy=689) EGFR (BEAKER) (test 141 mL/min/1.73 sq m ESTIMATED GFR IS NOT psax=5251) ACCURATE CREATININE CLEARANCE IN PREDICTING GLOMERULAR FILTRATION RATE. ESTIMATED GFR IS NOT APPLICABLE FOR DIALYSIS PATIENTS. [id number] 05:48:00 Test Item Value Reference Range Comments LIPASE (BEAKER) (test cqbh=498) 105 U/L 8-78 POCT-GLUCOSE [id number] 21:12:00 Test Item Value Reference Range Comments POC-GLUCOSE METER (BEAKER) 83 mg/dL 70-110 TESTED AT [address] (test xrko=1949) [place] [address] BLOOD [id number] 17:00:00 Test Item Value Reference Range Comments CULTURE (BEAKER) (test qvdg=2369) No growth in 5 days BLOOD [id number] 17:00:00 Test Item Value Reference Range Comments CULTURE (BEAKER) (test rqsr=8421) No growth in 5 days SEDIMENTATION [id number] 16:00:00 Test Item Value Reference Range Comments SEDIMENTATION RATE, ERYTHROCYTE (BEAKER) (test > mm/HR 0-30 ptji=347) DOUBLE-STRANDED DNA (DSDNA) [id number] 14:20:00 Test Item Value Reference Range Comments ANTI-DNA DS (BEAKER) (test hrnc=5664) Negative POCT-GLUCOSE [id number] 11:38:00 Test Item Value Reference Range Comments POC-GLUCOSE METER (BEAKER) 81 mg/dL 70-110 TESTED AT [address] (test fbck=4531) [place] [address] POCT-GLUCOSE [id number] 07:34:00 Test Item Value Reference Range Comments POC-GLUCOSE METER (BEAKER) 78 mg/dL 70-110 TESTED AT [address] (test mrno=6234) [facility] [address] CBC W/PLT COUNT & AUTO [id number] 06:30:00 Test Item Value Reference Range Comments WHITE BLOOD CELL COUNT (BEAKER) (test mgnf=976) 17.6 K/ L 4.0-10.0 RED BLOOD CELL COUNT (BEAKER) (test kvjj=469) 2.77 M/ L 4.00-5.00 HEMOGLOBIN (BEAKER) (test caqn=928) 9.2 GM/DL 12.0-15.0 HEMATOCRIT (BEAKER) (test ilgi=362) 27.2 % 36.0-45.0 MEAN CORPUSCULAR VOLUME (BEAKER) (test nwsk=819) 98.2 fL 82.0-99.0 MEAN CORPUSCULAR HEMOGLOBIN (BEAKER) (test 33.1 pg 27.0-33.0 hpxq=223) MEAN CORPUSCULAR HEMOGLOBIN CONC (BEAKER) (test 33.7 GM/DL 32.0-36.0 xoxl=282) RED CELL DISTRIBUTION WIDTH (BEAKER) (test 16.7 % 10.3-14.2 ehcs=289) PLATELET COUNT (BEAKER) (test fwqc=943) 487 K/CU MM 150-430 MEAN PLATELET VOLUME (BEAKER) (test aksj=036) 9.5 fL 6.5-10.5 NUCLEATED RED BLOOD CELLS (BEAKER) (test 0 /100 WBC 0-0 hqew=587) NEUTROPHILS RELATIVE PERCENT (BEAKER) (test 72 % cnfu=469) LYMPHOCYTES RELATIVE PERCENT (BEAKER) (test 9 % qlpi=633) MONOCYTES RELATIVE PERCENT (BEAKER) (test 15 % hipq=451) EOSINOPHILS RELATIVE PERCENT (BEAKER) (test 3 % danr=805) BASOPHILS RELATIVE PERCENT (BEAKER) (test 0 % wfhg=374) NEUTROPHILS ABSOLUTE COUNT (BEAKER) (test 12.80 K/ L 1.80-8.00 sbcn=877) LYMPHOCYTES ABSOLUTE COUNT (BEAKER) (test 1.56 K/ L 1.48-4.50 xcxg=651) MONOCYTES ABSOLUTE COUNT (BEAKER) (test 2.68 K/ L 0.00-1.30 vxvn=360) EOSINOPHILS ABSOLUTE COUNT (BEAKER) (test 0.57 K/ L 0.00-0.50 efah=128) BASOPHILS ABSOLUTE COUNT (BEAKER) (test 0.07 K/ L 0.00-0.20 ivna=218) 0.00PHENYTOIN LEVEL, [id number] 06:26:00 Test Item Value Reference Range Comments PHENYTOIN (DILANTIN) (BEAKER) (test jdmr=076) 1.2 ug/mL 10.0-20.0 BASIC METABOLIC [id number] 06:20:00 Test Item Value Reference Range Comments SODIUM (BEAKER) (test 132 meq/L 136-145 anpq=371) POTASSIUM (BEAKER) (test 3.6 meq/L 3.5-5.1 dhrz=753) CHLORIDE (BEAKER) (test 99 meq/L 98-107 nnkr=606) CO2 (BEAKER) (test 21 meq/L 22-29 ijrj=151) BLOOD UREA NITROGEN 3 mg/dL 7-21 (BEAKER) (test egae=418) CREATININE (BEAKER) (test 0.47 mg/dL 0.57-1.25 umys=860) GLUCOSE RANDOM (BEAKER) 75 mg/dL 70-105 (test qchq=894) CALCIUM (BEAKER) (test 8.8 mg/dL 8.4-10.2 rwyq=137) EGFR (BEAKER) (test 137 mL/min/1.73 sq m ESTIMATED GFR IS NOT nhkj=9911) ACCURATE CREATININE CLEARANCE IN PREDICTING GLOMERULAR FILTRATION RATE. ESTIMATED GFR IS NOT APPLICABLE FOR DIALYSIS PATIENTS. VANCOMYCIN LEVEL, [id number] 22:35:00 Test Item Value Reference Range Comments VANCOMYCIN TROUGH (BEAKER) (test lahn=150) 15.1 ug/mL 10.0-20.0 Please draw 30 minutes prior to 2100 dose tonight (01/05). HOLD dose if level results > 20 mcg/mL and contact MD/Pharmacist. Thank you.POCT-GLUCOSE [id number] 22:15:00 Test Item Value Reference Range Comments POC-GLUCOSE METER (BEAKER) 160 mg/dL 70-[address] [facility] [address] [facility] (test vqld=4168) [facility] [address] POCT-GLUCOSE [id number] 21:14:00 Test Item Value Reference Range Comments POC-GLUCOSE METER (BEAKER) 59 mg/dL 70-110 TESTED AT [address] (test vjju=5736) [place] [id number] ANTI-NUCLEAR ANTIBODY (LEIDY)2017-01-05 17:50:00 Test Item Value Reference Range Comments ANTI-NUCLEAR ANTIBODY (LEIDY) (BEAKER) (test Negative Negative dibj=896) POCT-GLUCOSE [id number] 17:28:00 Test Item Value Reference Range Comments POC-GLUCOSE METER (BEAKER) 72 mg/dL 70-110 TESTED AT [address] (test wotp=2737) [place] [address] POCT-GLUCOSE [id number] 17:22:00 Test Item Value Reference Range Comments POC-GLUCOSE METER (BEAKER) 79 mg/dL 70-110 TESTED AT [address] (test etcx=8602) [place] [address] CARDIOLIPIN ANTIBODIES, IGG AND [id number] 14:46:00 Test Item Value Reference Range Comments ANTICARDIOLIPIN IGG ANTIBODY (BEAKER) (test < GPL qggc=177) ANTICARDIOLIPIN IGM ANTIBODY (BEAKER) (test 0.2 MPL ltrk=175) Anticardiolipin IgG Result Interpretation: NEG: <20 GPL; U/mlPOS: >/ =20 GPL; U/mlAnticardiolipin IgM Result Interpretation: NEG: <20 GPL; U /mlPOS: >/=20 GPL; U/mlCBC W/PLT COUNT & AUTO [id number] 10 :59:00 Test Item Value Reference Range Comments WHITE BLOOD CELL COUNT (BEAKER) (test rjas=221) 19.4 K/ L 4.0-10.0 RED BLOOD CELL COUNT (BEAKER) (test ndks=707) 2.63 M/ L 4.00-5.00 HEMOGLOBIN (BEAKER) (test dxer=292) 8.5 GM/DL 12.0-15.0 HEMATOCRIT (BEAKER) (test otvs=183) 26.2 % 36.0-45.0 MEAN CORPUSCULAR VOLUME (BEAKER) (test ubqg=885) 99.8 fL 82.0-99.0 MEAN CORPUSCULAR HEMOGLOBIN (BEAKER) (test 32.4 pg 27.0-33.0 mdzq=390) MEAN CORPUSCULAR HEMOGLOBIN CONC (BEAKER) (test 32.4 GM/DL 32.0-36.0 cges=279) RED CELL DISTRIBUTION WIDTH (BEAKER) (test 17.0 % 10.3-14.2 ezim=979) PLATELET COUNT (BEAKER) (test ikph=544) 425 K/CU MM 150-430 MEAN PLATELET VOLUME (BEAKER) (test nglz=172) 10.0 fL 6.5-10.5 NUCLEATED RED BLOOD CELLS (BEAKER) (test 2 /100 WBC 0-0 zgvh=752) NEUTROPHILS RELATIVE PERCENT (BEAKER) (test 76 % lqdg=877) LYMPHOCYTES RELATIVE PERCENT (BEAKER) (test 9 % fojo=699) MONOCYTES RELATIVE PERCENT (BEAKER) (test 12 % vfgo=778) EOSINOPHILS RELATIVE PERCENT (BEAKER) (test 2 % ufyw=729) BASOPHILS RELATIVE PERCENT (BEAKER) (test 0 % vbak=608) NEUTROPHILS ABSOLUTE COUNT (BEAKER) (test 14.80 K/ L 1.80-8.00 pcnw=164) LYMPHOCYTES ABSOLUTE COUNT (BEAKER) (test 1.69 K/ L 1.48-4.50 nbhh=352) MONOCYTES ABSOLUTE COUNT (BEAKER) (test 2.37 K/ L 0.00-1.30 cbam=650) EOSINOPHILS ABSOLUTE COUNT (BEAKER) (test 0.48 K/ L 0.00-0.50 cghg=888) BASOPHILS ABSOLUTE COUNT (BEAKER) (test 0.06 K/ L 0.00-0.20 ftmv=609) 0.000.560.000.000.000.00(MANUAL DIFFERENTIAL)2017-01-05 10:59:00 Test Item Value Reference Range Comments TOTAL COUNTED (BEAKER) (test ajzq=3982) WBC MORPHOLOGY (BEAKER) (test myzy=553) Normal PLT MORPHOLOGY (BEAKER) (test rong=325) Normal POLYCHROMATOPHILLIC RBCS(BEAKER) (test qvbj=890) 1+ few POCT-GLUCOSE [id number] 10:55:00 Test Item Value Reference Range Comments POC-GLUCOSE METER (BEAKER) 76 mg/dL 70-[address] [facility] [address] (test cpvo=3814) [facility] [address] SEDIMENTATION [id number] 10:25:00 Test Item Value Reference Range Comments SEDIMENTATION RATE, ERYTHROCYTE (BEAKER) (test > mm/HR 0-30 yxfb=582) [id number] 07:03:00 Test Item Value Reference Range Comments PHOSPHORUS (BEAKER) (test fsih=529) 2.9 mg/dL 2.3-4.7 [id number] 07:03:00 Test Item Value Reference Range Comments MAGNESIUM (BEAKER) (test bjjd=091) 1.8 mg/dL 1.6-2.6 BASIC METABOLIC [id number] 07:03:00 Test Item Value Reference Range Comments SODIUM (BEAKER) (test 133 meq/L 136-145 rnjh=381) POTASSIUM (BEAKER) (test 3.1 meq/L 3.5-5.1 sgfi=757) CHLORIDE (BEAKER) (test 103 meq/L 98-107 jauk=963) CO2 (BEAKER) (test 22 meq/L 22-29 cvmu=855) BLOOD UREA NITROGEN 3 mg/dL 7-21 (BEAKER) (test qqgw=284) CREATININE (BEAKER) (test 0.48 mg/dL 0.57-1.25 swdj=448) GLUCOSE RANDOM (BEAKER) 72 mg/dL 70-105 (test ksqf=215) CALCIUM (BEAKER) (test 8.2 mg/dL 8.4-10.2 fzxt=955) EGFR (BEAKER) (test 134 mL/min/1.73 sq m ESTIMATED GFR IS NOT kulh=1538) ACCURATE CREATININE CLEARANCE IN PREDICTING GLOMERULAR FILTRATION RATE. ESTIMATED GFR IS NOT APPLICABLE FOR DIALYSIS PATIENTS. [id number] 07:03:00 Test Item Value Reference Range Comments LIPASE (BEAKER) (test mlej=442) 199 U/L 8-78 C-REACTIVE [id number] 07:03:00 Test Item Value Reference Range Comments C-REACTIVE PROTEIN (BEAKER) (test qint=596) 23.43 mg/dL 0.00-0.50 PHENYTOIN LEVEL, [id number] 06:57:00 Test Item Value Reference Range Comments PHENYTOIN (DILANTIN) (BEAKER) (test aoql=414) 2.3 ug/mL 10.0-20.0 [id number] 06:39:00 Test Item Value Reference Range Comments PARTIAL THROMBOPLASTIN TIME (BEAKER) (test 60.7 seconds 22.5-36.0 fdrq=974) [id number] 23:20:00 Test Item Value Reference Range Comments PARTIAL THROMBOPLASTIN TIME (BEAKER) (test 60.9 seconds 22.5-36.0 ffwn=670) POCT-GLUCOSE [id number] 22:31:00 Test Item Value Reference Range Comments POC-GLUCOSE METER (BEAKER) 83 mg/dL 70-110 TESTED AT [address] (test evyn=9312) [place] [id number] POCT-GLUCOSE [id number] 17:49:00 Test Item Value Reference Range Comments POC-GLUCOSE METER (BEAKER) 92 mg/dL 70-110 TESTED AT [address] (test gwuc=6553) [place] [address] [id number] 16:04:00 Test Item Value Reference Range Comments PARTIAL THROMBOPLASTIN TIME (BEAKER) (test 59.5 seconds 22.5-36.0 fssa=444) POCT-GLUCOSE [id number] 12:19:00 Test Item Value Reference Range Comments POC-GLUCOSE METER (BEAKER) 117 mg/dL 70-110 TESTED AT [address] (test ishn=9919) [place] [id number] SEDIMENTATION [id number] 11:21:00 Test Item Value Reference Range Comments SEDIMENTATION RATE, ERYTHROCYTE (BEAKER) (test 115 mm/HR 0-30 jpqj=530) CBC W/PLT COUNT & AUTO [id number] 09:34:00 Test Item Value Reference Range Comments WHITE BLOOD CELL COUNT (BEAKER) (test bqly=920) 23.6 K/ L 4.0-10.0 RED BLOOD CELL COUNT (BEAKER) (test vsbl=433) 2.87 M/ L 4.00-5.00 HEMOGLOBIN (BEAKER) (test moxr=295) 9.5 GM/DL 12.0-15.0 HEMATOCRIT (BEAKER) (test rohz=897) 27.7 % 36.0-45.0 MEAN CORPUSCULAR VOLUME (BEAKER) (test nkjs=136) 96.2 fL 82.0-99.0 MEAN CORPUSCULAR HEMOGLOBIN (BEAKER) (test 33.1 pg 27.0-33.0 tzsk=223) MEAN CORPUSCULAR HEMOGLOBIN CONC (BEAKER) (test 34.4 GM/DL 32.0-36.0 cpwd=007) RED CELL DISTRIBUTION WIDTH (BEAKER) (test 17.8 % 10.3-14.2 kymm=551) PLATELET COUNT (BEAKER) (test qpyo=015) 395 K/CU MM 150-430 MEAN PLATELET VOLUME (BEAKER) (test ckxc=509) 9.5 fL 6.5-10.5 NUCLEATED RED BLOOD CELLS (BEAKER) (test 0 /100 WBC 0-0 ytcb=849) (MANUAL DIFFERENTIAL)2017-01-04 09:34:00 Test Item Value Reference Range Comments NEUTROPHILS - REL (DIFF) (BEAKER) (test 79 % tsds=1928) LYMPHOCYTES - REL (DIFF) (BEAKER) (test 5 % tjxa=4135) MONOCYTES - REL (DIFF) (BEAKER) (test wpty=7498) 6 % EOSINOPHILS - REL (DIFF) (BEAKER) (test 7 % engm=5948) BANDS - REL (DIFF) (BEAKER) (test asgo=6640) 3 % 0-10 NEUTROPHILS - ABS (DIFF) (BEAKER) (test 18.64 K/ L 1.80-8.00 adsv=3221) LYMPHOCYTES - ABS (DIFF) (BEAKER) (test 1.18 K/ L 1.48-4.50 ianh=8720) MONOCYTES - ABS (DIFF) (BEAKER) (test blrz=5168) 1.42 K/ L 0.00-1.30 EOSINOPHILS - ABS (DIFF) (BEAKER) (test 1.65 K/ L 0.00-0.50 bnzv=3684) BANDS-ABS (DIFF) (BEAKER) (test jcvp=9911) 0.7 K/ L 0.0-0.8 TOTAL COUNTED (BEAKER) (test xuee=1582) 100 BANDS + SEGMENTED NEUTROPHILS (BEAKER) (test 19.35 evhb=4044) MANUAL NRBC PER 100 CELLS (BEAKER) (test 3 /100 WBC 0-0 mtbq=9718) WBC MORPHOLOGY (BEAKER) (test axbs=603) Normal LARGE PLT(BEAKER) (test otzi=2624) Present POLYCHROMATOPHILLIC RBCS(BEAKER) (test knwu=162) 1+ few [id number] 09:30:00 Test Item Value Reference Range Comments PARTIAL THROMBOPLASTIN TIME (BEAKER) (test 37.1 seconds 22.5-36.0 bkld=680) HEMOGLOBIN AND [id number] 09:12:00 Test Item Value Reference Range Comments HEMOGLOBIN (BEAKER) (test zycd=224) 9.1 GM/DL 12.0-15.0 HEMATOCRIT (BEAKER) (test ogcs=629) 25.5 % 36.0-45.0 POCT-GLUCOSE [id number] 08:06:00 Test Item Value Reference Range Comments POC-GLUCOSE METER (BEAKER) 86 mg/dL 70-[address] [facility] [address] (test yzdy=2559) [facility] [address] BLOOD GAS, [id number] 05:49:00 Test Item Value Reference Range Comments PH ARTERIAL (BEAKER) (test wsuu=999) 7.45 7.35-7.45 PCO2 ARTERIAL (BEAKER) (test qnoh=222) 30 mmHg 35-45 PO2 ARTERIAL (BEAKER) (test jnbd=040) 47 mmHg 80-90 O2 SATURATION ARTERIAL (BEAKER) (test hibg=195) 85.8 % 96.0-97.0 HCO3 ARTERIAL (BEAKER) (test aelx=653) 20 mmol/L 21-29 BASE EXCESS ARTERIAL (BEAKER) (test gixh=100) -3.2 mmol/L -2.0-3.0 PATIENT TEMPERATURE (BEAKER) (test jhbl=8637) 37.0 C FIO2 (BEAKER) (test waik=7603) 36.0 % PHENYTOIN LEVEL, [id number] 05:49:00 Test Item Value Reference Range Comments PHENYTOIN (DILANTIN) (BEAKER) (test lrwt=337) 3.5 ug/mL 10.0-20.0 VANCOMYCIN LEVEL, [id number] 05:49:00 Test Item Value Reference Range Comments VANCOMYCIN RANDOM (BEAKER) (test ynyn=267) < ug/mL Reference Range: No [id number] 05:42:00 Test Item Value Reference Range Comments SODIUM (BEAKER) (test ktfj=106) 129 meq/L 136-145 Check Serum Potassium level 2 hours after oral potassium replacement completed or 30 min after intravenous potassium replacement.[id number] 05:42:00 Test Item Value Reference Range Comments LIPASE (BEAKER) (test zpyg=057) 343 U/L 8-78 Check Serum Potassium level 2 hours after oral potassium replacement completed or 30 min after intravenous potassium replacement.[id number] 05:42:00 Test Item Value Reference Range Comments AMYLASE (BEAKER) (test enpd=227) 223 U/L 25-125 Check Serum Potassium level 2 hours after oral potassium replacement completed or 30 min after intravenous potassium replacement.BASIC METABOLIC [id number] 05:42:00 Test Item Value Reference Range Comments SODIUM (BEAKER) (test 129 meq/L 136-145 sfws=270) POTASSIUM (BEAKER) (test 4.0 meq/L 3.5-5.1 bsum=857) CHLORIDE (BEAKER) (test 101 meq/L 98-107 hwqc=383) CO2 (BEAKER) (test 16 meq/L 22-29 tjot=845) BLOOD UREA NITROGEN 4 mg/dL 7-21 (BEAKER) (test txvv=287) CREATININE (BEAKER) (test 0.53 mg/dL 0.57-1.25 ujyp=516) GLUCOSE RANDOM (BEAKER) 85 mg/dL 70-105 (test rpdg=289) CALCIUM (BEAKER) (test 8.7 mg/dL 8.4-10.2 uipw=826) EGFR (BEAKER) (test 119 mL/min/1.73 sq m ESTIMATED GFR IS NOT fsmk=5809) ACCURATE CREATININE CLEARANCE IN PREDICTING GLOMERULAR FILTRATION RATE. ESTIMATED GFR IS NOT APPLICABLE FOR DIALYSIS PATIENTS. Check Serum Potassium level 2 hours after oral potassium replacement completed or 30 min after intravenous potassium replacement.[id number] 05:42:00 Test Item Value Reference Range Comments MAGNESIUM (BEAKER) (test ocnd=076) 2.3 mg/dL 1.6-2.6 Check Serum Potassium level 2 hours after oral potassium replacement completed or 30 min after intravenous potassium replacement.[id number] 05:42:00 Test Item Value Reference Range Comments PHOSPHORUS (BEAKER) (test kpvx=877) 2.8 mg/dL 2.3-4.7 Check Serum Potassium level 2 hours after oral potassium replacement completed or 30 min after intravenous potassium replacement.[id number] 05:42:00 Test Item Value Reference Range Comments POTASSIUM (BEAKER) (test jrms=257) 4.0 meq/L 3.5-5.1 Check Serum Potassium level 2 hours after oral potassium replacement completed or 30 min after intravenous potassium replacement.C-REACTIVE [id number] 05:42:00 Test Item Value Reference Range Comments C-REACTIVE PROTEIN (BEAKER) (test hsus=103) 24.43 mg/dL 0.00-0.50 Check Serum Potassium level 2 hours after oral potassium replacement completed or 30 min after intravenous potassium replacement.[id number] 00:16:00 Test Item Value Reference Range Comments PHOSPHORUS (BEAKER) (test vpxj=831) 3.3 mg/dL 2.3-4.7 [id number] 00:16:00 Test Item Value Reference Range Comments MAGNESIUM (BEAKER) (test xtty=443) 1.7 mg/dL 1.6-2.6 BASIC METABOLIC [id number] 00:16:00 Test Item Value Reference Range Comments SODIUM (BEAKER) (test 130 meq/L 136-145 hlzc=123) POTASSIUM (BEAKER) (test 3.5 meq/L 3.5-5.1 qpbm=216) CHLORIDE (BEAKER) (test 102 meq/L 98-107 tdxm=243) CO2 (BEAKER) (test 18 meq/L 22-29 irpq=465) BLOOD UREA NITROGEN 4 mg/dL 7-21 (BEAKER) (test czib=186) CREATININE (BEAKER) (test 0.53 mg/dL 0.57-1.25 xzbd=034) GLUCOSE RANDOM (BEAKER) 83 mg/dL 70-105 (test mpqm=503) CALCIUM (BEAKER) (test 8.1 mg/dL 8.4-10.2 wunz=598) EGFR (BEAKER) (test 119 mL/min/1.73 sq m ESTIMATED GFR IS NOT gbfx=3036) ACCURATE CREATININE CLEARANCE IN PREDICTING GLOMERULAR FILTRATION RATE. ESTIMATED GFR IS NOT APPLICABLE FOR DIALYSIS PATIENTS. HEMOGLOBIN AND [id number] 23:52:00 Test Item Value Reference Range Comments HEMOGLOBIN (BEAKER) (test uicz=769) 9.3 GM/DL 12.0-15.0 HEMATOCRIT (BEAKER) (test uheu=154) 26.1 % 36.0-45.0 POCT-GLUCOSE [id number] 20:32:00 Test Item Value Reference Range Comments POC-GLUCOSE METER (BEAKER) 101 mg/dL 70-110 TESTED AT [address] (test piem=8873) [facility] [address] BASIC METABOLIC [id number] 18:33:00 Test Item Value Reference Range Comments SODIUM (BEAKER) (test 130 meq/L 136-145 uytk=643) POTASSIUM (BEAKER) (test 3.8 meq/L 3.5-5.1 tadl=159) CHLORIDE (BEAKER) (test 105 meq/L 98-107 rmul=432) CO2 (BEAKER) (test 14 meq/L 22-29 zeuy=820) BLOOD UREA NITROGEN 4 mg/dL 7-21 (BEAKER) (test gddf=391) CREATININE (BEAKER) (test 0.53 mg/dL 0.57-1.25 vyub=262) GLUCOSE RANDOM (BEAKER) 97 mg/dL 70-105 (test boum=839) CALCIUM (BEAKER) (test 8.7 mg/dL 8.4-10.2 nbzo=467) EGFR (BEAKER) (test 119 mL/min/1.73 sq m ESTIMATED GFR IS NOT lqdl=1182) ACCURATE CREATININE CLEARANCE IN PREDICTING GLOMERULAR FILTRATION RATE. ESTIMATED GFR IS NOT APPLICABLE FOR DIALYSIS PATIENTS. HEMOGLOBIN AND [id number] 18:21:00 Test Item Value Reference Range Comments HEMOGLOBIN (BEAKER) (test mada=561) 10.1 GM/DL 12.0-15.0 HEMATOCRIT (BEAKER) (test nmnu=190) 27.2 % 36.0-45.0 POCT-GLUCOSE [id number] 16:44:00 Test Item Value Reference Range Comments POC-GLUCOSE METER (BEAKER) 82 mg/dL 70-110 TESTED AT [address] (test riig=8242) [facility] [address] [id number] 16:20:00 Test Item Value Reference Range Comments MAGNESIUM (BEAKER) (test bosq=052) 2.3 mg/dL 1.6-2.6 [id number] 16:20:00 Test Item Value Reference Range Comments POTASSIUM (BEAKER) (test onlb=855) 4.0 meq/L 3.5-5.1 8 hours after PO replacement [id number] 15:55:00 Test Item Value Reference Range Comments PHOSPHORUS (BEAKER) (test jmqy=808) 4.9 mg/dL 2.3-4.7 Check Serum Phosphorus level 4 hours after IV phosphorus replacement or 8 hours after PO replacementcompleted.SEDIMENTATION [id number] 15:49:00 Test Item Value Reference Range Comments SEDIMENTATION RATE, ERYTHROCYTE (BEAKER) (test 120 mm/HR 0-30 sdfi=901) COMPLEMENT COMPONENT [id number] 15:35:00 Test Item Value Reference Range Comments C4 COMPLEMENT (BEAKER) (test kwkt=545) 34 mg/dL 15-57 Effective 09/19/2014: Reference Range ChangeNew: 15-57 Previous: 16- 38COMPLEMENT COMPONENT [id number] 15:35:00 Test Item Value Reference Range Comments C3 COMPLEMENT (BEAKER) (test fzmy=949) 152 mg/dL 82-193 Effective 09/19/2014: Reference Range ChangeNew: 82-193 Previous: 79-152C- REACTIVE [id number] 15:04:00 Test Item Value Reference Range Comments C-REACTIVE PROTEIN (BEAKER) (test wrqw=292) 21.81 mg/dL 0.00-0.50 IMMUNOGLOBULIN G (IGG)2017-01-03 13:50:00 Test Item Value Reference Range Comments IMMUNOGLOBULIN G (IGG) (BEAKER) (test lvxi=791) 788 mg/dL 540-1822 HEMOGLOBIN AND [id number] 13:32:00 Test Item Value Reference Range Comments HEMOGLOBIN (BEAKER) (test opzs=747) 9.6 GM/DL 12.0-15.0 HEMATOCRIT (BEAKER) (test wnrv=688) 28.5 % 36.0-45.0 POCT-GLUCOSE [id number] 11:43:00 Test Item Value Reference Range Comments POC-GLUCOSE METER (BEAKER) 119 mg/dL 70-[address] [facility] [address] [facility] (test rndn=8085) [facility] [address] CBC W/PLT COUNT & AUTO [id number] 11:04:00 Test Item Value Reference Range Comments WHITE BLOOD CELL COUNT (BEAKER) (test dekx=466) 29.5 K/ L 4.0-10.0 RED BLOOD CELL COUNT (BEAKER) (test rpey=904) 3.24 M/ L 4.00-5.00 HEMOGLOBIN (BEAKER) (test vpds=136) 10.5 GM/DL 12.0-15.0 HEMATOCRIT (BEAKER) (test wtir=601) 30.9 % 36.0-45.0 MEAN CORPUSCULAR VOLUME (BEAKER) (test xhks=076) 95.4 fL 82.0-99.0 MEAN CORPUSCULAR HEMOGLOBIN (BEAKER) (test 32.4 pg 27.0-33.0 qxbc=791) MEAN CORPUSCULAR HEMOGLOBIN CONC (BEAKER) (test 34.0 GM/DL 32.0-36.0 yesr=383) RED CELL DISTRIBUTION WIDTH (BEAKER) (test 17.7 % 10.3-14.2 vtqe=360) PLATELET COUNT (BEAKER) (test iedr=629) 363 K/CU MM 150-430 MEAN PLATELET VOLUME (BEAKER) (test xnzr=289) 9.9 fL 6.5-10.5 NUCLEATED RED BLOOD CELLS (BEAKER) (test 5 /100 WBC 0-0 qjzr=865) 0.000.550.000.000.700.000.000.000.000.000.000.000.000.000.710.000.000.000.00( MANUAL DIFFERENTIAL)2017-01-03 11:04:00 Test Item Value Reference Range Comments NEUTROPHILS - REL (DIFF) (BEAKER) (test 69 % yykc=6956) LYMPHOCYTES - REL (DIFF) (BEAKER) (test 8 % zbjm=3849) MONOCYTES - REL (DIFF) (BEAKER) (test cxav=8615) 2 % METAMYELOCYTES-REL (DIFF) (BEAKER) (test 1 % 0-0 hteg=294) MYELOCYTES-REL (DIFF) (BEAKER) (test hkqc=8824) 1 % 0-0 BANDS - REL (DIFF) (BEAKER) (test rqwo=8489) 19 % 0-10 NEUTROPHILS - ABS (DIFF) (BEAKER) (test 20.36 K/ L 1.80-8.00 jlxp=5959) LYMPHOCYTES - ABS (DIFF) (BEAKER) (test 2.36 K/ L 1.48-4.50 zlin=5280) MONOCYTES - ABS (DIFF) (BEAKER) (test eodj=5743) 0.59 K/ L 0.00-1.30 METAMYELOCTYES - ABS (DIFF) (BEAKER) (test 0.30 K/ L 0.00-0.00 nzxi=010) BANDS-ABS (DIFF) (BEAKER) (test dbtd=1324) 5.6 K/ L 0.0-0.8 MYELOCYTES-ABS (DIFF) (BEAKER) (test ozrd=0130) 0.30 K/ L 0.00-0.00 TOTAL COUNTED (BEAKER) (test gjvk=9989) 100 BANDS + SEGMENTED NEUTROPHILS (BEAKER) (test 25.96 hbvg=5974) MANUAL NRBC PER 100 CELLS (BEAKER) (test 1 /100 WBC 0-0 ngqj=4366) WBC MORPHOLOGY (BEAKER) (test phjd=001) Normal PLT MORPHOLOGY (BEAKER) (test cykl=992) Normal ANISOCYTOSIS (BEAKER) (test csub=941) 2+ moderate POLYCHROMATOPHILLIC RBCS(BEAKER) (test hqqw=208) 2+ moderate TARGET CELLS (BEAKER) (test iryg=742) 2+ moderate URINE [id number] 10:04:00 Test Item Value Reference Range Comments CULTURE (BEAKER) (test ucav=8367) No growth POCT-GLUCOSE [id number] 07:38:00 Test Item Value Reference Range Comments POC-GLUCOSE METER (BEAKER) 94 mg/dL 70-110 TESTED AT [address] (test gays=8321) [facility] [address] POCT-GLUCOSE [id number] 06:41:00 Test Item Value Reference Range Comments POC-GLUCOSE METER (BEAKER) 107 mg/dL 70-110 TESTED AT [address] (test wpkz=2145) [facility] [address] PHENYTOIN LEVEL, [id number] 03:59:00 Test Item Value Reference Range Comments PHENYTOIN (DILANTIN) (BEAKER) (test dhxo=204) 3.3 ug/mL 10.0-20.0 [id number] 03:47:00 Test Item Value Reference Range Comments PHOSPHORUS (BEAKER) (test ranz=194) 1.8 mg/dL 2.3-4.7 [id number] 03:47:00 Test Item Value Reference Range Comments MAGNESIUM (BEAKER) (test bsyg=439) 1.3 mg/dL 1.6-2.6 BASIC METABOLIC [id number] 03:47:00 Test Item Value Reference Range Comments SODIUM (BEAKER) (test 130 meq/L 136-145 brqo=425) POTASSIUM (BEAKER) (test 3.0 meq/L 3.5-5.1 zaab=227) CHLORIDE (BEAKER) (test 104 meq/L 98-107 afai=710) CO2 (BEAKER) (test 15 meq/L 22-29 irrs=607) BLOOD UREA NITROGEN 6 mg/dL 7-21 (BEAKER) (test rqre=702) CREATININE (BEAKER) (test 0.57 mg/dL 0.57-1.25 ejbh=584) GLUCOSE RANDOM (BEAKER) 106 mg/dL 70-105 (test bqti=172) CALCIUM (BEAKER) (test 9.1 mg/dL 8.4-10.2 rqkh=386) EGFR (BEAKER) (test 110 mL/min/1.73 sq m ESTIMATED GFR IS NOT ynue=8193) ACCURATE CREATININE CLEARANCE IN PREDICTING GLOMERULAR FILTRATION RATE. ESTIMATED GFR IS NOT APPLICABLE FOR DIALYSIS PATIENTS. BLOOD GAS, [id number] 03:37:00 Test Item Value Reference Range Comments PH ARTERIAL (BEAKER) (test mlzw=196) 7.48 7.35-7.45 PCO2 ARTERIAL (BEAKER) (test ankd=198) 24 mmHg 35-45 PO2 ARTERIAL (BEAKER) (test ptff=842) 82 mmHg 80-90 O2 SATURATION ARTERIAL (BEAKER) (test zptn=742) 96.9 % 96.0-97.0 HCO3 ARTERIAL (BEAKER) (test qykm=128) 17 mmol/L 21-29 BASE EXCESS ARTERIAL (BEAKER) (test azbl=107) -4.9 mmol/L -2.0-3.0 PATIENT TEMPERATURE (BEAKER) (test ocom=6457) 36.9 C FIO2 (BEAKER) (test jodc=0409) 50.0 % POCT-GLUCOSE [id number] 23:45:00 Test Item Value Reference Range Comments POC-GLUCOSE METER (BEAKER) 83 mg/dL 70-110 TESTED AT [address] (test zblr=3513) [facility] [address] [id number] 22:07:00 Test Item Value Reference Range Comments MAGNESIUM (BEAKER) (test kdyy=738) 1.6 mg/dL 1.6-2.6 HEMOGLOBIN AND [id number] 21:18:00 Test Item Value Reference Range Comments HEMOGLOBIN (BEAKER) (test kjwc=128) 10.0 GM/DL 12.0-15.0 HEMATOCRIT (BEAKER) (test opgx=798) 28.5 % 36.0-45.0 BASIC METABOLIC [id number] 21:15:00 Test Item Value Reference Range Comments SODIUM (BEAKER) (test 134 meq/L 136-145 tbby=810) POTASSIUM (BEAKER) (test 3.0 meq/L 3.5-5.1 alsh=384) CHLORIDE (BEAKER) (test 106 meq/L 98-107 ksrz=911) CO2 (BEAKER) (test 16 meq/L 22-29 sbvm=519) BLOOD UREA NITROGEN 8 mg/dL 7-21 (BEAKER) (test rgcp=851) CREATININE (BEAKER) (test 0.63 mg/dL 0.57-1.25 ixwl=785) GLUCOSE RANDOM (BEAKER) 93 mg/dL 70-105 (test jomf=175) CALCIUM (BEAKER) (test 9.0 mg/dL 8.4-10.2 qsoi=884) EGFR (BEAKER) (test 98 mL/min/1.73 sq m ESTIMATED GFR IS NOT nifs=4794) ACCURATE CREATININE CLEARANCE IN PREDICTING GLOMERULAR FILTRATION RATE. ESTIMATED GFR IS NOT APPLICABLE FOR DIALYSIS PATIENTS. POCT-GLUCOSE [id number] 21:02:00 Test Item Value Reference Range Comments POC-GLUCOSE METER (BEAKER) 100 mg/dL 70-[address] [facility] [address] [facility] (test znlj=7887) [facility] [address] [id number] 18:55:00 Test Item Value Reference Range Comments FERRITIN (BEAKER) (test umvy=644) 1096 ng/mL 5-275 Effective 09/19/2014: Reference Range ChangeNew: Male 5-275 Previous: Male 22-322 Female 5-275 Female 10-291IRON, TIBC, % SAT. ( WITHOUT FERRITIN)2017-01-02 18:35:00 Test Item Value Reference Range Comments IRON (BEAKER) (test crxw=640) 130 ug/dL 40-160 TOTAL IRON BINDING CAPACITY (BEAKER) (test 234 ug/dL 250-450 wnii=211) IRON % SATURATION (2) (BEAKER) (test wfue=3476) 56 % 20-55 [id number] 18:29:00 Test Item Value Reference Range Comments SODIUM (BEAKER) (test mfdk=031) 135 meq/L 136-145 POCT-GLUCOSE [id number] 18:12:00 Test Item Value Reference Range Comments POC-GLUCOSE METER (BEAKER) 105 mg/dL 70-[address] [facility] [address] [facility] (test nrgn=2255) [facility] [address] BLOOD [id number] 17:00:00 Test Item Value Reference Range Comments CULTURE (BEAKER) (test iukk=7608) No growth in 5 days BLOOD [id number] 17:00:00 Test Item Value Reference Range Comments CULTURE (BEAKER) (test qyup=4590) No growth in 5 days BLOOD GAS, [id number] 16:32:00 Test Item Value Reference Range Comments PH ARTERIAL (BEAKER) (test xuzy=869) 7.47 7.35-7.45 PCO2 ARTERIAL (BEAKER) (test nckp=488) 27 mmHg 35-45 PO2 ARTERIAL (BEAKER) (test ipsi=329) 66 mmHg 80-90 O2 SATURATION ARTERIAL (BEAKER) (test lmvu=180) 94.2 % 96.0-97.0 HCO3 ARTERIAL (BEAKER) (test ueuj=039) 19 mmol/L 21-29 BASE EXCESS ARTERIAL (BEAKER) (test vxhr=746) -4.2 mmol/L -2.0-3.0 PATIENT TEMPERATURE (BEAKER) (test usqe=6922) 37.5 C FIO2 (BEAKER) (test hpbo=0525) 35.0 % CLOSTRIDIUM DIFFICILE TOXIN [id number] 16:16:00 Test Item Value Reference Range Comments CLOSTRIDIUM DIFFICILE TOXIN, PCR (BEAKER) (test Not Detected Not Detected hmip=1903) This qualitative real-time polymerase chain reaction assay [...] testing of a positive result is not recommended.[id number] 16:07:00 Test Item Value Reference Range Comments HAPTOGLOBIN (BEAKER) (test rfjw=356) 291 mg/dL 14-258 Effective 09/19/2014: Reference Range ChangeNew: 14-258 Previous: 36-195BASIC METABOLIC [id number] 12:58:00 Test Item Value Reference Range Comments SODIUM (BEAKER) (test 133 meq/L 136-145 zhro=012) POTASSIUM (BEAKER) (test 4.0 meq/L 3.5-5.1 coer=898) CHLORIDE (BEAKER) (test 106 meq/L 98-107 zaym=915) CO2 (BEAKER) (test 18 meq/L 22-29 wwqw=862) BLOOD UREA NITROGEN 11 mg/dL 7-21 (BEAKER) (test kdfc=848) CREATININE (BEAKER) (test 0.55 mg/dL 0.57-1.25 krek=441) GLUCOSE RANDOM (BEAKER) 98 mg/dL 70-105 (test ucgo=575) CALCIUM (BEAKER) (test 8.3 mg/dL 8.4-10.2 ozqc=997) EGFR (BEAKER) (test 114 mL/min/1.73 sq m ESTIMATED GFR IS NOT mfni=8691) ACCURATE CREATININE CLEARANCE IN PREDICTING GLOMERULAR FILTRATION RATE. ESTIMATED GFR IS NOT APPLICABLE FOR DIALYSIS PATIENTS. [id number] 12:58:00 Test Item Value Reference Range Comments LIPASE (BEAKER) (test xrkl=877) 571 U/L 8-78 POCT-GLUCOSE [id number] 12:27:00 Test Item Value Reference Range Comments POC-GLUCOSE METER (BEAKER) 100 mg/dL 70-[address] [facility] [address] (test tisn=0834) [place] [address] [id number] 11:58:00 Test Item Value Reference Range Comments FIBRINOGEN LEVEL (BEAKER) (test otyj=180) 682 mg/dl 225-434 [id number] 11:58:00 Test Item Value Reference Range Comments PROTIME (BEAKER) (test lxph=084) 14.0 seconds 11.7-14.7 INR (BEAKER) (test heuo=086) 1.1 <=5.9 PARTIAL THROMBOPLASTIN TIME (BEAKER) (test 38.5 seconds 22.5-36.0 jpan=975) RECOMMENDED COUMADIN/WARFARIN INR THERAPY RANGESSTANDARD DOSE: 2.0 - 3.0 Includes: PROPHYLAXIS forvenous thrombosis, systemic embolization; TREATMENT for venous thrombosis and/or pulmonary embolus.HIGH RISK: Target INR is 2.5-3.5 for patients with mechanical heart valves.CALCIUM, [id number] 11:47:00 Test Item Value Reference Range Comments CALCIUM IONIZED (BEAKER) (test cfen=323) 1.06 mmol/L 1.12-1.27 PH, BLOOD (BEAKER) (test nwah=5823) 7.48 [id number] 11:32:00 Test Item Value Reference Range Comments PHOSPHORUS (BEAKER) (test flcc=670) 2.2 mg/dL 2.3-4.7 [id number] 11:32:00 Test Item Value Reference Range Comments MAGNESIUM (BEAKER) (test cnsr=480) 2.2 mg/dL 1.6-2.6 HEPATIC FUNCTION [id number] 11:32:00 Test Item Value Reference Range Comments TOTAL PROTEIN (BEAKER) (test vnoe=134) 5.5 gm/dL 6.0-8.3 ALBUMIN (BEAKER) (test rebj=6154) 2.4 g/dL 3.5-5.0 BILIRUBIN TOTAL (BEAKER) (test lgzv=428) 0.4 mg/dL 0.2-1.2 BILIRUBIN DIRECT (BEAKER) (test xoou=919) 0.2 mg/dL 0.1-0.5 ALKALINE PHOSPHATASE (BEAKER) (test oxcn=659) 171 U/L 40-150 AST (SGOT) (BEAKER) (test bkzi=960) 44 U/L 5-34 ALT (SGPT) (BEAKER) (test fvnz=018) 19 U/L 6-55 [id number] 11:32:00 Test Item Value Reference Range Comments AMYLASE (BEAKER) (test mpti=591) 296 U/L 25-125 LACTATE DEHYDROGENASE (LDH)2017-01-02 11:32:00 Test Item Value Reference Range Comments LACTATE DEHYDROGENASE (BEAKER) (test cusg=732) 478 U/L 125-220 OCCULT BLOOD, [id number] 10:39:00 Test Item Value Reference Range Comments FECAL OCCULT BLOOD (BEAKER) (test bsmm=789) Positive Negative HEMOGLOBIN AND [id number] 10:18:00 Test Item Value Reference Range Comments HEMOGLOBIN (BEAKER) (test fnra=153) 6.2 GM/DL 12.0-15.0 HEMATOCRIT (BEAKER) (test ulvq=691) 18.5 % 36.0-45.0 LACTIC ACID, ARTERIAL, WHOLE [id number] 10:00:00 Test Item Value Reference Range Comments LACTATE BLOOD ARTERIAL (2) (BEAKER) (test 0.6 mmol/L 0.5-2.2 lzrz=9822) Effective 03/05/2016: Units/Reference Range ChangeNew: 0.5-2.2 mmol/L Previous: 5 -20 mg/dLCBC W/PLT COUNT & AUTO [id number] 08:36:00 Test Item Value Reference Range Comments WHITE BLOOD CELL COUNT (BEAKER) (test vyhb=746) 26.6 K/ L 4.0-10.0 RED BLOOD CELL COUNT (BEAKER) (test owsp=051) 1.83 M/ L 4.00-5.00 HEMOGLOBIN (BEAKER) (test uqqq=110) 6.3 GM/DL 12.0-15.0 HEMATOCRIT (BEAKER) (test ytgx=893) 18.9 % 36.0-45.0 MEAN CORPUSCULAR VOLUME (BEAKER) (test xztz=132) 104.0 fL 82.0-99.0 MEAN CORPUSCULAR HEMOGLOBIN (BEAKER) (test 34.7 pg 27.0-33.0 dsdh=186) MEAN CORPUSCULAR HEMOGLOBIN CONC (BEAKER) (test 33.5 GM/DL 32.0-36.0 ikqf=674) RED CELL DISTRIBUTION WIDTH (BEAKER) (test 18.1 % 10.3-14.2 dlvw=897) PLATELET COUNT (BEAKER) (test jrge=385) 372 K/CU MM 150-430 MEAN PLATELET VOLUME (BEAKER) (test cumm=700) 9.9 fL 6.5-10.5 NUCLEATED RED BLOOD CELLS (BEAKER) (test 3 /100 WBC 0-0 sfak=466) NEUTROPHILS RELATIVE PERCENT (BEAKER) (test 82 % gyiv=474) LYMPHOCYTES RELATIVE PERCENT (BEAKER) (test 10 % brjo=369) MONOCYTES RELATIVE PERCENT (BEAKER) (test 6 % hxhq=269) EOSINOPHILS RELATIVE PERCENT (BEAKER) (test 2 % ftxg=378) BASOPHILS RELATIVE PERCENT (BEAKER) (test 0 % mlgm=227) NEUTROPHILS ABSOLUTE COUNT (BEAKER) (test 21.90 K/ L 1.80-8.00 kgni=047) LYMPHOCYTES ABSOLUTE COUNT (BEAKER) (test 2.56 K/ L 1.48-4.50 zgxv=450) MONOCYTES ABSOLUTE COUNT (BEAKER) (test 1.68 K/ L 0.00-1.30 zeat=168) EOSINOPHILS ABSOLUTE COUNT (BEAKER) (test 0.40 K/ L 0.00-0.50 bbnz=964) BASOPHILS ABSOLUTE COUNT (BEAKER) (test 0.06 K/ L 0.00-0.20 yopy=041) 0.000.580.000.000.760.000.000.000.000.000.000.590.000.000.840.000.000.000.00( MANUAL DIFFERENTIAL)2017-01-02 08:36:00 Test Item Value Reference Range Comments TOTAL COUNTED (BEAKER) (test mnlr=3524) WBC MORPHOLOGY (BEAKER) (test wyru=841) Normal PLT MORPHOLOGY (BEAKER) (test xuea=719) Normal POLYCHROMATOPHILLIC RBCS(BEAKER) (test ltyz=422) 2+ moderate POCT-GLUCOSE [id number] 08:19:00 Test Item Value Reference Range Comments POC-GLUCOSE METER (BEAKER) 120 mg/dL 70-110 TESTED AT [address] (test xwvp=6786) [facility] [id number] 07:35:00 Test Item Value Reference Range Comments PARTIAL THROMBOPLASTIN TIME (BEAKER) (test 100.6 seconds 22.5-36.0 sdah=336) [id number] 05:29:00 Test Item Value Reference Range Comments PHOSPHORUS (BEAKER) (test bzua=640) 2.4 mg/dL 2.3-4.7 [id number] 05:29:00 Test Item Value Reference Range Comments MAGNESIUM (BEAKER) (test rbjx=127) 1.6 mg/dL 1.6-2.6 BASIC METABOLIC [id number] 05:29:00 Test Item Value Reference Range Comments SODIUM (BEAKER) (test 132 meq/L 136-145 igau=715) POTASSIUM (BEAKER) (test 3.2 meq/L 3.5-5.1 qntz=973) CHLORIDE (BEAKER) (test 102 meq/L 98-107 apcf=100) CO2 (BEAKER) (test 19 meq/L 22-29 covc=254) BLOOD UREA NITROGEN 12 mg/dL 7-21 (BEAKER) (test qsib=123) CREATININE (BEAKER) (test 0.56 mg/dL 0.57-1.25 rryi=593) GLUCOSE RANDOM (BEAKER) 110 mg/dL 70-105 (test iinc=921) CALCIUM (BEAKER) (test 8.2 mg/dL 8.4-10.2 fjuk=956) EGFR (BEAKER) (test 112 mL/min/1.73 sq m ESTIMATED GFR IS NOT fpoj=7281) ACCURATE CREATININE CLEARANCE IN PREDICTING GLOMERULAR FILTRATION RATE. ESTIMATED GFR IS NOT APPLICABLE FOR DIALYSIS PATIENTS. PHENYTOIN LEVEL, [id number] 05:25:00 Test Item Value Reference Range Comments PHENYTOIN (DILANTIN) (BEAKER) (test fbak=525) 5.7 ug/mL 10.0-20.0 BLOOD GAS, [id number] 04:49:00 Test Item Value Reference Range Comments PH ARTERIAL (BEAKER) (test glcf=447) 7.50 7.35-7.45 PCO2 ARTERIAL (BEAKER) (test ogjq=195) 31 mmHg 35-45 PO2 ARTERIAL (BEAKER) (test sqfb=766) 104 mmHg 80-90 O2 SATURATION ARTERIAL (BEAKER) (test nfym=211) 98.1 % 96.0-97.0 HCO3 ARTERIAL (BEAKER) (test mymc=557) 24 mmol/L 21-29 BASE EXCESS ARTERIAL (BEAKER) (test pfmb=484) 0.6 mmol/L -2.0-3.0 PATIENT TEMPERATURE (BEAKER) (test birh=0215) 38.0 C FIO2 (BEAKER) (test phlh=8185) 35.0 % [id number] 00:44:00 Test Item Value Reference Range Comments PARTIAL THROMBOPLASTIN TIME (BEAKER) (test 103.9 seconds 22.5-36.0 rskc=089) POCT-GLUCOSE [id number] 21:04:00 Test Item Value Reference Range Comments POC-GLUCOSE METER (BEAKER) 118 mg/dL 70-110 TESTED AT [address] (test eujf=9574) [place] [address] [id number] 19:08:00 Test Item Value Reference Range Comments POTASSIUM (BEAKER) (test ndjy=467) 3.3 meq/L 3.5-5.1 Check Serum Phosphorus level 4 hours after IV phosphorus replacement or 8 hours after PO replacementcompleted.Check Serum Potassium level 2 hours after oral potassium replacement completed or 30 min after intravenous potassium replacement.[id number] 19:08:00 Test Item Value Reference Range Comments PHOSPHORUS (BEAKER) (test jtwh=287) 5.1 mg/dL 2.3-4.7 Check Serum Phosphorus level 4 hours after IV phosphorus replacement or 8 hours after PO replacementcompleted.Check Serum Potassium level 2 hours after oral potassium replacement completed or 30 min after intravenous potassium replacement.[id number] 18:18:00 Test Item Value Reference Range Comments PARTIAL THROMBOPLASTIN TIME (BEAKER) (test 46.4 seconds 22.5-36.0 tnso=287) POCT-GLUCOSE [id number] 17:14:00 Test Item Value Reference Range Comments POC-GLUCOSE METER (BEAKER) 112 mg/dL 70-110 TESTED AT [address] (test goai=1945) [place] [id number] LEGIONELLA ANTIGEN, [id number] 16:37:00 Test Item Value Reference Range Comments L. PNEUMOPHILA SEROGP 1 Negative - see Negative for L. UR AG (BEAKER) (test comment pneumophila serogroup 1 ajgj=3014) antigen, suggesting no recent or current infection with this serogroup. Legionellosis cannot be ruled out since other serogroups and species may cause disease. [id number] 16:20:00 Test Item Value Reference Range Comments SODIUM (BEAKER) (test twcl=030) 134 meq/L 136-145 URINALYSIS W/ REFLEX URINE [id number] 14:01:00 Test Item Value Reference Range Comments COLOR (BEAKER) (test sxyy=947) Light Yellow CLARITY (BEAKER) (test nmaa=716) Clear SPECIFIC GRAVITY UA (BEAKER) (test qqyl=462) 1.008 1.001-1.035 PH UA (BEAKER) (test hygk=367) 7.0 5.0-8.0 PROTEIN UA (BEAKER) (test jovn=354) Negative Negative GLUCOSE UA (BEAKER) (test yegw=264) Negative Negative KETONES UA (BEAKER) (test lock=321) Negative Negative BILIRUBIN UA (BEAKER) (test azxt=758) Negative Negative BLOOD UA (BEAKER) (test slkz=105) Trace Negative NITRITE UA (BEAKER) (test jkfh=145) Negative Negative LEUKOCYTE ESTERASE UA (BEAKER) (test cawd=735) Negative Negative UROBILINOGEN UA (BEAKER) (test pmcu=564) 0.2 mg/dL 0.2-1.0 RBC UA (BEAKER) (test zlkb=713) 0 /HPF WBC UA (BEAKER) (test rskt=491) 2 /HPF BACTERIA (BEAKER) (test rxrm=162) Rare MUCUS (BEAKER) (test ervl=3669) Rare SQUAMOUS EPITHELIAL (BEAKER) (test brej=950) 1 /HPF HYALINE CASTS (BEAKER) (test fqqe=837) 3 /LPF SOURCE(BEAKER) (test angj=6067) HIV-1 ANTIGEN WITH HIV-1/2 [id number] 12:46:00 Test Item Value Reference Range Comments HIV-1 ANTIGEN WITH HIV 1\T\2 ANTIBODY (2) Nonreactive Nonreactive (BEAKER) (test vqon=6185) HEPATIC FUNCTION [id number] 12:16:00 Test Item Value Reference Range Comments TOTAL PROTEIN (BEAKER) (test mqyh=496) 6.4 gm/dL 6.0-8.3 ALBUMIN (BEAKER) (test rcbt=1993) 2.8 g/dL 3.5-5.0 BILIRUBIN TOTAL (BEAKER) (test vdbk=353) 0.5 mg/dL 0.2-1.2 BILIRUBIN DIRECT (BEAKER) (test bnzv=940) 0.3 mg/dL 0.1-0.5 ALKALINE PHOSPHATASE (BEAKER) (test yiki=380) 245 U/L 40-150 AST (SGOT) (BEAKER) (test ktcp=396) 49 U/L 5-34 ALT (SGPT) (BEAKER) (test othv=017) 27 U/L 6-55 Check Serum Phosphorus level 4 hours after IV phosphorus replacement or 8 hours after PO replacementcompleted.8 hours after PO replacement [id number] 12:16:00 Test Item Value Reference Range Comments MAGNESIUM (BEAKER) (test gqdw=105) 2.4 mg/dL 1.6-2.6 Check Serum Phosphorus level 4 hours after IV phosphorus replacement or 8 hours after PO replacementcompleted.8 hours after PO replacement [id number] 12:16:00 Test Item Value Reference Range Comments PHOSPHORUS (BEAKER) (test dojc=126) 1.7 mg/dL 2.3-4.7 Check Serum Phosphorus level 4 hours after IV phosphorus replacement or 8 hours after PO replacementcompleted.8 hours after PO replacement [id number] 12:16:00 Test Item Value Reference Range Comments POTASSIUM (BEAKER) (test lvhk=281) 3.0 meq/L 3.5-5.1 Check Serum Phosphorus level 4 hours after IV phosphorus replacement or 8 hours after PO replacementcompleted.8 hours after PO replacement completedVANCOMYCIN LEVEL, [id number] 12:09:00 Test Item Value Reference Range Comments VANCOMYCIN RANDOM (BEAKER) (test mpsn=069) 24.0 ug/mL Reference Range: No [id number] 12:07:00 Test Item Value Reference Range Comments PARTIAL THROMBOPLASTIN TIME (BEAKER) (test 71.2 seconds 22.5-36.0 vxai=037) LACTIC ACID, ARTERIAL, WHOLE [id number] 12:03:00 Test Item Value Reference Range Comments LACTATE BLOOD ARTERIAL (2) (BEAKER) (test 0.9 mmol/L 0.5-2.2 ueey=4705) Effective 03/05/2016: Units/Reference Range ChangeNew: 0.5-2.2 mmol/L Previous: 5 -20 mg/dLPOCT-GLUCOSE [id number] 11:04:00 Test Item Value Reference Range Comments POC-GLUCOSE METER (BEAKER) 173 mg/dL 70-[address] [facility] [address] (test trqs=0055) [facility] [address] CBC W/PLT COUNT & AUTO [id number] 10:05:00 Test Item Value Reference Range Comments WHITE BLOOD CELL COUNT (BEAKER) (test hzez=588) 24.5 K/ L 4.0-10.0 RED BLOOD CELL COUNT (BEAKER) (test vfxl=125) 2.34 M/ L 4.00-5.00 HEMOGLOBIN (BEAKER) (test ybuz=592) 8.2 GM/DL 12.0-15.0 HEMATOCRIT (BEAKER) (test vaab=720) 24.0 % 36.0-45.0 MEAN CORPUSCULAR VOLUME (BEAKER) (test xdle=270) 103.0 fL 82.0-99.0 MEAN CORPUSCULAR HEMOGLOBIN (BEAKER) (test 34.9 pg 27.0-33.0 mmwr=728) MEAN CORPUSCULAR HEMOGLOBIN CONC (BEAKER) (test 33.9 GM/DL 32.0-36.0 aeun=845) RED CELL DISTRIBUTION WIDTH (BEAKER) (test 17.3 % 10.3-14.2 dgpk=702) PLATELET COUNT (BEAKER) (test sqlx=759) 377 K/CU MM 150-430 MEAN PLATELET VOLUME (BEAKER) (test svhz=598) 9.5 fL 6.5-10.5 NUCLEATED RED BLOOD CELLS (BEAKER) (test 0 /100 WBC 0-0 pgdp=006) NEUTROPHILS RELATIVE PERCENT (BEAKER) (test 78 % gvyt=725) LYMPHOCYTES RELATIVE PERCENT (BEAKER) (test 14 % agqa=417) MONOCYTES RELATIVE PERCENT (BEAKER) (test 7 % vmgz=132) EOSINOPHILS RELATIVE PERCENT (BEAKER) (test 1 % vixg=476) BASOPHILS RELATIVE PERCENT (BEAKER) (test 0 % viik=475) NEUTROPHILS ABSOLUTE COUNT (BEAKER) (test 19.00 K/ L 1.80-8.00 poqo=081) LYMPHOCYTES ABSOLUTE COUNT (BEAKER) (test 3.31 K/ L 1.48-4.50 evke=830) MONOCYTES ABSOLUTE COUNT (BEAKER) (test 1.71 K/ L 0.00-1.30 zsou=376) EOSINOPHILS ABSOLUTE COUNT (BEAKER) (test 0.34 K/ L 0.00-0.50 ngmm=397) BASOPHILS ABSOLUTE COUNT (BEAKER) (test 0.12 K/ L 0.00-0.20 mtml=439) 0.000.580.000.000.720.000.000.000.00(MANUAL DIFFERENTIAL)2017-01-01 10:05:00 Test Item Value Reference Range Comments TOTAL COUNTED (BEAKER) (test mbvc=0110) PLT MORPHOLOGY (BEAKER) (test mkib=362) Normal DOHLE BODIES (BEAKER) (test ryyc=576) Present TOXIC GRANULATION (BEAKER) (test mgfc=180) Present VACUOLATED NEUTROPHILS (BEAKER) (test nesg=093) Slight ANISOCYTOSIS (BEAKER) (test qxny=691) 2+ moderate POLYCHROMATOPHILLIC RBCS(BEAKER) (test togk=833) 2+ moderate POCT-GLUCOSE [id number] 08:05:00 Test Item Value Reference Range Comments POC-GLUCOSE METER (BEAKER) 180 mg/dL 70-[address] [facility] [address] [facility] (test xjzp=3020) [facility] [address] POCT-GLUCOSE [id number] 06:54:00 Test Item Value Reference Range Comments POC-GLUCOSE METER (BEAKER) 117 mg/dL 70-[address] [facility] [address] [facility] (test asny=2020) [facility] [address] PHENYTOIN LEVEL, [id number] 05:16:00 Test Item Value Reference Range Comments PHENYTOIN (DILANTIN) (BEAKER) (test szib=029) 7.9 ug/mL 10.0-20.0 [id number] 05:01:00 Test Item Value Reference Range Comments PHOSPHORUS (BEAKER) (test kzbi=536) 1.5 mg/dL 2.3-4.7 [id number] 04:54:00 Test Item Value Reference Range Comments MAGNESIUM (BEAKER) (test akcx=430) 1.6 mg/dL 1.6-2.6 BASIC METABOLIC [id number] 04:54:00 Test Item Value Reference Range Comments SODIUM (BEAKER) (test 134 meq/L 136-145 nzit=725) POTASSIUM (BEAKER) (test 2.7 meq/L 3.5-5.1 ncpw=869) CHLORIDE (BEAKER) (test 91 meq/L 98-107 ahhi=675) CO2 (BEAKER) (test 32 meq/L 22-29 gode=968) BLOOD UREA NITROGEN 13 mg/dL 7-21 (BEAKER) (test yiut=141) CREATININE (BEAKER) (test 0.72 mg/dL 0.57-1.25 xrje=011) GLUCOSE RANDOM (BEAKER) 116 mg/dL 70-105 (test svee=546) CALCIUM (BEAKER) (test 8.8 mg/dL 8.4-10.2 luno=719) EGFR (BEAKER) (test 84 mL/min/1.73 sq m ESTIMATED GFR IS NOT oiwg=7356) ACCURATE CREATININE CLEARANCE IN PREDICTING GLOMERULAR FILTRATION RATE. ESTIMATED GFR IS NOT APPLICABLE FOR DIALYSIS PATIENTS. [id number] 04:43:00 Test Item Value Reference Range Comments PARTIAL THROMBOPLASTIN TIME (BEAKER) (test 50.5 seconds 22.5-36.0 mgse=815) BLOOD GAS, [id number] 04:36:00 Test Item Value Reference Range Comments PH ARTERIAL (BEAKER) (test ebco=709) 7.52 7.35-7.45 PCO2 ARTERIAL (BEAKER) (test nkhs=654) 45 mmHg 35-45 PO2 ARTERIAL (BEAKER) (test wfvt=758) 72 mmHg 80-90 O2 SATURATION ARTERIAL (BEAKER) (test ukds=075) 95.1 % 96.0-97.0 HCO3 ARTERIAL (BEAKER) (test jdcg=688) 35 mmol/L 21-29 BASE EXCESS ARTERIAL (BEAKER) (test ribb=695) 11.6 mmol/L -2.0-3.0 PATIENT TEMPERATURE (BEAKER) (test cfak=0130) 38.0 C FIO2 (BEAKER) (test qphr=8623) 55.0 % POCT-GLUCOSE [id number] 21:11:00 Test Item Value Reference Range Comments POC-GLUCOSE METER (BEAKER) 141 mg/dL 70-110 TESTED AT [address] (test kowl=9879) [facility] [address] POCT-GLUCOSE [id number] 17:30:00 Test Item Value Reference Range Comments POC-GLUCOSE METER (BEAKER) 130 mg/dL 70-110 TESTED AT [address] (test khgd=5571) [place] [id number] 16:31:00 Test Item Value Reference Range Comments POTASSIUM (BEAKER) (test zdws=366) 2.3 meq/L 3.5-5.1 Check Serum Potassium level 2 hours after oral potassium replacement completed or 30 min after intravenous potassium replacement.[id number] 16:25:00 Test Item Value Reference Range Comments MAGNESIUM (BEAKER) (test brde=110) 1.3 mg/dL 1.6-2.6 Check Serum Potassium level 2 hours after oral potassium replacement completed or 30 min after intravenous potassium replacement.[id number] 16:25:00 Test Item Value Reference Range Comments SODIUM (BEAKER) (test pnbq=111) 135 meq/L 136-145 Check Serum Potassium level 2 hours after oral potassium replacement completed or 30 min after intravenous potassium replacement.CBC (HEMOGRAM ONLY)2016-12-31 16:22:00 Test Item Value Reference Range Comments WHITE BLOOD CELL COUNT (BEAKER) (test ziej=736) 21.6 K/ L 4.0-10.0 RED BLOOD CELL COUNT (BEAKER) (test onha=787) 2.13 M/ L 4.00-5.00 HEMOGLOBIN (BEAKER) (test icfr=017) 7.3 GM/DL 12.0-15.0 HEMATOCRIT (BEAKER) (test fhhn=110) 21.9 % 36.0-45.0 MEAN CORPUSCULAR VOLUME (BEAKER) (test fpms=329) 103.0 fL 82.0-99.0 MEAN CORPUSCULAR HEMOGLOBIN (BEAKER) (test 34.3 pg 27.0-33.0 ypkj=753) MEAN CORPUSCULAR HEMOGLOBIN CONC (BEAKER) (test 33.4 GM/DL 32.0-36.0 wpsz=886) RED CELL DISTRIBUTION WIDTH (BEAKER) (test 17.1 % 10.3-14.2 axmh=824) PLATELET COUNT (BEAKER) (test pcyy=603) 395 K/CU MM 150-430 MEAN PLATELET VOLUME (BEAKER) (test wqle=696) 9.4 fL 6.5-10.5 NUCLEATED RED BLOOD CELLS (BEAKER) (test 0 /100 WBC 0-0 csqi=634) POCT-GLUCOSE [id number] 12:13:00 Test Item Value Reference Range Comments POC-GLUCOSE METER (BEAKER) 182 mg/dL 70-110 TESTED AT [address] (test fqzz=1349) [facility] [address] POCT-GLUCOSE [id number] 07:46:00 Test Item Value Reference Range Comments POC-GLUCOSE METER (BEAKER) 96 mg/dL 70-110 TESTED AT [address] (test jujm=6118) [facility] [address] CBC W/PLT COUNT & AUTO [id number] 07:02:00 Test Item Value Reference Range Comments WHITE BLOOD CELL COUNT (BEAKER) (test qopy=111) 15.2 K/ L 4.0-10.0 RED BLOOD CELL COUNT (BEAKER) (test njjg=015) 2.37 M/ L 4.00-5.00 HEMOGLOBIN (BEAKER) (test mftl=900) 8.3 GM/DL 12.0-15.0 HEMATOCRIT (BEAKER) (test fqao=899) 24.7 % 36.0-45.0 MEAN CORPUSCULAR VOLUME (BEAKER) (test drfl=985) 104.0 fL 82.0-99.0 MEAN CORPUSCULAR HEMOGLOBIN (BEAKER) (test 34.9 pg 27.0-33.0 hwbc=111) MEAN CORPUSCULAR HEMOGLOBIN CONC (BEAKER) (test 33.4 GM/DL 32.0-36.0 bnyp=244) RED CELL DISTRIBUTION WIDTH (BEAKER) (test 16.0 % 10.3-14.2 fqay=738) PLATELET COUNT (BEAKER) (test sfxn=306) 317 K/CU MM 150-430 MEAN PLATELET VOLUME (BEAKER) (test zzwv=831) 9.6 fL 6.5-10.5 NUCLEATED RED BLOOD CELLS (BEAKER) (test 0 /100 WBC 0-0 vgqm=679) NEUTROPHILS RELATIVE PERCENT (BEAKER) (test 82 % ykwp=077) LYMPHOCYTES RELATIVE PERCENT (BEAKER) (test 11 % ultu=581) MONOCYTES RELATIVE PERCENT (BEAKER) (test 7 % ylui=421) EOSINOPHILS RELATIVE PERCENT (BEAKER) (test 0 % rjlm=531) BASOPHILS RELATIVE PERCENT (BEAKER) (test 0 % uyul=864) NEUTROPHILS ABSOLUTE COUNT (BEAKER) (test 12.50 K/ L 1.80-8.00 choe=954) LYMPHOCYTES ABSOLUTE COUNT (BEAKER) (test 1.60 K/ L 1.48-4.50 oqvp=254) MONOCYTES ABSOLUTE COUNT (BEAKER) (test 1.00 K/ L 0.00-1.30 werj=201) EOSINOPHILS ABSOLUTE COUNT (BEAKER) (test 0.05 K/ L 0.00-0.50 pbcx=853) BASOPHILS ABSOLUTE COUNT (BEAKER) (test 0.02 K/ L 0.00-0.20 gdal=298) 0.000.650.000.000.700.000.000.000.000.000.000.620.000.000.720.000.000.000.00( MANUAL DIFFERENTIAL)2016-12-31 07:02:00 Test Item Value Reference Range Comments TOTAL COUNTED (BEAKER) (test tuuv=1137) WBC MORPHOLOGY (BEAKER) (test vgsk=470) Normal PLT MORPHOLOGY (BEAKER) (test lbtg=231) Normal ANISOCYTOSIS (BEAKER) (test ckex=701) 2+ moderate POIKILOCYTES (BEAKER) (test zopr=906) 2+ moderate POLYCHROMATOPHILLIC RBCS(BEAKER) (test uvoc=175) 1+ few TARGET CELLS (BEAKER) (test vsbm=061) 2+ moderate [id number] 06:36:00 Test Item Value Reference Range Comments PARTIAL THROMBOPLASTIN TIME (BEAKER) (test 71.5 seconds 22.5-36.0 xkgo=245) BLOOD GAS, [id number] 06:32:00 Test Item Value Reference Range Comments PH ARTERIAL (BEAKER) (test ezmv=010) 7.49 7.35-7.45 PCO2 ARTERIAL (BEAKER) (test kmdm=929) 52 mmHg 35-45 PO2 ARTERIAL (BEAKER) (test cnju=553) 77 mmHg 80-90 O2 SATURATION ARTERIAL (BEAKER) (test ghgj=144) 96.2 % 96.0-97.0 HCO3 ARTERIAL (BEAKER) (test myni=180) 39 mmol/L 21-29 BASE EXCESS ARTERIAL (BEAKER) (test vlxh=069) 13.6 mmol/L -2.0-3.0 PATIENT TEMPERATURE (BEAKER) (test qpvp=3138) 36.6 C FIO2 (BEAKER) (test xhjo=1780) 65.0 % BASIC METABOLIC [id number] 03:54:00 Test Item Value Reference Range Comments SODIUM (BEAKER) (test 136 meq/L 136-145 bwyh=907) POTASSIUM (BEAKER) (test 3.2 meq/L 3.5-5.1 Specimen slightly rlsb=452) hemolyzed CHLORIDE (BEAKER) (test 92 meq/L 98-107 clpg=583) CO2 (BEAKER) (test 29 meq/L 22-29 jneo=802) BLOOD UREA NITROGEN 16 mg/dL 7-21 (BEAKER) (test hmkb=948) CREATININE (BEAKER) (test 0.79 mg/dL 0.57-1.25 Specimen slightly ifsu=527) hemolyzed GLUCOSE RANDOM (BEAKER) 155 mg/dL 70-105 (test ulbc=456) CALCIUM (BEAKER) (test 9.1 mg/dL 8.4-10.2 fzgs=023) EGFR (BEAKER) (test 75 mL/min/1.73 sq m ESTIMATED GFR IS NOT ikhj=4499) ACCURATE CREATININE CLEARANCE IN PREDICTING GLOMERULAR FILTRATION RATE. ESTIMATED GFR IS NOT APPLICABLE FOR DIALYSIS PATIENTS. PHENYTOIN LEVEL, [id number] 03:49:00 Test Item Value Reference Range Comments PHENYTOIN (DILANTIN) (BEAKER) (test hslc=754) 8.1 ug/mL 10.0-20.0 [id number] 03:39:00 Test Item Value Reference Range Comments MAGNESIUM (BEAKER) (test 1.7 mg/dL 1.6-2.6 Specimen slightly hemolyzed wgpu=208) [id number] 03:39:00 Test Item Value Reference Range Comments PHOSPHORUS (BEAKER) (test 3.6 mg/dL 2.3-4.7 Specimen slightly hemolyzed xanr=768) HEPATIC FUNCTION [id number] 03:39:00 Test Item Value Reference Range Comments TOTAL PROTEIN (BEAKER) (test 6.1 gm/dL 6.0-8.3 Specimen slightly hemolyzed uimg=951) ALBUMIN (BEAKER) (test 2.8 g/dL 3.5-5.0 Specimen slightly hemolyzed qxxp=7828) BILIRUBIN TOTAL (BEAKER) (test 0.5 mg/dL 0.2-1.2 Specimen slightly hemolyzed hoor=019) BILIRUBIN DIRECT (BEAKER) (test 0.2 mg/dL 0.1-0.5 Specimen slightly hemolyzed yanw=120) ALKALINE PHOSPHATASE (BEAKER) 265 U/L 40-150 (test vmhg=793) AST (SGOT) (BEAKER) (test 60 U/L 5-34 Specimen slightly hemolyzed iccs=701) ALT (SGPT) (BEAKER) (test 34 U/L 6-55 Specimen slightly hemolyzed vpkm=859) POCT-GLUCOSE [id number] 22:14:00 Test Item Value Reference Range Comments POC-GLUCOSE METER (BEAKER) 241 mg/dL 70-110 TESTED AT [address] (test icdd=7930) [place] [address] POCT-GLUCOSE [id number] 18:24:00 Test Item Value Reference Range Comments POC-GLUCOSE METER (BEAKER) 156 mg/dL 70-110 TESTED AT [address] (test vuwy=9228) [place] [address] [id number] 17:15:00 Test Item Value Reference Range Comments SODIUM (BEAKER) (test jedm=845) 141 meq/L 136-145 [id number] 14:49:00 Test Item Value Reference Range Comments LIPASE (BEAKER) (test bmmz=607) 204 U/L 8-78 [id number] 14:49:00 Test Item Value Reference Range Comments AMYLASE (BEAKER) (test mrbx=111) 127 U/L 25-125 Specimen markedly hemolyzed HEPATIC FUNCTION [id number] 14:49:00 Test Item Value Reference Range Comments TOTAL PROTEIN (BEAKER) (test 7.0 gm/dL 6.0-8.3 Specimen markedly hemolyzed xxlp=681) ALBUMIN (BEAKER) (test 2.5 g/dL 3.5-5.0 Specimen markedly hemolyzed gana=4761) BILIRUBIN TOTAL (BEAKER) (test 0.4 mg/dL 0.2-1.2 Specimen markedly hemolyzed kfnx=348) BILIRUBIN DIRECT (BEAKER) (test 0.1 mg/dL 0.1-0.5 Specimen markedly hemolyzed xkhy=068) ALKALINE PHOSPHATASE (BEAKER) 251 U/L 40-150 (test rxed=933) AST (SGOT) (BEAKER) (test 76 U/L 5-34 Specimen markedly hemolyzed prci=878) ALT (SGPT) (BEAKER) (test 32 U/L 6-55 Specimen markedly hemolyzed vhhx=660) LACTIC ACID, VENOUS, WHOLE [id number] 14:46:00 Test Item Value Reference Range Comments LACTATE BLOOD VENOUS (2) 1.5 mmol/L 0.5-2.2 Specimen markedly hemolyzed (BEAKER) (test ghlg=1819) Effective 03/05/2016: Units/Reference Range ChangeNew: 0.5-2.2 mmol/L Previous: 5 -20 mg/dLPOCT-GLUCOSE [id number] 11:40:00 Test Item Value Reference Range Comments POC-GLUCOSE METER (BEAKER) 192 mg/dL 70-[address] [facility] [address] [facility] (test ybus=3694) [facility] [address] BLOOD GAS, [id number] 10:05:00 Test Item Value Reference Range Comments PH ARTERIAL (BEAKER) (test atgp=496) 7.47 7.35-7.45 PCO2 ARTERIAL (BEAKER) (test kkxd=134) 50 mmHg 35-45 PO2 ARTERIAL (BEAKER) (test tdaw=326) 51 mmHg 80-90 O2 SATURATION ARTERIAL (BEAKER) (test rvnc=915) 87.8 % 96.0-97.0 HCO3 ARTERIAL (BEAKER) (test yopo=738) 35 mmol/L 21-29 BASE EXCESS ARTERIAL (BEAKER) (test isxv=809) 10.6 mmol/L -2.0-3.0 PATIENT TEMPERATURE (BEAKER) (test jzll=3987) 37.0 C FIO2 (BEAKER) (test kteg=2230) 70.0 % [id number] 09:59:00 Test Item Value Reference Range Comments MAGNESIUM (BEAKER) (test 3.2 mg/dL 1.6-2.6 Specimen markedly hemolyzed dpvv=875) Check Serum Potassium level 2 hours after oral potassium replacement completed or 30 min after intravenous potassium replacement.[id number] 09:59:00 Test Item Value Reference Range Comments POTASSIUM (BEAKER) (test 5.5 meq/L 3.5-5.1 Specimen markedly hemolyzed aeih=757) Check Serum Potassium level 2 hours after oral potassium replacement completed or 30 min after intravenous potassium replacement.[id number] 09:47:00 Test Item Value Reference Range Comments PARTIAL THROMBOPLASTIN TIME (BEAKER) (test 84.9 seconds 22.5-36.0 bgnv=060) (MANUAL DIFFERENTIAL)2016-12-30 08:13:00 Test Item Value Reference Range Comments NEUTROPHILS - REL (DIFF) (BEAKER) (test 70 % poyp=6127) LYMPHOCYTES - REL (DIFF) (BEAKER) (test 7 % sppv=0304) MONOCYTES - REL (DIFF) (BEAKER) (test kymx=5697) 6 % BANDS - REL (DIFF) (BEAKER) (test zjnl=3321) 17 % 0-10 NEUTROPHILS - ABS (DIFF) (BEAKER) (test 10.57 K/ L 1.80-8.00 gkxv=7650) LYMPHOCYTES - ABS (DIFF) (BEAKER) (test 1.06 K/ L 1.48-4.50 ckei=6220) MONOCYTES - ABS (DIFF) (BEAKER) (test zllt=3059) 0.91 K/ L 0.00-1.30 BANDS-ABS (DIFF) (BEAKER) (test ofja=7513) 2.6 K/ L 0.0-0.8 TOTAL COUNTED (BEAKER) (test jzoi=5992) 100 BANDS + SEGMENTED NEUTROPHILS (BEAKER) (test 13.14 mzui=6288) WBC MORPHOLOGY (BEAKER) (test smqq=655) Normal PLT MORPHOLOGY (BEAKER) (test fbyj=251) Normal TOXIC GRANULATION (BEAKER) (test ydlt=058) Slight POIKILOCYTES (BEAKER) (test cgmv=891) 2+ moderate POLYCHROMATOPHILLIC RBCS(BEAKER) (test dpty=827) 1+ few TARGET CELLS (BEAKER) (test kllj=833) 2+ moderate PHENYTOIN LEVEL, [id number] 05:06:00 Test Item Value Reference Range Comments PHENYTOIN (DILANTIN) (BEAKER) (test rfbl=366) 10.2 ug/mL 10.0-20.0 [id number] 03:36:00 Test Item Value Reference Range Comments PHOSPHORUS (BEAKER) (test wuwf=874) 5.5 mg/dL 2.3-4.7 [id number] 03:36:00 Test Item Value Reference Range Comments MAGNESIUM (BEAKER) (test mtcr=926) 1.5 mg/dL 1.6-2.6 BASIC METABOLIC [id number] 03:36:00 Test Item Value Reference Range Comments SODIUM (BEAKER) (test 137 meq/L 136-145 ssrk=382) POTASSIUM (BEAKER) (test 3.6 meq/L 3.5-5.1 keul=375) CHLORIDE (BEAKER) (test 94 meq/L 98-107 frmd=462) CO2 (BEAKER) (test 30 meq/L 22-29 bvdm=204) BLOOD UREA NITROGEN 16 mg/dL 7-21 (BEAKER) (test selw=772) CREATININE (BEAKER) (test 0.92 mg/dL 0.57-1.25 kehv=722) GLUCOSE RANDOM (BEAKER) 151 mg/dL 70-105 (test wqqe=308) CALCIUM (BEAKER) (test 8.9 mg/dL 8.4-10.2 egok=202) EGFR (BEAKER) (test 63 mL/min/1.73 sq m ESTIMATED GFR IS NOT ciht=8020) ACCURATE CREATININE CLEARANCE IN PREDICTING GLOMERULAR FILTRATION RATE. ESTIMATED GFR IS NOT APPLICABLE FOR DIALYSIS PATIENTS. [id number] 03:31:00 Test Item Value Reference Range Comments PARTIAL THROMBOPLASTIN TIME (BEAKER) (test 96.7 seconds 22.5-36.0 gjhd=087) CBC W/PLT COUNT & AUTO [id number] 03:30:00 Test Item Value Reference Range Comments WHITE BLOOD CELL COUNT (BEAKER) (test eugs=282) 15.1 K/ L 4.0-10.0 RED BLOOD CELL COUNT (BEAKER) (test rbys=693) 2.33 M/ L 4.00-5.00 HEMOGLOBIN (BEAKER) (test rhfo=460) 8.0 GM/DL 12.0-15.0 HEMATOCRIT (BEAKER) (test uecm=631) 24.2 % 36.0-45.0 MEAN CORPUSCULAR VOLUME (BEAKER) (test uixx=248) 104.0 fL 82.0-99.0 MEAN CORPUSCULAR HEMOGLOBIN (BEAKER) (test 34.3 pg 27.0-33.0 qoob=487) MEAN CORPUSCULAR HEMOGLOBIN CONC (BEAKER) (test 33.1 GM/DL 32.0-36.0 aybh=060) RED CELL DISTRIBUTION WIDTH (BEAKER) (test 16.6 % 10.3-14.2 dhql=866) PLATELET COUNT (BEAKER) (test tldy=187) 287 K/CU MM 150-430 MEAN PLATELET VOLUME (BEAKER) (test pofu=654) 9.5 fL 6.5-10.5 NUCLEATED RED BLOOD CELLS (BEAKER) (test 0 /100 WBC 0-0 ewmh=442) 0.000.560.000.000.630.000.000.000.00VANCOMYCIN LEVEL, [id number] 20:44:00 Test Item Value Reference Range Comments VANCOMYCIN TROUGH (BEAKER) (test mdwh=116) 33.5 ug/mL 10.0-20.0 Wait for result before giving dose. HOLD vancomycin if trough >[id number] 20:30:00 Test Item Value Reference Range Comments PARTIAL THROMBOPLASTIN TIME (BEAKER) (test 65.1 seconds 22.5-36.0 tnec=026) [id number] 14:10:00 Test Item Value Reference Range Comments PROTIME (BEAKER) (test rwmv=352) 14.0 seconds 11.7-14.7 INR (BEAKER) (test qpvj=558) 1.1 <=5.9 PARTIAL THROMBOPLASTIN TIME (BEAKER) (test 98.6 seconds 22.5-36.0 ctio=653) RECOMMENDED COUMADIN/WARFARIN INR THERAPY RANGESSTANDARD DOSE: 2.0 - 3.0 Includes: PROPHYLAXIS forvenous thrombosis, systemic embolization; TREATMENT for venous thrombosis and/or pulmonary embolus.HIGH RISK: Target INR is 2.5-3.5 for patients with mechanical heart valves.URINE [id number] 12:19:00 Test Item Value Reference Range Comments CULTURE (BEAKER) (test 10-19,000 col/mL Patrizia vhbc=0919) albicans <10,000 col/mL Gram Negative RodCBC W/PLT COUNT & AUTO [id number] 07:11:00 Test Item Value Reference Range Comments WHITE BLOOD CELL COUNT (BEAKER) (test qvqk=038) 16.1 K/ L 4.0-10.0 RED BLOOD CELL COUNT (BEAKER) (test qqid=753) 2.41 M/ L 4.00-5.00 HEMOGLOBIN (BEAKER) (test imch=095) 8.7 GM/DL 12.0-15.0 HEMATOCRIT (BEAKER) (test dfss=095) 25.6 % 36.0-45.0 MEAN CORPUSCULAR VOLUME (BEAKER) (test meki=949) 106.0 fL 82.0-99.0 MEAN CORPUSCULAR HEMOGLOBIN (BEAKER) (test 36.2 pg 27.0-33.0 zefr=463) MEAN CORPUSCULAR HEMOGLOBIN CONC (BEAKER) (test 34.2 GM/DL 32.0-36.0 hpjy=596) RED CELL DISTRIBUTION WIDTH (BEAKER) (test 16.1 % 10.3-14.2 iahq=117) PLATELET COUNT (BEAKER) (test zthy=103) 286 K/CU MM 150-430 MEAN PLATELET VOLUME (BEAKER) (test amzt=334) 9.3 fL 6.5-10.5 NUCLEATED RED BLOOD CELLS (BEAKER) (test 0 /100 WBC 0-0 qlsg=387) NEUTROPHILS RELATIVE PERCENT (BEAKER) (test 76 % dozj=528) LYMPHOCYTES RELATIVE PERCENT (BEAKER) (test 10 % ciqv=093) MONOCYTES RELATIVE PERCENT (BEAKER) (test 11 % rhnb=911) EOSINOPHILS RELATIVE PERCENT (BEAKER) (test 3 % ucsl=678) BASOPHILS RELATIVE PERCENT (BEAKER) (test 0 % ttss=533) NEUTROPHILS ABSOLUTE COUNT (BEAKER) (test 12.20 K/ L 1.80-8.00 gnlm=557) LYMPHOCYTES ABSOLUTE COUNT (BEAKER) (test 1.64 K/ L 1.48-4.50 vytp=862) MONOCYTES ABSOLUTE COUNT (BEAKER) (test 1.77 K/ L 0.00-1.30 skuy=048) EOSINOPHILS ABSOLUTE COUNT (BEAKER) (test 0.47 K/ L 0.00-0.50 vwkx=431) BASOPHILS ABSOLUTE COUNT (BEAKER) (test 0.05 K/ L 0.00-0.20 vljv=122) 0.000.500.000.000.540.000.000.000.00(MANUAL DIFFERENTIAL)2016-12-29 07:11:00 Test Item Value Reference Range Comments TOTAL COUNTED (BEAKER) (test xxoh=3044) WBC MORPHOLOGY (BEAKER) (test mjmw=600) Normal PLT MORPHOLOGY (BEAKER) (test oacg=850) Normal POIKILOCYTES (BEAKER) (test curc=675) 1+ few POLYCHROMATOPHILLIC RBCS(BEAKER) (test sxvn=131) 1+ few TARGET CELLS (BEAKER) (test fzqa=355) 1+ few [id number] 06:37:00 Test Item Value Reference Range Comments PARTIAL THROMBOPLASTIN TIME (BEAKER) (test 80.8 seconds 22.5-36.0 nnbj=715) PHENYTOIN LEVEL, [id number] 05:47:00 Test Item Value Reference Range Comments PHENYTOIN (DILANTIN) (BEAKER) (test fego=684) 13.3 ug/mL 10.0-20.0 [id number] 04:00:00 Test Item Value Reference Range Comments PHOSPHORUS (BEAKER) (test zpqy=201) 4.3 mg/dL 2.3-4.7 [id number] 04:00:00 Test Item Value Reference Range Comments MAGNESIUM (BEAKER) (test ymyb=890) 1.7 mg/dL 1.6-2.6 BASIC METABOLIC [id number] 04:00:00 Test Item Value Reference Range Comments SODIUM (BEAKER) (test 140 meq/L 136-145 ihuf=515) POTASSIUM (BEAKER) (test 3.8 meq/L 3.5-5.1 jioo=116) CHLORIDE (BEAKER) (test 98 meq/L 98-107 dzot=195) CO2 (BEAKER) (test 30 meq/L 22-29 jlaj=831) BLOOD UREA NITROGEN 13 mg/dL 7-21 (BEAKER) (test xdme=458) CREATININE (BEAKER) (test 0.90 mg/dL 0.57-1.25 qjig=599) GLUCOSE RANDOM (BEAKER) 134 mg/dL 70-105 (test jxhn=487) CALCIUM (BEAKER) (test 8.9 mg/dL 8.4-10.2 msjv=461) EGFR (BEAKER) (test 65 mL/min/1.73 sq m ESTIMATED GFR IS NOT yfzz=8749) ACCURATE CREATININE CLEARANCE IN PREDICTING GLOMERULAR FILTRATION RATE. ESTIMATED GFR IS NOT APPLICABLE FOR DIALYSIS PATIENTS. [id number] 03:59:00 Test Item Value Reference Range Comments PARTIAL THROMBOPLASTIN TIME (BEAKER) (test 178.1 seconds 22.5-36.0 zoic=482) [id number] 20:15:00 Test Item Value Reference Range Comments POTASSIUM (BEAKER) (test ljkv=047) 3.9 meq/L 3.5-5.1 8 hours after PO replacement [id number] 19:59:00 Test Item Value Reference Range Comments PARTIAL THROMBOPLASTIN TIME (BEAKER) (test 45.5 seconds 22.5-36.0 htxd=008) Prior to initiating heparinCBC (HEMOGRAM ONLY)2016-12-28 19:51:00 Test Item Value Reference Range Comments WHITE BLOOD CELL COUNT (BEAKER) (test oesi=438) 15.1 K/ L 4.0-10.0 RED BLOOD CELL COUNT (BEAKER) (test nkvu=176) 2.49 M/ L 4.00-5.00 HEMOGLOBIN (BEAKER) (test sipm=923) 8.8 GM/DL 12.0-15.0 HEMATOCRIT (BEAKER) (test tatk=000) 26.0 % 36.0-45.0 MEAN CORPUSCULAR VOLUME (BEAKER) (test yvvz=855) 104.0 fL 82.0-99.0 MEAN CORPUSCULAR HEMOGLOBIN (BEAKER) (test 35.5 pg 27.0-33.0 ehpb=521) MEAN CORPUSCULAR HEMOGLOBIN CONC (BEAKER) (test 34.1 GM/DL 32.0-36.0 pmmr=505) RED CELL DISTRIBUTION WIDTH (BEAKER) (test 16.6 % 10.3-14.2 cfki=175) PLATELET COUNT (BEAKER) (test ovmm=407) 287 K/CU MM 150-430 MEAN PLATELET VOLUME (BEAKER) (test uynv=266) 9.2 fL 6.5-10.5 NUCLEATED RED BLOOD CELLS (BEAKER) (test 0 /100 WBC 0-0 dbkp=931) [id number] 16:15:00 Test Item Value Reference Range Comments MAGNESIUM (BEAKER) (test 2.9 mg/dL 1.6-2.6 Specimen markedly hemolyzed laya=400) Check Serum Phosphorus level 4 hours after IV phosphorus replacement or 8 hours after PO replacementcompleted.8 hours after PO replacement [id number] 16:15:00 Test Item Value Reference Range Comments PHOSPHORUS (BEAKER) (test 4.0 mg/dL 2.3-4.7 Specimen markedly hemolyzed zycw=265) Check Serum Phosphorus level 4 hours after IV phosphorus replacement or 8 hours after PO replacementcompleted.8 hours after PO replacement [id number]- 02-26 16:15:00 Test Item Value Reference Range Comments SODIUM (BEAKER) (test gyad=326) 133 meq/L 136-145 Check Serum Phosphorus level 4 hours after IV phosphorus replacement or 8 hours after PO replacementcompleted.8 hours after PO replacement completedCBC W/PLT COUNT & AUTO [id number] 08:05:00 Test Item Value Reference Range Comments WHITE BLOOD CELL COUNT (BEAKER) (test yzeu=852) 13.5 K/ L 4.0-10.0 RED BLOOD CELL COUNT (BEAKER) (test axeb=226) 2.53 M/ L 4.00-5.00 HEMOGLOBIN (BEAKER) (test ouyy=866) 9.0 GM/DL 12.0-15.0 HEMATOCRIT (BEAKER) (test thng=113) 26.3 % 36.0-45.0 MEAN CORPUSCULAR VOLUME (BEAKER) (test zzie=093) 104.0 fL 82.0-99.0 MEAN CORPUSCULAR HEMOGLOBIN (BEAKER) (test 35.5 pg 27.0-33.0 lyim=646) MEAN CORPUSCULAR HEMOGLOBIN CONC (BEAKER) (test 34.1 GM/DL 32.0-36.0 imdy=520) RED CELL DISTRIBUTION WIDTH (BEAKER) (test 16.2 % 10.3-14.2 flou=293) PLATELET COUNT (BEAKER) (test ceef=645) 273 K/CU MM 150-430 MEAN PLATELET VOLUME (BEAKER) (test segy=122) 9.2 fL 6.5-10.5 NUCLEATED RED BLOOD CELLS (BEAKER) (test 0 /100 WBC 0-0 fggu=956) 0.000.520.000.000.520.000.000.000.00(MANUAL DIFFERENTIAL)2016-12-28 08:05:00 Test Item Value Reference Range Comments NEUTROPHILS - REL (DIFF) (BEAKER) (test 68 % aqhj=9904) LYMPHOCYTES - REL (DIFF) (BEAKER) (test 5 % ovsr=7853) MONOCYTES - REL (DIFF) (BEAKER) (test nnzz=1902) 10 % EOSINOPHILS - REL (DIFF) (BEAKER) (test 3 % raot=1129) BANDS - REL (DIFF) (BEAKER) (test vmuy=5257) 14 % 0-10 NEUTROPHILS - ABS (DIFF) (BEAKER) (test 9.18 K/ L 1.80-8.00 rfzz=7664) LYMPHOCYTES - ABS (DIFF) (BEAKER) (test 0.68 K/ L 1.48-4.50 qxee=2381) MONOCYTES - ABS (DIFF) (BEAKER) (test zeab=0641) 1.35 K/ L 0.00-1.30 EOSINOPHILS - ABS (DIFF) (BEAKER) (test 0.41 K/ L 0.00-0.50 wdfy=1465) BANDS-ABS (DIFF) (BEAKER) (test dvww=9849) 1.9 K/ L 0.0-0.8 TOTAL COUNTED (BEAKER) (test qhid=9037) 100 BANDS + SEGMENTED NEUTROPHILS (BEAKER) (test 11.07 bebt=2218) WBC MORPHOLOGY (BEAKER) (test zrpv=006) Normal PLT MORPHOLOGY (BEAKER) (test fdvk=048) Normal MACROCYTES (BEAKER) (test mhxz=250) 1+ few TARGET CELLS (BEAKER) (test imqp=301) 2+ moderate PHENYTOIN LEVEL, [id number] 04:16:00 Test Item Value Reference Range Comments PHENYTOIN (DILANTIN) (BEAKER) (test guye=982) 18.3 ug/mL 10.0-20.0 [id number] 04:11:00 Test Item Value Reference Range Comments PHOSPHORUS (BEAKER) (test icju=179) 2.1 mg/dL 2.3-4.7 [id number] 04:11:00 Test Item Value Reference Range Comments MAGNESIUM (BEAKER) (test hscz=972) 1.6 mg/dL 1.6-2.6 BASIC METABOLIC [id number] 04:11:00 Test Item Value Reference Range Comments SODIUM (BEAKER) (test 137 meq/L 136-145 rvvc=428) POTASSIUM (BEAKER) (test 3.3 meq/L 3.5-5.1 zbho=344) CHLORIDE (BEAKER) (test 95 meq/L 98-107 bluk=823) CO2 (BEAKER) (test 30 meq/L 22-29 tqic=657) BLOOD UREA NITROGEN 11 mg/dL 7-21 (BEAKER) (test uesy=866) CREATININE (BEAKER) (test 0.82 mg/dL 0.57-1.25 werj=710) GLUCOSE RANDOM (BEAKER) 123 mg/dL 70-105 (test khti=945) CALCIUM (BEAKER) (test 8.8 mg/dL 8.4-10.2 fpty=407) EGFR (BEAKER) (test 72 mL/min/1.73 sq m ESTIMATED GFR IS NOT oyph=1877) ACCURATE CREATININE CLEARANCE IN PREDICTING GLOMERULAR FILTRATION RATE. ESTIMATED GFR IS NOT APPLICABLE FOR DIALYSIS PATIENTS. URINALYSIS W/ [id number] 00:01:00 Test Item Value Reference Range Comments COLOR (BEAKER) (test skbp=141) Yellow CLARITY (BEAKER) (test eynb=214) Clear SPECIFIC GRAVITY UA (BEAKER) (test 1.007 1.001-1.035 wgox=987) PH UA (BEAKER) (test inta=611) 7.0 5.0-8.0 PROTEIN UA (BEAKER) (test acux=831) 20 mg/dL Negative GLUCOSE UA (BEAKER) (test pkog=555) 70 mg/dL Negative KETONES UA (BEAKER) (test lbvw=466) Negative Negative BILIRUBIN UA (BEAKER) (test rqsg=843) Negative Negative BLOOD UA (BEAKER) (test aiio=559) Small Negative NITRITE UA (BEAKER) (test gnjo=941) Negative Negative LEUKOCYTE ESTERASE UA (BEAKER) (test Negative Negative kqms=571) UROBILINOGEN UA (BEAKER) (test jvfr=986) 0.2 mg/dL 0.2-1.0 RBC UA (BEAKER) (test pgnj=957) 0 /HPF WBC UA (BEAKER) (test lnoh=814) 1 /HPF SQUAMOUS EPITHELIAL (BEAKER) (test < /HPF omeg=978) HYALINE CASTS (BEAKER) (test zhqe=329) 5 /LPF GRANULAR CASTS (BEAKER) (test bknw=142) 5 /LPF AMORPHOUS CRYSTALS (BEAKER) (test Occasional tdbe=6666) SOURCE(BEAKER) (test sqwh=5638) Urine, Clean Catch SPUTUM CULTURE + GRAM [id number] 23:51:00 Test Item Value Reference Range Comments CULTURE (BEAKER) (test 1+ Normal respiratory jessica ccvv=5952) present GRAM STAIN RESULT (BEAKER) 3+ WBCs (test uzyp=8446) GRAM STAIN RESULT (BEAKER) 0-5 epithelial cells (test rtsf=66590) GRAM STAIN RESULT (BEAKER) <1+ gram positive cocci in pairs (test kqbc=22067) POCT-GLUCOSE [id number] 23:46:00 Test Item Value Reference Range Comments POC-GLUCOSE METER (BEAKER) 196 mg/dL 70-110 TESTED AT [address] (test jvgd=3665) [facility] [address] BLOOD [id number] 17:00:00 Test Item Value Reference Range Comments CULTURE (BEAKER) (test rysc=8529) No growth in 5 days BLOOD [id number] 17:00:00 Test Item Value Reference Range Comments CULTURE (BEAKER) (test wqoc=8535) No growth in 5 days [id number] 16:05:00 Test Item Value Reference Range Comments MAGNESIUM (BEAKER) (test 2.3 mg/dL 1.6-2.6 Specimen slightly hemolyzed dnjk=458) 8 hours after PO replacement [id number] 16:05:00 Test Item Value Reference Range Comments POTASSIUM (BEAKER) (test 3.7 meq/L 3.5-5.1 Specimen slightly hemolyzed gnkt=115) 8 hours after PO replacement [id number] 16:05:00 Test Item Value Reference Range Comments SODIUM (BEAKER) (test wpqo=824) 138 meq/L 136-145 8 hours after PO replacement completedCBC W/PLT COUNT & AUTO [id number] 12:10:00 Test Item Value Reference Range Comments WHITE BLOOD CELL COUNT (BEAKER) (test jfcv=227) 12.2 K/ L 4.0-10.0 RED BLOOD CELL COUNT (BEAKER) (test ctjn=505) 2.41 M/ L 4.00-5.00 HEMOGLOBIN (BEAKER) (test vtug=808) 8.5 GM/DL 12.0-15.0 HEMATOCRIT (BEAKER) (test arwh=932) 25.6 % 36.0-45.0 MEAN CORPUSCULAR VOLUME (BEAKER) (test ycar=255) 107.0 fL 82.0-99.0 MEAN CORPUSCULAR HEMOGLOBIN (BEAKER) (test 35.3 pg 27.0-33.0 xxcg=781) MEAN CORPUSCULAR HEMOGLOBIN CONC (BEAKER) (test 33.2 GM/DL 32.0-36.0 shzs=083) RED CELL DISTRIBUTION WIDTH (BEAKER) (test 15.7 % 10.3-14.2 vnjb=126) PLATELET COUNT (BEAKER) (test nkdw=084) 220 K/CU MM 150-430 MEAN PLATELET VOLUME (BEAKER) (test kunb=361) 10.0 fL 6.5-10.5 NUCLEATED RED BLOOD CELLS (BEAKER) (test 0 /100 WBC 0-0 rdzh=613) NEUTROPHILS RELATIVE PERCENT (BEAKER) (test 75 % jliu=810) LYMPHOCYTES RELATIVE PERCENT (BEAKER) (test 10 % ttuc=165) MONOCYTES RELATIVE PERCENT (BEAKER) (test 12 % fyec=458) EOSINOPHILS RELATIVE PERCENT (BEAKER) (test 3 % qlbl=265) BASOPHILS RELATIVE PERCENT (BEAKER) (test 0 % xoom=940) NEUTROPHILS ABSOLUTE COUNT (BEAKER) (test 9.15 K/ L 1.80-8.00 impx=372) LYMPHOCYTES ABSOLUTE COUNT (BEAKER) (test 1.17 K/ L 1.48-4.50 jacz=020) MONOCYTES ABSOLUTE COUNT (BEAKER) (test 1.48 K/ L 0.00-1.30 byae=656) EOSINOPHILS ABSOLUTE COUNT (BEAKER) (test 0.35 K/ L 0.00-0.50 ydmc=160) BASOPHILS ABSOLUTE COUNT (BEAKER) (test 0.04 K/ L 0.00-0.20 glnn=405) 0.000.780.000.000.580.000.000.000.00(MANUAL DIFFERENTIAL)2016-12-27 12:10:00 Test Item Value Reference Range Comments TOTAL COUNTED (BEAKER) (test iafu=7008) WBC MORPHOLOGY (BEAKER) (test zlde=847) Normal PLT MORPHOLOGY (BEAKER) (test cams=480) Normal SCHISTOCYTES (BEAKER) (test seyn=055) 1+ few ACANTHOCYTES (BEAKER) (test sdyk=377) 1+ few ANISOCYTOSIS (BEAKER) (test qifh=011) 2+ moderate HYPOCHROMIA (BEAKER) (test opsa=591) 3+ many MACROCYTES (BEAKER) (test iwii=099) 2+ moderate MICROCYTES (BEAKER) (test nzay=766) 1+ few POIKILOCYTES (BEAKER) (test wntv=652) 2+ moderate POLYCHROMATOPHILLIC RBCS(BEAKER) (test lwxe=377) 1+ few TARGET CELLS (BEAKER) (test ojit=704) 2+ moderate HEPATIC FUNCTION [id number] 09:58:00 Test Item Value Reference Range Comments TOTAL PROTEIN (BEAKER) (test 5.3 gm/dL 6.0-8.3 Specimen slightly hemolyzed exdk=990) ALBUMIN (BEAKER) (test 2.6 g/dL 3.5-5.0 Specimen slightly hemolyzed ffki=3784) BILIRUBIN TOTAL (BEAKER) (test 0.9 mg/dL 0.2-1.2 Specimen slightly hemolyzed wets=037) BILIRUBIN DIRECT (BEAKER) (test 0.3 mg/dL 0.1-0.5 Specimen slightly hemolyzed cwau=036) ALKALINE PHOSPHATASE (BEAKER) 151 U/L 40-150 (test iqce=085) AST (SGOT) (BEAKER) (test 51 U/L 5-34 Specimen slightly hemolyzed xbni=016) ALT (SGPT) (BEAKER) (test 26 U/L 6-55 Specimen slightly hemolyzed jcff=812) [id number] 09:55:00 Test Item Value Reference Range Comments AMMONIA (BEAKER) (test aswa=276) 35 mol/L 18-72 POCT-GLUCOSE [id number] 09:07:00 Test Item Value Reference Range Comments POC-GLUCOSE METER (BEAKER) 80 mg/dL 70-[address] [facility] [address] [address] (test bxtw=7371) [facility] [address] [id number] 05:24:00 Test Item Value Reference Range Comments CORTISOL, TOTAL (BEAKER) (test cczx=3504) 19.7 ug/dL 3.7-19.4 [id number] 05:14:00 Test Item Value Reference Range Comments MAGNESIUM (BEAKER) (test 1.8 mg/dL 1.6-2.6 Specimen slightly hemolyzed xssm=718) [id number] 05:14:00 Test Item Value Reference Range Comments PHOSPHORUS (BEAKER) (test 3.0 mg/dL 2.3-4.7 Specimen slightly hemolyzed fhnj=994) BASIC METABOLIC [id number] 05:14:00 Test Item Value Reference Range Comments SODIUM (BEAKER) (test 137 meq/L 136-145 flpj=692) POTASSIUM (BEAKER) (test 3.9 meq/L 3.5-5.1 Specimen slightly wevs=216) hemolyzed CHLORIDE (BEAKER) (test 102 meq/L 98-107 mewl=229) CO2 (BEAKER) (test 24 meq/L 22-29 efli=738) BLOOD UREA NITROGEN 10 mg/dL 7-21 (BEAKER) (test iyhe=892) CREATININE (BEAKER) (test 0.70 mg/dL 0.57-1.25 Specimen slightly bgfw=051) hemolyzed GLUCOSE RANDOM (BEAKER) 68 mg/dL 70-105 (test cley=083) CALCIUM (BEAKER) (test 8.0 mg/dL 8.4-10.2 kzyd=841) EGFR (BEAKER) (test 87 mL/min/1.73 sq m ESTIMATED GFR IS NOT iffp=0494) ACCURATE CREATININE CLEARANCE IN PREDICTING GLOMERULAR FILTRATION RATE. ESTIMATED GFR IS NOT APPLICABLE FOR DIALYSIS PATIENTS. PHENYTOIN LEVEL, [id number] 05:12:00 Test Item Value Reference Range Comments PHENYTOIN (DILANTIN) (BEAKER) (test puom=551) 18.6 ug/mL 10.0-20.0 [id number] 15:07:00 Test Item Value Reference Range Comments MAGNESIUM (BEAKER) (test 1.7 mg/dL 1.6-2.6 Specimen slightly hemolyzed fyto=551) 8 hours after PO replacement [id number] 15:07:00 Test Item Value Reference Range Comments POTASSIUM (BEAKER) (test 4.4 meq/L 3.5-5.1 Specimen slightly hemolyzed tdbd=744) 8 hours after PO replacement [id number] 15:07:00 Test Item Value Reference Range Comments SODIUM (BEAKER) (test aoyh=759) 134 meq/L 136-145 8 hours after PO replacement completedVANCOMYCIN LEVEL, [id number] 09:10: 00 Test Item Value Reference Range Comments VANCOMYCIN TROUGH (BEAKER) (test baym=919) 14.7 ug/mL 10.0-20.0 Wait for result before giving dose. HOLD vancomycin if trough >20CBC W/PLT COUNT & AUTO [id number] 08:20:00 Test Item Value Reference Range Comments WHITE BLOOD CELL COUNT (BEAKER) (test acax=785) 10.3 K/ L 4.0-10.0 RED BLOOD CELL COUNT (BEAKER) (test mjuv=195) 2.65 M/ L 4.00-5.00 HEMOGLOBIN (BEAKER) (test iqzo=486) 9.3 GM/DL 12.0-15.0 HEMATOCRIT (BEAKER) (test spdc=238) 28.5 % 36.0-45.0 MEAN CORPUSCULAR VOLUME (BEAKER) (test pjpf=496) 108.0 fL 82.0-99.0 MEAN CORPUSCULAR HEMOGLOBIN (BEAKER) (test 35.0 pg 27.0-33.0 treg=320) MEAN CORPUSCULAR HEMOGLOBIN CONC (BEAKER) (test 32.5 GM/DL 32.0-36.0 vwbb=364) RED CELL DISTRIBUTION WIDTH (BEAKER) (test 15.7 % 10.3-14.2 rumh=749) PLATELET COUNT (BEAKER) (test jswh=663) 178 K/CU MM 150-430 MEAN PLATELET VOLUME (BEAKER) (test oqdc=307) 9.5 fL 6.5-10.5 NUCLEATED RED BLOOD CELLS (BEAKER) (test 0 /100 WBC 0-0 lcfq=622) 0.000.780.530.000.530.000.000.000.00(MANUAL DIFFERENTIAL)2016-12-26 08:20:00 Test Item Value Reference Range Comments NEUTROPHILS - REL (DIFF) (BEAKER) (test gheb=9072) 46 % LYMPHOCYTES - REL (DIFF) (BEAKER) (test vrow=7119) 10 % MONOCYTES - REL (DIFF) (BEAKER) (test vvrt=5542) 14 % EOSINOPHILS - REL (DIFF) (BEAKER) (test ypdd=3033) 4 % PROMYELOCYTES-REL (DIFF) (BEAKER) (test ltuy=371) 1 % 0-0 BANDS - REL (DIFF) (BEAKER) (test mumy=0568) 25 % 0-10 NEUTROPHILS - ABS (DIFF) (BEAKER) (test mxsj=1499) 4.74 K/ L 1.80-8.00 LYMPHOCYTES - ABS (DIFF) (BEAKER) (test pkvm=7128) 1.03 K/ L 1.48-4.50 MONOCYTES - ABS (DIFF) (BEAKER) (test dejc=6540) 1.44 K/ L 0.00-1.30 EOSINOPHILS - ABS (DIFF) (BEAKER) (test alnw=4099) 0.41 K/ L 0.00-0.50 PROMYELOCYTES - ABS (DIFF) (BEAKER) (test 0.10 K/ L 0.00-0.00 pfvx=754) BANDS-ABS (DIFF) (BEAKER) (test eahr=0878) 2.6 K/ L 0.0-0.8 TOTAL COUNTED (BEAKER) (test eshn=3619) 100 BANDS + SEGMENTED NEUTROPHILS (BEAKER) (test 7.31 dzfs=2981) WBC MORPHOLOGY (BEAKER) (test isqq=465) Normal PLT MORPHOLOGY (BEAKER) (test syux=739) Normal ANISOCYTOSIS (BEAKER) (test ilah=429) 1+ few POIKILOCYTES (BEAKER) (test vbga=561) 1+ few POLYCHROMATOPHILLIC RBCS(BEAKER) (test kxfw=499) 1+ few TARGET CELLS (BEAKER) (test zfib=099) 1+ few BASIC METABOLIC [id number] 05:45:00 Test Item Value Reference Range Comments SODIUM (BEAKER) (test 137 meq/L 136-145 utbs=419) POTASSIUM (BEAKER) (test 3.4 meq/L 3.5-5.1 kbdd=616) CHLORIDE (BEAKER) (test 101 meq/L 98-107 ssex=392) CO2 (BEAKER) (test 25 meq/L 22-29 rzyc=974) BLOOD UREA NITROGEN 7 mg/dL 7-21 (BEAKER) (test qtzo=807) CREATININE (BEAKER) (test 0.72 mg/dL 0.57-1.25 lbfc=781) GLUCOSE RANDOM (BEAKER) 96 mg/dL 70-105 (test hied=020) CALCIUM (BEAKER) (test 7.7 mg/dL 8.4-10.2 sifk=986) EGFR (BEAKER) (test 84 mL/min/1.73 sq m ESTIMATED GFR IS NOT uhbf=3784) ACCURATE CREATININE CLEARANCE IN PREDICTING GLOMERULAR FILTRATION RATE. ESTIMATED GFR IS NOT APPLICABLE FOR DIALYSIS PATIENTS. PHENYTOIN LEVEL, [id number] 05:43:00 Test Item Value Reference Range Comments PHENYTOIN (DILANTIN) (BEAKER) (test fsrm=812) 19.2 ug/mL 10.0-20.0 [id number] 05:31:00 Test Item Value Reference Range Comments PHOSPHORUS (BEAKER) (test pagw=297) 2.7 mg/dL 2.3-4.7 [id number] 05:31:00 Test Item Value Reference Range Comments MAGNESIUM (BEAKER) (test nwew=701) 1.3 mg/dL 1.6-2.6 [id number] 17:26:00 Test Item Value Reference Range Comments POTASSIUM (BEAKER) (test clyc=590) 3.9 meq/L 3.5-5.1 BLOOD GAS, [id number] 15:59:00 Test Item Value Reference Range Comments PH ARTERIAL (BEAKER) (test dnfh=216) 7.44 7.35-7.45 PCO2 ARTERIAL (BEAKER) (test wtmi=091) 39 mmHg 35-45 PO2 ARTERIAL (BEAKER) (test vcys=183) 94 mmHg 80-90 O2 SATURATION ARTERIAL (BEAKER) (test bagm=838) 97.6 % 96.0-97.0 HCO3 ARTERIAL (BEAKER) (test uqte=531) 26 mmol/L 21-29 BASE EXCESS ARTERIAL (BEAKER) (test sqrk=288) 1.9 mmol/L -2.0-3.0 PATIENT TEMPERATURE (BEAKER) (test ugxm=6694) 36.3 C FIO2 (BEAKER) (test vegn=7445) 100.0 % [id number] 15:52:00 Test Item Value Reference Range Comments SODIUM (BEAKER) (test mmwt=346) 134 meq/L 136-145 [id number] 09:17:00 Test Item Value Reference Range Comments POTASSIUM (BEAKER) (test vjjn=491) 3.3 meq/L 3.5-5.1 8 hours after PO replacement [id number] 09:17:00 Test Item Value Reference Range Comments SODIUM (BEAKER) (test inug=907) 137 meq/L 136-145 8 hours after PO replacement completedCBC W/PLT COUNT & AUTO [id number] 07:12:00 Test Item Value Reference Range Comments WHITE BLOOD CELL COUNT (BEAKER) (test pmon=684) 7.1 K/ L 4.0-10.0 RED BLOOD CELL COUNT (BEAKER) (test dbuu=829) 2.63 M/ L 4.00-5.00 HEMOGLOBIN (BEAKER) (test qvgk=941) 9.3 GM/DL 12.0-15.0 HEMATOCRIT (BEAKER) (test dnle=154) 28.1 % 36.0-45.0 MEAN CORPUSCULAR VOLUME (BEAKER) (test qhxl=221) 107.0 fL 82.0-99.0 MEAN CORPUSCULAR HEMOGLOBIN (BEAKER) (test 35.4 pg 27.0-33.0 mhvv=316) MEAN CORPUSCULAR HEMOGLOBIN CONC (BEAKER) (test 33.1 GM/DL 32.0-36.0 zwzp=695) RED CELL DISTRIBUTION WIDTH (BEAKER) (test 15.6 % 10.3-14.2 kboa=562) PLATELET COUNT (BEAKER) (test lhvk=741) 133 K/CU MM 150-430 MEAN PLATELET VOLUME (BEAKER) (test nkzi=472) 10.3 fL 6.5-10.5 NUCLEATED RED BLOOD CELLS (BEAKER) (test 0 /100 WBC 0-0 dgyf=716) NEUTROPHILS RELATIVE PERCENT (BEAKER) (test 76 % qorq=166) LYMPHOCYTES RELATIVE PERCENT (BEAKER) (test 11 % ecbf=936) MONOCYTES RELATIVE PERCENT (BEAKER) (test 12 % hboh=523) EOSINOPHILS RELATIVE PERCENT (BEAKER) (test 2 % hpoq=960) BASOPHILS RELATIVE PERCENT (BEAKER) (test 0 % qres=277) NEUTROPHILS ABSOLUTE COUNT (BEAKER) (test 5.39 K/ L 1.80-8.00 wzxh=776) LYMPHOCYTES ABSOLUTE COUNT (BEAKER) (test 0.76 K/ L 1.48-4.50 svjc=117) MONOCYTES ABSOLUTE COUNT (BEAKER) (test 0.84 K/ L 0.00-1.30 vivb=678) EOSINOPHILS ABSOLUTE COUNT (BEAKER) (test 0.12 K/ L 0.00-0.50 yays=568) BASOPHILS ABSOLUTE COUNT (BEAKER) (test 0.01 K/ L 0.00-0.20 qpyw=965) [id number](MANUAL DIFFERENTIAL)2016-12-25 07:12:00 Test Item Value Reference Range Comments TOTAL COUNTED (BEAKER) (test foss=4376) WBC MORPHOLOGY (BEAKER) (test svhe=903) Normal PLT MORPHOLOGY (BEAKER) (test xjtz=753) Normal POIKILOCYTES (BEAKER) (test yqzi=125) 1+ few POLYCHROMATOPHILLIC RBCS(BEAKER) (test jzyw=657) 1+ few TARGET CELLS (BEAKER) (test juhn=140) 1+ few BLOOD GAS, [id number] 04:34:00 Test Item Value Reference Range Comments PH ARTERIAL (BEAKER) (test effd=957) 7.51 7.35-7.45 PCO2 ARTERIAL (BEAKER) (test hjzh=171) 37 mmHg 35-45 PO2 ARTERIAL (BEAKER) (test doxk=933) 56 mmHg 80-90 O2 SATURATION ARTERIAL (BEAKER) (test ujww=602) 92.1 % 96.0-97.0 HCO3 ARTERIAL (BEAKER) (test rtub=094) 29 mmol/L 21-29 BASE EXCESS ARTERIAL (BEAKER) (test momh=247) 5.7 mmol/L -2.0-3.0 PATIENT TEMPERATURE (BEAKER) (test dppk=0677) 36.9 C FIO2 (BEAKER) (test keki=3542) 100.0 % PHENYTOIN LEVEL, [id number] 04:31:00 Test Item Value Reference Range Comments PHENYTOIN (DILANTIN) (BEAKER) (test psut=670) 15.9 ug/mL 10.0-20.0 BASIC METABOLIC [id number] 04:31:00 Test Item Value Reference Range Comments SODIUM (BEAKER) (test 136 meq/L 136-145 zptw=767) POTASSIUM (BEAKER) (test 3.7 meq/L 3.5-5.1 Specimen slightly iwfv=607) hemolyzed CHLORIDE (BEAKER) (test 105 meq/L 98-107 vwpy=482) CO2 (BEAKER) (test 23 meq/L 22-29 yuuc=666) BLOOD UREA NITROGEN 5 mg/dL 7-21 (BEAKER) (test ztab=250) CREATININE (BEAKER) (test 0.60 mg/dL 0.57-1.25 Specimen slightly zftd=315) hemolyzed GLUCOSE RANDOM (BEAKER) 97 mg/dL 70-105 (test jguu=380) CALCIUM (BEAKER) (test 7.3 mg/dL 8.4-10.2 vver=585) EGFR (BEAKER) (test 103 mL/min/1.73 sq m ESTIMATED GFR IS NOT duju=4417) ACCURATE CREATININE CLEARANCE IN PREDICTING GLOMERULAR FILTRATION RATE. ESTIMATED GFR IS NOT APPLICABLE FOR DIALYSIS PATIENTS. [id number] 04:27:00 Test Item Value Reference Range Comments MAGNESIUM (BEAKER) (test 2.1 mg/dL 1.6-2.6 Specimen slightly hemolyzed wveg=843) [id number] 04:27:00 Test Item Value Reference Range Comments PHOSPHORUS (BEAKER) (test 2.7 mg/dL 2.3-4.7 Specimen slightly hemolyzed virr=937) [id number] 23:59:00 Test Item Value Reference Range Comments MAGNESIUM (BEAKER) (test 2.0 mg/dL 1.6-2.6 Specimen slightly hemolyzed dogs=974) [id number] 23:59:00 Test Item Value Reference Range Comments PHOSPHORUS (BEAKER) (test 2.6 mg/dL 2.3-4.7 Specimen slightly hemolyzed wbls=273) [id number] 23:59:00 Test Item Value Reference Range Comments POTASSIUM (BEAKER) (test 4.9 meq/L 3.5-5.1 Specimen slightly hemolyzed bden=312) [id number] 23:59:00 Test Item Value Reference Range Comments SODIUM (BEAKER) (test lizp=792) 135 meq/L 136-145 HEPATIC FUNCTION [id number] 18:33:00 Test Item Value Reference Range Comments TOTAL PROTEIN (BEAKER) (test aktc=456) 4.8 gm/dL 6.0-8.3 ALBUMIN (BEAKER) (test dtls=6966) 2.7 g/dL 3.5-5.0 BILIRUBIN TOTAL (BEAKER) (test blrz=966) 1.0 mg/dL 0.2-1.2 BILIRUBIN DIRECT (BEAKER) (test wjfg=010) 0.5 mg/dL 0.1-0.5 ALKALINE PHOSPHATASE (BEAKER) (test jtmg=834) 67 U/L 40-150 AST (SGOT) (BEAKER) (test gnac=553) 30 U/L 5-34 ALT (SGPT) (BEAKER) (test cpof=147) 31 U/L 6-55 [id number] 18:33:00 Test Item Value Reference Range Comments AMYLASE (BEAKER) (test vmqb=303) 89 U/L 25-125 [id number] 18:33:00 Test Item Value Reference Range Comments LIPASE (BEAKER) (test whzq=018) 88 U/L 8-78 [id number] 15:44:00 Test Item Value Reference Range Comments SODIUM (BEAKER) (test jqat=499) 134 meq/L 136-145 BLOOD GAS, [id number] 15:32:00 Test Item Value Reference Range Comments PH ARTERIAL (BEAKER) (test qgkf=444) 7.42 7.35-7.45 PCO2 ARTERIAL (BEAKER) (test zwbl=442) 36 mmHg 35-45 PO2 ARTERIAL (BEAKER) (test dotb=763) 48 mmHg 80-90 O2 SATURATION ARTERIAL (BEAKER) (test yopt=777) 85.2 % 96.0-97.0 HCO3 ARTERIAL (BEAKER) (test ajvt=056) 23 mmol/L 21-29 BASE EXCESS ARTERIAL (BEAKER) (test tsct=582) -1.6 mmol/L -2.0-3.0 PATIENT TEMPERATURE (BEAKER) (test gnst=3509) 36.7 C FIO2 (BEAKER) (test jjdu=3130) 44.0 % URINE [id number] 15:15:00 Test Item Value Reference Range Comments CULTURE (BEAKER) (test ESCHERICHIA COLI 80-89,000 col/mL npcd=2744) Escherichia coli Amikacin (test code=1) Ampicillin + Sulbactam (test code=6) Aztreonam (test code=32) Cefepime (test code=51) Cefoxitin (test code=68) Ceftazidime (test code=27) Ceftriaxone (test code=52) Ertapenem (test code=38) Gentamicin (test code=18) Levofloxacin (test code=22) Meropenem (test code=34) Nitrofurantoin (test code=23) Piperacillin + Tazobactam (test code=29) Tetracycline (test code=2) Tobramycin (test code=25) Trimethoprim + Sulfamethoxazole (test code=47) LACTIC ACID, ARTERIAL, WHOLE [id number] 13:51:00 Test Item Value Reference Range Comments LACTATE BLOOD ARTERIAL (2) (BEAKER) (test 1.8 mmol/L 0.5-2.2 tzln=5849) Effective 03/05/2016: Units/Reference Range ChangeNew: 0.5-2.2 mmol/L Previous: 5 -20 mg/dLBLOOD GAS, [id number] 13:30:00 Test Item Value Reference Range Comments PH ARTERIAL (BEAKER) (test tauy=220) 7.43 7.35-7.45 PCO2 ARTERIAL (BEAKER) (test znfz=615) 35 mmHg 35-45 PO2 ARTERIAL (BEAKER) (test qijg=421) 48 mmHg 80-90 O2 SATURATION ARTERIAL (BEAKER) (test engw=886) 85.3 % 96.0-97.0 HCO3 ARTERIAL (BEAKER) (test ufyl=395) 22 mmol/L 21-29 BASE EXCESS ARTERIAL (BEAKER) (test zbqs=397) -1.7 mmol/L -2.0-3.0 PATIENT TEMPERATURE (BEAKER) (test wuwf=8233) 37.0 C FIO2 (BEAKER) (test gwdp=1973) 36.0 % [id number] 12:00:00 Test Item Value Reference Range Comments POTASSIUM (BEAKER) (test qnbw=140) 4.2 meq/L 3.5-5.1 [id number] 12:00:00 Test Item Value Reference Range Comments MAGNESIUM (BEAKER) (test mfoe=800) 2.1 mg/dL 1.6-2.6 [id number] 08:58:00 Test Item Value Reference Range Comments SODIUM (BEAKER) (test knqp=046) 131 meq/L 136-145 CBC W/PLT COUNT & AUTO [id number] 07:43:00 Test Item Value Reference Range Comments WHITE BLOOD CELL COUNT (BEAKER) (test qilj=642) 10.1 K/ L 4.0-10.0 RED BLOOD CELL COUNT (BEAKER) (test qywa=228) 2.70 M/ L 4.00-5.00 HEMOGLOBIN (BEAKER) (test kgtb=594) 9.4 GM/DL 12.0-15.0 HEMATOCRIT (BEAKER) (test codn=371) 28.5 % 36.0-45.0 MEAN CORPUSCULAR VOLUME (BEAKER) (test ixsz=749) 106.0 fL 82.0-99.0 MEAN CORPUSCULAR HEMOGLOBIN (BEAKER) (test 34.8 pg 27.0-33.0 pwbi=990) MEAN CORPUSCULAR HEMOGLOBIN CONC (BEAKER) (test 32.9 GM/DL 32.0-36.0 rlwa=493) RED CELL DISTRIBUTION WIDTH (BEAKER) (test 16.2 % 10.3-14.2 irvi=742) PLATELET COUNT (BEAKER) (test cxwl=609) 119 K/CU MM 150-430 MEAN PLATELET VOLUME (BEAKER) (test gnbl=196) 10.3 fL 6.5-10.5 NUCLEATED RED BLOOD CELLS (BEAKER) (test 0 /100 WBC 0-0 inae=423) NEUTROPHILS RELATIVE PERCENT (BEAKER) (test 80 % lklb=643) LYMPHOCYTES RELATIVE PERCENT (BEAKER) (test 10 % rnmf=250) MONOCYTES RELATIVE PERCENT (BEAKER) (test 8 % rffo=914) EOSINOPHILS RELATIVE PERCENT (BEAKER) (test 2 % qxje=878) BASOPHILS RELATIVE PERCENT (BEAKER) (test 0 % mhib=171) NEUTROPHILS ABSOLUTE COUNT (BEAKER) (test 8.12 K/ L 1.80-8.00 zlwc=696) LYMPHOCYTES ABSOLUTE COUNT (BEAKER) (test 0.99 K/ L 1.48-4.50 duyc=671) MONOCYTES ABSOLUTE COUNT (BEAKER) (test 0.79 K/ L 0.00-1.30 brta=126) EOSINOPHILS ABSOLUTE COUNT (BEAKER) (test 0.17 K/ L 0.00-0.50 ozok=684) BASOPHILS ABSOLUTE COUNT (BEAKER) (test 0.03 K/ L 0.00-0.20 buwu=057) 0.000.500.000.000.000.000.000.000.000.560.000.000.580.000.000.000.000.000.000.00 0.000.000.000.000.000.000.00PHENYTOIN LEVEL, [id number] 06:13:00 Test Item Value Reference Range Comments PHENYTOIN (DILANTIN) (BEAKER) (test pueu=780) 17.0 ug/mL 10.0-20.0 [id number] 06:11:00 Test Item Value Reference Range Comments PHOSPHORUS (BEAKER) (test yrno=874) 1.5 mg/dL 2.3-4.7 BASIC METABOLIC [id number] 06:08:00 Test Item Value Reference Range Comments SODIUM (BEAKER) (test 131 meq/L 136-145 cobb=940) POTASSIUM (BEAKER) (test 3.6 meq/L 3.5-5.1 psjm=131) CHLORIDE (BEAKER) (test 102 meq/L 98-107 bbdc=835) CO2 (BEAKER) (test 21 meq/L 22- qiwq=100) BLOOD UREA NITROGEN 5 mg/dL 7-21 (BEAKER) (test xmzl=248) CREATININE (BEAKER) (test 0.53 mg/dL 0.57-1.25 dxmo=176) GLUCOSE RANDOM (BEAKER) 101 mg/dL 70-105 (test fnnb=995) CALCIUM (BEAKER) (test 7.4 mg/dL 8.4-10.2 ilxo=072) EGFR (BEAKER) (test 119 mL/min/1.73 sq m ESTIMATED GFR IS NOT xarl=1601) ACCURATE CREATININE CLEARANCE IN PREDICTING GLOMERULAR FILTRATION RATE. ESTIMATED GFR IS NOT APPLICABLE FOR DIALYSIS PATIENTS. [id number] 06:06:00 Test Item Value Reference Range Comments MAGNESIUM (BEAKER) (test rtij=904) 1.5 mg/dL 1.6-2.6 [id number] 01:01:00 Test Item Value Reference Range Comments SODIUM (BEAKER) (test ivnl=143) 135 meq/L 136-145 [id number] 22:06:00 Test Item Value Reference Range Comments MAGNESIUM (BEAKER) (test myvd=120) 2.3 mg/dL 1.6-2.6 [id number] 17:01:00 Test Item Value Reference Range Comments POTASSIUM (BEAKER) (test rnsi=384) 3.5 meq/L 3.5-5.1 [id number] 17:01:00 Test Item Value Reference Range Comments SODIUM (BEAKER) (test dmys=071) 133 meq/L 136-145 [id number] 13:28:00 Test Item Value Reference Range Comments CALCIUM (BEAKER) (test jnoz=517) 7.7 mg/dL 8.4-10.2 [id number] 13:27:00 Test Item Value Reference Range Comments POTASSIUM (BEAKER) (test sgsw=857) 3.8 meq/L 3.5-5.1 [id number] 13:27:00 Test Item Value Reference Range Comments MAGNESIUM (BEAKER) (test gdbx=188) 1.9 mg/dL 1.6-2.6 [id number] 13:27:00 Test Item Value Reference Range Comments PHOSPHORUS (BEAKER) (test tbxu=401) 3.3 mg/dL 2.3-4.7 [id number] 09:59:00 Test Item Value Reference Range Comments RPR SCREEN (BEAKER) (test lhne=415) Nonreactive Nonreactive TROPONIN [id number] 08:54:00 Test Item Value Reference Range Comments TROPONIN I (BEAKER) (test ssjd=138) 0.14 ng/mL 0.00-0.03 Effective 09/19/2014: Reference Range [...] renalfailure, acidosis, acute neurological disease, and persistent tachyarrhythmia.[id number] 08:45:00 Test Item Value Reference Range Comments SODIUM (BEAKER) (test gwox=222) 133 meq/L 136-145 (MANUAL DIFFERENTIAL)[id number] 07:10:00 Test Item Value Reference Range Comments NEUTROPHILS - REL (DIFF) (BEAKER) (test nltv=3904) 83 % LYMPHOCYTES - REL (DIFF) (BEAKER) (test znss=6410) 8 % MONOCYTES - REL (DIFF) (BEAKER) (test aqpd=8301) 7 % EOSINOPHILS - REL (DIFF) (BEAKER) (test ribd=1605) 1 % BANDS - REL (DIFF) (BEAKER) (test wjhx=3008) 1 % 0-10 NEUTROPHILS - ABS (DIFF) (BEAKER) (test vvas=6031) 9.46 K/ L 1.80-8.00 LYMPHOCYTES - ABS (DIFF) (BEAKER) (test lycq=4761) 0.91 K/ L 1.48-4.50 MONOCYTES - ABS (DIFF) (BEAKER) (test bsix=0158) 0.80 K/ L 0.00-1.30 EOSINOPHILS - ABS (DIFF) (BEAKER) (test yfbd=8841) 0.11 K/ L 0.00-0.50 BANDS-ABS (DIFF) (BEAKER) (test ssjj=7290) 0.1 K/ L 0.0-0.8 TOTAL COUNTED (BEAKER) (test lpak=6570) 100 BANDS + SEGMENTED NEUTROPHILS (BEAKER) (test 9.58 xauw=2811) WBC MORPHOLOGY (BEAKER) (test ikvt=089) Normal PLT MORPHOLOGY (BEAKER) (test tmvt=957) Normal POLYCHROMATOPHILLIC RBCS(BEAKER) (test cpoz=285) 1+ few BASIC METABOLIC [id number] 04:05:00 Test Item Value Reference Range Comments SODIUM (BEAKER) (test 133 meq/L 136-145 lerm=896) POTASSIUM (BEAKER) (test 3.9 meq/L 3.5-5.1 Specimen slightly eqjy=014) hemolyzed CHLORIDE (BEAKER) (test 105 meq/L 98-107 wbte=622) CO2 (BEAKER) (test 22 meq/L 22-29 vgod=643) BLOOD UREA NITROGEN 7 mg/dL 7-21 (BEAKER) (test rjtj=108) CREATININE (BEAKER) (test 0.60 mg/dL 0.57-1.25 Specimen slightly dixq=581) hemolyzed GLUCOSE RANDOM (BEAKER) 123 mg/dL 70-105 (test wovr=804) CALCIUM (BEAKER) (test 7.1 mg/dL 8.4-10.2 mcnh=897) EGFR (BEAKER) (test 103 mL/min/1.73 sq m ESTIMATED GFR IS NOT uuvu=0649) ACCURATE CREATININE CLEARANCE IN PREDICTING GLOMERULAR FILTRATION RATE. ESTIMATED GFR IS NOT APPLICABLE FOR DIALYSIS PATIENTS. [id number] 04:04:00 Test Item Value Reference Range Comments PHOSPHORUS (BEAKER) (test 1.2 mg/dL 2.3-4.7 Specimen slightly hemolyzed ayoc=611) PHENYTOIN LEVEL, [id number] 04:01:00 Test Item Value Reference Range Comments PHENYTOIN (DILANTIN) (BEAKER) (test bmse=010) 16.2 ug/mL 10.0-20.0 CBC W/PLT COUNT & AUTO [id number] 03:59:00 Test Item Value Reference Range Comments WHITE BLOOD CELL COUNT (BEAKER) (test euny=592) 11.4 K/ L 4.0-10.0 RED BLOOD CELL COUNT (BEAKER) (test bbpt=555) 2.62 M/ L 4.00-5.00 HEMOGLOBIN (BEAKER) (test prbb=154) 9.7 GM/DL 12.0-15.0 HEMATOCRIT (BEAKER) (test ibll=210) 28.0 % 36.0-45.0 MEAN CORPUSCULAR VOLUME (BEAKER) (test kkbg=947) 107.0 fL 82.0-99.0 MEAN CORPUSCULAR HEMOGLOBIN (BEAKER) (test 37.2 pg 27.0-33.0 hidd=573) MEAN CORPUSCULAR HEMOGLOBIN CONC (BEAKER) (test 34.7 GM/DL 32.0-36.0 lyjr=828) RED CELL DISTRIBUTION WIDTH (BEAKER) (test 15.2 % 10.3-14.2 lzge=024) PLATELET COUNT (BEAKER) (test dyhd=915) 200 K/CU MM 150-430 MEAN PLATELET VOLUME (BEAKER) (test ojpo=750) 9.6 fL 6.5-10.5 NUCLEATED RED BLOOD CELLS (BEAKER) (test 1 /100 WBC 0-0 dmvo=949) 0.000.570.000.00[id number] 03:53:00 Test Item Value Reference Range Comments MAGNESIUM (BEAKER) (test 1.5 mg/dL 1.6-2.6 Specimen slightly hemolyzed dglf=901) [id number] 00:28:00 Test Item Value Reference Range Comments SODIUM (BEAKER) (test pcob=903) 131 meq/L 136-145 CALCIUM, [id number] 00:20:00 Test Item Value Reference Range Comments CALCIUM IONIZED (BEAKER) (test bjzf=776) 1.02 mmol/L 1.12-1.27 PH, BLOOD (BEAKER) (test mxby=9818) 7.39 [id number] 20:37:00 Test Item Value Reference Range Comments POTASSIUM (BEAKER) (test rfnc=604) 3.9 meq/L 3.5-5.1 LACTIC ACID, VENOUS, WHOLE [id number] 18:17:00 Test Item Value Reference Range Comments LACTATE BLOOD VENOUS (2) (BEAKER) (test 1.7 mmol/L 0.5-2.2 yqel=8028) Effective 03/05/2016: Units/Reference Range ChangeNew: 0.5-2.2 mmol/L Previous: 5 -20 mg/[id number] 17:51:00 Test Item Value Reference Range Comments SODIUM (BEAKER) (test wuik=831) 130 meq/L 136-145 HEMOGLOBIN [id number] 13:43:00 Test Item Value Reference Range Comments HEMOGLOBIN A1C (BEAKER) (test fcpx=475) 6.2 % 4.3-6.1 TSH/FREE T4 IF [id number] 12:59:00 Test Item Value Reference Range Comments THYROID STIMULATING HORMONE (BEAKER) (test 1.99 uIU/mL 0.35-4.94 huoy=164) VITAMIN B12 AND [id number] 12:59:00 Test Item Value Reference Range Comments VITAMIN B12 (BEAKER) (test zjfj=871) 443 pg/mL 213-816 FOLATE (BEAKER) (test crni=299) 4.2 ng/mL >=7.0 Effective 09/19/2014: Folate Reference Range ChangeNew: >=7.0 Previous: & gt;=5.4URINALYSIS W/ [id number] 12:28:00 Test Item Value Reference Range Comments COLOR (BEAKER) (test inva=305) Light Yellow CLARITY (BEAKER) (test obpp=379) Clear SPECIFIC GRAVITY UA (BEAKER) (test lcrz=192) 1.008 1.001-1.035 PH UA (BEAKER) (test renh=589) 6.5 5.0-8.0 PROTEIN UA (BEAKER) (test iehd=309) 20 mg/dL Negative GLUCOSE UA (BEAKER) (test htyr=013) 100 mg/dL Negative KETONES UA (BEAKER) (test zmsi=071) Negative Negative BILIRUBIN UA (BEAKER) (test uvdk=311) Negative Negative BLOOD UA (BEAKER) (test qoct=814) Moderate Negative NITRITE UA (BEAKER) (test hyat=814) Negative Negative LEUKOCYTE ESTERASE UA (BEAKER) (test figg=605) Negative Negative UROBILINOGEN UA (BEAKER) (test jqeq=386) 0.2 mg/dL 0.2-1.0 RBC UA (BEAKER) (test otty=881) 1 /HPF WBC UA (BEAKER) (test vqrl=064) 2 /HPF BACTERIA (BEAKER) (test hbab=804) Moderate SOURCE(BEAKER) (test fkva=4892) Urine, [place] BASIC METABOLIC [id number] 12:02:00 Test Item Value Reference Range Comments SODIUM (BEAKER) (test 127 meq/L 136-145 nfbc=007) POTASSIUM (BEAKER) (test 2.9 meq/L 3.5-5.1 nuvm=779) CHLORIDE (BEAKER) (test 91 meq/L 98-107 sbcm=971) CO2 (BEAKER) (test 24 meq/L 22-29 nbgd=826) BLOOD UREA NITROGEN 13 mg/dL 7-21 (BEAKER) (test tcgj=042) CREATININE (BEAKER) (test 0.78 mg/dL 0.57-1.25 sdzy=485) GLUCOSE RANDOM (BEAKER) 181 mg/dL 70-105 (test niqg=285) CALCIUM (BEAKER) (test 7.4 mg/dL 8.4-10.2 awvg=668) EGFR (BEAKER) (test 76 mL/min/1.73 sq m ESTIMATED GFR IS NOT uimm=0422) ACCURATE CREATININE CLEARANCE IN PREDICTING GLOMERULAR FILTRATION RATE. ESTIMATED GFR IS NOT APPLICABLE FOR DIALYSIS PATIENTS. CBC W/PLT COUNT & AUTO [id number] 11:46:00 Test Item Value Reference Range Comments WHITE BLOOD CELL COUNT (BEAKER) (test uafg=216) 13.7 K/ L 4.0-10.0 RED BLOOD CELL COUNT (BEAKER) (test motd=840) 3.34 M/ L 4.00-5.00 HEMOGLOBIN (BEAKER) (test ottz=655) 11.9 GM/DL 12.0-15.0 HEMATOCRIT (BEAKER) (test eukh=644) 33.9 % 36.0-45.0 MEAN CORPUSCULAR VOLUME (BEAKER) (test eote=577) 102.0 fL 82.0-99.0 MEAN CORPUSCULAR HEMOGLOBIN (BEAKER) (test 35.7 pg 27.0-33.0 jevk=112) MEAN CORPUSCULAR HEMOGLOBIN CONC (BEAKER) (test 35.1 GM/DL 32.0-36.0 mzga=125) RED CELL DISTRIBUTION WIDTH (BEAKER) (test 15.6 % 10.3-14.2 regp=280) PLATELET COUNT (BEAKER) (test wggi=429) 150 K/CU MM 150-430 MEAN PLATELET VOLUME (BEAKER) (test tptd=421) 8.8 fL 6.5-10.5 NUCLEATED RED BLOOD CELLS (BEAKER) (test 0 /100 WBC 0-0 esdl=041) NEUTROPHILS RELATIVE PERCENT (BEAKER) (test 80 % zmuc=539) LYMPHOCYTES RELATIVE PERCENT (BEAKER) (test 13 % ugoe=312) MONOCYTES RELATIVE PERCENT (BEAKER) (test 7 % wset=238) EOSINOPHILS RELATIVE PERCENT (BEAKER) (test 0 % ljox=257) BASOPHILS RELATIVE PERCENT (BEAKER) (test 0 % ehpd=187) NEUTROPHILS ABSOLUTE COUNT (BEAKER) (test 11.00 K/ L 1.80-8.00 nnmk=616) LYMPHOCYTES ABSOLUTE COUNT (BEAKER) (test 1.73 K/ L 1.48-4.50 bvya=956) MONOCYTES ABSOLUTE COUNT (BEAKER) (test 0.90 K/ L 0.00-1.30 fxia=193) EOSINOPHILS ABSOLUTE COUNT (BEAKER) (test 0.04 K/ L 0.00-0.50 iydi=598) BASOPHILS ABSOLUTE COUNT (BEAKER) (test 0.05 K/ L 0.00-0.20 xgwg=662) 0.00PHENYTOIN LEVEL, [id number] 11:46:00 Test Item Value Reference Range Comments PHENYTOIN (DILANTIN) (BEAKER) (test cnah=846) 16.6 ug/mL 10.0-20.0 [id number] 11:40:00 Test Item Value Reference Range Comments PHOSPHORUS (BEAKER) (test keit=092) 2.7 mg/dL 2.3-4.7 [id number] 11:40:00 Test Item Value Reference Range Comments MAGNESIUM (BEAKER) (test divt=360) 2.0 mg/dL 1.6-2.6 LIPID [id number] 11:40:00 Test Item Value Reference Range Comments TRIGLYCERIDES (BEAKER) (test vfey=195) 77 mg/dL CHOLESTEROL (BEAKER) (test elgz=312) 170 mg/dL HDL CHOLESTEROL ([place]ock[place]) (test mshn=068) 74 mg/dL LDL CHOLESTEROL CALCULATED (Spockly) (test 81 mg/dL aixx=411) Triglyceride Reference Range: Low Risk <150 Borderline 150- 199 High Risk 200-499 Very High Risk >=500Cholesterol Reference Range: Low Risk <200 Borderline 200-239 High Risk > 240HDL Cholesterol Reference Range: Low Risk >=60 High Risk <40LDL Cholesterol Reference Range: Optimal <100 Near Optimal 100-129 Borderline 130-159 High 160-189 Very High >=190
[2018-03-19] MEDS ORDERED: LORazepam 2 MG/ML VIAL IV PRN (16:56)
[2018-03-19] MEDS ORDERED: ONDANSETRON 4 MG/2 ML VIAL IV PRN (16:57)
[2018-03-19] MEDS ORDERED: HALOPERIDOL LACT 5 MG/ML INJ IV PRN (16:58)
[2018-03-19] MEDS: SCOPOLAMINE HYDROBROMIDE PATCH TD SCH (18:39)
[2018-03-20] MEDS: Morphine 2 MG/2 ML SYR IV PRN (11:08)
[2018-03-22] MEDS: SCOPOLAMINE HYDROBROMIDE PATCH TD SCH (09:00)
[2018-03-22] MEDS: Morphine 2 MG/2 ML SYR IV PRN ×2 (17:33→21:55)
[2018-03-22 22:49] VITALS: O2SAT 88
[2018-03-23] MEDS: Morphine 2 MG/2 ML SYR IV PRN (09:28)
[2018-03-23 10:06] VITALS: BP 126/77; TEMP 97
--- NOTE | 2018-04-15 13:07 | P.DS ---
Admission Date: 03/19/18 Discharge Date: 04/15/18 Disposition: HOSPICE-MEDICAL FACILITY - Problems (1) Hospice care Status: Acute Brief History of Present Illness: SEE HPI Hospital Course: Please refer the Discharge Summary from previous admission. Pt was kept on inpatient hospice with [facility] for 5 days and then transferred to the [facility] for further care. Vital Signs/Physical Exam: Temp Pulse Resp BP Pulse Ox 97.0 F 101 H 16 126/77 89 L 03/23/18 08:00 03/23/18 08:00 03/23/18 08:00 03/23/18 08:00 03/23/18 08:00 General: Alert, In no apparent distress HEENT: Atraumatic, PERRLA, EOMI Neck: Supple, JVD not distended Respiratory: Clear to auscultation bilaterally, Normal air movement Cardiovascular: Regular rate/rhythm, Normal S1 S2 Gastrointestinal: Normal bowel sounds, No tenderness Musculoskeletal: No tenderness Integumentary: No rashes Neurological: Normal speech, Normal tone, Normal affect Lymphatics: No axilla or inguinal lymphadenopathy Home Medications: Metoprolol Tartrate [Lopressor*] 100 mg PO BID 07/26/15 clonazePAM [Klonopin*] 2 mg PO TID PRN 07/26/15 Lisinopril 10 mg PO DAILY 03/15/18 Magnesium Oxide [Magnesium] 400 mg PO DAILY 03/15/18
== END 2018-03-23 13:20 | disposition hospice, inpatient (51) | DRG 951 ==
LOC: 2ND 15:40
PROVIDERS: ADMIT Family Medicine; ATTEND Family Medicine
DX: Z51.5 Encounter for palliative care (principal); K85.90 Acute pancreatitis without necrosis or infection, unspecified; B17.9 Acute viral hepatitis, unspecified; K76.0 Fatty (change of) liver, not elsewhere classified; I10 Essential (primary) hypertension; G40.909 Epilepsy, unspecified, not intractable, without status epilepticus; F17.210 Nicotine dependence, cigarettes, uncomplicated; Z89.512 Acquired absence of left leg below knee
CPT/HCPCS: J2270